=== PATIENT | male | born 1960 | race Caucasian/White ===

== ENCOUNTER 2017-10-14 03:23 | Emergency (ER) | payer OTHER, SELFPAY ==
[2017-10-14] MEDS ORDERED: NA CHLORIDE 0.9% 3,000 ML ONE (03:59)
[2017-10-14] MEDS ORDERED: VANCOMYCIN 1 GM/250 ML BAG ONE (04:00)
[2017-10-14] MEDS ORDERED: ACETAMINOPHEN 500 MG TAB ONE (04:00)
[2017-10-14] MEDS ORDERED: PIPER/TAZO/NS 3.375gm 3.375 GM/100 ML BAG ONE (04:00)
[2017-10-14 04:23] LABS: Protime INR 1.42
[2017-10-14 04:25] LABS: Absolute Monocytes 1.7 K/uL (0.1-1.3); Basophils % 1.1 % (0-1.3); Eosinophils % 5.7 % (0-4.4); Hematocrit 35.5 % (39.6-49.0); Lymphocytes % 19.2 % (15.3-44.8); MCH 31.4 pg (27.0-35.0); MCV 90.3 fL (80-100); MPV 7.7 fL (7.6-11.3); Monocytes % 10.9 % (3.3-12.3); RBC Red Blood Cell Count 3.93 M/uL (4.33-5.43)
[2017-10-14 04:50] LABS: Albumin 2.8 g/dL (3.4-5.0); Bilirubin Direct 0.2 mg/dL (0-0.2); Bilirubin Total 0.6 mg/dL (0.2-1.0); Protein, Total 7.5 g/dL (6.4-8.2)
--- NOTE | 2017-10-14 09:20 | ER ---
Nurse's Notes [facility] Name: Henry Elliott Age: 56 yrs Sex: Male : 1960 Arrival Date: 10/14/2017 Time: 03:25 Bed 6 Private MD: Diagnosis: Incisional hernia without obstruction or gangrene;Complications due to implanted mesh and other prosthetic materials-infected hematoma;Fever, unspecified;Elevated white blood cell count Presentation: 10/14 03:30 Presenting complaint: EMS states: HE'S HAD A FEVER FOR TWO DAYS AND HE HAD HERNIA bp SURGERY TWO WEEKS AGO. Transition of care: patient was not received from another setting of care. Onset of symptoms is unknown. Risk Assessment: Do you want to hurt yourself or someone else? Patient reports no desire to harm self or others. Initial Sepsis Screen: Does the patient meet any 2 criteria? Temp <36.0*C (96.8*F)) or > 38.3*C (100.4*F). No. Patient's initial sepsis screen is negative. Does the patient have a suspected source of infection? No. Patient's initial sepsis screen is negative. Care prior to arrival: None. 03:30 Method Of Arrival: EMS: [facility] bp 03:30 Acuity: TOMMY 3 bp Triage Assessment: 03:35 General: Appears in no apparent distress. comfortable, obese, Behavior is calm, bp cooperative, appropriate for age. Pain: Complains of pain in pelvis. EENT: No deficits noted. Neuro: Level of Consciousness is awake, alert, obeys commands, Oriented to person, place, time, situation. Respiratory: Airway is patent Respiratory effort is even, unlabored, Respiratory pattern is regular, symmetrical. GI: No signs and/or symptoms were reported involving the gastrointestinal system. : No signs and/or symptoms were reported regarding the genitourinary system. Derm: Wound noted pelvis. Historical: - Allergies: 03:35 No Known Allergies; bp - Home Meds: 03:35 None [Active]; bp - PMHx: 03:35 None; bp - PSHx: 03:35 Hernia repair; bp - Immunization history:: Adult Immunizations up to date. - Social history:: Smoking status: Patient uses tobacco products, denies chronic smoking, but will smoke occasionally. - Ebola Screening: : Patient negative for fever greater than or equal to 101.5 degrees Fahrenheit, and additional compatible Ebola Virus Disease symptoms Patient denies exposure to infectious person Patient denies travel to an Ebola-affected area in the 21 days before illness onset. - Family history:: not pertinent. - Hospitalizations: : No recent hospitalization is reported. Screenin:43 Abuse screen: Denies threats or abuse. Denies injuries from another. Nutritional bp screening: No deficits noted. Tuberculosis screening: No symptoms or risk factors identified. Fall Risk None identified. Assessment: 03:45 General: Appears in no apparent distress. comfortable, obese, Behavior is calm, bp cooperative, appropriate for age. Pain: Complains of pain in pelvis. Neuro: Level of Consciousness is awake, alert, obeys commands, Oriented to person, place, time, situation, Appropriate for age. Cardiovascular: Rhythm is sinus rhythm. Respiratory: Airway is patent Respiratory effort is even, unlabored, Respiratory pattern is regular, symmetrical. GI: No signs and/or symptoms were reported involving the gastrointestinal system. : No signs and/or symptoms were reported regarding the genitourinary system. EENT: No deficits noted. Derm: Skin is intact, Wound noted pelvis. Musculoskeletal: Circulation, motion, and sensation intact. Range of motion: intact in all extremities. 05:19 Reassessment: PT TO CT WITH BANK EXAMINER. bp 07:14 General: Appears in no apparent distress. comfortable, Behavior is calm, cooperative, jl7 appropriate for age. Pain: Denies pain. Neuro: Level of Consciousness is awake, alert, obeys commands, Oriented to person, place, time, situation. Cardiovascular: Patient's skin is warm and dry. Respiratory: Airway is patent Respiratory effort is even, unlabored, Respiratory pattern is regular, symmetrical. Derm: Skin is pink, warm \T\ dry. 08:15 Reassessment: No changes from previously documented assessment. Patient and/or family jl7 updated on plan of care and expected duration. Pain level reassessed. Patient is alert, oriented x 3, equal unlabored respirations, skin warm/dry/pink. 09:15 Reassessment: Patient and/or family updated on plan of care and expected duration. Pain jl7 level reassessed. Patient is alert, oriented x 3, equal unlabored respirations, skin warm/dry/pink. Vital Signs: 03:35 BP 121 / 81; Pulse 100; Resp 14; Temp 100.7; Pulse Ox 97% ; Weight 83.91 kg; Height 5 bp ft. 5 in. (165.10 cm); 04:34 BP 133 / 83; Pulse 84; Resp 14; Pulse Ox 98% ; bp 05:15 BP 126 / 74; Pulse 84; Resp 16; Pulse Ox 99% ; bp 07:10 BP 134 / 64; Pulse 80; Resp 18 S; Temp 98.8(O); Pulse Ox 100% on R/A; Pain 0/10; jl7 09:30 BP 131 / 68; Pulse 80; Resp 16; Pulse Ox 100% on R/A; jl7 03:35 Body Mass Index 30.79 (83.91 kg, 165.10 cm) bp ED Course: 03:25 Patient arrived in ED. ds1 03:30 Stewart Mustafa, RN is Primary Nurse. bp 03:33 Triage completed. bp 03:37 Joaquin Johnson MD is Attending Physician. wa 03:43 Arm band placed on. bp 03:43 Patient has correct armband on for positive identification. Bed in low position. Call bp light in reach. Side rails up X2. 04:19 Missed attempt(s): 20 gauge Bleeding controlled, band aid applied, catheter tip intact. oe 04:20 Inserted saline lock: 20 gauge in right forearm, using aseptic technique. ea 04:29 Radiology exam delayed due to IV insertion attempt and/or patient not having mh1 appropriate IV at this time. 04:32 Radiology exam delayed due to lab results not completed at this time. (BUN/Creatinine). kw1 05:[address] via wheelchair. kw1 05:14 X-ray completed. Portable x-ray completed in exam room. Patient tolerated procedure mh1 well. 05:31 CT completed. Patient tolerated procedure well. Patient moved back from CT. kw1 07:10 Primary Nurse role handed off by Stewart Mustafa RN jl7 07:10 Doe Bradford RN is Primary Nurse. jl7 07:10 called and left message the [facility] in [place] to get a hold of a Dr. christiane Rivero at [phone] for the ED doctor. 07:28 Attending Physician role handed off by Joaquin Johnson MD marcy 07:28 Donta Crespo MD is Attending Physician. marcy 07:42 Wound care: to surgical incision located on left inguinal area was cleaned with with jl7 NS, dressed with non-stick gauze, Patient tolerated well. 08:07 Patient taken to ultrasound. neto 09:03 Ultrasound completed. Patient tolerated well. Patient moved back from ultrasound. neto 09:25 US Scrotum Testicles In Process Unspecified. EDMS 09:27 Chest Single View XRAY In Process Unspecified. EDMS 09:34 CT Abd/Pelvis - W/Contrast In Process Unspecified. EDMS 09:51 No provider procedures requiring assistance completed. Patient transferred, IV remains jl7 in place. intact, No redness/swelling at site. Administered Medications: 04:20 Drug: Tylenol 1000 mg Route: PO; ea 04:43 Follow up: Response: No adverse reaction bp 04:20 Drug: Zosyn 3.375 grams Route: IVPB; Infused Over: 60 mins; Site: right forearm; ea 05:20 Follow up: Response: No adverse reaction; IV Status: Completed infusion jl7 04:28 Drug: NS 0.9% (30 ml/kg) 30 ml/kg Route: IV; Rate: bolus; Site: right forearm; ea 07:00 Follow up: IV Status: Completed infusion jl7 05:58 Drug: vancoMYCIN 1 grams Route: IVPB; Infused Over: 2 hrs; Site: right antecubital; bp 07:58 Follow up: Response: No adverse reaction; IV Status: Completed infusion jl7 Point of Care Testing: Blood Glucose: 04:20 Blood Glucose: 118 mg/dL; bp Ranges: Outcome: 07:49 ER care complete, transfer ordered by . marcy 09:51 Transferred by ground EMS to [facility], Transfer form jl7 completed. X-rays sent w/ patient. 09:51 Condition: stable 09:51 Discharge instructions given to patient, Instructed on the need for transfer, Demonstrated understanding of instructions. 09:52 Patient left the ED. jl7 Signatures: Dispatcher [employer] Donta Goodman MD MD cha Harvey, Martha 1 Mary Goel ds1 Blayne Benson jd, Orlando oe Leal, Jahala, RN RN jl7 Sara Ramos RN RN Joaquin Johnson MD MD wa Peltier, Brian RN RN Orly Zamora1 Mendy Cody Corrections: (The following items were deleted from the chart) 08:08 07:10 Adult Protective Services called and left message the [facility] in [facility] to get a hold of a Dr. Andreas Rivero at [phone] for the ED doctor.
--- NOTE | 2017-10-14 09:20 | EDPHYS ---
Physician Documentation [facility] Name: Henry Elliott Age: 56 yrs Sex: Male : 1960 Arrival Date: 10/14/2017 Time: 03:25 Bed 6 Private MD: ED Physician Donta Crespo HPI: 10/14 03:52 This 56 yrs old Male presents to ER via EMS with complaints of Fever. wa 03:52 The patient reports fever, that was measured at 103 degrees Fahrenheit. Onset: The wa symptoms/episode began/occurred 2 day(s) ago. Modifying factors: Recent medications: acetaminophen, Denies contact with similarly ill indivduals. Denies recent travel. Interventions used to treat fever include tylenol. Associated signs and symptoms: Pertinent positives: L side groin mass with pain. s/p L inguinal hernia repair 3 weeks ago. Severity of symptoms: At their worst the symptoms were moderate in the emergency department the symptoms have improved. The patient has not experienced similar symptoms in the past. The patient has been recently seen by a physician: on abx prescribed by Dr. Rivero, his general surgeon. pt denies cough, chest pain, dizziness, URENA, SOB, or abd pain. also denies dysuria. s/p L inguinal hernia repair 3 weeks ago. area still with significant swelling. painful and draining. Historical: - Allergies: 03:35 No Known Allergies; bp - Home Meds: 03:35 None [Active]; bp - PMHx: 03:35 None; bp - PSHx: 03:35 Hernia repair; bp - Immunization history:: Adult Immunizations up to date. - Social history:: Smoking status: Patient uses tobacco products, denies chronic smoking, but will smoke occasionally. - Ebola Screening: : Patient negative for fever greater than or equal to 101.5 degrees Fahrenheit, and additional compatible Ebola Virus Disease symptoms Patient denies exposure to infectious person Patient denies travel to an Ebola-affected area in the 21 days before illness onset. - Family history:: not pertinent. - Hospitalizations: : No recent hospitalization is reported. ROS: 03:59 Eyes: Negative for injury, pain, redness, and discharge, ENT: Negative for injury, wa pain, and discharge, Neck: Negative for injury, pain, and swelling, Cardiovascular: Negative for chest pain, palpitations, and edema, Respiratory: Negative for shortness of breath, cough, wheezing, and pleuritic chest pain, Abdomen/GI: Negative for abdominal pain, nausea, vomiting, diarrhea, and constipation, Back: Negative for injury and pain, MS/Extremity: Negative for injury and deformity, Skin: Negative for injury, rash, and discoloration, Neuro: Negative for headache, weakness, numbness, tingling, and seizure. 03:59 Constitutional: Positive for chills, fever, Negative for body aches, poor PO intake, weight loss. 03:59 : Positive for large L side inguinal hernia noted. open surgical wound noted at the top. serosanguinous drainage noted. hard, tender to palpation. warm to touch. 03:59 All other systems are negative. Exam: 04:01 Head/Face: Normocephalic, atraumatic. Eyes: Pupils equal round and reactive to light, wa extra-ocular motions intact. Lids and lashes normal. Conjunctiva and sclera are non-icteric and not injected. Cornea within normal limits. Periorbital areas with no swelling, redness, or edema. ENT: Nares patent. No nasal discharge, no septal abnormalities noted. Tympanic membranes are normal and external auditory canals are clear. Oropharynx with no redness, swelling, or masses, exudates, or evidence of obstruction, uvula midline. Mucous membranes moist. Neck: Trachea midline, no thyromegaly or masses palpated, and no cervical lymphadenopathy. Supple, full range of motion without nuchal rigidity, or vertebral point tenderness. No Meningismus. Chest/axilla: Normal chest wall appearance and motion. Nontender with no deformity. No lesions are appreciated. Cardiovascular: Regular rate and rhythm with a normal S1 and S2. No gallops, murmurs, or rubs. Normal PMI, no JVD. No pulse deficits. Respiratory: Lungs have equal breath sounds bilaterally, clear to auscultation and percussion. No rales, rhonchi or wheezes noted. No increased work of breathing, no retractions or nasal flaring. Abdomen/GI: Soft, non-tender, with normal bowel sounds. No distension or tympany. No guarding or rebound. No evidence of tenderness throughout. Back: No spinal tenderness. No costovertebral tenderness. Full range of motion. Skin: Warm, dry with normal turgor. Normal color with no rashes, no lesions, and no evidence of cellulitis. MS/ Extremity: Pulses equal, no cyanosis. Neurovascular intact. Full, normal range of motion. Neuro: Awake and alert, GCS 15, oriented to person, place, time, and situation. Cranial nerves II-XII grossly intact. Motor strength 5/5 in all extremities. Sensory grossly intact. Cerebellar exam normal. Normal gait. Psych: Awake, alert, with orientation to person, place and time. Behavior, mood, and affect are within normal limits. 04:01 Constitutional: The patient appears in no acute distress, alert, febrile. 04:01 : CVA tenderness, is absent, Male external genitalia: swelling, tenderness, is palpated in the left inguinal area, large L groin mass, tender to palpation. draining wound noted. Vital Signs: 03:35 BP 121 / 81; Pulse 100; Resp 14; Temp 100.7; Pulse Ox 97% ; Weight 83.91 kg; Height 5 bp ft. 5 in. (165.10 cm); 04:34 BP 133 / 83; Pulse 84; Resp 14; Pulse Ox 98% ; bp 05:15 BP 126 / 74; Pulse 84; Resp 16; Pulse Ox 99% ; bp 07:10 BP 134 / 64; Pulse 80; Resp 18 S; Temp 98.8(O); Pulse Ox 100% on R/A; Pain 0/10; jl7 09:30 BP 131 / 68; Pulse 80; Resp 16; Pulse Ox 100% on R/A; jl7 03:35 Body Mass Index 30.79 (83.91 kg, 165.10 cm) bp MDM: 03:37 Patient medically screened. md 04:03 Differential diagnosis: r/o sepsis. suspect post surgical complication with possibly md acute L inguinal abscess formation. will follow sepsis protocol resuscitative measures. will consult pt's surgeon. 06:28 Data reviewed: vital signs, nurses notes, lab test result(s). Test interpretation: by md ED physician or midlevel provider: wbc 15.9. elevated CRP at 150. elevated SED rate at 43. 10/14 03:48 Order name: Urine Microscopic Only 10/14 03:48 Order name: Basic Metabolic Panel 10/14 03:48 Order name: Blood Culture Adult (2) 10/14 03:48 Order name: C-Reactive Protein; Complete Time: :15 md 10/14 03:48 Order name: CBC with Diff; Complete Time: 06:15 md 10/14 03:48 Order name: Lactate; Complete Time: 06:16 md 10/14 03:48 Order name: LFT's; Complete Time: 06:15 md 10/14 03:48 Order name: Lipase; Complete Time: 06:16 md 10/14 03:48 Order name: Procalcitonin md 10/14 03:48 Order name: Protime (+inr); Complete Time: 06:15 md 10/14 03:48 Order name: Sed Rate; Complete Time: 06:15 md 10/14 03:48 Order name: Urine Microscopic Only [facility] 10/14 03:48 Order name: Basic Metabolic Panel; Complete Time: 06:15 [facility] 10/14 06:32 Order name: Urine Dipstick--Ancillary (enter results) 10/14 03:48 Order name: Chest Single View XRAY md 10/14 03:48 Order name: Accucheck; Complete Time: 04:20 md 10/14 03:48 Order name: Cardiac monitoring; Complete Time: 04:20 md 10/14 03:48 Order name: EKG - Nurse/Tech; Complete Time: 04:20 md 10/14 03:48 Order name: IV Saline Lock - Large Bore; Complete Time: 04:20 md 10/14 03:48 Order name: Labs collected and sent; Complete Time: 04:21 md 10/14 03:48 Order name: O2 Per Protocol; Complete Time: 04:21 md 10/14 04:21 Order name: CT Abd/Pelvis - W/Contrast md 10/14 07:07 Order name: US Scrotum Testicles md 10/14 09:40 Order name: EKG Electrocardiogram [facility] 10/14 03:48 Order name: O2 Sat Monitoring; Complete Time: 04:20 md 10/14 03:48 Order name: Urine Dipstick-Ancillary (obtain specimen); Complete Time: 07:57 md 10/14 07:53 Order name: NPO; Complete Time: 07:57 marcy Administered Medications: 04:20 Drug: Tylenol 1000 mg Route: PO; ea 04:43 Follow up: Response: No adverse reaction bp 04:20 Drug: Zosyn 3.375 grams Route: IVPB; Infused Over: 60 mins; Site: right forearm; ea 05:20 Follow up: Response: No adverse reaction; IV Status: Completed infusion jl7 04:28 Drug: NS 0.9% (30 ml/kg) 30 ml/kg Route: IV; Rate: bolus; Site: right forearm; ea 07:00 Follow up: IV Status: Completed infusion jl7 05:58 Drug: vancoMYCIN 1 grams Route: IVPB; Infused Over: 2 hrs; Site: right antecubital; bp 07:58 Follow up: Response: No adverse reaction; IV Status: Completed infusion jl7 Point of Care Testing: Blood Glucose: 04:20 Blood Glucose: 118 mg/dL; bp Ranges: Critical Glucose Levels:Adult <50 mg/dl or >400 mg/dl <40 mg/dl or >180 mg/dl Disposition: 10/14/17 07:49 Transfer ordered to [facility]. Diagnosis are Incisional hernia without obstruction or gangrene, Complications due to implanted mesh and other prosthetic materials - infected hematoma, Fever, unspecified, Elevated white blood cell count. - Reason for transfer: Higher level of care. - Accepting physician is to [facility]. - Condition is Stable. - Problem is new. - Symptoms have improved. Signatures: Dispatcher [employer] EDRI Donta Crespo MD MD cha Leal, Jahala, RN RN jl7 Sara Ramos, Joaquin Chase RN, ea, MD MD wa Peltier, Brian, RN RN Mendy Farooq Corrections: (The following items were deleted from the chart) 04:27 03:51 Pelvis W/Cont+CT.RAD.BRZ ordered. [facility] EDMS 07:57 07:49 10/14/2017 07:49 Transfer ordered to [facility]. Diagnosis is Incisional eb hernia without obstruction or gangrene; Complications due to implanted mesh and other prosthetic materials; Fever, unspecified; Elevated white blood cell count. Reason for transfer: Higher level of care. Accepting physician is to [facility]. Condition is Stable. Problem is new. Symptoms have improved. marcy 09:22 07:07 Pelvis Complete+US.RAD.BRZ ordered. [facility] EDRI 09:46 07:57 10/14/2017 07:49 Transfer ordered to [facility]. Diagnosis is Incisional marcy hernia without obstruction or gangrene; Complications due to implanted mesh and other prosthetic materials; Fever, unspecified; Elevated white blood cell count. Reason for transfer: Higher level of care. Accepting physician is to [facility]. Condition is Stable. Problem is new. Symptoms have improved. eb 09:52 09:46 10/14/2017 07:49 Transfer ordered to [facility]. Diagnosis is Incisional jl7 hernia without obstruction or gangrene; Complications due to implanted mesh and other prosthetic materials - infected hematoma; Fever, unspecified; Elevated white blood cell count. Reason for transfer: Higher level of care. Accepting physician is to [facility]. Condition is Stable. Problem is new. Symptoms have improved. marcy
--- NOTE | 2017-10-14 09:47 | RAD REPORT ---
EXAM DESCRIPTION: RAD - Chest Single View - 10/14/2017 9:26 am CLINICAL HISTORY: Fever, recent hernia surgery COMPARISON: None. TECHNIQUE: AP portable chest image was obtained 0511 hours . FINDINGS: Lungs are clear. Heart and vasculature are normal. No measurable pleural effusion and no p neumothorax. No gross bony abnormality seen. No acute aortic findings suspected. IMPRESSION: No acute cardiopulmonary process.
--- NOTE | 2017-10-14 09:58 | RAD REPORT ---
EXAM DESCRIPTION: CT - Abdomen Pelvis W Contrast - 10/14/2017 9:34 am CLINICAL HISTORY: Groin pain, scrotal pain, history of hernia surgery with reported postoperative he matoma, pain and fever Reporting was delayed due to technical issues with the PACs and [employer] systems. COMPARISON: CT study March 2015 TECHNIQUE: Biphasic, helical CT imaging of the abdomen and pelvis was performed following 100 ml non -ionic IV contrast. Delayed images were obtained to fully image the groin and scrotum. No oral contra st administered. All CT scans are performed using dose optimization technique as appropriate and may include automated exposure control or mA/KV adjustment according to patient size. FINDINGS: No suspicious findings in the lung bases. No pericardial thickening or effusion. Liver is prominent in size. No capsular nodularity. Left lobe is prominent but caudate is normal or s mall in size. No focal liver lesion identifiable. Spleen and pancreas are unremarkable. Gallbladder i s contracted. Gallstones can be occult. No biliary tree dilatation. Symmetric renal function is seen with no hydronephrosis or suspicious renal mass. No pyelonephritis o r acute renal parenchymal process. No urinary bladder abnormality. No dilated bowel loops or bowel wall thickening. No acute GI process. No intraperitoneal free air, pn eumatosis or free fluid. No bulky lymphadenopathy. No adrenal abnormality. No suspicious bony findings. In the left inguinal canal and extending into the scrotum there is a large heterogeneous mass complex measuring 10 x 6 x 8 cm. This has numerous areas of central decreased echogenicity with thickened in termediate density rind. There is congestion and stranding in the the soft tissues. The left testicle is poorly defined in this setting. Left testicle was evaluated on a separate ultrasound study with n o suspicious finding. Right testicle unremarkable at CT imaging. No intraperitoneal extension. Most l ikely etiology is a large hematoma that has been secondarily infected. Abscess material and liquefied hematoma have a similar attenuation. IMPRESSION: Large 10 x 8 x 6 cm heterogeneous mass filling the left scrotum and left inguinal canal. No intraperitoneal extension. Secondarily infected hematoma is the most likely etiology. Abscess without hematoma is possible. The remainder of the CT abdomen and pelvis examination, detailed above, is without significant or ayush picious finding.
--- NOTE | 2017-10-14 10:03 | RAD REPORT ---
EXAM DESCRIPTION: US - Scrotum Testicles - 10/14/2017 9:34 am CLINICAL HISTORY: Left-side groin and scrotal mass, recent hernia surgery COMPARISON: CT imaging same date FINDINGS: Normal right testicle with normal blood flow on Doppler evaluation. Minimal amount of free fluid not regarded as significant. Left testicle shows a normal Doppler blood flow pattern. No intra testicular mass. There is a small left hydrocele as well. Overall scrotal wall thickening and edema noted. Superior to the testicle there is prominent vasculat ure as well as a large heterogeneous mass 6-8 cm in size. When viewed in correlation with the CT stud y, large hematoma with secondary infection is suspected. IMPRESSION: Large groin and superior scrotal mass on the left believed to be a large hematoma with s econdary infection. Normal blood flow within the left testicle. Right testicle unremarkable as well. Small bilateral hydroceles.
[2017-10-14 12:07] LABS: Urine Blood TRACE (NEG); Urine Glucose NEGATIVE (NEG); Urine Protein 1+ (NEG)
--- NOTE | 2017-10-14 12:52 | EKG ---
Test Date: 2017-10-14 Test Time: 04:23:17 [employer]ux Plant Operator: BP MEASUREMENT RESULTS: Intervals: Rate: 91 MT: 150 QRSD: 102 QT: 356 QTc: 437 Ephraim: P: 54 MT: 150 QRS: 51 T: 63 INTERPRETIVE STATEMENTS: Sinus rhythm with premature atrial complexes Incomplete right bundle branch block Borderline ECG Compared to ECG 05/22/2012 20:01:22 Atrial premature complex(es) now present Incomplete right bundle-branch block now present Electronically Signed On 10-14-17 12:51:09 CDT by Murray Dawn
[2017-10-14 13:35] LABS: Urine Bacteria <20 /HPF (NONE SEEN); Urine RBC NONE SEEN /HPF (NONE SEEN)
[2017-10-14 13:36] LABS: Urine Culture Reflex Order REFLEXED
== END 2017-10-14 09:52 | disposition short-term general hospital (02) ==
LOC: ER 03:23
DX: T85.79XA Infection and inflammatory reaction due to other internal prosthetic devices, implants and grafts, initial encounter (principal); Y73.3 Surgical instruments, materials and gastroenterology and urology devices (including sutures) associated with adverse incidents; Y92.019 Unspecified place in single-family (private) house as the place of occurrence of the external cause; K43.2 Incisional hernia without obstruction or gangrene; Z72.0 Tobacco use; R50.9 Fever, unspecified
CPT/HCPCS: 36415; 71045; 74177; 76870; 80048; 80076; 81003; 81015; 82962; 83605; 83690; 84145; 85025; 85610; 85652; 86140; 87040; 87086; 87088; 93005; 99285; J2543; J3370; J7030; Q9967

== ENCOUNTER 2020-01-21 09:45 | Observation (INO) | payer OTHER ==
--- OUTSIDE RECORDS SUMMARY | 2020-01-21 09:56 | XMS REPORT | Continuity of Care Document ---
:1960 Author Organization [facility] t Address [address] [place] [place] [address] Care Team Providers Name Role Phone Beryl RYAN Attending Clinician Doctor Unassigned, Name Attending Clinician Unavailable Problems This patient has no known problems. Allergies, Adverse Reactions, Alerts This patient has no known allergies or adverse reactions. Medications This patient has no known medications. Procedures This patient has no known procedures. Encounters Start End Encounter Admission Attending Care Care Encounter Source Date/Time Date/Time Type Type Clinicians Facility Department ID 2019-12-21 2019-12-21 Office SULTANA [place] [id number] 10:01:25 11:40:21 Visit Dez Man [id number] [place] [id number] [place] [id number] [address] 2019-12-13 2019-12-13 Orders Doctor BAIN [id number] 00:00:00 00:00:00 Only Unassigned, KEY [id number] [place] [facility] [id number] Results This patient has no known results.
--- OUTSIDE RECORDS SUMMARY | 2020-01-21 09:56 | XMS REPORT | Summary of Care ---
:1960 Author Organization [facility] Address [address] [place] [id number] Care Team Providers Name Role Phone Cookie James Primary Care Provider Reason for Referral (Routine) Status Reason Specialty Diagnoses / Referred By Referred To Procedures Contact Contact Pending Location Neurology Diagnoses Chronic nonintractable headache, unspecified headache type Martine, Review Preference Procedures CONSULT/REFERRAL NEUROLOGY MEIR Espinal [address] [place] [id number] Reason for Visit Reason Comments Headache x 2 years Encounter Details Date Type Department Care Team Description 11/09/2019 Urgent Care [facility] Skyler Lindsey FNP [address] [place] [phone] Chronic nonintractable headache, unspeci fied headache type (Primary Dx); Medicine - [place] Provider, [facility] Essential hypertension; [address] [place] [address] [place] [phone] Allergies No Known Allergiesdocumented as of this encounter (statuses as of 11/09/2019) Medications Medication Sig Dispensed Refills Start Date End Date Status HYDROcodone-acetaminop Take 1 tablet by 30 tablet 0 10/15/2017 Active hen 5-325 mg tablet mouth every 4 (four) hours as needed for Pain (scale 4-6) or Pain (scale 7-10). Additional Information Patient not taking. Reported on 11/24/2018 12:10 AM hydrOXYzine 25 mg Take 1 tablet by 10 tablet 0 12/14/2017 Active tabletIndications: Allergic mouth every 6 (six) contact dermatitis due to hours as needed for plants, except food Itching. triamcinolone acetonide 0.1 % Apply to area(s) 2 15 g 0 12/29/2017 Active ointmentIndications: Heat rash (two) times daily. Additional Information Patient not taking. Reported on 11/24/2018 12:10 AM fluticasone 50 mcg/actuation nasal Use 2 Sprays in each 16 g 0 04/03/2018 Active sprayIndications: Nasopharyngitis nostril daily. Additional Information Patient not taking. Reported on 11/24/2018 12:10 AM varenicline 0.5 mg (11)- 1 mg Take one 0.5mg tab 1 Package 0 0 08/22/2018 Active (42) tabletIndications: Encounter by mouth once daily for smoking cessation counseling for 3 days, then one 0.5mg tab twice daily for 4 days, then one 1mg tab twice daily. Additional Information Patient not taking. Reported on 11/24/2018 12:10 AM divalproex ER 250 mg 24 hr Take 1 tablet by 60 tablet 2 2018 Active tabletIndications: Episodic mouth 2 (two) times cluster headache, not intractable daily. Additional Information Patient not taking. Reported on 11/24/2018 12:10 AM aspirin 81 mg chewable tablet Take 162 mg by mouth 0 Active daily. hydroCHLOROthiazide 25 mg Take 1 tablet by 90 tablet 3 019 Active tabletIndications: Essential mouth daily. hypertension amoxicillin-clavulanate Take 1 tablet by 10 tablet 0 9 Active (AUGMENTIN) 875-125 mg per mouth 2 (two) times tabletIndications: Acute daily. appendicitis with localized peritonitis and gangrene, unspecified whether abscess present, unspecified whether perforation present traMADol 50 mg Take 1 tablet by 20 tablet 0 11/27/2018 Active tabletIndications: Acute mouth every 6 (six) appendicitis with localized hours as needed for peritonitis and gangrene, Pain (scale 1-3). unspecified whether abscess present, unspecified whether perforation present INDOMETHACIN 50 mg TAKE 1 CAPSULE BY 60 capsule 1 01/17/2019 Active capsuleIndications: Episodic MOUTH 3 (THREE) cluster headache, not TIMES DAILY WITH intractable MEALS. venlafaxine 75 mg Take 1 tablet by 30 tablet 4 01/25/2019 Active tabletIndications: Episodic mouth daily. cluster headache, not intractable documented as of this encounter (statuses as of 11/09/2019) Active Problems Problem Noted Date Infection 11/25/2018 JOSHUA (acute kidney injury) 11/23/2018 Acute appendicitis 11/23/2018 Groin hematoma 10/14/2017 Obesity (BMI 30-39.9) 10/14/2017 Ventral hernia without obstruction or gangrene 018 Inguinal hernia with incarceration 09/12/2017 Overview: Added automatically from request for deena torre [id number] documented as of this encounter (statuses as of 11/09/2019) Immunizations Name Administration Dates Next Due TDAP 10/04/2017 documented as of this encounter Social History Tobacco Use Types Packs/Day Years Used Date Former Smoker Cigarettes 20 Smokeless Tobacco: Never Used Comments: 2014 Alcohol Use Drinks/Week oz/Week Comments No Financial Resource Strain Answer Date Recorded How hard is it for you to pay for the very basics like Not h merlin at all 11/24/2018 food, housing, medical care, and heating? Food Insecurity Answer Date Recorded Within the past 12 months, you worried that your food would Never true 11/24/2018 run out before you got money to buy more. Within the past 12 months, the food you bought just didn't N ever true 11/24/2018 last and you didn't have money to get more. Transportation Needs Answer Date Recorded In the past 12 months, has lack of transportation kept you f rom No 11/24/2018 medical appointments or from getting medications? In the past 12 months, has lack of transportation kept you f rom No 11/24/2018 meetings, work, or getting things needed for daily living? Sex Assigned at Date Recorded Not on file COVID-19 Exposure Response Date Recorded In the last month, have you been in contact with No / Unsure 11/09/2019 1:38 PM CDT someone who was confirmed or suspected to have Coronavirus / COVID-19? documented as of this encounter Last Filed Vital Signs Vital Sign Reading Time Taken Comments Blood Pressure 149/92 11/09/2019 1:45 PM CDT Pulse 79 11/09/2019 1:41 PM CDT Temperature 35.8 C (96.5 F) 11/09/2019 1:41 PM CDT Respiratory Rate 18 11/09/2019 1:41 PM CDT Oxygen Saturation 99% 11/09/2019 1:41 PM CDT Inhaled Oxygen Concentration - - Weight 83.9 kg (185 lb) 11/09/2019 1:41 PM CDT Height 165.1 cm (5' 5") 11/09/2019 1:41 PM CDT Body Mass Index 30.79 11/09/2019 1:41 PM CDT documented in this encounter Progress Notes Shira Farley PA - 11/09/2019 1:40 PM CDT Cc: Chief Complaint Patient presents with Headache x 2 years Henry Elliott is a 58 year old male. Patient presents with chronic headache. He has been under the care of [facility] neuro, Dr. Christensen for his headaches. MICHAEL 01/09/19, dx: episdoic cluster headache. Started on venlafaxine. Advised to follow-up after 2 months. He has had negative MRI brain and MR venogram. Has tried depakote and indomethacin w ithout significant improvement in headaches. Headaches are not every day. Last about an 1 hour. Denies snoring, witnessed apnea, excessive fatigue. Lifestyle habits: Water: 1 gallon Exercise: none Sleep: 6-8 hours. Diet: meat, potatoes, crackers, ice cream. HTN: On hctz per PCP. Just stopped taking it. Has not recently been monitoring BP at home. Was 120/80s. Caffeine: none Exercise: none Associated s/s: No cp, palpitations, le edema No dizziness, syncope, weakness No abdominal pain, n/v No hematuria, seizures Headache Pain location: L temporal and R temporal Quality: sometimes dull and sometimes feels like a screw in his head. Severity currently: 5/10 Severity at highest: 10/10 (last occurence 1 week ago) Duration: 2 years. Timing: Intermittent Progression: Unchanged Chronicity: Chronic Similar to prior headaches: yes Context: not activity, not exposure to bright light, not caffeine, not coughing, not defecating, noteating, not stress, not exposure to cold air, not intercourse, not loud noise and not straining Relieved by: Tylenol 3; marijuana. Worsened by: Nothing Associated symptoms: no abdominal pain, no back pain, no blurred vision, no congestion, no cough, nodiarrhea, no dizziness, no drainage, no ear pain, no eye pain, no facial pain, no fatigue, no fever,no focal weakness, no hearing loss, no loss of balance, no myalgias, no nausea, no near-syncope, no neck pain, no neck stiffness, no numbness, no paresthesias, no photophobia, no seizures, no sinus pressure, no sore throat, no swollen glands, no syncope, no tingling, no URI, no visual change, no vomiting and no weakness Allergies Henry has No Known Allergies. Medications Outpatient Medications Prior to Visit Medication Sig Dispense Refill venlafaxine 75 mg tablet Take 1 tablet by mouth daily. 30 tablet 4 INDOMETHACIN 50 mg capsule TAKE 1 CAPSULE BY MOUTH 3 (THREE) TIMES DAILY WITH MEALS. 60 capsule 1 hydroCHLOROthiazide 25 mg tablet Take 1 tablet by mouth daily. 90 tablet 3 amoxicillin-clavulanate (AUGMENTIN) 875-125 mg per tablet Take 1 tablet by mouth 2 (two) times daily. 10 tablet 0 traMADol 50 mg tablet Take 1 tablet by mouth every 6 (six) hours as needed for Pain (scale 1-3).20 tablet 0 aspirin 81 mg chewable tablet Take 162 mg by mouth daily. divalproex ER 250 mg 24 hr tablet Take 1 tablet by mouth 2 (two) times daily. (Patient not taking: Reported on 11/24/2018) 60 tablet 2 varenicline 0.5 mg (11)- 1 mg (42) tablet Take one 0.5mg tab by mouth once daily for 3 days, then one 0.5mg tab twice daily for 4 days, then one 1mg tab twice daily. (Patient not taking: Reported on 11/24/2018) 1 Package 0 fluticasone 50 mcg/actuation nasal spray Use 2 Sprays in each nostril daily. (Patient not taking: Reported on 11/24/2018) 16 g 0 triamcinolone acetonide 0.1 % ointment Apply to area(s) 2 (two) times daily. (Patient not taking: Reported on 11/24/2018) 15 g 0 hydrOXYzine 25 mg tablet Take 1 tablet by mouth every 6 (six) hours as needed for Itching. 10 tablet 0 HYDROcodone-acetaminophen 5-325 mg tablet Take 1 tablet by mouth every 4 (four) hours as needed for Pain (scale 4-6) or Pain (scale 7-10). (Patient not taking: Reported on 11/24/2018) 30 tablet 0 No facility-administered medications prior to visit. Histories Past Medical History: Diagnosis Date Depression Hernia of testicle Hypertension Past Surgical History: Procedure Laterality Date ELBOW ARTHROPLASTY INGUINAL HERNIORRHAPHY Left 09/15/2017 Surgeon: Andreas Rivero MD; Location: [facility] OR [facility] LAPAROSCOPIC APPENDECTOMY N/A 11/24/2018 Surgeon: Zora Rodríguez MD; Location: [facility] WOUND DEBRIDEMENT Left 10/15/2017 Surgeon: Andreas Rivero MD; Location: [facility] Social History Socioeconomic History Marital status: Single Spouse name: Not on file Number of children: Not on file Years of education: Not on file Highest education level: Not on file Occupational History Not on file Social Needs Financial resource strain: Not hard at all Food insecurity Worry: Never true Inability: Never true Transportation needs Medical: No Non-medical: No Tobacco Use Smoking status: Former Smoker Years: 20.00 Types: Cigarettes Smokeless tobacco: Never Used Tobacco comment: 2014 Substance and Sexual Activity Alcohol use: No Drug use: Yes Types: Marijuana Sexual activity: Yes Lifestyle Physical activity Days per week: Not on file Minutes per session: Not on file Stress: Not on file Relationships Social connections Talks on phone: Not on file Gets together: Not on file Attends synagogue service: Not on file Active member of club or organization: Not on file Attends meetings of clubs or organizations: Not on file Relationship status: Not on file Intimate partner violence Fear of current or ex partner: Not on file Emotionally abused: Not on file Physically abused: Not on file Forced sexual activity: Not on file Other Topics Concern Not on file Social History Narrative Not on file Family History Problem Relation Age of Onset Dementia Mother Diabetes Father Cancer Father Diabetes Brother Cancer Brother Review of Systems Constitutional: Negative for activity change, appetite change, chills, diaphoresis, fatigue, fever and unexpected weight change. HENT: Negative for congestion, ear pain, facial swelling, hearing loss, postnasal drip, rhinorrhea, sinus pressure, sneezing, sore throat and tinnitus. Eyes: Negative for blurred vision, photophobia, pain, discharge, redness, itching and visual disturbance. Respiratory: Negative for cough, chest tightness and shortness of breath. Cardiovascular: Negative for chest pain, palpitations, leg swelling, syncope and near-syncope. Gastrointestinal: Negative for abdominal pain, constipation, diarrhea, nausea and vomiting. Genitourinary: Negative for bladder incontinence, urgency, polyuria, frequency and hematuria. Musculoskeletal: Negative for arthralgias, back pain, myalgias, neck pain and neck stiffness. Skin: Negative for color change and rash. Neurological: Positive for headaches. Negative for dizziness, tremors, focal weakness, seizures, syncope, facial asymmetry, speech difficulty, weakness, light-headedness, numbness, paresthesias and loss of balance. Psychiatric/Behavioral: Negative for agitation, behavioral problems and confusion. Hematological: Negative for cold intolerance and heat intolerance. Endocrine: Negative for cold intolerance, heat intolerance, polydipsia, polyphagia and polyuria. Vital Signs BP (!) 149/92 | Pulse 79 | Temp 35.8 C (96.5 F) (Oral) | Resp 18 | Ht 5' 5" (1.651 m) | Wt 185 lb (83.9 kg) | SpO2 99% | BMI 30.79 kg/m Vitals: 11/09/19 1341 11/09/19 1345 BP: (!) 141/88 (!) 149/92 Pulse: 79 Resp: 18 Temp: 35.8 C (96.5 F) TempSrc: Oral SpO2: 99% Weight: 185 lb (83.9 kg) Height: 5' 5" (1.651 m) Physical Exam Vitals signs and nursing note reviewed. Constitutional: General: He is not in acute distress. Appearance: He is well-developed. He is not diaphoretic. HENT: Head: Normocephalic and atraumatic. Right Ear: External ear normal. Left Ear: External ear normal. Nose: Nose normal. Mouth/Throat: Pharynx: Oropharynx is clear. Eyes: Extraocular Movements: Extraocular movements intact. Conjunctiva/sclera: Conjunctivae normal. Pupils: Pupils are equal, round, and reactive to light. Neck: Musculoskeletal: Full passive range of motion without pain, normal range of motion and neck supple. No neck rigidity. Thyroid: No thyromegaly. Vascular: No carotid bruit. Cardiovascular: Rate and Rhythm: Normal rate and regular rhythm. Heart sounds: Normal heart sounds. Pulmonary: Effort: Pulmonary effort is normal. Breath sounds: Normal breath sounds. Abdominal: General: Bowel sounds are normal. There is no distension. Palpations: Abdomen is soft. Tenderness: There is no abdominal tenderness. There is no guarding or rebound. Musculoskeletal: Normal range of motion. Lymphadenopathy: Cervical: No cervical adenopathy. Skin: General: Skin is warm and dry. Neurological: General: No focal deficit present. Mental Status: He is alert and oriented to person, place, and time. Cranial Nerves: No cranial nerve deficit. Sensory: No sensory deficit. Motor: No abnormal muscle tone. Coordination: Coordination normal. Comments: Able to raise eyebrows, frown, smile, poof out cheeks, bite down and clench jaw, stick out tongue and say AH, move tongue side to side, sensory of face to palpation intact when eyes closed, hearing to rubbing of fingers with eyes closed intact, interpretation of number of fingers being held intact SANA fingers and hands intact, finger to nose intact, heel to berger intact Strength 5/5 b/l UE and LE Sensory intact and equal b/l UE and LE Negative rhomberg and pronator drift test Gait- intact Psychiatric: Mood and Affect: Mood normal. Behavior: Behavior normal. Assessment/Plan Chronic nonintractable headache, unspecified headache type (primary encounter diagnosis) Plan: CONSULT/REFERRAL NEUROLOGY Chronic, intermittent URENA x 2 years. Unchanged. Has been under the care of [facility] neuro and had negative MRI. Also tried multiple therapies without significant improvement. URENA today feels the same as previous headaches, unchanged. Headache is not sudden onset, Not maximum at intensity, Not worst URENA of life, normal neuro exam, do not suspect SAH. Well appearing. No meningeal findings on exam, afebrile, do not suspect meningitis. Normal Neuro exam. No focal neuro findings suggestive of CVA/TIA. No head trauma. No AMS or neuro findings suggestive of intracranial mass. Patient would like to establish withnew neurologist for a second opinion. Encouraged to take otc Tylenol as needed for URENA. ED precautions given. Educated on the following at home care: Headache triggers to avoid: Alcohol Aged and processed cheese Aged, cured or processed meats Hot dogs and many lunch meats Food additives, such as meat tenderizers, monosodium glutamate, soy sauce, and yeast extracts Chocolate Caffeinated beverages- tea, cola, coffee Missing/skipping meals Tired or fatigued Stress Lack of exercise Lifestyle changes to incorporate: Needs to increase water intake- at least 64 ounces daily. Sleep: 6-8 hours each night. Relaxation techniques- such as prayer and meditation Exercise: 30 minutes cardio x 5 days weekly or total 150 minutes per week. Healthy diet: lean meat- chicken, turkey, fish; vegetables, fruits; avoid fat/sugar/carbs. ER--> worsening condition; worst UERNA of life, AMS, dizziness, syncope, vision changes, seizures, facial droop, speech slurring, cp, sob, weakness. Essential hypertension Plan: BP a little elevated today. Admits to noncompliance with HTN regimen. Encouraged to take as directedwith PCP. Encouraged to follow-up with PCP within 1 week with BP log. Watch blood pressure: check 2-3 times daily and log. Look for high numbers >= 130/80. Log readings Low salt Low caffeine diet Low alcohol Avoid tobacco products. Avoid decongestants Heart Healthy Exercise: total of 150 minutes of cardio: walking,swimming, hiking, biking every week. Heart healthy diet: low fat/carb/sugar diet; increase lean meat-chicken, turkey, fish; increase vegetables/fruits ( still be careful because elevated sugar level) Er--> chest pain, dizziness, passing out, fluttering of heart, shortness of breath. Marijuana use Plan: Educated on marijuana use cessation. Pt ed/precautions given in detail regarding conditions/medicaitons. Er precautions given. Pt reportsunderstanding and agrees. rtc if s/s worsen or do not improve ; Plan of care, desired health behaviors, goals, Ddx, & any prescribed or OTC medications discussed with patient. Education resources & self management tools provided and reviewed with AVS. Patient/guardian/family verbalized understanding & agrees to plan of care. Barriers to care: NONE Ability to manage care: Good This visit did not involve counseling and coordination that comprised more than 50% of the visit time. Areli Marroquin RN - 11/09/2019 1:40 PM CDT Henry Elliott is a 58 year old male Chief Complaint Patient presents with Headache x 2 years Vitals: 11/09/19 1341 BP: (!) 141/88 Pulse: 79 Resp: 18 Temp: 35.8 C (96.5 F) TempSrc: Oral SpO2: 99% Weight: 185 lb (83.9 kg) Height: 5' 5" (1.651 m) [facility]/pharmacy #[id number] - [address] [facility] Patient AAOx4 and in no acute distress. All Vitals taken, allergies and all medications reviewed, fall risk assessed. documented in this encounter Plan of Treatment Health Maintenance Due Date Last Done Comments HEPATITIS C (HCV) SCREEN 1960 PNEUMOCOCCAL 0-64 YEARS COMBINED SERIES (1 of 3 - 1964 PCV13) COLON CANCER SCREENING ANNUAL FIT/FOBT 2008 COLON CANCER SCREENING FIT DNA EVERY 3 YEARS 2008 COLON CANCER SCREENING SIGMOIDOSCOPY EVERY 5 YEARS 2008 COLONOSCOPY 2008 Colorectal Cancer Screening 2008 Zoster Recombinant Vaccine (SHINGRIX) (1 of 2) 2008 LUNG CANCER SCREEN: Recommended for age 55-80 with 30 2013 + pack year history INFLUENZA VACCINE (#1) 2019 Depression Screening 01/10/2020 01/09/2019 DTaP,Tdap,and Td Vaccines (2 - Td) 10/05/2027 10/04/2017 documented as of this encounter Implants Implanted Type Area [employer] Technician Device Shelf Model / Identifier Expiration Serial / Date Lot Prolene 2.4"X5.4" MESH Left: Ethicon 12/18/2020 P MLK / Implanted: Qty: 1 on 09/15/2017 by Andreas Rivero MD at [facility] [employer] [id number] / [id number] documented as of this encounter Results Not on filedocumented in this encounter Visit Diagnoses Diagnosis Chronic nonintractable headache, unspeci fied headache type - Primary Essential hypertension Unspecified essential hypertension Marijuana use Cannabis abuse, unspecified documented in this encounter Insurance Payer Benefit Plan / Subscriber ID Effective Dates Phone Addre ss Type Group [facility] [id number] 2017-Present Medicaid COMM PLAN - PLUS MANAGED MEDICAID documented as of this encounter
--- OUTSIDE RECORDS SUMMARY | 2020-01-21 09:57 | XMS REPORT | Summary of Care ---
:1960 Author Organization [facility] - Health Address [address] [place] [address] Care Team Providers Name Role Phone Cookie James KARY Primary Care Provider Encounter Details Date Type Department Care Team Description 12/13/2019 Orders Only [facility] Doctor Unassigned, No [address] [facility] [place] [address] [address] [place] [address] Allergies Not on Filedocumented as of this encounter (statuses as of 01/17/2020) Medications Medication Sig Dispensed Refills Start Date [...] mouth 2 (two) times cluster headache, not daily. intractable aspirin 81 mg chewable tablet Take 162 mg by mouth 0 Active daily. traMADol 50 mg Take 1 tablet by [...] as of this encounter (statuses as of 01/17/2020) Active Problems Problem Noted Date Essential hypertension 12/21/2019 Chronic cluster headache, not intractable 12/21/2019 Arthritis 12/21/2019 Actinic keratosis due to exposure to sunlight 12/21/19 20 Ex-smoker 12/21/2019 Need for influenza vaccination 12/21/2019 Need for hepatitis C screening test 12/21/2019 Screening for malignant neoplasm of colon 12/21/2019 Infection 11/25/2018 JOSHUA (acute kidney injury) 11/23/2018 Acute appendicitis 11/23/2018 Groin hematoma 10/14/2017 Obesity (BMI 30-39.9) 10/14/2017 Ventral hernia without obstruction or gangrene 018 Inguinal hernia with incarceration 09/12/2017 Overview: Added automatically from request for deena torre [id number] documented as of this encounter (statuses as of 01/17/2020) Immunizations Name Administration Dates Next Due TDAP [...] been in contact with No / Unsure 12/20/2019 9:41 AM CDT someone who was confirmed or suspected to have Coronavirus / COVID-19? documented as of this encounter Last Filed Vital Signs Not on filedocumented in this encounter Plan of Treatment Date Type Specialty Care Team Description 03/26/2020 Office Visit Family Medicine Dez Cordoba MD [address] [place] [address] Dr Portillo [address] [place] [address] 15 [phone] Health Maintenance Due Date Last Done Comments HEPATITIS C (HCV) SCREEN 1960 Depression Screening 1970 COLON CANCER SCREENING ANNUAL 2008 FIT/FOBT COLON CANCER SCREENING FIT DNA 2008 EVERY 3 YEARS COLON CANCER SCREENING 2008 SIGMOIDOSCOPY EVERY 5 YEARS COLONOSCOPY 2008 Colorectal Cancer Screening 2008 LUNG CANCER SCREEN: Recommended 2013 for age 55-80 with 30 + pack year history INFLUENZA VACCINE (#1) 2019 Zoster Recombinant Vaccine 12/20/2020 Postp oned from 2008 (SHINGRIX) (1 of 2) (Vaccine not available) DTaP,Tdap,and Td Vaccines (2 - Td) 10/05/2027 10/04/2017 PNEUMOCOCCAL 0-64 YEARS COMBINED Aged Out No longer eligible based on SERIES patient's age to complete this topic documented as of this encounter Implants Implanted Type Area Back Tender Device Shelf Model / Identifier Expiration Serial / Date Lot Prolene 2.4"X5.4" MESH Left: Ethicon 12/18/2020 P MLK / Implanted: Qty: 1 on 09/15/2017 by Andreas Rivero MD at [facility] [employer] [id number] / [id number] documented as of this encounter Procedures Procedure Name Priority Date/Time Associated Diagnosis Comme nts VACCINATIONS - CONSENTS, Routine 12/13/2019 12:01 AM ELIGIBILITY, HISTORY CDT documented in this encounter Results Not on filedocumented in this encounter Insurance Payer Benefit Plan / Subscriber ID Effective Dates Phone Addre ss Type Group [facility] [id number] 2017-Present Medicaid COMM PLAN - PLUS MANAGED MEDICAID documented as of this encounter
--- OUTSIDE RECORDS SUMMARY | 2020-01-21 09:57 | XMS REPORT | Summary of Care ---
:1960 Author Organization [facility] Address [address] [place] [address] Care Team Providers Name Role Phone Cookie James Primary Care Provider Reason for Referral (Routine) Status Reason Specialty Diagnoses / Procedures Referred By C ontact Referred To Contact Closed Endoscopy Diagnoses Screening for malignant neoplasm of colon Dez Cordoba MD Procedures COLONOSCOPY,SCREENING Preferred Location: [address] Portillo [address] [place] [address] [phone] Phone: (Routine) Status Reason Specialty Diagnoses / Referred By Referred To Procedures Contact Contact New Request Surgery Diagnoses Screening for malignant neoplasm of colon Dez Cordoba, Procedures CONSULT/REFERRAL GENERAL SURGERY [address] [place] [address] Dr Portillo [address] [place] [address] [phone] (Routine) Status Reason Specialty Diagnoses / Referred By Referred To Procedures Contact Contact New Request Dermatology Diagnoses Actinic keratosis due to exposure to sunlight Dez Cordoba, Procedures CONSULT/REFERRAL DERMATOLOGY [address] [place] [address] Dr Portillo [address] [place] [phone] MRI/CAT Scan (Routine) Status Reason Specialty Diagnoses / Referred By Referred To Procedures Contact Contact New Request Diagnostic Diagnoses Ex-smoker Beryl, Radiology Procedures CT LUNG CANCER SCREENING MD Dez [address] [place] [address] Dr Portillo [address] [place] [phone] Reason for Visit Reason Comments New Patient Establish Care Headache Hypertension Arthritis VACCINATIONS Encounter Details Date Type Department Care Team Description 12/21/2019 Office Visit [facility] Pediatric Dez Cordoba E ssential hypertension (Primary Dx); and Adult Primary MD Chronic cluster headache, not intractabl e; [facility]- [address] Actinic keratosis due to exposure to sun light; [address] [place] [address] [address] [place] [address] Ex-smoker; [place], [place] [phone] Need for influenza vaccination; [id number] Need for hepatitis C screeni ng test; [phone] Screening for m alignant neoplasm of colon Allergies Not on Filedocumented as of this encounter (statuses as of 01/02/2020) Medications Medication Sig Dispensed Refills Start Date [...] 12:10 AM divalproex ER 250 mg 24 Take 1 tablet 60 tablet 2 09/22/2018 Active hr tabletIndications: by mouth 2 Episodic cluster (two) times headache, not intractable daily. aspirin 81 mg chewable Take 162 mg 0 Active tablet by mouth daily. traMADol 50 mg Take 1 tablet 20 tablet 0 11/27/2018 Active tabletIndications: Acute by mouth appendicitis with every 6 (six) localized peritonitis and hours as gangrene, unspecified needed for whether abscess present, Pain (scale unspecified whether 1-3). perforation present INDOMETHACIN 50 mg TAKE 1 60 capsule 1 01/17/2019 Active capsuleIndications: CAPSULE BY Episodic cluster MOUTH 3 headache, not intractable (THREE) TIMES DAILY WITH MEALS. venlafaxine 75 mg Take 1 tablet 30 tablet 4 01/25/2019 Active tabletIndications: by mouth Episodic cluster daily. headache, not intractable lisinopriL-hydrochlorothi Take 1 tablet 90 tablet 1 12/21/2019 Active azide 10-12.5 mg per by mouth tabletIndications: daily. Essential hypertension varenicline 0.5 mg (11)- Take one 1 Package 0 08/22/2018 2/ Discontinued 1 mg (42) 0.5mg tab by 2019 (Therap y tabletIndications: mouth once completed) Encounter for smoking daily for 3 cessation counseling days, then one 0.5mg tab twice daily for 4 days, then one 1mg tab twice daily. hydroCHLOROthiazide 25 mg Take 1 tablet 90 tablet 3 11/28/201812/20/ Discontinued tabletIndications: by mouth 2019 ( Alternate Essential hypertension daily. therapy) amoxicillin-clavulanate Take 1 tablet 10 tablet 0 11/27/2018 1 / Discontinued (AUGMENTIN) 875-125 mg by mouth 2019 (Therapy per tabletIndications: (two) times completed) Acute appendicitis with daily. localized peritonitis and gangrene, unspecified whether abscess present, unspecified whether perforation present documented as of this encounter (statuses as of 01/02/2020) Active Problems Problem Noted Date Essential hypertension [...] Overview: Added automatically from request for deena nicho [id number] documented as of this encounter (statuses as of 01/02/2020) Immunizations Name Administration Dates Next Due TDAP [...] Sign Reading Time Taken Comments Blood Pressure 139/90 12/21/2019 10:15 AM CDT Pulse 84 12/21/2019 10:14 AM CDT Temperature 36.9 C (98.5 F) 12/21/2019 10:14 AM CDT Respiratory Rate 20 12/21/2019 10:14 AM CDT Oxygen Saturation 98% 12/21/2019 10:14 AM CDT Inhaled Oxygen Concentration - - Weight 86.3 kg (190 lb 3.2 oz) 12/21/2019 10:14 AM CDT Height 167.6 cm (5' 6") 12/21/2019 10:14 AM CDT Body Mass Index 30.7 12/21/2019 10:14 AM CDT documented in this encounter Patient Instructions Patient InstructionsDez Cordoba MD - 12/21/2019 10:00 AM CDT Patient Education Eating Heart-Healthy Food: Using the DASH Plan Eating for your heart doesnt have to be hard or boring. You just need to know how to make healthier choices. The DASH eating plan has been developed to help you do just that. DASH stands for DietaryApproaches to Stop Hypertension. It is a plan that has been proven to be healthier for your heart and to lower your risk for high blood pressure. It can also help lower your risk for cancer, heart disease, osteoporosis, and diabetes. Choosing from each food group Choose foods from each of the food groups below each day. Try to get the recommended number of servings for each food group. The serving numbers are based on a diet of 2,000 calories a day.Talk with your healthcare provider if youre not sure about your calorie needs. Along with getting the correct servings, the DASH plan also advises less than 2,300 mg of salt (sodium) per day. Lowering sodium intake to 1,500 mg per day lowers blood pressure even more. (There's about 2,300 mg of sodium in 1 teaspoon of salt.) Grains Servings: 6 to 8 a day A serving is: 1 slice bread 1 ounce dry cereal Half a cup cooked rice, pasta or cereal Best choices: Whole grains and any grains high in fiber. Vegetables Servings: 4 to 5 a day A serving is: 1 cup raw leafy vegetable Half a cup cut-up raw or cooked vegetable Half a cup vegetable juice Best choices: Fresh or frozen vegetables prepared without added salt or fat. Fruits Servings: 4 to 5 a day A serving is: 1 medium fruit One-quarter cup dried fruit Half a cup fresh, frozen, or canned fruit Half a cup of 100% fruit juices Best choices: A variety of fresh fruits of different colors. Whole fruits are abetter choice than fruit juices. Low-fat or fat-free dairy Servings: 2 to 3 a day A serving is: 1 cup milk 1 cup yogurt One and a half ounces cheese Best choices: Skim or 1% milk, low-fat or fat-free yogurt or buttermilk, and low-fat cheeses. Lean meats, poultry, fish Servings:6 or fewer a day A serving is: 1ounce cooked meats, poultry, or fish 1 egg Best choices: Leanpoultry and fish. Trim away visible fat. Broil, grill, roast, or boil instead offrying. Remove skin from poultry before eating. Limit how much red meat you eat. Nuts, seeds, beans Servings: 4 to 5 a week A serving is: One-third cup nuts (one and a half ounces) 2 tablespoons nut butter or seeds Half a cup cooked dry beans or legumes Best choices: Dry roasted nuts with no salt added, lentils, kidney beans, garbanzo beans, and whole shukla beans. Fats and oils Servings: 2 to 3 a day A serving is: 1 teaspoon vegetable oil 1 teaspoon soft margarine 1 tablespoonmayonnaise 2 tablespoons salad dressing Best choices: Nut and vegetable oils(nontropical vegetable oils), such as olive and canola oil. Sweets Servings: 5 a week or fewer A serving is: 1 tablespoon sugar, maple syrup, or honey 1 tablespoon jam or jelly 1 half-ounce jelly beans (about 15) 1 cup lemonade Best choices: Dried fruit can be a satisfying sweet. Choose low-fat sweets. And watch your serving sizes! For more on the DASH eating plan, visit: www.nhlbi.nih.gov/health/health-topics/topics/dash Opal last reviewed this educational content on 09/18/201819996089-9259 [employer]. [address] [place] [address], [place] [address]. All rights reserved. This information is not intended as a substitute for professional medical care. Always follow your healthcare professional's instructions. documented in this encounter Progress Notes Dez Cordoba MD - 12/21/2019 10:00 AM CDT Cc: Chief Complaint Patient presents with New Patient Establish Care Headache Hypertension Arthritis VACCINATIONS Henry Elliott is a 59 year old male who has a past medical history of Depression, Hernia of testicle,and Hypertension. Patient noted feeling heat from the top of his head after working in his yard for about 4 hours in October. Patient went in doors where his took his temp of 102F, patient put ice bags beneath armpits to cool down and hydrated, his temp remained elvated for the next 4-5 hours. Patient reports having headaches everyday for several years since 2014. Some headaches are worse than others, patient reports the headaches are centered in the middle of his head between his ears. Patient describes his headache as pounding as if "someone is turning a screw in his head." Patient reports using marijuana for pain management of his headaches, does not improve duration or timing. Headaches are constant and can last days. 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 Patient does not currently smoke, quit 10 years ago, patient started smoking when he was 20yrsold. Patient is established with Neurology, last appointment was 01/09/2019. Patient reports his hearing has been declining for several years due to mechanical sounds at plant and rifles. Patient does not want ENT consult at this time. Patient has numerous skin changes on arms, chest and head, patient has erythematous pearly lesion onright shoulder, with a scabby surface, patient has had this lesion for several years. Additionally, patient has red patches on his cheeks and nose patient unsure oh how long he's had them. Patient has never seen a computer analyst supervisor. Patient notes having joint pains in his knees and lower back, patient describes the pain as tight and stiff. Improves with movement. Back pain does not radiate down legs. Patient reports having carpal tunnel bilaterally, sometimes unable to close hands. BP on arrival 160/99, on recheck 139/90, currently not taking any medications to control his BP, hasactive prescription for HCTZ 25mg qDay. Allergies Henry has No Known Allergies. Medications Outpatient Medications Prior to Visit Medication Sig Dispense Refill venlafaxine 75 mg tablet Take 1 tablet by mouth daily. 30 tablet 4 INDOMETHACIN 50 mg capsule TAKE 1 CAPSULE BY MOUTH 3 (THREE) TIMES DAILY WITH MEALS. 60 capsule 1 hydroCHLOROthiazide 25 mg tablet Take 1 tablet by mouth daily. 90 tablet 3 traMADol 50 mg tablet Take 1 tablet by mouth every 6 (six) hours as needed for Pain (scale 1-3).20 tablet 0 amoxicillin-clavulanate (AUGMENTIN) 875-125 mg per tablet Take 1 tablet by mouth 2 (two) times daily. 10 tablet 0 aspirin 81 mg chewable tablet Take 162 mg by mouth daily. divalproex ER 250 mg 24 hr tablet Take 1 tablet by mouth 2 (two) times daily. 60 tablet 2 varenicline 0.5 mg (11)- [...] Left 09/15/2017 Surgeon: Andreas Rivero MD; Location: [facility] LAPAROSCOPIC APPENDECTOMY N/A 11/24/2018 Surgeon: Zora Rodríguez MD; Location: [facility] WOUND DEBRIDEMENT Left 10/15/2017 Surgeon: Andreas Rivero MD; Location: [facility] Social History Socioeconomic History Marital status: Single [...] file Gets together: Not on file Attends sabianist service: Not on file Active member of [...] Brother Review of Systems Constitutional: Negative for appetite change, chills, fatigue, fever, unexpected weight change, weight gain and weight loss. HENT: Positive for hearing loss. Negative for postnasal drip, rhinorrhea and sinus pressure. Patient has seasonal allergies that cause rhinorrhea, post nasal drip (1 or 2 a month) Hearing has been declining for several years due to mechanical sounds at plant and rifles Eyes: Positive for visual disturbance. Has trouble seeing far recently Respiratory: Negative for cough, chest tightness and shortness of breath. Cardiovascular: Negative for chest pain and palpitations. Gastrointestinal: Positive for abdominal distention. Negative for abdominal pain, constipation, diarrhea, nausea and vomiting. Abdominal distension on right side Genitourinary: Negative for difficulty urinating and nocturia. Musculoskeletal: Positive for arthralgias, back pain and myalgias. Bilateral Knees and lower back pain Bilateral carpal tunnel Skin: Positive for rash. Patient has numerous AKs on arms, and head Patient has erythematous pearly lesion on right shoulder, with a scabby surface Neurological: Positive for weakness, numbness and headaches. Negative for dizziness and tremors. Daily headaches Numbness in fingers, sometimes drops things Psychiatric/Behavioral: Positive for dysphoric mood. Negative for hallucinations, self-injury and suicidal ideas. The patient is not nervous/anxious. Endocrine: Negative for weight gain and weight loss. Vital Signs BP 139/90 (BP Location: Left arm, Patient Position: Sitting, BP CUFF SIZE: Adult Medium) | Pulse 84 | Temp 36.9 C (98.5 F) (Oral) | Resp 20 | Ht 5' 6" (1.676 m) | Wt 190 lb 3.2 oz (86.3 kg) |SpO2 98% | BMI 30.70 kg/m Physical Exam Vitals signs and nursing note reviewed. Constitutional: Appearance: Normal appearance. HENT: Head: Normocephalic and atraumatic. Eyes: Pupils: Pupils are equal, round, and reactive to light. Cardiovascular: Rate and Rhythm: Normal rate and regular rhythm. Pulses: Normal pulses. Heart sounds: Normal heart sounds. Pulmonary: Effort: Pulmonary effort is normal. Breath sounds: Normal breath sounds. Skin: General: Skin is warm and dry. Capillary Refill: Capillary refill takes less than 2 seconds. Findings: Lesion present. Comments: Lesions suspicious of AK Lesion on right shoulder Neurological: General: No focal deficit present. Mental Status: He is alert and oriented to person, place, and time. Psychiatric: Mood and Affect: Mood normal. Behavior: Behavior normal. Assessment/Plan Essential hypertension - Patient reports he is currently out of prescription, has not taken medication for a while. - Goal BP 110/60 and < 140/90, advised to adopt DASH diet plan - Medication reconciliation completed and discussed, D/C HCTZ, start on Lisinopril - HCTZ, compliance encouraged. Advised to keep Home BP log - Labs as ordered - lisinopriL-hydrochlorothiazide 10-12.5 mg per tablet; Take 1 tablet by mouth daily. Dispense: 90 tablet; Refill: 1 Chronic cluster headache, not intractable - Anticipatory guidance discussed, advised to avoid excessive exposure to sun, maintain goof hydration, medication compliance discussed. Patient is established with Neurology, last appointment 01/09/2019. Actinic keratosis due to exposure to sunlight - Patient has chronic exposure to sun, possible psoriatic lesions, need to r/o basal cell CA - CONSULT/REFERRAL DERMATOLOGY Arthritis - Involving multiple joints. Conservative management, on tramadol and Naproxen (not actively taking medications at this time). Ex-smoker - CT LUNG CANCER SCREENING; Future Need for influenza vaccination - FLU VACC([id number]), 6+ MONTHS, IM, QUAD (FLUZONE/FLULAVAL/FLUARIX); Future Need for hepatitis C screening test - HCV ANTIBODY Screening for malignant neoplasm of colon - CONSULT/REFERRAL GENERAL SURGERY - COLONOSCOPY,SCREENING Preferred Location: [place] Return in about 3 months (around 03/22/2020), or if symptoms worsen or fail to improve. Preventive Care: Medication reconciliation, patient education and anticipatory guidance completed. All questions and concerns addressed. AVS given, handout provided. Ashish Navarro, MS3 12/21/2019 11:12 AM I personally examined the patient on 12/21/2019 and agree with MS 3 (Ashish Navarro) note as written,including any changes or additions to the medical student's note. I actively participated in the decision making process. Please see note for additional details. Dez Cordoba MD, MPH, AAHIVS Clinical Implement Mechanic, Department of Family Medicine [facility] Primary & Specialty Care - [facility] 12/21/2019 11:24 AM documented in this encounter Plan of Treatment Date Type Specialty Care Team Description 03/26/2020 Office Visit Family Medicine Dez Cordoba MD [address] [place] [address] Dr Spears [place], [place] [address] [phone] Name Type Priority Associated Diagnoses Order S chedule CBC WITH DIFF LAB Routine Essential hypertension Orde red: 12/21/2019 COMP. METABOLIC PANEL LAB Routine Essential hypertens ion Expected: ([id number]) 12/21/2019, Expires: 2020 FREE T3 LAB Routine Essential hypertension Expec margy: 12/21/2019, Expires: 2020 FREE T4 LAB Routine Essential hypertension Expec margy: 12/21/2019, Expires: 2020 GLYCOSYLATED HEMOGLOBIN LAB Routine Essential hyperte nsion Expected: (A1C) 12/21/2019, Expires: 2020 LIPID PANEL LAB Routine Essential hypertension Expec margy: ([id number])(TOTAL 12/21/2019, CHOLESTEROL, Expires: 2020 TRIGLYCERIDES, HDL) THYROID STIMULATING LAB Routine Essential hypertensio n Expected: HORMONE 12/21/2019, Expires: 2020 CT LUNG CANCER IMAGING Routine Ex-smoker Expected: SCREENING 12/21/2019, Expires: 2020 HCV ANTIBODY LAB Routine Need for hepatitis C Ordered : 12/21/2019 screening test COLONOSCOPY,SCREENING PROCEDURES Routine Screening for malig nant Ordered: 12/21/2019 Preferred Location: neoplasm of colon [facility] Maintenance Due Date Last Done Comments HEPATITIS C (HCV) SCREEN 1960 COLON CANCER SCREENING ANNUAL 2008 FIT/FOBT COLON CANCER SCREENING FIT DNA 2008 EVERY 3 YEARS COLON CANCER SCREENING 2008 SIGMOIDOSCOPY EVERY 5 YEARS COLONOSCOPY 2008 Colorectal Cancer Screening 2008 LUNG CANCER SCREEN: Recommended 2013 for age 55-80 with 30 + pack year history INFLUENZA VACCINE (#1) 2019 Depression Screening 01/10/2020 01/09/2019 Zoster Recombinant Vaccine 12/20/2020 Postp oned from 2008 (SHINGRIX) (1 of 2) (Vaccine not available) DTaP,Tdap,and Td Vaccines (2 - Td) 10/05/2027 10/04/2017 PNEUMOCOCCAL 0-64 YEARS COMBINED Aged Out No longer eligible based on SERIES patient's age to complete this topic documented as of this encounter Implants Implanted Type Area Terminal Gauger Device Shelf Model / Identifier Expiration Serial / Date Lot Prolene 2.4"X5.4" MESH Left: Ethicon 12/18/2020 P MLK / Implanted: Qty: 1 on 09/15/2017 by Andreas Rivero MD at [facility] [employer] [id number] / [id number] documented as of this encounter Results Not on filedocumented in this encounter Visit Diagnoses Diagnosis Essential hypertension - Primary Unspecified essential hypertension Chronic cluster headache, not intractabl e Chronic cluster headache Actinic keratosis due to exposure to sun light Arthritis Arthropathy, unspecified, site unspecifi ed Ex-smoker Personal history of tobacco use, present ing hazards to health Need for influenza vaccination Need for prophylactic vaccination and in oculation against influenza Need for hepatitis C screening test Special screening examination for other specified viral diseases Screening for malignant neoplasm of colo n documented in this encounter Insurance Payer Benefit Plan / Subscriber ID Effective Dates Phone Addre ss Type Group [facility] [id number] 2017-Present Medicaid COMM PLAN - PLUS MANAGED MEDICAID documented as of this encounter
--- OUTSIDE RECORDS SUMMARY | 2020-01-21 09:57 | XMS REPORT | Summary of Care ---
:1960 Author Organization [facility] Address [address] [place] [id number] Care Team Providers Name Role Phone Cookie James Primary Care Provider Reason for Referral (Routine) Status Reason Specialty Diagnoses / Procedures Referred By C ontact Referred To Contact Closed Endoscopy Diagnoses Screening for malignant neoplasm of colon Dez Cordoba MD Procedures COLONOSCOPY,SCREENING Preferred Location: [address] Portillo [address] [place] [address] [phone] Phone: (Routine) Status Reason Specialty Diagnoses / Referred By Referred To Procedures Contact Contact New Request Surgery Diagnoses Screening for malignant neoplasm of colon Dez Cordoba, Procedures CONSULT/REFERRAL GENERAL SURGERY [address] [place] [address] Dr Portillo [address] [place] [address] [phone] (Routine) Status Reason Specialty Diagnoses / Referred By Referred To Procedures Contact Contact New Request Dermatology Diagnoses Actinic keratosis due to exposure to sunlight Dez Cordoba, Procedures CONSULT/REFERRAL DERMATOLOGY [address] [place] [address] Dr Portillo [address] [place] [phone] MRI/CAT Scan (Routine) Status Reason Specialty Diagnoses / Referred By Referred To Procedures Contact Contact New Request Diagnostic Diagnoses Ex-smoker Beryl, Radiology Procedures CT LUNG CANCER SCREENING MD Dez [address] [place] [address] Dr Portillo [address] [place] [phone] Reason for Visit Reason Comments New Patient Establish Care Headache Hypertension Arthritis VACCINATIONS Encounter Details Date Type Department Care Team Description 12/21/2019 Office Visit [facility] Pediatric Dez Cordoba E ssential hypertension (Primary Dx); and Adult Primary MD Chronic cluster headache, not intractabl e; [facility]- [address] Actinic keratosis due to exposure to sun light; [address] [place] [address] [address], [address] [place] [address] Ex-smoker; [place], [place] [phone] Need for influenza vaccination; [id number] Need for hepatitis C screeni ng test; [phone] Screening for m alignant neoplasm of colon [...] Added automatically from request for deena nicho [id number] documented as of this encounter (statuses as [...] Opal last reviewed this educational content on 09/18/201819991817-1017 [employer]. [address] [place] [address], [place] [address]. All rights reserved. This information is not [...] had them. Patient has never seen a auto bumper straightener. Patient notes having joint pains in his [...] Left 09/15/2017 Surgeon: Andreas Rivero MD; Location: [facility] OR [facility] LAPAROSCOPIC APPENDECTOMY N/A 11/24/2018 Surgeon: Zora Rodríguez MD; Location: [facility] OR [facility] WOUND DEBRIDEMENT Left 10/15/2017 Surgeon: Andreas Rivero MD; Location: [facility] Social History Socioeconomic History Marital [...] file Gets together: Not on file Attends confucianism service: Not on file Active member of [...] Future Need for influenza vaccination - FLU VACC([id number]), 6+ MONTHS, IM, QUAD (FLUZONE/FLULAVAL/FLUARIX); Future Need for hepatitis C screening test - HCV ANTIBODY Screening for malignant neoplasm of colon - CONSULT/REFERRAL GENERAL SURGERY - COLONOSCOPY,SCREENING Preferred Location: [facility] Return in about 3 months (around 03/22/2020), [...] details. Dez Cordoba MD, MPH, AAHIVS Clinical Foley Artist, Department of Family Medicine [facility] Primary & Specialty Care - ADC 12/21/2019 11:24 AM documented in this encounter Plan of Treatment Date Type Specialty Care Team Description 03/26/2020 Office Visit Family Medicine Dez Cordoba MD [address] [place] [address] Dr Spears [place], [place] [address] [phone] Name Type Priority Associated Diagnoses Order S chedule CBC WITH DIFF LAB Routine Essential hypertension Orde red: 12/21/2019 COMP. METABOLIC PANEL LAB Routine Essential hypertens ion Expected: ([id number]) 12/21/2019, Expires: 2020 FREE T3 LAB Routine Essential hypertension Expec margy: 12/21/2019, Expires: 2020 FREE T4 LAB Routine Essential hypertension Expec margy: 12/21/2019, Expires: 2020 GLYCOSYLATED HEMOGLOBIN LAB Routine Essential hyperte nsion Expected: (A1C) 12/21/2019, Expires: 2020 LIPID PANEL LAB Routine Essential hypertension Expec margy: ([id number])(TOTAL 12/21/2019, CHOLESTEROL, Expires: 2020 TRIGLYCERIDES, HDL) THYROID STIMULATING LAB Routine Essential hypertensio n Expected: HORMONE 12/21/2019, Expires: 2020 CT LUNG CANCER IMAGING Routine Ex-smoker Expected: SCREENING 12/21/2019, Expires: 2020 HCV ANTIBODY LAB Routine Need for hepatitis C Ordered : 12/21/2019 screening test COLONOSCOPY,SCREENING PROCEDURES Routine Screening for malig nant Ordered: 12/21/2019 Preferred Location: neoplasm of colon [facility] Maintenance Due Date Last Done Comments [...] of this encounter Implants Implanted Type Area Supervisor Polishing Device Shelf Model / Identifier Expiration Serial / Date Lot Prolene 2.4"X5.4" MESH Left: Ethicon 12/18/2020 P MLK / Implanted: Qty: 1 on 09/15/2017 by Andreas Rivero MD at [facility] [employer] [id number] / [id number] documented as of this encounter Results Not [...] Effective Dates Phone Addre ss Type Group [facility] [id number] 2017-Present Medicaid COMM PLAN - PLUS MANAGED MEDICAID documented as of this encounter
[2020-01-21] MEDS ORDERED: LOPERAMIDE HCL 2 MG CAPSULE ONE (10:08)
[2020-01-21] MEDS ORDERED: ONDANSETRON 4 MG/2 ML VIAL ONE (10:08)
[2020-01-21] MEDS ORDERED: NA CHLORIDE 0.9% 1,000 ML ONE (10:08)
[2020-01-21 10:24] LABS: Absolute Lymphocytes (CBC) 0.7 K/uL (0.7-4.9); Basophils % 0.1 % (0-1.3); Lymphocytes % 2.9 % (15.3-44.8); MPV 8.7 fL (7.6-11.3); RBC Red Blood Cell Count 5.22 M/uL (4.33-5.43)
[2020-01-21 10:27] LABS: Protime INR 1.02
[2020-01-21 10:28] LABS: Albumin 3.9 g/dL (3.4-5.0); Bilirubin Direct 0.3 mg/dL (0-0.2); Bilirubin Total 1.2 mg/dL (0.2-1.0); C-Reactive Protein 3.81 mg/L (<3.00); Potassium 3.9 mmol/L (3.5-5.1); Protein, Total 8.4 g/dL (6.4-8.2)
[2020-01-21 10:55] LABS: Blood Morphology Comment NOT SEEN (NOT SEEN); Dohle Bodies PRESENT; Platelet Estimate ADEQ
--- NOTE | 2020-01-21 11:13 | RAD REPORT ---
EXAM DESCRIPTION: CTAbdomen Pelvis W Contrast - 01/21/2020 10:57 am CLINICAL HISTORY: Abdominal pain. ABD PAIN COMPARISON: Abdomen Pelvis W Contrast dated 10/14/2017; CT ABD PELVIS W CONTRAST dated 03/27/2015; CT ABD PELVIS W CONTRAST dated 10/10/2012 TECHNIQUE: Biphasic CT imaging of the abdomen and pelvis was performed with 100 ml non-ionic IV cont rast. All CT scans are performed using dose optimization technique as appropriate and may include automated exposure control or mA/KV adjustment according to patient size. FINDINGS: Small calcified granuloma is present in the right lung base. Mild diffuse fatty liver is present. No focal mass or biliary dilatation. The spleen, pancreas, adren al glands and kidneys are within normal limits. No bowel obstruction, free air, free fluid or abscess. Appendectomy. No evidence of significant lym phadenopathy. Mild thickening of posterior urinary bladder wall is seen. The prostate gland is slight ly prominent. Moderate lumbar degenerative changes. IMPRESSION: No acute intra-abdominal or pelvic finding. Diffuse fatty liver is present. Mild prominence of the prostate gland which abuts the posterior urinary bladder wall, which is mildly thickened. Correlation with PSA levels is suggested.
--- NOTE | 2020-01-21 11:25 | RAD REPORT ---
EXAM DESCRIPTION: RAD - Chest Single View - 01/21/2020 10:15 am CLINICAL HISTORY: DYSPNEA Chest pain. COMPARISON: Chest Single View dated 10/14/2017; Abdomen Pelvis W Contrast dated 01/21/2020 FINDINGS: Portable technique limits examination quality. Mild vague opacities are present in the lung bases, which could represent infiltrate or pneumonia in the correct clinical setting. The heart is normal in size. No displaced fractures.
--- NOTE | 2020-01-21 12:51 | ER ---
Nurse's Notes [facility] Name: Henry Elliott Age: 59 yrs Sex: Male : 1960 Arrival Date: 01/21/2020 Time: 09:46 Bed 6 Private MD: Diagnosis: Elevated white blood cell count;Pneumonia due to other specified bacteria;Dehydration Presentation: 01/20 09:48 Chief complaint: EMS states: N/V/D, loss of smell and taste since this morning; denies jl7 fever, cough, congestion. Coronavirus screen: Client denies travel out of the [place] in the last 14 days. diarrhea, nausea, loss of taste or smell, vomiting. Client presents with at least one sign or symptom that may indicate coronavirus-19. Standard/surgical mask placed on the client. Provider contacted for isolation considerations. Ebola Screen: No symptoms or risks identified at this time. Initial Sepsis Screen: Does the patient meet any 2 criteria? No. Patient's initial sepsis screen is negative. Does the patient have a suspected source of infection? No. Patient's initial sepsis screen is negative. Risk Assessment: Do you want to hurt yourself or someone else? Patient reports no desire to harm self or others. Onset of symptoms was January 21, 2020. Care prior to arrival: None. 09:48 Method Of Arrival: EMS: [facility] 7 09:48 Acuity: TOMMY 3 jl7 Triage Assessment: 09:51 General: Appears in no apparent distress. uncomfortable, ill, Behavior is cooperative. jl7 Pain: Complains of pain in all over Pain currently is 8 out of 10 on a pain scale. Quality of pain is described as aching. Neuro: Level of Consciousness is awake, alert, obeys commands, Oriented to person, place, time, situation. Cardiovascular: Denies chest pain. Respiratory: Airway is patent Respiratory effort is even, unlabored, Respiratory pattern is regular, symmetrical, Denies shortness of breath. GI: Reports diarrhea, nausea, vomiting. Derm: Skin is pink, warm \\T\\ dry. Historical: - Allergies: 09:51 No Known Allergies; jl7 - Home Meds: 09:51 None [Active]; jl7 - PMHx: 09:51 None; jl7 - PSHx: 09:51 None; jl7 - Immunization history:: Adult Immunizations unknown. - Social history:: Smoking status: Patient denies any tobacco usage or history of. Screenin:49 Abuse screen: Denies threats or abuse. Nutritional screening: No deficits noted. em Tuberculosis screening: No symptoms or risk factors identified. Fall Risk None identified. Assessment: 09:51 General: Appears in no apparent distress. uncomfortable, Behavior is calm, cooperative, em appropriate for age, Denies fever. Pain: Complains of pain in "all over" Pain currently is 8 out of 10 on a pain scale. Neuro: Level of Consciousness is awake, alert, obeys commands, Oriented to person, place, time, situation, Appropriate for age. Cardiovascular: Capillary refill < 3 seconds Patient's skin is warm and dry. Respiratory: Airway is patent Respiratory effort is even, unlabored, Respiratory pattern is regular, symmetrical. GI: Abdomen is round non-distended, Pt is actively vomiting undigested food, Reports diarrhea, nausea, vomiting, Patient currently denies abdominal pain. EENT: Reports loss of smell/taste . Derm: Skin is intact, Skin is pink, warm \\T\\ dry. Musculoskeletal: Capillary refill < 3 seconds, Range of motion: intact in all extremities. 10:15 Reassessment: Patient appears in no apparent distress at this time. Patient and/or em family updated on plan of care and expected duration. Pain level reassessed. Patient is alert, oriented x 3, equal unlabored respirations, skin warm/dry/pink. nausea has improved Patient states feeling better. 10:53 Reassessment: Patient appears in no apparent distress at this time. wheeled to CT via em stretcher. 11:22 Reassessment: lab at bedside to draw blood cultures. em 12:30 Reassessment: Patient appears in no apparent distress at this time. Patient and/or em family updated on plan of care and expected duration. Pain level reassessed. Patient is alert, oriented x 3, equal unlabored respirations, skin warm/dry/pink. 13:15 Reassessment: Dr. Smith at bedside, pt will be admitted to the hospital, removed off of em DP. 13:55 Reassessment: sent off stool specimens. em 14:30 Reassessment: Patient appears in no apparent distress at this time. Patient and/or em family updated on plan of care and expected duration. Pain level reassessed. Patient is alert, oriented x 3, equal unlabored respirations, skin warm/dry/pink. Vital Signs: 09:48 BP 141 / 92; Pulse 78; Resp 19; Temp 96.5; Pulse Ox 97% ; Weight 81.65 kg; Height 5 ft. jl7 5 in. (165.10 cm); Pain 8/10; 11:30 BP 144 / 92; Pulse 89; Resp 18; Pulse Ox 99% on R/A; em 12:25 BP 149 / 95; Pulse 85; Resp 18; Pulse Ox 97% on R/A; em 13:30 BP 136 / 96; Pulse 86; Resp 18; Pulse Ox 98% on R/A; em 14:30 BP 144 / 89; Pulse 88; Resp 18; Pulse Ox 99% on R/A; em 09:48 Body Mass Index 29.95 (81.65 kg, 165.10 cm) jl7 ED Course: 09:46 Patient arrived in ED. ds1 09:48 Doe Bradford RN is Primary Nurse. jl7 09:48 Angel Lobo PA is PHCP. jr8 09:48 Donta Crespo MD is Attending Physician. jr8 09:49 Patient has correct armband on for positive identification. Placed in gown. Bed in low em position. Call light in reach. Pulse ox on. NIBP on. 09:51 Triage completed. jl7 09:51 Arm band placed on right wrist. jl7 10:00 Missed attempt(s): 20 gauge in right antecubital area. Bleeding controlled, band aid em applied, catheter tip intact. 10:10 Inserted saline lock: 20 gauge in right wrist, using aseptic technique. Blood em collected. inserted by SUJEY Azar. 10:15 CXR XRAY In Process Unspecified. EDMS 10:56 CT Abd/Pelvis - IV Contrast Only In Process Unspecified. EDMS 12:50 Trenton Smith MD is Hospitalizing Provider. jr8 14:56 No provider procedures requiring assistance completed. Patient admitted, IV remains in em place. Administered Medications: 10:07 Drug: NS 0.9% 1000 ml Route: IV; Rate: 1000 ml; Site: right wrist; jl7 11:30 Follow up: IV Status: Completed infusion; IV Intake: 1000ml em 10:07 Drug: Zofran (Ondansetron) 4 mg Route: IVP; Site: right wrist; jl7 10:15 Follow up: Response: No adverse reaction; Marked relief of symptoms; Nausea is decreasedem 10:16 Drug: Imodium A-D 4 mg Route: PO; em 13:37 Follow up: Response: No adverse reaction em 13:54 Drug: Flagyl 500 mg Volume: 100 ml; Route: IVPB; Rate: 200 ml/hr; Infused Over: 30 em mins; Site: right wrist; 14:29 Follow up: Response: No adverse reaction; IV Status: Completed infusion; IV Intake: em 100ml 14:29 Drug: LevaQUIN 500 mg Volume: 100 ml; Route: IVPB; Infused Over: 60 mins; Site: right em wrist; 15:09 Follow up: IV Status: Infusion continued upon admission em Intake: 11:30 IV: 1000ml; Total: 1000ml. em 14:29 IV: 100ml; Total: 1100ml. em Outcome: 12:50 Decision to Hospitalize by Provider. eliseo 15:05 Admitted to Med/surg accompanied by tech, via wheelchair, room 217, with chart, Report em called to SUJEY Cantrell 15:05 Condition: good 15:05 Instructed on the need for admit, Demonstrated understanding of instructions. 15:09 Patient left the ED. em Signatures: Dispatcher [employer] Kwasi Muse, RN Mary Coulter ds1 Angel Lobo PA PA jr8 Doe Bradford RN RN jl7
--- NOTE | 2020-01-21 12:51 | EDPHYS ---
Physician Documentation [facility] Name: Henry Elliott Age: 59 yrs Sex: Male : 1960 Arrival Date: 01/21/2020 Time: 09:46 Bed 6 Private MD: ED Physician Donta Crepso HPI: 01/20 11:14 This 59 yrs old Male presents to ER via EMS with complaints of jr8 Nausea/Vomiting/Diarrhea. 11:14 The patient presents to the emergency department with nausea, vomiting, diarrhea. jr8 Onset: The symptoms/episode began/occurred acutely, this morning. Possible causes: unknown. The symptoms are aggravated by nothing. The symptoms are alleviated by nothing. Associated signs and symptoms: Pertinent positives: body aches, loss of taste. Severity of symptoms: At their worst the symptoms were moderate in the emergency department the symptoms are unchanged. The patient has not experienced similar symptoms in the past. The patient has not recently seen a physician. Stated that a friend of his had similar symptoms and was admitted to hospital recently. Had been around him . Historical: - Allergies: 09:51 No Known Allergies; jl7 - Home Meds: 09:51 None [Active]; jl7 - PMHx: 09:51 None; jl7 - PSHx: 09:51 None; jl7 - Immunization history:: Adult Immunizations unknown. - Social history:: Smoking status: Patient denies any tobacco usage or history of. ROS: 11:14 Eyes: Negative for injury, pain, redness, and discharge, ENT: Negative for injury, jr8 pain, and discharge, Neck: Negative for injury, pain, and swelling, Cardiovascular: Negative for chest pain, palpitations, and edema, Respiratory: Negative for shortness of breath, cough, wheezing, and pleuritic chest pain, Back: Negative for injury and pain, MS/Extremity: Negative for injury and deformity, Skin: Negative for injury, rash, and discoloration. 11:14 Constitutional: Positive for body aches, chills. 11:14 Abdomen/GI: Positive for nausea, vomiting, and diarrhea, Negative for abdominal pain. 11:14 Neuro: Positive for headache. Exam: 11:14 Eyes: Pupils equal round and reactive to light, extra-ocular motions intact. Lids and jr8 lashes normal. Conjunctiva and sclera are non-icteric and not injected. Cornea within normal limits. Periorbital areas with no swelling, redness, or edema. ENT: Nares patent. No nasal discharge, no septal abnormalities noted. Tympanic membranes are normal and external auditory canals are clear. Oropharynx with no redness, swelling, or masses, exudates, or evidence of obstruction, uvula midline. Mucous membranes moist. Neck: Trachea midline, no thyromegaly or masses palpated, and no cervical lymphadenopathy. Supple, full range of motion without nuchal rigidity, or vertebral point tenderness. No Meningismus. Cardiovascular: Regular rate and rhythm with a normal S1 and S2. No gallops, murmurs, or rubs. Normal PMI, no JVD. No pulse deficits. Respiratory: Lungs have equal breath sounds bilaterally, clear to auscultation and percussion. No rales, rhonchi or wheezes noted. No increased work of breathing, no retractions or nasal flaring. Back: No spinal tenderness. No costovertebral tenderness. Full range of motion. Skin: Warm, dry with normal turgor. Normal color with no rashes, no lesions, and no evidence of cellulitis. MS/ Extremity: Pulses equal, no cyanosis. Neurovascular intact. Full, normal range of motion. Neuro: Awake and alert, GCS 15, oriented to person, place, time, and situation. Cranial nerves II-XII grossly intact. Motor strength 5/5 in all extremities. Sensory grossly intact. Cerebellar exam normal. Normal gait. 11:14 Abdomen/GI: Inspection: obese Bowel sounds: active, all quadrants, Palpation: soft, in all quadrants, mild abdominal tenderness, in the abdomen diffusely, mass, is not appreciated, rebound tenderness, is not appreciated, voluntary guarding, is not appreciated, involuntary guarding, is not appreciated, no appreciated organomegaly, Indicators: McBurney's point is not tender, Mosley's sign is negative, Rovsing's sign is negative, Liver: tenderness, is not appreciated. 14:17 ECG was reviewed by the Attending Physician. jr8 Vital Signs: 09:48 BP 141 / 92; Pulse 78; Resp 19; Temp 96.5; Pulse Ox 97% ; Weight 81.65 kg; Height 5 ft. jl7 5 in. (165.10 cm); Pain 8/10; 11:30 BP 144 / 92; Pulse 89; Resp 18; Pulse Ox 99% on R/A; em 12:25 BP 149 / 95; Pulse 85; Resp 18; Pulse Ox 97% on R/A; em 13:30 BP 136 / 96; Pulse 86; Resp 18; Pulse Ox 98% on R/A; em 14:30 BP 144 / 89; Pulse 88; Resp 18; Pulse Ox 99% on R/A; em 09:48 Body Mass Index 29.95 (81.65 kg, 165.10 cm) jl7 MDM: 09:48 Patient medically screened. jr8 12:49 Data reviewed: vital signs, nurses notes, lab test result(s), EKG, radiologic studies, jr8 CT scan, plain films. Data interpreted: Pulse oximetry: on room air is 97 %. Interpretation: normal. Counseling: I had a detailed discussion with the patient and/or guardian regarding: the historical points, exam findings, and any diagnostic results supporting the discharge/admit diagnosis, lab results, radiology results, the need for further work-up and treatment in the hospital. ED course: Spoke with Dr. Smith who will admit the patient . 01/20 09:50 Order name: BMP; Complete Time: 10:40 01/20 09:50 Order name: C-Reactive Protein; Complete Time: 10:40 01/20 09:50 Order name: CBC with Diff; Complete Time: 11:16 01/20 09:50 Order name: Flu; Complete Time: 12:09 01/20 09:50 Order name: LFT's; Complete Time: 10:40 01/20 09:50 Order name: Lipase; Complete Time: 10:40 01/20 09:50 Order name: PT-INR; Complete Time: 10:40 8 01/20 09:50 Order name: Ptt, Activated; Complete Time: 10:40 [facility] 01/20 09:50 Order name: Urine Microscopic Only 01/20 10:28 Order name: Manual Differential; Complete Time: 11:16 EDAK 01/20 10:41 Order name: Blood Culture Adult (2) [facility] 01/20 12:45 Order name: SARS-COV-2 RT PCR; Complete Time: 12:46 EDAK 01/20 13:01 Order name: Stool Culture 01/20 09:50 Order name: CXR XRAY; Complete Time: 11:38 01/20 09:50 Order name: EKG; Complete Time: 09:51 01/20 09:50 Order name: Cardiac monitoring; Complete Time: 10:09 01/20 09:50 Order name: Document PUI#; Complete Time: 10:09 01/20 09:50 Order name: Droplet/Contact Precautions; Complete Time: 10:09 01/20 09:50 Order name: EKG - Nurse/Tech; Complete Time: 10:01/20 10:41 Order name: CT Abd/Pelvis - IV Contrast Only; Complete Time: 11:16 01/20 13:01 Order name: Ova And Parasites 01/20 13:01 Order name: Occult Blood 01/20 13:01 Order name: Fecal Leukocyte Stain 01/20 13:01 Order name: CDIFF 01/20 09:50 Order name: IV Start; Complete Time: 10:01/20 09:50 Order name: Labs collected and sent; Complete Time: 10:01/20 09:50 Order name: Notify [facility] [phone]/ ; Complete Time: 10:01/20 09:50 Order name: O2 Per Protocol; Complete Time: 10:01/20 09:50 Order name: O2 Sat Monitoring; Complete Time: 10: EC:17 Rate is 81 beats/min. Rhythm is regular, Normal Sinus Rhythm. QRS [place] is Normal. IA jr8 interval is normal at 174 msec. QRS interval is normal at 108 msec. QT interval is normal at 368 msec. No Q waves. T waves are Normal. No ST changes noted. Clinical impression: No evidence of ischemia and Normal Sinus Rhythm . Interpreted by me. Reviewed by me. Administered Medications: 10:07 Drug: NS 0.9% 1000 ml Route: IV; Rate: 1000 ml; Site: right wrist; jl7 11:30 Follow up: IV Status: Completed infusion; IV Intake: 1000ml em 10:07 Drug: Zofran (Ondansetron) 4 mg Route: IVP; Site: right wrist; jl7 10:15 Follow up: Response: No adverse reaction; Marked relief of symptoms; Nausea is decreasedem 10:16 Drug: Imodium A-D 4 mg Route: PO; em 13:37 Follow up: Response: No adverse reaction em 13:54 Drug: Flagyl 500 mg Volume: 100 ml; Route: IVPB; Rate: 200 ml/hr; Infused Over: 30 em mins; Site: right wrist; 14:29 Follow up: Response: No adverse reaction; IV Status: Completed infusion; IV Intake: em 100ml 14:29 Drug: LevaQUIN 500 mg Volume: 100 ml; Route: IVPB; Infused Over: 60 mins; Site: right em wrist; 15:09 Follow up: IV Status: Infusion continued upon admission em Disposition: 01/21 06:15 Co-signature as Attending Physician, Donta Crespo MD I agree with the assessment and marcy plan of care. Disposition: 01/21/20 12:50 Hospitalization ordered by Trenton Smith for Inpatient Admission. Preliminary diagnosis are Elevated white blood cell count, Pneumonia due to other specified bacteria, Dehydration. - Bed requested for Telemetry/MedSurg (Inpatient). - Status is Inpatient Admission. em - Condition is Fair. - Problem is new. - Symptoms have improved. Signatures: Dispatcher [employer] EDAK Mirian Ford Corey, MD MD cha Munoz, Edgar, RN RN Angel Lobo PA PA jr8 Doe Bradford RN RN jl7 Corrections: (The following items were deleted from the chart) 01/20 10:09 09:50 Moss ordered. jr8 em 11:47 09:51 CORONAVIRUS+MR.LAB.BRZ ordered. EDAK EDAK 14:31 12:50 Hospitalization Ordered by Trenton Smith MD for Inpatient Admission. Preliminary bd diagnosis is Elevated white blood cell count; Pneumonia due to other specified bacteria; Dehydration. Bed requested for Telemetry/MedSurg (Inpatient). Status is Inpatient Admission. Condition is Fair. Problem is new. Symptoms have improved. jr8 15:09 14:31 01/21/2020 12:50 Hospitalization Ordered by Trenton Smith MD for Inpatient em Admission. Preliminary diagnosis is Elevated white blood cell count; Pneumonia due to other specified bacteria; Dehydration. Bed requested for Telemetry/MedSurg (Inpatient). Status is Inpatient Admission. Condition is Fair. Problem is new. Symptoms have improved. bd
[2020-01-21] MEDS ORDERED: Levofloxacin500mg IV 500 MG/100 ML BAG IV ONE (13:42)
[2020-01-21] MEDS ORDERED: METRONIDAZOLE 500mg IVPB 500 MG/100 ML BAG IV ONE (13:42)
--- NOTE | 2020-01-21 13:55 | P.HP ---
Certification for Inpatient Patient admitted to: Inpatient With expected LOS: >2 Midnights Practitioner: I am a practitioner with admitting privileges, knowledge of patient current condition, hospital course, and medical plan of care. Services: Services provided to patient in accordance with Admission requirements found in Title 42 Section 412.3 of the Code of Federal Regulations Patient History Date of Service: 01/21/20 Reason for admission: Pneumonia, Diarrhea History of Present Illness: 59-year-old male with PMH: HTN, cluster headaches who presents to ED due to progressively worsening shortness of breath, nausea, vomiting and diarrhea since this morning. He states he was in his usual state of health up until yesterday when he began to feel tired. He denies any fevers/chills, no abdominal pain. He reports recent contact with somebody who had similar symptoms and was recently admitted to the hospital for enteritis 2 days ago. He reports his diarrhea has been very liquidy and has had more than 10 bowel movements since this morning. He denies any blood in his emesis or stool. In the ED, he was found to have a leukocytosis of 25.3 with bandemia, elevated CRP of 3.1. CXR was concerning for mild vague opacities in the lung bases which could represent pneumonia. He was COVID negative. CT abdomen/pelvis without acute intra-abdominal or pelvic finding. Diffuse fatty liver is present. Mild prominent prostate gland which about posterior urinary bladder wall, which is mildly thickened. Allergies No Known Allergies Allergy (Unverified 01/21/20 15:48) Home medications list reviewed: Yes Home Medications: Lisinopril/Hydrochlorothiazide [Lisinopril-Hctz 10-12.5 mg Tab] 1 tab PO DAILY 01/21/20 - Past Medical/Surgical History -: HTN -: Cluster headache -: Left inguinal hernia repair -: appendectomy - Family History Brother -: Cancer (Of the bone) - Social History Smoking Status: Never smoker Alcohol use: No Review of Systems 10-point ROS is otherwise unremarkable Physical Examination - Physical Exam General: Alert, Oriented x3, Other (Appears slightly uncomfortable) HEENT: Sclerae nonicteric Neck: Supple Respiratory: Diminished (At bases bilaterally) Cardiovascular: No edema, Regular rate/rhythm Gastrointestinal: Soft and benign, Non-distended, No tenderness Musculoskeletal: No tenderness Integumentary: No rashes Neurological: Normal speech, Normal affect - Studies Laboratory Data (last 24 hrs) 01/21/20 10:00: PT 12.0, INR 1.02, APTT 22.6 L 01/21/20 10:00: WBC 25.3 H*, Hgb 16.2, Hct 48.0, Plt Count 357 01/21/20 10:00: Sodium 140, Potassium 3.9, BUN 18, Creatinine 1.13, Glucose 150 H, Total Bilirubin 1.2 H, AST 42 H, ALT 64, Alkaline Phosphatase 99, Lipase 74 Microbiology Data (last 24 hrs): 01/21/20 13:01 Stool Stool Occult Blood (CHANDU) - Final MASTIC FLOOR LAYER 01/21/20 10:00 Nasopharnyx Influenza Type A Antigen Screen - Final 01/21/20 10:00 Nasopharnyx Influenza Type B Antigen Screen - Final Assessment and Plan - Advance Directives Does patient have a Living Will: No Does patient have a Durable POA for Healthcare: No Physician Review Additional Text: Nausea/vomiting/diarrhea Community-acquired pneumonia HTN Cluster headache -with significant leukocytosis and elevated CRP on admission, with multiple BMs, concerning for C. diff -CXR with very mild possible pneumonia , and patient reported shortness of breath -will treat with Levaquin and Flagyl to cover the above, would cover Legionella pneumonia as well -clear liquid diet, IV fluids -stool study's sent -follow up blood cultures -will monitor closely -obtain home medication and restart as appropriate VTE: lovenox Code: full Dispo: anticipate dc home in ~48hrs, pending further workup Time Spent Managing Pts Care (In Minutes): 55
[2020-01-21] MEDS ORDERED: ONDANSETRON 4 MG/2 ML VIAL IV PRN (14:59)
[2020-01-21] MEDS ORDERED: ACETAMINOPHEN 500 MG TAB PO PRN (14:59)
[2020-01-21] MEDS: NA CHLORIDE 0.9% 1,000 ML IV SCH (15:30)
[2020-01-21 15:59] VITALS: BMI 29.9
[2020-01-21] MEDS: METRONIDAZOLE 500mg IVPB 500 MG/100 ML BAG IV SCH (18:51)
[2020-01-21] MEDS ORDERED: HYDROCODONE/APAP 5/325 MG TAB PO PRN (21:14)
[2020-01-22] MEDS: METRONIDAZOLE 500mg IVPB 500 MG/100 ML BAG IV SCH ×2 (01:22→09:27)
[2020-01-22] MEDS: NA CHLORIDE 0.9% 1,000 ML IV SCH ×2 (01:29→10:59)
[2020-01-22 05:35] LABS: Albumin 2.9 g/dL (3.4-5.0); Bilirubin Total 0.7 mg/dL (0.2-1.0); C-Reactive Protein 40.6 mg/L (<3.00); Magnesium 1.9 mg/dL (1.8-2.4); Potassium 3.8 mmol/L (3.5-5.1); Protein, Total 6.3 g/dL (6.4-8.2)
[2020-01-22 06:01] LABS: Absolute Lymphocytes (CBC) 1.3 K/uL (0.7-4.9); Basophils % 0.4 % (0-1.3); Lymphocytes % 14.2 % (15.3-44.8); MPV 8.4 fL (7.6-11.3); RBC Red Blood Cell Count 4.27 M/uL (4.33-5.43)
[2020-01-22 06:08] LABS: Hematocrit 39.6 % (39.6-49.0)
[2020-01-22] MEDS ORDERED: POTASSIUM CL SA 10 MEQ TAB PO ONE (09:00)
[2020-01-22] MEDS ORDERED: ENOXAPARIN 40 MG/0.4 ML SQ SCH (09:00)
[2020-01-22] MEDS ORDERED: lisinopriL 10 MG TAB PO SCH (09:00)
[2020-01-22] MEDS ORDERED: Levofloxacin 750mg IV 750 MG/150 ML BAG IV SCH (09:00)
[2020-01-22] MEDS ORDERED: HOME MED 1 EA UNK (Lisinopril/Hydrochlorothiazide [Lisinopril-Hctz 10-12.5 Mg Tab] 1 TAB) PO SCH (09:00)
[2020-01-22] MEDS ORDERED: hydroCHLOROthiazide 12.5 MG CAP PO SCH (09:00)
[2020-01-22] MEDS ORDERED: CODEINE 30MG/APAP 300MG TAB PO PRN (09:41)
[2020-01-22 09:59] VITALS: O2SAT 98
--- NOTE | 2020-01-22 11:44 | P.DS ---
Admission Date: 01/21/20 Discharge Date: 01/22/20 Disposition: ROUTINE DISCHARGE Discharge Condition: FAIR Reason for Admission: Pneumonia, Diarrhea Procedures: None. Brief History of Present Illness: 59-year-old gentleman with a history of cluster headaches and hypertension presented to the emergency department with a complaint of nausea and vomiting and diarrhea as well as shortness of breath. Workup in the emergency department reveals severe leukocytosis with white cell count up to 25,000. Chest x-ray reported possible infiltrate in the bilateral lung bases. There was a concern for infectious enterocolitis and pneumonia. Patient reports recent contact with the patient was hospitalized for diarrhea. Patient was hospitalized for further management. Hospital Course: Patient was treated with IV Levaquin to cover pneumonia and possible Legionella disease. He was also treated with Flagyl for enterocolitis. Stool for C. diff was obtained and the result is pending. Patient's symptoms resolved within 24 hours. Leukocytosis resolved and likely secondary to hemoconcentration. Positive Hemoccult blood likely secondary to enterocolitis. No active GI bleeding. Recommending outpatient colonoscopy screen for cancer. He was complaining of a flare of his cluster headache which was treated with Tylenol 3. The patient's symptoms have improved. No diarrhea today. He stated he is only passing gas. He will be discharged with antibiotics-Levaquin and Flagyl to continue treatment for infectious enterocolitis and pneumonia. Vital Signs/Physical Exam: Temp Pulse Resp BP Pulse Ox 97.0 F 58 18 129/71 96 01/22/20 08:00 01/22/20 09:26 01/22/20 08:00 01/22/20 09:26 01/22/20 08:00 General: Alert, In no apparent distress HEENT: Mucous membr. moist/pink Neck: JVD not distended Respiratory: Clear to auscultation bilaterally, Normal air movement Cardiovascular: No edema, Regular rate/rhythm, Normal S1 S2 Gastrointestinal: Normal bowel sounds, Soft and benign, Non-distended, No tenderness Integumentary: No rashes Laboratory Data at Discharge: WBC 8.9 K/uL (4.3-10.9) D 01/22/20 05:43 Hgb 13.5 g/dL (13.6-17.9) L D 01/22/20 05:43 Hct 39.6 % (39.6-49.0) D 01/22/20 05:43 Plt Count 256 K/uL (152-406) D 01/22/20 05:43 PT 12.0 SECONDS (9.5-12.5) 01/21/20 10:00 INR 1.02 01/21/20 10:00 APTT 22.6 SECONDS (24.3-36.9) L 01/21/20 10:00 Sodium 140 mmol/L (136-145) 01/22/20 03:33 Potassium 3.8 mmol/L (3.5-5.1) 01/22/20 03:33 BUN 19 mg/dL (7-18) H 01/22/20 03:33 Creatinine 0.88 mg/dL (0.55-1.3) 01/22/20 03:33 Glucose 105 mg/dL (74-106) 01/22/20 03:33 Magnesium 1.9 mg/dL (1.8-2.4) 01/22/20 03:33 Total Bilirubin 0.7 mg/dL (0.2-1.0) 01/22/20 03:33 AST 23 U/L (15-37) 01/22/20 03:33 ALT 41 U/L (12-78) 01/22/20 03:33 Alkaline Phosphatase 68 U/L (45-117) 01/22/20 03:33 Lipase 74 U/L (73-393) 01/21/20 10:00 Home Medications: Lisinopril/Hydrochlorothiazide [Lisinopril-Hctz 10-12.5 mg Tab] 1 tab PO DAILY 01/21/20 Codeine/APAP [Tylenol #3*] 1 tab PO Q4H PRN #20 tab 01/22/20 levoFLOXacin [Levaquin] 750 mg PO DAILY #7 tab 01/22/20 metroNIDAZOLE [Flagyl] 500 mg PO Q8H #21 tablet 01/22/20 New Medications: metroNIDAZOLE [Flagyl] 500 mg PO Q8H #21 tablet levoFLOXacin [Levaquin] 750 mg PO DAILY #7 tab Codeine/APAP [Tylenol #3*] 1 tab PO Q4H PRN #20 tab PRN Reason: Pain Scale 5-7 (Moderate) Diet: AHA Activity: Ad lorene Followup: OOT,OOT [Primary Care Provider] -
[2020-01-22 12:58] VITALS: BP 126/64; TEMP 97.1
[2020-01-22 14:08] LABS: Urine Appearance CLOUDY; Urine Bilirubin NEGATIVE (NEG); Urine Blood TRACE (NEG); Urine Color DK YELLOW; Urine Glucose NEGATIVE (NEG); Urine Protein NEGATIVE (NEG); Urine Specific Gravity 1.025 (1.005-1.030); Urine Urobilinogen 0.2 mg/dL (0.2-1.0); Urine pH 5.5 (5.0-7.0)
[2020-01-22 14:21] LABS: Urine Bacteria >50 /HPF (NONE SEEN); Urine Culture Reflex Order REFLEXED; Urine RBC <5 /HPF (NONE SEEN)
--- NOTE | 2020-01-23 07:19 | EKG ---
Test Date: 2020-01-21 Test Time: 09:58:04 Section Beamer: LINDA MEASUREMENT RESULTS: Intervals: Rate: 81 ND: 174 QRSD: 108 QT: 386 QTc: 448 [place]: P: 56 ND: 174 QRS: 50 T: 51 INTERPRETIVE STATEMENTS: Normal sinus rhythm Incomplete right bundle branch block Borderline ECG Compared to ECG 10/14/2017 04:23:17 Atrial premature complex(es) no longer present Electronically Signed On 01-23-20 07:16:31 INTELLIGENCE MANAGER by Jak Mack
[2020-01-27 09:28] LABS: C.diff Antigen/Toxin Ag neg : Tox neg (NEG : NEG)
== END 2020-01-22 13:30 | disposition home or self-care (01) ==
LOC: ER 09:45 → ERHOLD 13:49 → INTOOBSV 13:49 → 2ND 14:56
PROVIDERS: ADMIT Hospitalist; ATTEND Internal Medicine
DX: J18.9 Pneumonia, unspecified organism (principal); A09 Infectious gastroenteritis and colitis, unspecified; G44.009 Cluster headache syndrome, unspecified, not intractable; I10 Essential (primary) hypertension; Z20.828 Contact with and (suspected) exposure to other viral communicable diseases; I45.10 Unspecified right bundle-branch block
CPT/HCPCS: 96365; 96367; 96361; 93005; 87040 ×2; 87088; 87045; 85025 ×2; 81001; 87086; 80048; 36415; 83735; 89055; 87177; 82274; 85610; 80076; 87046; 85730; 87209; 87324; 83036; 83690; 80053; 87449; 86140 ×2; 87804 ×2; 74177; 71045; 94760 ×3; 96375; 99285; U0003; Q9967; J1650; J7030 ×3; J2405 ×2; G0378 ×3

== ENCOUNTER 2020-09-29 00:18 | Emergency (ER) | payer OTHER ==
--- OUTSIDE RECORDS SUMMARY | 2020-09-29 00:22 | XMS REPORT | Continuity of Care Document ---
:1960 Author Organization [facility] t Address [facility] Jimi Thomas [address] [place] [address] Care Team Providers Name Role Phone Jacob PRESTON Primary Care Physician Doctor Unassigned, Name Attending Clinician Unavailable Jacob INDUSTRI[employer]OLS TECHNICIAN Attending Clinician Payers Payer Name Policy Type Policy Effective Date Expiration Date Sour ce Number [facility] [id number] 2017 Univers ity of COMM PLAN - 00:00:00 [place] [facility] MANAGED Branch [place] STAR CIPEguhrx20104/1/ 2018-PresentMedic aid Problems Condition Condition Condition Status Onset Resolution Last Treating Co mments Source Name Details Category Date Date Treatment Clinician Date Essential Essential Disease Active 2019-03 Uni vers hypertensi hypertensi 0-02 it y of on on 00:00: [place] 00 [facility] Branch Chronic Chronic Disease Active 2020 Univers cluster cluster 0-02 [place] of headache, headache, [place] intractabl intractabl Br anch e e Arthritis Arthritis Disease Active 2019-03 Uni vers 0-02 ity of 00:00: [place] 00 [facility] 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 0-02 ity of due to due to 00:00: [place] exposure exposure 00 Medica l to to Branch sunlight sunlight Ex-smoker Ex-smoker Disease Active 2019-03 Uni vers 0-02 ity of 00:00: [place] 00 [facility] Need for Need for Disease Active 2019-03 Unive rs influenza influenza 0-02 [place] of vaccinatio vaccin[place] Need for Need for Disease Active 2019-03 Unive rs hepatitis hepatitis 0-02 ity of C C 00:00: [place] screening screening [address] [place] [address] test test Branch Screening Screening Disease Active 2019-03 Uni vers for for 0-02 [place] of malignant malignant [place] ne[place]oplasm 00 Med[place] l of colon of colon Branch Infection Infection Disease Active Uni vers 9-07 ity of 00:00: [place] [address] Medical Branch JOSHUA (acute JOSHUA (acute Disease Active U nivers kidney kidney 905 ity of injury) injury) 00:00: [place] [address] Medical Branch Acute Acute Disease Active Univers appendicit appendicit 9-05 it y of is is 00:00: [address] Branch Groin Groin Disease Active Univers hematoma hematoma 7-27 ity of 00:00: [address] Branch Obesity Obesity Disease Active Univers (BMI (BMI 7-27 ity of 30-39.9) 30-39.9) 00:00: [address] Branch Ventral Ventral Disease Active Univers hernia hernia 6-26 ity of without without 00:00: [place] obstructio obstructio 00 Me dical n or n or Branch gangrene gangrene Inguinal Inguinal Disease Active Overview: Un angel hernia hernia 6-25 Added ity of with with 00:00: automatic [place] incarcerat incarcerat 00 ally from Medical ion ion request Branch for surgery [id number] Allergies, Adverse Reactions, Alerts This patient has no known allergies or adverse reactions. Social History Social Habit Start Date Stop Date Quantity Comments Source History of Cigarette Smoker Universi ty of tobacco use [facility] Tobacco use and 2020-06-09 2020-06-09 Never used Universit y of exposure 00:00:00 00:00:00 [facility] Alcohol intake 2020-06-09 2020-06-09 Current University of 00:00:00 00:00:00 non-drinker of [facility] alcohol (finding) Branch History [facility] 2018-11-24 2018-11-24 2 University o f Transport Med 00:00:00 00:00:00 [place] Medic al Branch History [facility] 2018-11-24 2018-11-24 2 University o f Transport Non-Med 00:00:00 00:00:00 [facility] edical Branch History SDOH 2018-11-24 2018-11-24 5 University o f Financial 00:00:00 00:00:00 [place] [facility] History SDOH Food 2018-11-24 2018-11-24 1 Univers ity of Worry 00:00:00 00:00:00 [place] [facility] [place] History SDIL Food 2018-11-24 2018-11-24 1 Univers ity of Scarcity 00:00:00 00:00:00 [facility] Tobacco Comment 2017-08-30 2017-08-30 2015 Universit y of 00:00:00 00:00:00 [facility] Sex [birth year] At [birth year] Universit y of 00:00:00 00:00:00 [facility] Smoking Status Start Date Stop Date Source Former smoker 2020-06-09 00:00:00 2020-06-09 00:00:00 Universi ty [facility] Medications Ordered Filled Start Stop Current Ordering Indication Dosage Frequency Signature Comments Components Source Medication Medication Date Date Medication? Clinician (SIG) Name Name lisinopriL- Yes Essential 1{tbl} Take 1 Univers hydrochloro 3-17 hypertensio tablet by ity of thiazide 00:00: n mouth [place] 10-12.5 mg 00 daily. Medical per tablet Branch lisinopriL- Yes Essential 1{tbl} Take 1 Univers hydrochloro 3-17 hypertensio tablet by ity of thiazide 00:00: n mouth [place] 10-12.5 mg 00 daily. Medical per tablet Branch aspirin 81 Yes 162mg Take 162 Un angel mg chewable 8-21 mg by ity of tablet 18:42: mouth [place] 33 daily. Medical Branch aspirin 81 Yes 162mg Take 162 Un angel mg chewable 8-21 mg by ity of tablet 18:42: mouth [place] 33 daily. Medical Branch traMADol 50 Yes Acute 50mg Take 1 Uni vers mg tablet 11-27 appendiciti tablet by ity of 00:00: s with mouth [place] 00 localized every 6 Medical peritonitis (six) Branch and hours as gangrene, needed for unspecified Pain whether (scale abscess 1-3). present, unspecified whether perforation present traMADol 50 Yes Acute 50mg Take 1 Uni vers mg tablet 11-27 appendiciti tablet by ity of 00:00: s with mouth [place] 00 localized every 6 Medical peritonitis (six) Branch and hours as gangrene, needed for unspecified Pain whether (scale abscess 1-3). present, unspecified whether perforation present fluticasone Yes Nasopharyng 2{spray Use 2 Univers 50 1-14 itis } Sprays in ity of mcg/actuati 00:00: each [place] on nasal 00 nostril Medical spray daily. Branch fluticasone Yes Nasopharyng 2{spray Use 2 Univers 50 1-14 itis } Sprays in ity of mcg/actuati 00:00: each [place] on nasal 00 nostril Medical spray daily. Branch triamcinolo 2017-03 Yes Heat rash Apply to Univers ne 0-11 area(s) 2 ity of acetonide 00:00: (two) [place] 0.1 % 00 times Medical ointment daily. Branch triamcinolo 2017-03 Yes Heat rash Apply to Univers ne 0-11 area(s) 2 ity of acetonide 00:00: (two) [place] 0.1 % 00 times Medical ointment daily. Branch hydrOXYzine Yes Allergic 25mg Take 1 Univers 25 mg 9-26 contact tablet by ity of tablet 00:00: [place]itis [place] 00 due to every 6 Medical plants, (six) Branch except food hours as needed for Itching. hydrOXYzine Yes Allergic 25mg Take 1 Univers 25 mg 9-26 contact tablet by ity of tablet 00:00: dermatitis [place] 00 due to every 6 Medical plants, (six) Branch except food hours as needed for Itching. Immunizations Ordered Filled Immunization Date Status Comments Jeremiah e Immunization Name Name TDAP 2017-10-04 Completed [facility] 00:00:00 [facility] TDAP 2017-10-04 Completed [facility] 00:00:00 [facility] Procedures Procedure Date / Time Performed Performing Clinician Jeremiah e CONSENT/REFUSAL FOR 2020-07-25 17:12:41 [facility]igned, [facility] Branch TREATMENT Plan of Care Planned Activity Planned Date Details Comments Source Future Scheduled 2027-10-05 DTaP,Tdap,and Td Univers ity of Test 00:00:00 Vaccines (2 - Td) [facility] [code = Branch DTaP,Tdap,and Td Vaccines (2 - Td)] Future Scheduled 2027-10-05 DTaP,Tdap,and Td Univers ity of Test 00:00:00 Vaccines (2 - Td) [facility] [code = Branch DTaP,Tdap,and Td Vaccines (2 - Td)] Future Scheduled 2021-06-04 Depression screening Uni versity of Test 00:00:00 (procedure) [code = [facility] dical [id number]] Branch Future Scheduled 2021-06-04 Depression screening Uni versity of Test 00:00:00 (procedure) [code = [facility] dical [id number]] Branch Future Scheduled 2020-12-20 Zoster Recombinant Postponed from Uni versity of Test 00:00:00 Vaccine (SHINGRIX) 2008 [facility] ical (1 of 2) [code = (Vaccine not Branch Zoster Recombinant available) Vaccine (SHINGRIX) (1 of 2)] Future Scheduled 2020-12-20 Zoster Recombinant Postponed from Uni versity of Test 00:00:00 Vaccine (SHINGRIX) 2008 [facility] ical (1 of 2) [code = (Vaccine not Branch Zoster Recombinant available) Vaccine (SHINGRIX) (1 of 2)] Future Scheduled 2020-11-19 INFLUENZA VACCINE Univer sity of Test 00:00:00 (Season Ended) [code [facility] edical = INFLUENZA VACCINE Branch (Season Ended)] Future Scheduled 2020-11-19 INFLUENZA VACCINE Univer sity of Test 00:00:00 (Season Ended) [code [facility] edical = INFLUENZA VACCINE Branch (Season Ended)] Future Scheduled 2013 Screening for University of Test 00:00:00 malignant neoplasm [place] ical of lung (procedure) Branch [code = [id number]] Future Scheduled 2013 Screening for University of Test 00:00:00 malignant neoplasm [facility] ical of lung (procedure) Branch [code = [id number]] Future Scheduled 2008 Screening for occult Uni versity of Test 00:00:00 blood in feces [facility] (procedure) [code = Branch [id number]] Future Scheduled 2008 Stool DNA-based Universi ty of Test 00:00:00 colorectal cancer [facility] screening Branch (procedure) [code = [id number]] Future Scheduled 2008 Flexible fiberoptic Univ ersity of Test 00:00:00 sigmoidoscopy [place] [facility] (procedure) [code = Branch [id number]] Future Scheduled 2008 Screening for University of Test 00:00:00 malignant neoplasm [place] [facility] ical of colon (procedure) Branch [code = [id number]] Future Scheduled 2008 Screening for University of Test 00:00:00 malignant neoplasm [place] [facility] ical of colon (procedure) Branch [code = [id number]] Future Scheduled 2008 Screening for occult Uni versity of Test 00:00:00 blood in feces [facility] (procedure) [code = Branch [id number]] Future Scheduled 2008 Stool DNA-based Universi ty of Test 00:00:00 colorectal cancer [facility] screening Branch (procedure) [code = [id number]] Future Scheduled 2008 Flexible fiberoptic Univ ersity of Test 00:00:00 sigmoidoscopy [place] [facility] (procedure) [code = Branch [id number]] Future Scheduled 2008 Screening for University of Test 00:00:00 malignant neoplasm [place] [facility] ical of colon (procedure) Branch [code = [id number]] Future Scheduled 2008 Screening for University of Test 00:00:00 malignant neoplasm [place] [facility] ical of colon (procedure) Branch [code = [id number]] Future Scheduled 1976 Hepatitis C University of Test 00:00:00 screening [place] [facility] (procedure) [code = Branch [id number]] Future Scheduled 1976 Hepatitis C University of Test 00:00:00 screening [place] [facility] (procedure) [code = Branch [id number]] Future Scheduled 1974 SARS-CoV-2 University of Test 00:00:00 (COVID-19) Vaccine [place] [facility] ical (1) [code = Branch SARS-CoV-2 (COVID-19) Vaccine (1)] Future Scheduled 1974 SARS-CoV-2 University of Test 00:00:00 (COVID-19) Vaccine [place] [facility] ical (1) [code = Branch SARS-CoV-2 (COVID-19) Vaccine (1)] Encounters Start End Encounter Admission Attending Care Care Encounter Source Date/Time Date/Time Type Type Clinicians Facility Department ID 2020-09-10 2020-09-10 Orders Doctor TAYA [id number] 00:00:00 00:00:00 Only UnassignedKEY [id number] Marcus Hook [facility] [id number] 2020-09-08 2020-09-08 Telephone SULTANA James [id number] 00:00:00 00:00:00 Cookie Man [id number] [place] [id number] [facility] [id number] [place] [address] Building Results This patient has no known results.
[2020-09-29 02:15] LABS: Absolute Lymphocytes (CBC) 3.3 K/uL (0.7-4.9); Basophils % 1.4 % (0-1.3); Hematocrit 40.5 % (39.6-49.0); RBC Red Blood Cell Count 4.44 M/uL (4.33-5.43)
[2020-09-29 02:16] LABS: Protime INR 1.15
[2020-09-29 02:42] LABS: ALT/SGPT 40 U/L (12-78); AST/SGOT 25 U/L (15-37); Albumin 3.4 g/dL (3.4-5.0); Alkaline Phosphatase 73 U/L (45-117); BUN Blood Urea Nitrogen 12 mg/dL (7-18); Bicarbonate 29 mmol/L (21-32); Bilirubin Direct 0.2 mg/dL (0-0.2); Bilirubin Total 0.9 mg/dL (0.2-1.0); Glucose Level 97 mg/dL (74-106); Magnesium 2.4 mg/dL (1.8-2.4); NT PRO-BNP 134 pg/mL (<125); Potassium 3.3 mmol/L (3.5-5.1); Protein, Total 7.1 g/dL (6.4-8.2); Sodium Level 139 mmol/L (136-145); Troponin (Emerg Dept Use Only) < 0.02 ng/mL (0.0-0.045)
[2020-09-29 03:23] LABS: Urine Blood Negative (Negative); Urine Glucose Negative (Negative); Urine Protein Trace (Negative); Urine Specific Gravity >=1.030 (1.005-1.030)
--- NOTE | 2020-09-29 07:10 | ER ---
Nurse's Notes [facility] Name: Henry Elliott Age: 59 yrs Sex: Male : 1960 Arrival Date: 09/29/2020 Time: 00:19 Bed 18 Private MD: Diagnosis: Headache-Chronic;Back Pain;UTI/ Urinary tract infection, site not specified Presentation: 09/29 00:40 Chief complaint: Patient states: pain between shoulder blades that started 1 hour ago, em radiates into left arm, denies chest pain or shortness of breath, also reports URENA that have been there for 4 years but it got worse today. Coronavirus screen: Client denies travel out of the [place] in the last 14 days. Ebola Screen: Patient negative for fever greater than or equal to 101.5 degrees Fahrenheit, and additional compatible Ebola Virus Disease symptoms Patient denies exposure to infectious person. Patient denies travel to an Ebola-affected area in the 21 days before illness onset. No symptoms or risks identified at this time. Initial Sepsis Screen: Does the patient meet any 2 criteria? No. Patient's initial sepsis screen is negative. Does the patient have a suspected source of infection? No. Patient's initial sepsis screen is negative. Risk Assessment: Do you want to hurt yourself or someone else? Patient reports no desire to harm self or others. Onset of symptoms was September 29, 2020. 00:40 Method Of Arrival: Wheelchair em 00:40 Acuity: TOMMY 2 em Triage Assessment: 01:08 Headache History: The patient has had previous headaches and this one is similar to ak2 previous episodes. General: Appears in no apparent distress. Behavior is calm, cooperative. Pain: Complains of pain in back Pain currently is 5 out of 10 on a pain scale. Pain began gradually, Also complains of no other associated symptoms. Neuro: No deficits noted. Historical: - Allergies: 00:42 No Known Allergies; em - PMHx: 00:42 Headache; Hypertensive disorder; cluster headaches; em - PSHx: 00:42 Appendectomy; hernia repair; em - Immunization history:: Adult Immunizations up to date. - Social history:: Smoking status: Patient denies any tobacco usage or history of. Screenin:22 Abuse screen: Denies threats or abuse. Denies injuries from another. Nutritional ea screening: No deficits noted. Tuberculosis screening: No symptoms or risk factors identified. Fall Risk None identified. Assessment: 01:08 Pain: Complains of pain in back. ak2 02:53 General: Appears. Neuro: No deficits noted. Cardiovascular: No deficits noted. ak2 Respiratory: No deficits noted. 04:21 Reassessment: Patient and/or family updated on plan of care and expected duration. Pain ea level reassessed. 05:24 Reassessment: Patient and/or family updated on plan of care and expected duration. Pain ak2 level reassessed. 06:09 Reassessment: Patient and/or family updated on plan of care and expected duration. Pain ak2 level reassessed. 07:00 Reassessment: RECD REPORT FROM VICTOR MANUEL RM. 59YO WM P/W CP AND GENERAL MALAISE. ALL CURRENT bp ORDERS COMPLETED. MD AT B/S FOR RE-EVAL. 07:36 Reassessment: PT D/C HOME AMBULATORY, DX WITH CHRONIC BACK PAIN AND UTI. PT REFUSED D/C bp PAPERS BUT DID TAKE RX AT STAFF URGING. Vital Signs: 00:40 BP 146 / 96 RA; Pulse 79; Resp 18; Temp 98.6; Pulse Ox 99% on R/A; Weight 86.18 kg; em Height 5 ft. 5 in. (165.10 cm); Pain 6/10; 00:43 BP 152 / 88 LA; em 02:54 BP 134 / 75; Pulse 72; Resp 18; Pulse Ox 98% on R/A; ak2 04:22 BP 140 / 80; Pulse 74; Resp 16; Pulse Ox 98% on R/A; ea 06:09 BP 141 / 74; Pulse 68; Resp 16; Pulse Ox 98% on R/A; ak2 07:36 BP 138 / 78; Pulse 72; Resp 16; Temp 98.5; Pulse Ox 98% ; bp 00:40 Body Mass Index 31.62 (86.18 kg, 165.10 cm) em ED Course: 00:19 Patient arrived in ED. am4 00:42 Triage completed. em 00:42 Arm band placed on. em 00:47 Ramiro Coronado MD is Attending Physician. 7 01:08 Dimas Huitron is Primary Nurse. ak2 02:18 XRAY Chest (1 view) In Process Unspecified. EDMS 04:20 CT Head Brain wo Cont In Process Unspecified. EDMS 04:20 CT Chest For PE Angio In Process Unspecified. EDMS 04:22 Patient has correct armband on for positive identification. ea 04:22 No provider procedures requiring assistance completed. Inserted saline lock: 20 gauge ea in right antecubital area, using aseptic technique. 07:05 Stewart Mustafa, RN is Primary Nurse. bp 07:08 Roel Tanner MD is Referral Physician. [facility] 07:36 IV discontinued, intact, bleeding controlled, No redness/swelling at site. Pressure bp dressing applied. Administered Medications: 03:37 Drug: NS 0.9% 1000 ml Route: IV; Rate: 1000 ml; Site: left antecubital; ak2 07:38 Follow up: IV Status: Completed infusion; IV Intake: 1000ml bp Intake: 07:38 IV: 1000ml; Total: 1000ml. bp Outcome: 07:10 Discharge ordered by . 7 07:36 Discharged to home ambulatory, with family. bp 07:36 Condition: stable 07:36 Discharge instructions given to patient, Instructed on discharge instructions, follow up and referral plans. medication usage, Demonstrated understanding of instructions, follow-up care, medications, Prescriptions given X 2. 07:39 Patient left the ED. bp Signatures: Dispatcher [employer] Kwasi Muse, RN Sara Danielson, RN RN Stewart Mathias, RN Ramiro Branch MD MD Rema Madsen [facility]
--- NOTE | 2020-09-29 07:11 | EDPHYS ---
Physician Documentation [facility] Name: Henry Elliott Age: 59 yrs Sex: Male : 1960 Arrival Date: 09/29/2020 Time: 00:19 Bed 18 Private MD: ED Physician Ramiro Coronado HPI: 09/29 01:20 This 59 yrs old Male presents to ER via Wheelchair with complaints of LEFT mh7 ARM PAIN, Doesn't Feel Right, General Weakness, Headache. 01:20 The patient presents with pain that is acute, with no known mechanism of injury. The mh7 symptoms are located in the thoracic area. Onset: The symptoms/episode began/occurred last night. 01:20 The pain does not radiate. Associated signs and symptoms: Pertinent positives: mh7 headache, weakness, generalized, Pertinent negatives: abdominal pain, chest pain, constipation, dysuria, fever, hematuria, incontinence, nausea, numbness, tingling, urinary retention, vomiting. The problem was sustained when bending over. Modifying factors: The patient symptoms are alleviated by nothing, the patient symptoms are aggravated by movement. Severity of symptoms: At their worst the symptoms were moderate, last night, in the emergency department the symptoms have improved, moderately. Patient was working outside yesterday. Later started having upper back pain, arm pain. He has had headaches for 4 years. Denies fever, chest pain, vomiting, abdominal pain, focal weakness, or dizziness.. Historical: - Allergies: 00:42 No Known Allergies; em - PMHx: 00:42 Headache; Hypertensive disorder; cluster headaches; em - PSHx: 00:42 Appendectomy; hernia repair; em - Immunization history:: Adult Immunizations up to date. - Social history:: Smoking status: Patient denies any tobacco usage or history of. ROS: 01:20 Constitutional: Negative for fever, chills, and weight loss, Eyes: Negative for injury, mh7 pain, redness, and discharge, ENT: Negative for injury, pain, and discharge, Neck: Negative for injury, pain, and swelling, Cardiovascular: Negative for chest pain, palpitations, and edema, Respiratory: Negative for shortness of breath, cough, wheezing, and pleuritic chest pain, Abdomen/GI: Negative for abdominal pain, nausea, vomiting, diarrhea, and constipation, : Negative for injury, bleeding, discharge, and swelling, MS/Extremity: Negative for injury and deformity, Skin: Negative for injury, rash, and discoloration, Psych: Negative for depression, anxiety, suicide ideation, homicidal ideation, and hallucinations, Allergy/Immunology: Negative for hives, rash, and allergies, Endocrine: Negative for neck swelling, polydipsia, polyuria, polyphagia, and marked weight changes, Hematologic/Lymphatic: Negative for swollen nodes, abnormal bleeding, and unusual bruising. Exam: 01:20 Constitutional: This is a well developed, well nourished patient who is awake, alert, mh7 and in no acute distress. Head/Face: Normocephalic, atraumatic. Eyes: Pupils equal round and reactive to light, extra-ocular motions intact. Lids and lashes normal. Conjunctiva and sclera are non-icteric and not injected. Cornea within normal limits. Periorbital areas with no swelling, redness, or edema. Neck: Trachea midline, no thyromegaly or masses palpated, and no cervical lymphadenopathy. Supple, full range of motion without nuchal rigidity, or vertebral point tenderness. No Meningismus. Chest/axilla: Normal chest wall appearance and motion. Nontender with no deformity. No lesions are appreciated. Cardiovascular: Regular rate and rhythm with a normal S1 and S2. No gallops, murmurs, or rubs. Normal PMI, no JVD. No pulse deficits. Respiratory: Lungs have equal breath sounds bilaterally, clear to auscultation and percussion. No rales, rhonchi or wheezes noted. No increased work of breathing, no retractions or nasal flaring. Abdomen/GI: Soft, non-tender, with normal bowel sounds. No distension or tympany. No guarding or rebound. No evidence of tenderness throughout. 01:20 Skin: Warm, dry with normal turgor. Normal color with no rashes, no lesions, and no evidence of cellulitis. MS/ Extremity: Pulses equal, no cyanosis. Neurovascular intact. Full, normal range of motion. 01:20 Psych: Awake, alert, with orientation to person, place and time. Behavior, mood, and affect are within normal limits. 01:20 Back: pain, that is mild, ROM is painful, with all movement, normal spinal alignment noted, CVA tenderness, is absent, vertebral tenderness, is appreciated at thoracic area, muscle spasm, is not present. 01:20 Neuro: Orientation: is normal, Mentation: is normal, Memory: is normal, Cranial nerves: grossly normal, Cerebellar function: is grossly normal, Motor: is normal, Sensation: is normal, Gait: not tested. seizure activity, is not displayed by the patient, Abnormal movements: there are no abnormal movements. Vital Signs: 00:40 BP 146 / 96 RA; Pulse 79; Resp 18; Temp 98.6; Pulse Ox 99% on R/A; Weight 86.18 kg; em Height 5 ft. 5 in. (165.10 cm); Pain 08/28; 00:43 BP 152 / 88 LA; em 02:54 BP 134 / 75; Pulse 72; Resp 18; Pulse Ox 98% on R/A; ak2 04:22 BP 140 / 80; Pulse 74; Resp 16; Pulse Ox 98% on R/A; ea 06:09 BP 141 / 74; Pulse 68; Resp 16; Pulse Ox 98% on R/A; ak2 07:36 BP 138 / 78; Pulse 72; Resp 16; Temp 98.5; Pulse Ox 98% ; bp 00:40 Body Mass Index 31.62 (86.18 kg, 165.10 cm) em MDM: 07:07 Differential diagnosis: chronic back pain, Fatigue Fracture Osteoarthritis 7 Pyelonephritis Headache. Data reviewed: vital signs, nurses notes, lab test result(s), cardiac enzymes, CBC, electrolytes, urinalysis, EKG, radiologic studies, CT scan, plain films. Data interpreted: Pulse oximetry: on room air is 98 %. Interpretation: normal. Counseling: I had a detailed discussion with the patient and/or guardian regarding: the historical points, exam findings, and any diagnostic results supporting the discharge/admit diagnosis, the presence of at least one elevated blood pressure reading (>120/80) during this emergency department visit, lab results, radiology results, the need for outpatient follow up, an digital developer, a neurologist, to return to the emergency department if symptoms worsen or persist or if there are any questions or concerns that arise at home. Response to treatment: the patient's symptoms have markedly improved after treatment. 07:10 [facility] medically screened. [facility] 09/29 01:24 Order name: Basic Metabolic Panel; Complete Time: 03:34 [facility] 09/29 01:24 Order name: CBC with Diff; Complete Time: 02:35 [facility] 09/29 01:24 Order name: LFT's; Complete Time: 03:34 [facility] 09/29 01:24 Order name: Magnesium; Complete Time: 03:34 [facility] 09/29 01:24 Order name: NT PRO-BNP; Complete Time: 03:34 [facility] 09/29 01:24 Order name: PT-INR; Complete Time: 02:35 [facility] 09/29 01:24 Order name: Troponin (emerg Dept Use Only); Complete Time: 03:34 [facility] 09/29 01:24 Order name: XRAY Chest (1 view) [facility] 09/29 02:45 Order name: CPK; Complete Time: 03:34 [facility] 09/29 03:22 Order name: Urine Dipstick-Ancillary; Complete Time: 03:34 [facility] 09/29 03:35 Order name: CT Head Brain wo Cont [facility] 09/29 03:35 Order name: CT Chest For PE Angio [facility] 09/29 01:24 Order name: Cardiac monitoring; Complete Time: 07:09 [facility] 09/29 01:24 Order name: EKG - Nurse/Tech; Complete Time: 07:09 [facility] 09/29 01:24 Order name: IV Saline Lock; Complete Time: 07: [facility] 09/29 01:24 Order name: Labs collected and sent; Complete Time: 07:09 [facility] 09/29 01:24 Order name: O2 Per Protocol; Complete Time: 07:09 [facility] 09/29 01:24 Order name: O2 Sat Monitoring; Complete Time: 07: [facility] 09/29 02:46 Order name: Urine Dipstick-Ancillary (obtain specimen); Complete Time: 07:09 [facility] Administered Medications: 03:37 Drug: NS 0.9% 1000 ml Route: IV; Rate: 1000 ml; Site: left antecubital; ak2 07:38 Follow up: IV Status: Completed infusion; IV Intake: 1000ml bp Disposition Summary: 09/29/20 07:10 Discharge Ordered Location: Home [facility] Problem: chronic [facility] Symptoms: have improved [facility] Condition: Stable [facility] Diagnosis - Headache - Chronic [facility] - Back Pain [facility] - UTI/ Urinary tract infection, site not specified [facility] Followup: mh7 - With: Private Physician - When: 1 - 2 days - Reason: Worsening of condition, Recheck today's complaints, Continuance of care, Re-evaluation by your physician Followup: [facility] - With: Roel Tanner MD - When: 1 - 2 days - Reason: Worsening of condition, Recheck today's complaints Discharge Instructions: - Discharge Summary Sheet [facility] - Acute Back Pain, Adult [facility] - General Headache Without Cause [facility] - Urinary Tract Infection, Adult, [id number] Forms: - Medication Reconciliation Form [facility] - Thank You Letter [facility] - Antibiotic Education [facility] - Prescription Opioid Use [facility] Prescriptions: - ketorolac 10 mg Oral tablet - take 1 tablet by ORAL route every 8 hours As needed not to exceed 40 mg in [facility] 24hrs; 12 tablet; Refills: 0, Product Selection Permitted - Cipro 500 mg Oral Tablet - take 1 tablet by ORAL route every 12 hours for 7 days; 14 tablet; Refills: 0, [facility] Product Selection Permitted Signatures: Dispatcher [employer] Kwasi Muse, RN RN Ramiro Walls MD MD [facility] Dimas Huitron [facility] Stewart Mustafa RN bp
[2020-09-29 07:58] VITALS: O2SAT 98
[2020-09-29 08:04] VITALS: BP 138/78; TEMP 98.5
--- NOTE | 2020-09-29 08:52 | RAD REPORT ---
EXAM DESCRIPTION: RAD - Chest Single View - 09/29/2020 2:18 am CLINICAL HISTORY: hypertensive Chest pain. COMPARISON: Chest Single View dated 01/21/2020; Chest Single View dated 10/14/2017 FINDINGS: Portable technique limits examination quality. Mild interstitial pulmonary edema suspected. The heart is mildly enlarged in size. No displaced fract ures. IMPRESSION: Mild CHF versus volume overload pattern.
--- NOTE | 2020-09-29 13:29 | RAD REPORT ---
EXAM DESCRIPTION: CT Head Without Intravenous Contrast CLINICAL HISTORY: The patient is 59 years old and is Male; HEADACHE TECHNIQUE: Axial computed tomography images of the head/brain without intravenous contrast. Sagitt al and coronal reformatted images were created and reviewed. This CT exam was performed using one o r more of the following dose reduction techniques: automated exposure control, adjustment of the mA and/or kV according to patient size, and/or use of iterative reconstruction technique. COMPARISON: No relevant prior studies available. FINDINGS: Brain: Unremarkable. No hemorrhage. No significant white matter disease. No edema. Ventricles: Unremarkable. No ventriculomegaly. Bones/joints: Unremarkable. No acute fracture. Soft tissues: Unremarkable. Sinuses: Unremarkable as visualized. Mastoid air cells: Unremarkable as visualized. No mastoid effusion. IMPRESSION: No acute intracranial abnormality. Electronically signed by: Dinh Decker MD 09/29/2020 4:54 AM CDT Due to temporary technical issues with the PACS/Fluency reporting system, reports are being signed by the in house radiologist without review as a courtesy to ensure prompt reporting. The interpreting r adiologist is fully responsible for the content of the report.
--- NOTE | 2020-09-29 13:36 | RAD REPORT ---
EXAM DESCRIPTION: Chest For Pe Angio CLINICAL HISTORY: PAIN COMPARISON: None Available. TECHNIQUE: CTA of the chest obtained following the uncomplicated intravenous administration of iodin ated contrast.. 3-D/MIP reformatted images of the chest available for evaluation. This exam was perfo rmed according to our departmental dose-optimization program, which includes automated exposure contr ol, adjustment of the mA and/or kV according to patient size and/or use of iterative reconstruction t echnique. FINDINGS: Chest: Pulmonary arteries: Contrast bolus is adequate.No filling defects identified in the pulmonary arterie s to suggest pulmonary embolus. Thyroid: No abnormalities of the visualized thyroid. Great Vessels: Great vessels have normal anatomic configuration. Thoracic Aorta: Atherosclerotic calcification of the thoracic aorta. Heart: Coronary artery atherosclerosis. Heart is not enlarged. No significant pericardial effusion. Lymph Nodes: No enlarged mediastinal lymph nodes identified. Esophagus: No abnormalities of the esophagus identified. Other: No additional findings. Lungs: Respiratory motion artifact. Mild bibasilar dependent atelectasis. No confluent airspace conso lidation. Pleura: No pleural effusion or pneumothorax. Trachea/Airways: No abnormalities of the visualized trachea or airways. Bones: Degenerative change of the spine. Upper Abdomen: Limited images of the upper abdomen demonstrate no definite abnormalities of visualize d portions of the liver, gallbladder, pancreas, spleen, adrenal glands, or kidneys. IMPRESSION: 1. No pulmonary embolus. 2. Coronary artery atherosclerosis. Electronically signed by: Shahab Hines 09/29/2020 6:01 AM CDT Due to temporary technical issues with the PACS/Fluency reporting system, reports are being signed by the in house radiologist without review as a courtesy to ensure prompt reporting. The interpreting r adiologist is fully responsible for the content of the report.
== END 2020-09-29 07:39 | disposition home or self-care (01) ==
LOC: ER 00:18
DX: N39.0 Urinary tract infection, site not specified (principal); R51.9 Headache, unspecified; I10 Essential (primary) hypertension
CPT/HCPCS: 96361; 85025; 80048; 36415; 83735; 82550; 85610; 80076; 81003; 84484; 83880; 70450; 71275; 71045; 96360; 99284; Q9967

== ENCOUNTER 2020-12-21 21:12 | Emergency (ER) | payer OTHER ==
[2020-12-21 21:51] LABS: Protime INR 1.21
[2020-12-21 21:54] LABS: Absolute Lymphocytes (CBC) 2.4 K/uL (0.7-4.9); Basophils % 1.4 % (0-1.3); Hematocrit 42.3 % (39.6-49.0); Lymphocytes % 26.9 % (15.3-44.8); MPV 8.2 fL (7.6-11.3); RBC Red Blood Cell Count 4.65 M/uL (4.33-5.43)
[2020-12-21 22:04] LABS: ALT/SGPT 59 U/L (12-78); AST/SGOT 43 U/L (15-37); Albumin 3.8 g/dL (3.4-5.0); Alkaline Phosphatase 66 U/L (45-117); BUN Blood Urea Nitrogen 15 mg/dL (7-18); Bicarbonate 28 mmol/L (21-32); Bilirubin Direct 0.3 mg/dL (0-0.2); Bilirubin Total 1.1 mg/dL (0.2-1.0); Glucose Level 90 mg/dL (74-106); Magnesium 2.3 mg/dL (1.8-2.4); NT PRO-BNP 50 pg/mL (<125); Potassium 3.7 mmol/L (3.5-5.1); Protein, Total 7.4 g/dL (6.4-8.2); Sodium Level 133 mmol/L (136-145); Troponin (Emerg Dept Use Only) < 0.02 ng/mL (0.0-0.045)
--- NOTE | 2020-12-21 22:08 | RAD REPORT ---
EXAM DESCRIPTION: RAD - Chest Single View - 12/21/2020 9:58 pm CLINICAL HISTORY: SOB COMPARISON: Chest Single View dated 09/29/2020; Chest Single View dated 01/21/2020; Chest Single View dated 10/14/2017 FINDINGS: Lines: None. Lungs: No evidence of edema or pneumonia. Pleural: No significant pleural effusions or pneumothorax. Cardiac: The heart size is within normal limits. Bones: No acute fractures. Other: IMPRESSION: No acute cardiopulmonary disease.
[2020-12-21 22:21] LABS: Urine Blood Negative (Negative); Urine Glucose Negative (Negative); Urine Protein Negative (Negative)
[2020-12-22] MEDS ORDERED: ACETAMINOPHEN 500 MG TAB ONE (00:27)
[2020-12-22 00:50] LABS: Barbiturates NEGATIVE (NEGATIVE); Benzodiazepines NEGATIVE (NEGATIVE); Cocaine NEGATIVE (NEGATIVE); METHAMPHETAM POSITIVE (NEGATIVE); Methadone NEGATIVE (NEGATIVE); Opiates NEGATIVE (NEGATIVE); Phencyclidine NEGATIVE (NEGATIVE); THC Cannibis POSITIVE (NEGATIVE)
--- NOTE | 2020-12-22 01:22 | EDPHYS ---
Physician Documentation [facility] Name: Henry Elliott Age: 60 yrs Sex: Male : 1960 Arrival Date: 12/21/2020 Time: 21:17 Bed 5 Private MD: ED Physician Ramiro Coronado HPI: 12/21 21:26 This 60 yrs old Male presents to ER via EMS with complaints of Shortness Of mh7 Breath. 21:26 The patient has shortness of breath with light activity. Onset: The symptoms/episode mh7 began/occurred 2 week(s) ago. Duration: The symptoms are intermittent, with no pattern. The patient's shortness of breath is aggravated by coughing, exertion, light activity, is alleviated by rest. Associated signs and symptoms: Pertinent positives: non-productive cough, Pertinent negatives: chest pain, productive cough, diaphoresis, dizziness, fever, hemoptysis, loss of consciousness, nausea, numbness in extremities, visual changes, vomiting. Severity of symptoms: At their worst the symptoms were moderate yesterday, in the emergency department the symptoms are unchanged. Historical: - Allergies: 21:19 No Known Allergies; lp1 - Home Meds: 21:19 None [Active]; lp1 - PMHx: 21:19 cluster headaches; headache; Hypertensive disorder; lp1 - PSHx: 21:19 Appendectomy; hernia repair; lp1 - Immunization history:: Adult Immunizations unknown. - Social history:: Smoking status: Patient denies any tobacco usage or history of. Patient uses street drugs, marijuana. ROS: 21:26 Constitutional: Negative for fever, chills, and weight loss, Eyes: Negative for injury, mh7 pain, redness, and discharge, ENT: Negative for injury, pain, and discharge, Neck: Negative for injury, pain, and swelling, Cardiovascular: Negative for chest pain, palpitations, and edema, Abdomen/GI: Negative for abdominal pain, nausea, vomiting, diarrhea, and constipation, Back: Negative for injury and pain, : Negative for injury, bleeding, discharge, and swelling, MS/Extremity: Negative for injury and deformity, Skin: Negative for injury, rash, and discoloration, Neuro: Negative for headache, weakness, numbness, tingling, and seizure, Psych: Negative for depression, anxiety, suicide ideation, homicidal ideation, and hallucinations, Allergy/Immunology: Negative for hives, rash, and allergies, Endocrine: Negative for neck swelling, polydipsia, polyuria, polyphagia, and marked weight changes, Hematologic/Lymphatic: Negative for swollen nodes, abnormal bleeding, and unusual bruising. Exam: 21:26 Constitutional: This is a well developed, well nourished patient who is awake, alert, mh7 and in no acute distress. Head/Face: Normocephalic, atraumatic. Eyes: Pupils equal round and reactive to light, extra-ocular motions intact. Lids and lashes normal. Conjunctiva and sclera are non-icteric and not injected. Cornea within normal limits. Periorbital areas with no swelling, redness, or edema. Neck: Trachea midline, no thyromegaly or masses palpated, and no cervical lymphadenopathy. Supple, full range of motion without nuchal rigidity, or vertebral point tenderness. No Meningismus. Chest/axilla: Normal chest wall appearance and motion. Nontender with no deformity. No lesions are appreciated. Cardiovascular: Regular rate and rhythm with a normal S1 and S2. No gallops, murmurs, or rubs. Normal PMI, no JVD. No pulse deficits. Respiratory: Lungs have equal breath sounds bilaterally, clear to auscultation and percussion. No rales, rhonchi or wheezes noted. No increased work of breathing, no retractions or nasal flaring. Abdomen/GI: Soft, non-tender, with normal bowel sounds. No distension or tympany. No guarding or rebound. No evidence of tenderness throughout. Back: No spinal tenderness. No costovertebral tenderness. Full range of motion. Skin: Warm, dry with normal turgor. Normal color with no rashes, no lesions, and no evidence of cellulitis. MS/ Extremity: Pulses equal, no cyanosis. Neurovascular intact. Full, normal range of motion. Neuro: Awake and alert, GCS 15, oriented to person, place, time, and situation. Cranial nerves II-XII grossly intact. Motor strength 5/5 in all extremities. Sensory grossly intact. Cerebellar exam normal. Normal gait. Psych: Awake, alert, with orientation to person, place and time. Behavior, mood, and affect are within normal limits. Vital Signs: 21:17 BP 126 / 86; Pulse 89; Resp 18; Temp 98.9(O); Pulse Ox 99% on R/A; Weight 90.72 kg (R); lp1 Height 5 ft. 5 in. (165.10 cm); Pain 5/10; 22:26 BP 114 / 76; Pulse 67; Resp 18; Pulse Ox 100% on R/A; dc2 12/22 00:00 BP 109 / 80; Pulse 75; Resp 18; Pulse Ox 99% on R/A; Pain 0/10; dc2 01:30 BP 118 / ???; Pulse 72; Resp 18; Pulse Ox 99% on R/A; Pain 0/10; wg 03:09 BP 112 / 76; Pulse 72; Resp 18; Pulse Ox 100% on R/A; Pain 0/10; wg 12/21 21:17 Body Mass Index 33.28 (90.72 kg, 165.10 cm) lp1 MDM: 01:17 Differential diagnosis: Anemia Anxiety Reaction asthma, Bronchitis CHF exacerbation, mh7 Chronic Obstructive Pulmonary Disease Myocardial Infarction pneumonia, Pneumothorax Psychogenic pulmonary edema, Pulmonary Embolism reactive airway disease, Unstable Angina Substance abuse, dyspnea. Data reviewed: vital signs, nurses notes, old medical records, lab test result(s), cardiac enzymes, CBC, electrolytes, urinalysis, urine drug screen, EKG, radiologic studies, CT scan, plain films. Data interpreted: Pulse oximetry: on room air is 99 %. Interpretation:. Counseling: I had a detailed discussion with the patient and/or guardian regarding: the historical points, exam findings, and any diagnostic results supporting the discharge/admit diagnosis, lab results, radiology results, the need for outpatient follow up, to return to the emergency department if symptoms worsen or persist or if there are any questions or concerns that arise at home. Response to treatment: the patient's symptoms have resolved after treatment, the patient's blood pressure is in an acceptable range, mental status has returned to baseline, the patient no longer shows bradycardia, the patient is not short of breath, the patient is not tachycardic, the patient's pain is gone, the patient's temperature has normalized, Ambulating around the ED without any shortness of breath, chest pain, or other complaints.. ED course: Well-appearing, no acute distress, vital signs stable, no focal neurological deficits. No chest pain, shortness of breath with sitting or ambulation. Discussed test results with the patient he requested be discharged in ED at this time.. 01:21 Patient medically screened. [facility] 12/21 21:25 Order name: Basic Metabolic Panel [facility] 12/21 21:25 Order name: CBC with Diff [facility] 12/21 21:25 Order name: LFT's; Complete Time: 22:14 [facility] 12/21 21:25 Order name: Magnesium; Complete Time: 22:14 [facility] 12/21 21:25 Order name: NT PRO-BNP; Complete Time: 22:14 [facility] 12/21 21:25 Order name: PT-INR; Complete Time: 22:14 [facility] 12/21 21:25 Order name: Troponin (emerg Dept Use Only); Complete Time: 22:14 [facility] 12/21 21:25 Order name: Basic Metabolic Panel; Complete Time: 22:14 [facility] 12/21 21:25 Order name: CBC with Automated Diff; Complete Time: 22:14 [facility] 12/21 22:19 Order name: Urine Dipstick-Ancillary; Complete Time: 22:51 [facility] 12/21 22:36 Order name: SARS-COV-2 RT PCR; Complete Time: 22:51 [facility] 12/21 23:43 Order name: UDS; Complete Time: 00:58 [facility] 12/22 00:30 Order name: Troponin (emerg Dept Use Only); Complete Time: 01:13 [facility] 12/21 21:25 Order name: XRAY Chest (1 view); Complete Time: 22:14 [facility] 12/21 21:25 Order name: EKG; Complete Time: 21:26 [facility] 12/21 21:25 Order name: Cardiac monitoring; Complete Time: 21:38 [facility] 12/21 21:25 Order name: EKG - Nurse/Tech; Complete Time: 21:38 [facility] 12/21 21:25 Order name: IV Saline Lock; Complete Time: 21:38 [facility] 12/21 21:25 Order name: Labs collected and sent; Complete Time: 21:38 [facility] 12/21 21:25 Order name: O2 Per Protocol; Complete Time: 21:38 [facility] 12/21 21:25 Order name: O2 Sat Monitoring; Complete Time: 21:39 [facility] 12/21 22:16 Order name: CT Chest For PE Angio [facility] Administered Medications: 00:05 Drug: Tylenol 1000 mg Route: PO; 00:42 Follow up: Response: Pain is decreased dc2 03:12 Follow up: Response: No adverse reaction Disposition Summary: 12/22/20 01:21 Discharge Ordered Location: Home [facility] Problem: an ongoing problem [facility] Symptoms: have improved [facility] Condition: Stable [facility] Diagnosis - Dyspnea, unspecified 7 - Methamphetamine Abuse mh7 - Cannabis abuse [facility] Followup: [facility] - With: Private Physician - When: 1 - 2 days - Reason: Worsening of condition, Recheck today's complaints, Continuance of care, Re-evaluation by your physician Discharge Instructions: - Discharge Summary Sheet [facility] - Cannabis Use Disorder [facility] - Shortness of Breath, Adult, [id number] [facility] - Methamphetamines Use Disorder [facility] Forms: - Medication Reconciliation Form [facility] - Thank You Letter [facility] - Antibiotic Education [facility] - Prescription Opioid Use [facility] Signatures: Dispatcher [employer] Maria London RN RN 1 Ramiro Coronado MD MD 7 Raj Benítez RN BryantSabrina RN dc2 Corrections: (The following items were deleted from the chart) 12/21 21:38 21:26 CORONAVIRUS+MR.LAB.BRZ ordered. EDMS EDMS
--- NOTE | 2020-12-22 01:22 | ER ---
Nurse's Notes [facility] Name: Henry Elliott Age: 60 yrs Sex: Male : 1960 Arrival Date: 12/21/2020 Time: 21:17 Bed 5 Private MD: Diagnosis: Dyspnea, unspecified;Methamphetamine Abuse;Cannabis abuse Presentation: 12/21 21:17 Chief complaint: EMS states: Called for ongoing shortness of breath with exertion x 2 lp1 weeks; Reports stepson diagnosed with COVID about 2 weeks ago; States intermittent headaches. Coronavirus screen: shortness of breath. Ebola Screen: No symptoms or risks identified at this time. Initial Sepsis Screen: Does the patient meet any 2 criteria? No. Patient's initial sepsis screen is negative. Does the patient have a suspected source of infection? No. Patient's initial sepsis screen is negative. Risk Assessment: Do you want to hurt yourself or someone else? Patient reports no desire to harm self or others. Onset of symptoms was December 21, 2020. 21:17 Method Of Arrival: EMS: [facility] lp1 21:17 Acuity: TOMMY 3 lp1 Triage Assessment: 21:32 General: Appears uncomfortable, obese, well developed, Behavior is calm, cooperative, wg appropriate for age. Pain: Complains of pain in Headache Pain currently is 5 out of 10 on a pain scale. Quality of pain is described as aching. Respiratory: Reports shortness of breath on exertion Airway is patent Respiratory effort is even, unlabored, Respiratory pattern is regular, Breath sounds are clear bilaterally. Breath sounds are diminished bilaterally. Onset: The symptoms/episode began/occurred gradually, the patient has mild shortness of breath. Historical: - Allergies: 21:19 No Known Allergies; lp1 - Home Meds: 21:19 None [Active]; lp1 - PMHx: 21:19 cluster headaches; headache; Hypertensive disorder; lp1 - PSHx: 21:19 Appendectomy; hernia repair; lp1 - Immunization history:: Adult Immunizations unknown. - Social history:: Smoking status: Patient denies any tobacco usage or history of. Patient uses street drugs, marijuana. Screenin:20 Abuse screen: Denies threats or abuse. Denies injuries from another. Nutritional lp1 screening: No deficits noted. Tuberculosis screening: No symptoms or risk factors identified. 21:39 Fall Risk No fall in past 12 months (0 pts). IV access (20 points). wg Assessment: 21:39 Cardiovascular: Denies chest pain, diaphoresis, lightheadedness, nausea, vomiting, wg Rhythm is regular. 22:00 Pain: Denies pain. Neuro: No deficits noted. Cardiovascular: Rhythm is sinus rhythm. dc2 Respiratory: Breath sounds are clear bilaterally. GI: No deficits noted. 22:00 Musculoskeletal: No deficits noted. dc2 22:25 Reassessment: Pt asking for sandwich or something to eat. Instructed on test to be done dc2 and for now would be NPO. Pt voices understanding. 12/22 00:20 Reassessment: Patient appears in no apparent distress at this time. No changes from wg previously documented assessment. Patient and/or family updated on plan of care and expected duration. Pain level reassessed. Pt given a turkey sandwich and diet soda and lorne well. Patient states feeling better. 00:51 Reassessment: Pt walked around the ED for approx 5 mins and maintained an O2 Sat of 98% wg and no dyspnea. 02:30 Reassessment: Patient appears in no apparent distress at this time. No changes from wg previously documented assessment. Patient and/or family updated on plan of care and expected duration. Pain level reassessed. Patient states feeling better. Patient states symptoms have improved. Vital Signs: 12/21 21:17 BP 126 / 86; Pulse 89; Resp 18; Temp 98.9(O); Pulse Ox 99% on R/A; Weight 90.72 kg (R); lp1 Height 5 ft. 5 in. (165.10 cm); Pain 5/10; 22:26 BP 114 / 76; Pulse 67; Resp 18; Pulse Ox 100% on R/A; dc2 12/22 00:00 BP 109 / 80; Pulse 75; Resp 18; Pulse Ox 99% on R/A; Pain 0/10; dc2 01:30 BP 118 / ???; Pulse 72; Resp 18; Pulse Ox 99% on R/A; Pain 0/10; wg 03:09 BP 112 / 76; Pulse 72; Resp 18; Pulse Ox 100% on R/A; Pain 0/10; wg 12/21 21:17 Body Mass Index 33.28 (90.72 kg, 165.10 cm) lp1 Vitals: 10/03 21:39 Cardiac Rhythm Assessment Regular Sinus rhythm. wg ED Course: 10:50 Patient moved back from CT. dc2 21:17 Patient arrived in ED. lp1 21:17 Ramiro Coronado MD is Attending Physician. 7 21:19 Triage completed. lp1 21:20 Arm band placed on. lp1 21:32 Raj Benítez, RN is Primary Nurse. wg 21:32 EKG completed in triage. Results shown to MD. wg 21:33 Patient has correct armband on for positive identification. Placed in gown. Bed in low wg position. Call light in reach. Side rails up X2. phototypesetting equipment monitor on. Pulse ox on. NIBP on. 21:33 Inserted saline lock: 20 gauge in left forearm, using aseptic technique. Blood wg collected. Patient maintains SpO2 saturation greater than 95% on room air. 21:38 CBC with Automated Diff Sent. wg 21:38 Basic Metabolic Panel Sent. wg 21:38 Basic Metabolic Panel Sent. wg 21:38 CBC with Diff Sent. wg 21:39 LFT's Sent. wg 21:39 Magnesium Sent. wg 21:39 NT PRO-BNP Sent. wg 21:39 PT-INR Sent. wg 21:39 Troponin (emerg Dept Use Only) Sent. wg 21:58 XRAY Chest (1 view) In Process Unspecified. EDMS 22:[address] via stretcher. dc2 23:01 CT Chest For PE Angio In Process Unspecified. EDMS 04 00:01 UDS Sent. wg 00:09 Diet: sandwich given to patient.. dc2 00:40 Troponin (emerg Dept Use Only) Sent. dc2 03:11 IV discontinued, intact, bleeding controlled, No redness/swelling at site. Pressure wg dressing applied. Administered Medications: 00:05 Drug: Tylenol 1000 mg Route: PO; wg 00:42 Follow up: Response: Pain is decreased dc2 03:12 Follow up: Response: No adverse reaction wg Outcome: 01:21 Discharge ordered by . 7 03:11 Discharged to home ambulatory. wg 03:11 Condition: stable 03:11 Discharge instructions given to patient, Instructed on discharge instructions, follow up and referral plans. medication usage, benefits of quitting smoking, Demonstrated understanding of instructions, follow-up care. 03:12 Patient left the ED. wg Signatures: Dispatcher [employer] Maria London RN RN lp1 Ramiro Coronado MD MD mh7 Raj Benítez RN wg Sabrina Hurtado RN RN dc2
[2020-12-22 03:19] VITALS: TEMP 98.9
[2020-12-22 03:24] VITALS: BP 112/76; O2SAT 100
--- NOTE | 2020-12-22 10:29 | RAD REPORT ---
EXAM DESCRIPTION: CT - Chest For Pe Angio - 12/22/2020 12:37 am CLINICAL HISTORY: 60 years, Male, SOB COMPARISON: 09/29/2020. TECHNIQUE: Multiple transaxial tomograms of the chest were obtained from the lung apices through the lung bases utilizing 2 mm slice thickness at 2 mm interval reconstruction after the administration o f large bolus of IV contrast for complete opacification of the pulmonary arteries. Subsequent maximum intensity projection images were generated in the coronal and sagittal plane for r eview. This exam was performed according to our departmental dose-optimization protocol, which includes auto mated exposure control, adjustment of the mA and/or kV according to patient size and/or use of iterat callie reconstruction technique. FINDINGS: The lungs parenchyma demonstrate minimal dependent atelectatic changes lung bases. There i s a calcified granuloma subpleural aspect right upper lobe on image 29, posterior segment right lower lobe on image 71 and superior segment left lower lobe on image 50. Mild elevation of the bilateral d iaphragms. No significant masses, nodules and/or consolidations are identified. The trachea mainstem bronchus demonstrate to be normal. There is no significant pericardial or pleura l effusions. The thoracic aorta demonstrate to be unremarkable. The heart is normal in size. No evidence for right ventricular strain. Again there is coronary artery calcification. There is no significant mediastinal and/or hilar lymphadenopathy. The axillary regions demonstrate to be clear. Pulmonary arteries demonstrate to be normal, no intraluminal defect are seen that would suggest pulmo nary embolus. The bone windows demonstrate no significant skeletal lesions. The visualized portions of the upper abdomen demonstrate to be unremarkable. IMPRESSION: No evidence for pulmonary embolus and/or thoracic aortic dissection. Mild elevation of the bilateral diaphragms with minimal dependent atelectatic changes. Old granulomatous disease. Coronary artery calcification. No significant interval change in comparison with prior study. Due to temporary technical issues with the PACS/Fluency reporting system, reports are being signed by the in house radiologist without review as a courtesy to ensure prompt reporting. The interpreting r adiologist is fully responsible for the content of the report.
== END 2020-12-22 03:12 | disposition home or self-care (01) ==
LOC: ER 21:12
DX: F15.10 Other stimulant abuse, uncomplicated (principal); F12.10 Cannabis abuse, uncomplicated; I10 Essential (primary) hypertension; Z20.822 Contact with and (suspected) exposure to COVID-19
CPT/HCPCS: 85025; 80048; 36415; 83735; 85610; 80076; 81003; 84484 ×2; 83880; 71275; 71045; 99285; U0003; Q9967

== ENCOUNTER 2022-03-21 12:47 | Emergency (ER) | payer OTHER ==
--- OUTSIDE RECORDS SUMMARY | 2022-03-21 12:56 | XMS REPORT | Continuity of Care Document ---
:1960 Author Organization [facility] t Address [address] [place] [address] Care Team Providers Name Role Phone Scarlett Jimenez Primary Care Physician DEANGELO MEDEROS Attending Clinician Unavailable DEANGELO MEDEROS Attending Clinician Unavailable RACHAEL DICKEY Attending Clinician Unavailable Deangelo Mederos MD Attending Clinician HÉCTOR ROPER Attending Clinician Unavailable HÉCTOR ROPER Attending Clinician Unavailable Héctor Roper MD Attending Clinician Doctor Unassigned, [place] Attending Clinician Unavailable JUAN DIEGO CORDOBA Attending Clinician Unavailable Scarlett Jimenez Attending Clinician SCARLETT WHITNEY Attending Clinician Unavailable 1, [facility] Attending Clinician Unavailable Only, [facility] Test Attending Clinician Unavailable CONY ARRINGTON Attending Clinician Unavailable 2, [facility] Lab Attending Clinician Unavailable Juan Diego Cordoba MD Attending Clinician Provider, [facility] Attending Clinician Unavailable Siena Phoenix Attending Clinician Max RM, [place] Attending Clinician Unavailable Zora Rodríguez MD Attending Clinician Renae Sunshine F Attending Clinician Joey RYAN, Jose Attending Clinician Woody Sampson MD Attending Clinician Joey RYAN, Jose Admitting Clinician Payers Payer Name Policy Type Policy Number Effective Date Expiration Date Netta petersen [facility] [id number] 2017 00:00:00 PLUS Problems Condition Condition Condition Status Onset Resolution Last Treating Co mments Source Name Details Category Date Date Treatment Clinician Date Essential Essential Disease Active 2019-03 Uni vers hypertensi hypertensi 0-02 it y of on on 00:00: [place] 00 Medical Branch Chronic Chronic Disease Active 2019-03 Univers cluster cluster 0-02 it[place] of headache, [place], [place] Medical intractabl intractabl Br anch e e Arthritis Arthritis Disease Active 2019-03 Uni vers 0-02 ity of 00:00: [place] 00 Medical Branch 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 0-02 ity of due to due to 00:00: [place] exposure exposure 00 Medica l to to Branch sunlight sunlight Ex-smoker Ex-smoker Disease Active 2019-03 Uni vers 0-02 ity of 00:00: [place] 00 Medical Branch Need for Need for Disease Active 2019-03 Unive rs influenza influenza 0-02 ity of vaccin[place] Need for Need for Disease Active 2019-03 Unive rs hepatitis hepatitis 0-02 ity of C C 00:00: [place] screening screening 00 Medi maribel test test Branch Screening Screening Disease Active 2019-03 Uni vers for for 0-02 it[place] of malignant malignant [place] ne[place] Medica [place] of colon of colon Branch Infection Infection Disease Active 2019 Uni vers 9-07 ity of 00:00: [place] 00 Medical Branch JOSHUA (acute JOSHUA (acute Disease Active 2019 U nivers kidney kidney 9 ity of injury) injury) 00:00: [place] 00 Medical Branch Acute Acute Disease Active 2019 Univers appendicit appendicit 9- it y of is is 00:00: [place] 00 Medical Branch Groin Groin Disease Active 2018 Univers hematoma hematoma 7- ity of 00:00: [place] 00 Medical Branch Obesity Obesity Disease Active Univers (BMI (BMI 7-27 ity of 30-39.9) 30-39.9) 00:00: [place] 00 Medical Branch Ventral Ventral Disease Active Univers hernia hernia 6-26 ity of without without 00:00: [place] obstructio obstructio 00 Me dical n or n or Branch gangrene gangrene Ventral Ventral Disease Active Univers hernia hernia 6-26 ity of without without 00:00: [place] obstructio obstructio 00 Me dical n or n or Branch gangrene gangrene Inguinal Inguinal Disease Active Overview: Un angel hernia hernia 6-25 Added ity of with with 00:00: automatic [place] incarcerat incarcerat 00 ally from Medical ion ion request Branch for surgery [id number] Inguinal Inguinal Disease Active Overview: Un angel hernia hernia 6-25 Formattin ity of with with 00:00: g of this [place] incarcerat incarcerat 00 note Me dical ion ion might be Branch different from the original. Added automatic ally from request for surgery [id number] Inguinal Inguinal Disease Active Overview: Un angel hernia hernia 6-25 Formattin ity of with with 00:00: g of this [place] incarcerat incarcerat 00 note Me dical ion ion might be Branch different from the original. Added automatic ally from request for surgery [id number] Allergies, Adverse Reactions, Alerts Allergy Allergy Status Severity Reaction(s) Onset Inactive Treating Comm ents Source Name Type Date Date Clinician NO KNOWN Drug Active Univers ALLERGIE Class ity of S [facility] Social History Social Habit Start Date Stop Date Quantity Comments Source History of Cigarette Smoker Universi ty of tobacco use [facility] Exposure to 2022-03-07 2022-03-17 Not sure [facility] SARS-CoV-2 00:00:00 10:45:00 [facility] (event) Branch Alcohol intake 2022-01-29 2022-01-29 Current University of 00:00:00 00:00:00 non-drinker of [facility] alcohol (finding) Branch History [facility] 2018-11-24 2018-11-24 5 University o f Financial 00:00:00 00:00:00 [facility] History [facility] Food 2018-11-24 2018-11-24 1 Univers ity of Worry 00:00:00 00:00:00 [place] [facility] History [facility] Food 2018-11-24 2018-11-24 1 Univers ity of Scarcity 00:00:00 00:00:00 [place] [facility] History [facility] 2018-11-24 2018-11-24 2 University o f Transport Med 00:00:00 00:00:00 [place] Medic al Branch History [facility] 2018-11-24 2018-11-24 2 University o f Transport Non-Med 00:00:00 00:00:00 [facility] edical Branch Tobacco use and 2017-08-30 2017-08-30 Smokeless tobacco Un iversity of exposure 00:00:00 00:00:00 non-user [facility] Tobacco Comment 2017-08-30 2017-08-30 2015 Universit y of 00:00:00 00:00:00 [facility] Sex [birth year] At [birth year] Universit y of 00:00:00 00:00:00 [facility] Smoking Status Start Date Stop Date Source Ex-smoker 2017-08-30 00:00:00 2017-08-30 00:00:00 Universi ty of [facility] Medications Ordered Filled Start Stop Current Ordering Indication Dosage Frequency Signature Comments Components Source Medication Medication Date Date Medication? Clinician (SIG) Name Name madison 2021-03 Yes [id number] Take one Univers ne 50 mg 0-11 tablet ity of capsule 00:00: (25mg) by [place] 00 mouth for Medical 10 days, Branch then taken 2 tablets (50mg) by mouth for now on out. shrutiiptyli 2021-03 Yes [id number] Take one Univers ne 50 mg 0-11 tablet ity of capsule 00:00: (25mg) by [place] 00 mouth for Medical 10 days, Branch then taken 2 tablets (50mg) by mouth for now on out. arielatriptyli 2021-03 Yes [id number] Take one Univers ne 50 mg 0-11 tablet ity of capsule 00:00: (25mg) by [place] 00 mouth for Medical 10 days, Branch then taken 2 tablets (50mg) by mouth for now on out. arielatriptyli 2021-03 Yes [id number] Take one Univers ne 50 mg 0-11 tablet ity of capsule 00:00: (25mg) by [place] 00 mouth for Medical 10 days, Branch then taken 2 tablets (50mg) by mouth for now on out. nortriptyli 2021-03 Yes [id number] Take one Univers ne 50 mg 0-11 tablet ity of capsule 00:00: (25mg) by [place] 00 mouth for Medical 10 days, Branch then taken 2 tablets (50mg) by mouth for now on out. nortriptyli 2021-03 Yes [id number] Take one Univers ne 50 mg 0-11 tablet ity of capsule 00:00: (25mg) by [place] 00 mouth for Medical 10 days, Branch then taken 2 tablets (50mg) by mouth for now on out. nortriptyli Yes Take one Un angel ne 25 mg 9-27 tablet ity of capsule 00:00: (25mg) by [place] 00 mouth for Medical 10 days, Branch then taken 2 tablets (50mg) by mouth for now on out. nortriptyli Yes Take one Un angel ne 25 mg 9-27 tablet ity of capsule 00:00: (25mg) by [place] 00 mouth for Medical 10 days, Branch then taken 2 tablets (50mg) by mouth for now on out. nortriptyli 2021- No Take one U nivers ne 25 mg 9-27 10-11 tablet ity of capsule 00:00: [place] ([place] mouth for Medical 10 days, Branch then taken 2 tablets (50mg) by mouth for now on out. nortriptyli 2021- No Take one U nivers ne 25 mg 9-27 10-11 tablet ity of capsule 00:00: 00:[place] (25mg[place] :[place] mouth for Medical 10 days, Branch then taken 2 tablets (50mg) by mouth for now on out. nortriptyli Yes Take one Un angel ne 25 mg 8-13 tablet ity of capsule 00:00: (25mg) by [place] 00 mouth for Medical 10 days, Branch then taken 2 tablets (50mg) by mouth for now on out. nortriptyli Yes Take one Un angel ne 25 mg 8-13 tablet ity of capsule 00:00: (25mg) by [place] 00 mouth for Medical 10 days, Branch then taken 2 tablets (50mg) by mouth for now on out. nortriptyli 2020-0 Yes Take one Un angel ne 25 mg 8-13 tablet ity of capsule 00:00: (25mg) by [place] 00 mouth for Medical 10 days, Branch then taken 2 tablets (50mg) by mouth for now on out. nortriptyli 2020-0 2- No Take one U nivers ne 25 mg 8-13 09-27 tablet ity of capsule 00:00: 00:00 (25[place] mouth for Medical 10 days, Branch then taken 2 tablets (50mg) by mouth for now on out. ketorolac 2020-0 Yes [id number] 10mg Take 1 Un angel 10 mg 5-07 tablet by ity of tablet 00:00: mouth [place] 00 every 8 Medical (eight) Branch hours. metoclopram 2020-0 Yes [id number] 10mg Take 1 Univers eunice HCl 10 5-07 tablet by ity of mg tablet 00:00: mouth [place] 00 every 6 Medical (six) Branch hours. metoclopram 2021-0 Yes [id number] 10mg Take 1 Univers eunice HCl 10 5-07 tablet by ity of mg tablet 00:00: mouth [place] 00 every 6 Medical (six) Branch hours. ketorolac 2021-0 Yes [id number] 10mg Take 1 Un angel 10 mg 5-07 tablet by ity of tablet 00:00: mouth [place] 00 every 8 Medical (eight) Branch hours. metoclopram 1-0 Yes [id number] 10mg Take 1 Univers eunice HCl 10 5-07 tablet by ity of mg tablet 00:00: mouth [place] 00 every 6 Medical (six) Branch hours. metoclopram 2021-0 Yes [id number] 10mg Take 1 Univers eunice HCl 10 5-07 tablet by ity of mg tablet 00:00: mouth [place] 00 every 6 Medical (six) Branch hours. ketorolac 2021-0 Yes [id number] 10mg Take 1 Un angel 10 mg 5-07 tablet by ity of tablet 00:00: mouth [place] 00 every 8 Medical (eight) Branch hours. metoclopram 2021-0 Yes [id number] 10mg Take 1 Univers eunice HCl 10 5-07 tablet by ity of mg tablet 00:00: mouth [place] 00 every 6 Medical (six) Branch hours. metoclopram 2021-0 Yes [id number] 10mg Take 1 Univers eunice HCl 10 5-07 tablet by ity of mg tablet 00:00: mouth [place] 00 every 6 Medical (six) Branch hours. ketorolac 2021-0 Yes [id number] 10mg Take 1 Un angel 10 mg 5-07 tablet by ity of tablet 00:00: mouth [place] 00 every 8 Medical (eight) Branch hours. metoclopram 1-0 Yes [id number] 10mg Take 1 Univers eunice HCl 10 5-07 tablet by ity of mg tablet 00:00: mouth [place] 00 every 6 Medical (six) Branch hours. metoclopram 1-0 Yes [id number] 10mg Take 1 Univers eunice HCl 10 5-07 tablet by ity of mg tablet 00:00: mouth [place] 00 every 6 Medical (six) Branch hours. ketorolac 1-0 Yes [id number] 10mg Take 1 Un angel 10 mg 5-07 tablet by ity of tablet 00:00: mouth [place] 00 every 8 Medical (eight) Branch hours. metoclopram 1-0 Yes [id number] 10mg Take 1 Univers eunice HCl 10 5-07 tablet by ity of mg tablet 00:00: mouth [place] 00 every 6 Medical (six) Branch hours. metoclopram 1-0 Yes [id number] 10mg Take 1 Univers eunice HCl 10 5-07 tablet by ity of mg tablet 00:00: mouth [place] 00 every 6 Medical (six) Branch hours. ketorolac 1-0 Yes [id number] 10mg Take 1 Un angel 10 mg 5-07 tablet by ity of tablet 00:00: mouth [place] 00 every 8 Medical (eight) Branch hours. metoclopram 1-0 Yes [id number] 10mg Take 1 Univers eunice HCl 10 5-07 tablet by ity of mg tablet 00:00: mouth [place] 00 every 6 Medical (six) Branch hours. metoclopram 2021-0 Yes [id number] 10mg Take 1 Univers eunice HCl 10 5-07 tablet by ity of mg tablet 00:00: mouth [place] 00 every 6 Medical (six) Branch hours. ketorolac 2021-0 2021- No [id number] 10mg Take 1 U nivers 10 mg 5-07 06-17 tablet by ity of tablet 00:00: 00:00 mouth [place] 00 :00 every 8 Medical (eight) Branch hours. metoclopram 2020-2020- No [id number] 10mg Take 1 Univers eunice HCl 10 5-07 06-17 tablet by ity of mg tablet 00:00: 00:00 mouth [place] 00 :00 every 6 Medical (six) Branch hours. metoclopram 2020-2020- No [id number] 10mg Take 1 Univers eunice HCl 10 5-07 06-17 tablet by ity of mg tablet 00:00: 00:00 mouth [place] 00 :00 every 6 Medical (six) Branch hours. ketorolac 2020-2020- No [id number] 10mg Take 1 U nivers 10 mg 5-07 06-17 tablet by ity of tablet 00:00: 00:00 mouth [place] 00 :00 every 8 Medical (eight) Branch hours. metoclopram 2020-2020- No [id number] 10mg Take 1 Univers eunice HCl 10 5-07 06-17 tablet by ity of mg tablet 00:00: 00:00 mouth [place] 00 :00 every 6 Medical (six) Branch hours. metoclopram 2020- No [id number] 10mg Take 1 Univers eunice HCl 10 5-07 06-17 tablet by ity of mg tablet 00:00: 00:00 mouth [place] 00 :00 every 6 Medical (six) Branch hours. lisinopriL- Yes Essential 1{tbl} Take 1 Univers hydrochloro 3-17 hypertensio tablet by ity of thiazide 00:00: n mouth [place] 10-12.5 mg 00 daily. Medical per tablet Branch lisinopriL- Yes Essential 1{tbl} Take 1 Univers hydrochloro 3-17 hypertensio tablet by ity of thiazide 00:00: n mouth [place] 10-12.5 mg 00 daily. Medical per tablet Branch lisinopriL- Yes [id number] 1{tbl} Take 1 Univers hydrochloro 3-17 tablet by ity of thiazide 00:00: mouth [place] 10-12.5 mg 00 daily. Medical per tablet Branch lisinopriL- Yes [id number] 1{tbl} Take 1 Univers hydrochloro 3-17 tablet by ity of thiazide 00:00: mouth [place] 10-12.5 mg 00 daily. Medical per tablet Branch lisinopriL- Yes [id number] 1{tbl} Take 1 Univers hydrochloro 3-17 tablet by ity of thiazide 00:00: mouth [place] 10-12.5 mg 00 daily. Medical per tablet Branch lisinopriL- Yes [id number] 1{tbl} Take 1 Univers hydrochloro 3-17 tablet by ity of thiazide 00:00: mouth [place] 10-12.5 mg 00 daily. Medical per tablet Branch lisinopriL- Yes [id number] 1{tbl} Take 1 Univers hydrochloro 3-17 tablet by ity of thiazide 00:00: mouth [place] 10-12.5 mg 00 daily. Medical per tablet Branch lisinopriL- Yes [id number] 1{tbl} Take 1 Univers hydrochloro 3-17 tablet by ity of thiazide 00:00: mouth [place] 10-12.5 mg 00 daily. Medical per tablet Branch lisinopriL- Yes [id number] 1{tbl} Take 1 Univers hydrochloro 3-17 tablet by ity of thiazide 00:00: mouth [place] 10-12.5 mg 00 daily. Medical per tablet Branch lisinopriL- Yes [id number] 1{tbl} Take 1 Univers hydrochloro 3-17 tablet by ity of thiazide 00:00: mouth [place] 10-12.5 mg 00 daily. Medical per tablet Branch lisinopriL- Yes [id number] 1{tbl} Take 1 Univers hydrochloro 3-17 tablet by ity of thiazide 00:00: mouth [place] 10-12.5 mg 00 daily. Medical per tablet Branch lisinopriL- Yes [id number] 1{tbl} Take 1 Univers hydrochloro 3-17 tablet by ity of thiazide 00:00: mouth [place] 10-12.5 mg 00 daily. Medical per tablet Branch lisinopriL- Yes [id number] 1{tbl} Take 1 Univers hydrochloro 3-17 tablet by ity of thiazide 00:00: mouth [place] 10-12.5 mg 00 daily. Medical per tablet Branch lisinopriL- Yes [id number] 1{tbl} Take 1 Univers hydrochloro 3-17 tablet by ity of thiazide 00:00: mouth [place] 10-12.5 mg 00 daily. Medical per tablet Branch lisinopriL- Yes [id number] 1{tbl} Take 1 Univers hydrochloro 3-17 tablet by ity of thiazide 00:00: mouth [place] 10-12.5 mg 00 daily. Medical per tablet Branch lisinopriL- Yes [id number] 1{tbl} Take 1 Univers hydrochloro 3-17 tablet by ity of thiazide 00:00: mouth [place] 10-12.5 mg 00 daily. Medical per tablet Branch lisinopriL- Yes [id number] 1{tbl} Take 1 Univers hydrochloro 3-17 tablet by ity of thiazide 00:00: mouth [place] 10-12.5 mg 00 daily. Medical per tablet Branch lisinopriL- Yes [id number] 1{tbl} Take 1 Univers hydrochloro 3-17 tablet by ity of thiazide 00:00: mouth [place] 10-12.5 mg 00 daily. Medical per tablet Branch lisinopriL- Yes [id number] 1{tbl} Take 1 Univers hydrochloro 3-17 tablet by ity of thiazide 00:00: mouth [place] 10-12.5 mg 00 daily. Medical per tablet Branch lisinopriL- Yes [id number] 1{tbl} Take 1 Univers hydrochloro 3-17 tablet by ity of thiazide 00:00: mouth [place] 10-12.5 mg 00 daily. Medical per tablet Branch lisinopriL- Yes [id number] 1{tbl} Take 1 Univers hydrochloro 3-17 tablet by ity of thiazide 00:00: mouth [place] 10-12.5 mg 00 daily. Medical per tablet Branch lisinopriL- Yes [id number] 1{tbl} Take 1 Univers hydrochloro 3-17 tablet by ity of thiazide 00:00: mouth [place] 10-12.5 mg 00 daily. Medical per tablet Branch lisinopriL- Yes [id number] 1{tbl} Take 1 Univers hydrochloro 3-17 tablet by ity of thiazide 00:00: mouth [place] 10-12.5 mg 00 daily. Medical per tablet Branch lisinopriL- Yes [id number] 1{tbl} Take 1 Univers hydrochloro 3-17 tablet by ity of thiazide 00:00: mouth [place] 10-12.5 mg 00 daily. Medical per tablet Branch lisinopriL- Yes [id number] 1{tbl} Take 1 Univers hydrochloro 3-17 tablet by ity of thiazide 00:00: mouth [place] 10-12.5 mg 00 daily. Medical per tablet Branch lisinopriL- Yes [id number] 1{tbl} Take 1 Univers hydrochloro 3-17 tablet by ity of thiazide 00:00: mouth [place] 10-12.5 mg 00 daily. Medical per tablet Branch lisinopriL- Yes [id number] 1{tbl} Take 1 Univers hydrochloro 3-17 tablet by ity of thiazide 00:00: mouth [place] 10-12.5 mg 00 daily. Medical per tablet Branch lisinopriL- Yes [id number] 1{tbl} Take 1 Univers hydrochloro 3-17 tablet by ity of thiazide 00:00: mouth [place] 10-12.5 mg 00 daily. Medical per tablet Branch lisinopriL- Yes [id number] 1{tbl} Take 1 Univers hydrochloro 3-17 tablet by ity of thiazide 00:00: mouth [place] 10-12.5 mg 00 daily. Medical per tablet Branch lisinopriL- Yes [id number] 1{tbl} Take 1 Univers hydrochloro 3-17 tablet by ity of thiazide 00:00: mouth [place] 10-12.5 mg 00 daily. Medical per tablet Branch lisinopriL- 2021- No [id number] 1{tbl} Take 1 Univers hydrochloro 3-17 10-11 tablet by it y of thiazide 00:00: 00:00 mouth [place] 10-12.5 mg 00 :00 daily. Medical per tablet Branch lisinopriL- 2021- No [id number] 1{tbl} Take 1 Univers hydrochloro 3-17 10-11 tablet by it y of thiazide 00:00: 00:00 mouth [place] 10-12.5 mg 00 :00 daily. Medical per tablet Branch lisinopriL- 2019-03 Yes [id number] 1{tbl} Take 1 Univers hydrochloro 0-02 tablet by ity of thiazide 00:00: mouth [place] 10-12.5 mg 00 daily. Medical per tablet Branch lisinopriL- 2019-03 Yes [id number] 1{tbl} Take 1 Univers hydrochloro 0-02 tablet by ity of thiazide 00:00: mouth [place] 10-12.5 mg 00 daily. Medical per tablet Branch lisinopriL- 2019-03- No [id number] 1{tbl} Take 1 Univers hydrochloro 0-02 03-17 tablet by it y of thiazide 00:00: 00:00 mouth [place] 10-12.5 mg 00 :00 daily. Medical per tablet Branch lisinopriL- 2019-03- No [id number] 1{tbl} Take 1 Univers hydrochloro 0-02 03-17 tablet by it y of thiazide 00:00: 00:00 mouth [place] 10-12.5 mg 00 :00 daily. Medical per tablet Branch aspirin 81 2020-0 Yes 162mg Take 162 Un angel mg chewable 8-21 mg by ity of tablet 18:42: mouth [place] 33 daily. Medical Branch aspirin 81 2020-0 Yes 162mg Take 162 Un angel mg chewable 8-21 mg by ity of tablet 18:42: mouth [place] 33 daily. Medical Branch aspirin 81 2020-0 Yes 162mg Take 162 Un angel mg chewable 8-21 mg by ity of tablet 18:42: mouth [place] 33 daily. Medical Branch aspirin 81 2020-0 Yes 162mg Take 162 Un angel mg chewable 8-21 mg by ity of tablet 18:42: mouth [place] 33 daily. Medical Branch aspirin 81 2020-0 Yes 162mg Take 162 Un angel mg chewable 8-21 mg by ity of tablet 18:42: mouth [place] 33 daily. Medical Branch aspirin 81 2020-0 Yes 162mg Take 162 Un angel mg chewable 8-21 mg by ity of tablet 18:42: mouth [place] 33 daily. Medical Branch aspirin 81 2020-0 Yes 162mg Take 162 Un angel mg chewable 8-21 mg by ity of tablet 18:42: mouth [place] 33 daily. Medical Branch aspirin 81 2020-0 Yes 162mg Take 162 Un angel mg chewable 8-21 mg by ity of tablet 18:42: mouth [place] 33 daily. Medical Branch aspirin 81 2020-0 Yes 162mg Take 162 Un angel mg chewable 8-21 mg by ity of tablet 18:42: mouth [place] 33 daily. Medical Branch aspirin 81 2020-0 Yes 162mg Take 162 Un angel mg chewable 8-21 mg by ity of tablet 18:42: mouth [place] 33 daily. Medical Branch aspirin 81 2020-0 Yes 162mg Take 162 Un angel mg chewable 8-21 mg by ity of tablet 18:42: mouth [place] 33 daily. Medical Branch aspirin 81 2020-0 Yes 162mg Take 162 Un angel mg chewable 8-21 mg by ity of tablet 18:42: mouth [place] 33 daily. Medical Branch aspirin 81 2020-0 Yes 162mg Take 162 Un angel mg chewable 8-21 mg by ity of tablet 18:42: mouth [place] 33 daily. Medical Branch aspirin 81 2020-0 Yes 162mg Take 162 Un angel mg chewable 8-21 mg by ity of tablet 18:42: mouth [place] 33 daily. Medical Branch aspirin 81 2020-0 Yes 162mg Take 162 Un angel mg chewable 8-21 mg by ity of tablet 18:42: mouth [place] 33 daily. Medical Branch aspirin 81 2020-0 Yes 162mg Take 162 Un angel mg chewable 8-21 mg by ity of tablet 18:42: mouth [place] 33 daily. Medical Branch aspirin 81 2020-0 Yes 162mg Take 162 Un angel mg chewable 8-21 mg by ity of tablet 18:42: mouth [place] 33 daily. Medical Branch aspirin 81 2020-0 Yes 162mg Take 162 Un angel mg chewable 8-21 mg by ity of tablet 18:42: mouth [place] 33 daily. Medical Branch aspirin 81 2020-0 Yes 162mg Take 162 Un angel mg chewable 8-21 mg by ity of tablet 18:42: mouth [place] 33 daily. Medical Branch aspirin 81 2020-0 Yes 162mg Take 162 Un angel mg chewable 8-21 mg by ity of tablet 18:42: mouth [place] 33 daily. Medical Branch aspirin 81 2020-0 Yes 162mg Take 162 Un angel mg chewable 8-21 mg by ity of tablet 18:42: mouth [place] 33 daily. Medical Branch aspirin 81 2020-0 Yes 162mg Take 162 Un angel mg chewable 8-21 mg by ity of tablet 18:42: mouth [place] 33 daily. Medical Branch aspirin 81 2020-0 Yes 162mg Take 162 Un angel mg chewable 8-21 mg by ity of tablet 18:42: mouth [place] 33 daily. Medical Branch aspirin 81 2020-0 Yes 162mg Take 162 Un angel mg chewable 8-21 mg by ity of tablet 18:42: mouth [place] 33 daily. Medical Branch aspirin 81 2020-0 Yes 162mg Take 162 Un angel mg chewable 8-21 mg by ity of tablet 18:42: mouth [place] 33 daily. Medical Branch aspirin 81 2020-0 Yes 162mg Take 162 Un angel mg chewable 8-21 mg by ity of tablet 18:42: mouth [place] 33 daily. Medical Branch aspirin 81 2020-0 Yes 162mg Take 162 Un angel mg chewable 8-21 mg by ity of tablet 18:42: mouth [place] 33 daily. Medical Branch aspirin 81 2020-0 Yes 162mg Take 162 Un angel mg chewable 8-21 mg by ity of tablet 18:42: mouth [place] 33 daily. Medical Branch aspirin 81 2020-0 Yes 162mg Take 162 Un angel mg chewable 8-21 mg by ity of tablet 18:42: mouth [place] 33 daily. Medical Branch aspirin 81 2020-0 Yes 162mg Take 162 Un angel mg chewable 8-21 mg by ity of tablet 18:42: mouth [place] 33 daily. Medical Branch aspirin 81 2020-0 Yes 162mg Take 162 Un angel mg chewable 8-21 mg by ity of tablet 18:42: mouth [place] 33 daily. Medical Branch aspirin 81 2020-0 Yes 162mg Take 162 Un angel mg chewable 8-21 mg by ity of tablet 13:42: mouth [place] 33 daily. Medical Branch aspirin 81 2020-0 Yes 162mg Take 162 Un angel mg chewable 8-21 mg by ity of tablet 13:42: mouth [place] 33 daily. Medical Branch aspirin 81 2020-0 Yes 162mg Take 162 Un angel mg chewable 8-21 mg by ity of tablet 13:42: mouth [place] 33 daily. Medical Branch aspirin 81 2020-0 Yes 162mg Take 162 Un angel mg chewable 8-21 mg by ity of tablet 13:42: mouth [place] 33 daily. Medical Branch aspirin 81 2020-0 Yes 162mg Take 162 Un angel mg chewable 8-21 mg by ity of tablet 13:42: mouth [place] 33 daily. Medical Branch aspirin 81 2020-0 Yes 162mg Take 162 Un angel mg chewable 8-21 mg by ity of tablet 13:42: mouth [place] 33 daily. Medical Branch aspirin 81 2020-0 Yes 162mg Take 162 Un angel mg chewable 8-21 mg by ity of tablet 13:42: mouth [place] 33 daily. Medical Branch aspirin 81 2020-0 Yes 162mg Take 162 Un angel mg chewable 8-21 mg by ity of tablet 13:42: mouth [place] 33 daily. Medical Branch aspirin 81 2020-0 Yes 162mg Take 162 Un angel mg chewable 8-21 mg by ity of tablet 13:42: mouth [place] 33 daily. [facility] Branch venlafaxine 2018-03 Yes [id number] 75mg Take 1 Univers 75 mg 1-07 tablet by ity of tablet 00:00: mouth [place] 00 daily. [facility] Branch venlafaxine 2018-03 Yes [id number] 75mg Take 1 [facility] 75 mg 1-07 tablet by ity of tablet 00:00: mouth [place] 00 daily. [facility] venlafaxine 2018-03 Yes [id number] 75mg Take 1 [facility] 75 mg 1-07 tablet by ity of tablet 00:00: mouth [place] 00 daily. [facility] venlafaxine 2018-03 Yes [id number] 75mg Take 1 [facility] 75 mg 1-07 tablet by ity of tablet 00:00: mouth [place] 00 daily. [facility] venlafaxine 2018-03 Yes [id number] 75mg Take 1 [facility] 75 mg 1-07 tablet by ity of tablet 00:00: mouth [place] 00 daily. [facility] venlafaxine 2018-03 Yes [id number] 75mg Take 1 [facility] 75 mg 1-07 tablet by ity of tablet 00:00: mouth [place] 00 daily. [facility] venlafaxine 2018-03 Yes [id number] 75mg Take 1 [facility] 75 mg 1-07 tablet by ity of tablet 00:00: mouth [place] 00 daily. [facility] venlafaxine 2018-2020- No [id number] 75mg Take 1 [facility] 75 mg 1-07 03-22 tablet by ity of tablet 00:00: 00:00 mouth [place] 00 :00 daily. [facility] Branch venlafaxine 2018-03- No [id number] 75mg Take 1 [facility] 75 mg 1-07 -22 tablet by ity of tablet 00:00: 00:00 mouth [place] 00 :00 daily. Medical Branch INDOMETHACI 2018-03 Yes [id number] 50mg TAKE 1 [facility] N 50 mg 0-30 CAPSULE BY ity of capsule 00:00: MOUTH 3 00 (THREE) Medical TIMES Branch DAILY WITH MEALS. INDOMETHACI 2018-03 Yes [id number] 50mg TAKE 1 [facility] N 50 mg 0-30 CAPSULE BY ity of capsule 00:00: MOUTH 3 [place] 00 (THREE) Medical TIMES Branch DAILY WITH MEALS. INDOMETHACI 2018-03 Yes [id number] 50mg TAKE 1 [facility] N 50 mg 0-30 CAPSULE BY ity of capsule 00:00: MOUTH 3 00 (THREE) Medical TIMES Branch DAILY WITH MEALS. INDOMETHACI 2018-03 Yes [id number] 50mg TAKE 1 [facility] N 50 mg 0-30 CAPSULE BY ity of capsule 00:00: MOUTH 3 [place] 00 (THREE) Medical TIMES Branch DAILY WITH MEALS. INDOMETHACI 2018-03 Yes [id number] 50mg TAKE 1 [facility] N 50 mg 0-30 CAPSULE BY ity of capsule 00:00: MOUTH 3 [place] 00 (THREE) Medical TIMES Branch DAILY WITH MEALS. INDOMETHACI 2018-03 Yes [id number] 50mg TAKE 1 [facility] N 50 mg 0-30 CAPSULE BY ity of capsule 00:00: MOUTH 3 [place] 00 (THREE) Medical TIMES Branch DAILY WITH MEALS. INDOMETHACI 2018-03 Yes [id number] 50mg TAKE 1 [facility] N 50 mg 0-30 CAPSULE BY ity of capsule 00:00: MOUTH 3 [place] 00 (THREE) Medical TIMES Branch DAILY WITH MEALS. INDOMETHACI 2018-03- No [id number] 50mg TAKE 1 [facility] N 50 mg 0-30 03-22 CAPSULE BY ity o f capsule 00:00: 00:00 MOUTH 3 [place] 00 :00 (THREE) Medical TIMES Branch DAILY WITH MEALS. INDOMETHACI 2018-03- No [id number] 50mg TAKE 1 [facility] N 50 mg 0-30 03-22 CAPSULE BY ity o f capsule 00:00: 00:00 MOUTH 3 [place] 00 :00 (THREE) Medical TIMES Branch DAILY WITH MEALS. hydroCHLORO Yes [id number] 25mg Take 1 [facility] thiazide 25 9-10 tablet by ity of mg tablet 00:00: mouth [place] 00 daily. Medical Branch hydroCHLORO Yes [id number] 25mg Take 1 [facility] thiazide 25 9-10 tablet by ity of mg tablet 00:00: mouth [place] 00 daily. Medical Branch hydroCHLORO Yes [id number] 25mg Take 1 [facility] thiazide 25 9-10 tablet by ity of mg tablet 00:00: mouth [place] 00 daily. Medical Branch hydroCHLORO Yes [id number] 25mg Take 1 [facility] thiazide 25 9-10 tablet by ity of mg tablet 00:00: mouth [place] 00 daily. Medical Branch hydroCHLORO Yes [id number] 25mg Take 1 [facility] thiazide 25 9-10 tablet by ity of mg tablet 00:00: mouth [place] 00 daily. Medical Branch hydroCHLORO 2020- No [id number] 25mg Take 1 [facility] thiazide 25 9-10 10-02 tablet by it y of mg tablet 00:00: 00:00 mouth [place] 00 :00 daily. Medical Branch hydroCHLORO 2020- No [id number] 25mg Take 1 [facility] thiazide 25 9-10 10-02 tablet by it y of mg tablet 00:00: 00:00 mouth [place] 00 :00 daily. Medical Branch traMADol 50 Yes Acute 50mg Take 1 Uni vers mg tablet 9-09 appendiciti tablet by ity of 00:00: s with mouth [place] 00 localized every 6 Medical peritonitis (six) Branch and hours as gangrene, needed for unspecified Pain whether (scale abscess 1-3). present, unspecified whether perforation present traMADol 50 Yes Acute 50mg Take 1 Uni vers mg tablet 9-09 appendiciti tablet by ity of 00:00: s with mouth [place] 00 localized every 6 Medical peritonitis (six) Branch and hours as gangrene, needed for unspecified Pain whether (scale abscess 1-3). present, unspecified whether perforation present indomethaci Yes [id number] 50mg Take 1 [facility] n 50 mg 9-09 capsule by ity of capsule 00:00: mouth 3 [place] 00 (three) Medical times Branch daily with meals. indomethaci Yes [id number] 50mg Take 1 [facility] n 50 mg 9-09 capsule by ity of capsule 00:00: mouth 3 [place] 00 (three) Medical times Branch daily with meals. amoxicillin 2018-0 Yes [id number] 1{tbl} Take 1 Univers -clavulanat 9-09 tablet by ity of e 00:00: mouth 2 [place] (AUGMENTIN) 00 (two) Medical 875-125 mg times Branch per tablet daily. traMADol 50 2019-0 Yes [id number] 50mg Take 1 [facility] mg tablet 9-09 tablet by ity o f 00:00: mouth [place] 00 every 6 Medical (six) Branch hours as needed for Pain (scale 1-3). indomethaci 2019-0 Yes [id number] 50mg Take 1 [facility] n 50 mg 9-09 capsule by ity of capsule 00:00: mouth 3 00 (three) Medical times Branch daily with meals. amoxicillin 2019-0 Yes [id number] 1{tbl} Take 1 Univers -clavulanat 9-09 tablet by ity of e 00:00: mouth 2 [place] (AUGMENTIN) 00 (two) Medical 875-125 mg times Branch per tablet daily. traMADol 50 2019-0 Yes [id number] 50mg Take 1 [facility] mg tablet 9-09 tablet by ity o f 00:00: mouth [place] 00 every 6 Medical (six) Branch hours as needed for Pain (scale 1-3). indomethaci 2019-0 Yes [id number] 50mg Take 1 [facility] n 50 mg 9-09 capsule by ity of capsule 00:00: mouth 3 00 (three) Medical times Branch daily with meals. amoxicillin 2019-0 Yes [id number] 1{tbl} Take 1 [facility] -clavulanat 9-09 tablet by ity of e 00:00: mouth 2 [place] (AUGMENTIN) 00 (two) Medical 875-125 mg times Branch per tablet daily. traMADol 50 2019-0 Yes [id number] 50mg Take 1 [facility] mg tablet 9-09 tablet by ity o f 00:00: mouth [place] 00 every 6 Medical (six) Branch hours as needed for Pain (scale 1-3). indomethaci 2019-0 Yes [id number] 50mg Take 1 [facility] n 50 mg 9-09 capsule by ity of capsule 00:00: mouth 3 00 (three) Medical times Branch daily with meals. amoxicillin 2019-0 Yes [id number] 1{tbl} Take 1 [facility] -clavulanat 9-09 tablet by ity of e 00:00: mouth 2 [place] (AUGMENTIN) 00 (two) Medical 875-125 mg times Branch per tablet daily. traMADol 50 2019-0 Yes [id number] 50mg Take 1 [facility] mg tablet 9-09 tablet by ity o f 00:00: mouth [place] 00 every 6 Medical (six) Branch hours as needed for Pain (scale 1-3). amoxicillin 2019-0 Yes [id number] 1{tbl} Take 1 [facility] -clavulanat 9-09 tablet by ity of e 00:00: mouth 2 [place] (AUGMENTIN) 00 (two) Medical 875-125 mg times Branch per tablet daily. traMADol 50 2019-0 Yes [id number] 50mg Take 1 [facility] mg tablet 9-09 tablet by ity o f 00:00: mouth [place] 00 every 6 Medical (six) Branch hours as needed for Pain (scale 1-3). traMADol 50 2019-0 Yes [id number] 50mg Take 1 [facility] mg tablet 9-09 tablet by ity o f 00:00: mouth [place] 00 every 6 Medical (six) Branch hours as needed for Pain (scale 1-3). traMADol 50 2019-0 Yes [id number] 50mg Take 1 [facility] mg tablet 9-09 tablet by ity o f 00:00: mouth [place] 00 every 6 Medical (six) Branch hours as needed for Pain (scale 1-3). traMADol 50 2019-0 Yes [id number] 50mg Take 1 [facility] mg tablet 9-09 tablet by ity o f 00:00: mouth [place] 00 every 6 Medical (six) Branch hours as needed for Pain (scale 1-3). traMADol 50 2019-0 Yes [id number] 50mg Take 1 [facility] mg tablet 9-09 tablet by ity o f 00:00: mouth [place] 00 every 6 Medical (six) Branch hours as needed for Pain (scale 1-3). traMADol 50 2019-0 Yes [id number] 50mg Take 1 [facility] mg tablet 9-09 tablet by ity o f 00:00: mouth [place] 00 every 6 Medical (six) Branch hours as needed for Pain (scale 1-3). traMADol 50 2019-0 Yes [id number] 50mg Take 1 [facility] mg tablet 9-09 tablet by ity o f 00:00: mouth [place] 00 every 6 Medical (six) Branch hours as needed for Pain (scale 1-3). traMADol 50 2019-0 Yes [id number] 50mg Take 1 [facility] mg tablet 9-09 tablet by ity o f 00:00: mouth [place] 00 every 6 Medical (six) Branch hours as needed for Pain (scale 1-3). traMADol 50 2019-0 Yes [id number] 50mg Take 1 [facility] mg tablet 9-09 tablet by ity o f 00:00: mouth [place] 00 every 6 Medical (six) Branch hours as needed for Pain (scale 1-3). traMADol 50 2019-0 Yes [id number] 50mg Take 1 [facility] mg tablet 9-09 tablet by ity o f 00:00: mouth [place] 00 every 6 Medical (six) Branch hours as needed for Pain (scale 1-3). traMADol 50 2019-0 Yes [id number] 50mg Take 1 [facility] mg tablet 9-09 tablet by ity o f 00:00: mouth [place] 00 every 6 Medical (six) Branch hours as needed for Pain (scale 1-3). traMADol 50 2019-0 Yes [id number] 50mg Take 1 [facility] mg tablet 9-09 tablet by ity o f 00:00: mouth [place] 00 every 6 Medical (six) Branch hours as needed for Pain (scale 1-3). traMADol 50 2019-0 Yes [id number] 50mg Take 1 [facility] mg tablet 9-09 tablet by ity o f 00:00: mouth [place] 00 every 6 Medical (six) Branch hours as needed for Pain (scale 1-3). traMADol 50 2019-0 Yes [id number] 50mg Take 1 [facility] mg tablet 9-09 tablet by ity o f 00:00: mouth [place] 00 every 6 Medical (six) Branch hours as needed for Pain (scale 1-3). traMADol 50 2019-0 Yes [id number] 50mg Take 1 [facility] mg tablet 9-09 tablet by ity o f 00:00: mouth [place] 00 every 6 Medical (six) Branch hours as needed for Pain (scale 1-3). traMADol 50 2019-0 Yes [id number] 50mg Take 1 [facility] mg tablet 9-09 tablet by ity o f 00:00: mouth [place] 00 every 6 Medical (six) Branch hours as needed for Pain (scale 1-3). traMADol 50 2019-0 Yes [id number] 50mg Take 1 [facility] mg tablet 9-09 tablet by ity o f 00:00: mouth [place] 00 every 6 Medical (six) Branch hours as needed for Pain (scale 1-3). traMADol 50 2019- Yes [id number] 50mg Take 1 [facility] mg tablet - tablet by ity o f 00:00: mouth [place] 00 every 6 Medical (six) Branch hours as needed for Pain (scale 1-3). traMADol 50 2018-2020- No [id number] 50mg Take 1 [facility] mg tablet 11-27 tablet by ity of 00:00: 00:00 mouth [place] 00 :00 every 6 Medical (six) Branch hours as needed for Pain (scale 1-3). traMADol 50 2018-2020- No [id number] 50mg Take 1 [facility] mg tablet 11-27 tablet by ity of 00:00: 00:00 mouth [place] 00 :00 every 6 Medical (six) Branch hours as needed for Pain (scale 1-3). amoxicillin 2018- 2020- No [id number] 1{tbl} Take 1 Univers -clavulanat 11-27 tablet by it y of e 00:00: 00:00 mouth 2 [place] (AUGMENTIN) 00 :00 (two) Medical 875-125 mg times Branch per tablet daily. amoxicillin 2018- 2020- No [id number] 1{tbl} Take 1 Univers -clavulanat 11-27 tablet by it y of e 00:00: 00:00 mouth 2 [place] (AUGMENTIN) 00 :00 (two) Medical 875-125 mg times Branch per tablet daily. aspirin 81 2019-0 Yes 162mg Take 162 Un angel mg chewable 9-08 mg by ity of tablet 16:28: mouth [place] 08 daily. Medical Branch aspirin 81 2019-0 Yes 162mg Take 162 Un angel mg chewable 9-08 mg by ity of tablet 16:28: mouth [place] 08 daily. Medical Branch aspirin 81 2019-0 Yes 162mg Take 162 Un angel mg chewable 9-08 mg by ity of tablet 16:28: mouth [place] 08 daily. Medical Branch aspirin 81 2019-0 Yes 162mg Take 162 Un angel mg chewable 9-08 mg by ity of tablet 16:28: mouth [place] 08 daily. Medical Branch aspirin 81 2019-0 Yes 162mg Take 162 Un angel mg chewable 9-08 mg by ity of tablet 16:28: mouth [place] 08 daily. Medical Branch aspirin 81 2019-0 Yes 162mg Take 162 Un angel mg chewable 9-08 mg by ity of tablet 16:28: mouth [place] 08 daily. Medical Branch aspirin 81 2019-0 Yes 162mg Take 162 Un angel mg chewable 9-08 mg by ity of tablet 16:28: mouth [place] 08 daily. Medical Branch traMADol 50 2018-0 Yes [id number] 50mg Take 1 [facility] mg tablet 9-08 tablet by ity o f 00:00: mouth [place] 00 every 6 Medical (six) Branch hours as needed for Pain (scale 1-3). traMADol 50 2018- Yes [id number] 50mg Take 1 [facility] mg tablet 9-08 tablet by ity o f 00:00: mouth [place] 00 every 6 Medical (six) Branch hours as needed for Pain (scale 1-3). amoxicillin 2019- No [id number] 1{tbl} Take 1 Univers -clavulanat 11-26- tablet by it y of e 00:00: 04:59 mouth 2 [place] (AUGMENTIN) 00 :00 (two) Medical 875-125 mg times Branch per tablet daily for 5 days. amoxicillin 2018- 2019- No [id number] 1{tbl} Take 1 Univers -clavulanat 11-26- tablet by it y of e 00:00: 04:59 mouth 2 [place] (AUGMENTIN) 00 :00 (two) Medical 875-125 mg times Branch per tablet daily for 5 days. amoxicillin 2019- No [id number] 1{tbl} Take 1 Univers -clavulanat 11-26- tablet by it y of e 00:00: 00:00 mouth 2 [place] (AUGMENTIN) 00 :00 (two) Medical 875-125 mg times Branch per tablet daily for 5 days. traMADol 50 2019- No [id number] 50mg Take 1 [facility] mg tablet 11-26 tablet by ity of 00:00: 00:00 mouth [place] 00 :00 every 6 Medical (six) Branch hours as needed for Pain (scale 1-3). enoxaparin 2018- Yes 40mg 40 mg, Unive rs (LOVENOX) 11-25 Subcutaneo ity of injection 21:00: us, Q24H, [place] 40 mg 00 First dose Medical on Sat Branch 11/25/18 at 1600, Until Discontinu ed, Routine D5W 0.45% 2018-0 Yes IV Univers NaCl 11-25 Infusion, ity of (1/2NS) 1 L 16:30: at 75 [place] + KCL 20 00 mL/hr, Medical mEq CONTINUOUS Branch , Starting 11/25/18 at 1130, Until Discontinu ed, Routine pantoprazol 2018-0 Yes 40mg 40 mg, Univ ers e 11-25 Oral, ity of (PROTONIX) 14:00: DAILY, [place] EC tablet 00 First dose Medi maribel 40 mg on Sat Branch 11/25/18 at 0900, Until Discontinu ed, Routine acetaminoph 2018-0 Yes 650mg 650 mg, Un angel en 11-25 Oral, Q6H, ity of (TYLENOL) 05:00: First dose [place] tablet 650 00 on [facility] Medical mg 11/25/18 at Branch 0000, Until Discontinu ed, Routine ibuprofen 2019-0 Yes 600mg 600 mg, Univ ers (IBU) 11-25 Oral, Q6H, ity of tablet 600 05:00: First dose [place] mg 00 on [facility] Medical 11/25/18 at Branch 0000, Until Discontinu ed, Routine D5W 0.45% 2019- No IV Univers NaCl 11-25 09-07 Infusion, ity of (1/2NS) 1 L 00:30: 15:02 at 75 [place] + KCL 20 00 :29 mL/hr, Medical mEq CONTINUOUS Branch , Starting Tue11/24/18 at 1930, Until 11/25/18 at 1002, Routine morpHINE 2019-0 Yes 2mg 2 mg, Slow Uni vers injection 2 11-24 IV Push, ity of mg 23:15: Q6HPRN, [place] 00 Starting Medical Tue11/24/18 Branch at 1815, Until Discontinu ed, Routine, Pain (scale 7-10), Breakthrou gh Pain (scale 4-10) traMADol 2019-0 Yes 100mg 100 mg, Unive rs (ULTRAM) 9-06 Oral, ity of tablet 100 23:10: Q6HPRN, [place] mg 41 Starting Medical Tue11/24/18 Branch at 1810, Until Discontinu ed, Routine, Pain (scale 4-6) traMADol 2018- Yes 50mg 50 mg, Univers (ULTRAM) 11-24 Oral, ity of tablet 50 23:10: Q6HPRN, [place] mg 28 Starting Medical 11/24/18 Branch at 1810, Until Discontinu ed, Routine, Pain (scale 1-3) indomethaci 2018- Yes 50mg 50 mg, Univ ers n (INDOCIN) 11-24 Oral, BID ity of capsule 50 13:00: MEALS, [place] mg 00 First dose Medical on Tue Branch 11/24/18 at 0800, Until Discontinu ed, Routine aspirin Yes 81mg 81 mg, Univers chewable 11-24 Oral, QAM ity of tablet 81 13:00: WITH [place] mg 00 BREAKFAST, Medical First dose Branch on Tue11/24/18 at 0800, Until Discontinu ed, Routine docusate Yes 100mg 100 mg, Unive rs (COLACE) 11-24 Oral, BID, ity o f capsule 100 13:00: First dose [place] mg 00 on Fri Medical 11/24/18 at Branch 0800, Until Discontinu ed, Routine acetaminoph 2019- No 650mg 650 mg, U nivers en 11-24 Oral, ity of (TYLENOL) 09:48: 23:11 Q8HPRN, [place] tablet 650 56 :49 Starting Medic al mg Tue11/24/18 Branch at 0448, Until Tue11/24/18 at 1811, Routine, Pain (scale 1-3), Temp > 38.5 C piperacilli Yes 3.375g 3.375 g, Univers n-tazobacta 11-24 IV ity of m (ZOSYN) 09:00: Piggyback, [place] 3.375 00 Q6H ABX, Medical gram/50 mL First dose Bra nch Piggyback on Tue 3.375 g 11/24/18 at 0400, Until Discontinu ed, 50 mL
Reas on for Anti-Infec tive: Documented Infection< br>Documen margy Infection Site: Abdominal< br>Dura tion of Therapy: 7 days lactated 2019- No 1000mL at 125 [facility] ers ringers IV 11-24 mL/hr, ity of infusion 09:00: 23:25 1,000 mL, [place] 1,000 mL 00 :15 IV Medical Infusion, Branch CONTINUOUS , Starting Tue11/24/18 at 0400, Until Tue11/24/18 at 1825, Routine lactobacill Yes 1{tbl} 1 tablet, Univers us 11-24 Oral, QID, ity of acidophilus 08:00: First dose [place] (ACIDOPHILL 00 on Tue Medica l US) 11/24/18 at Branch million 0300, cell -100 Until mg captab 1 Discontinu tablet ed, Routine ondansetron Yes 4mg 4 mg, Slow Univers (ZOFRAN 11-24 IV Push, ity of (PF)) 07:56: Q6HPRN, [place] injection 4 14 Starting Medi maribel mg Tue11/24/18 Branch at 0256, Until Discontinu ed, Routine, Nausea and Vomiting (N/V) morpHINE 2019- No 2mg 2 mg, Slow Un angel injection 2 11-24 IV Push, ity of mg 07:55: 23:11 Q2HPRN, [place] 18 :49 Starting Medical 11/24/18 Branch at 0255, Until Tue11/24/18 at 1811, Routine, Pain (scale 7-10), Breakthrou gh Pain (scale 4-10) morpHINE 2019- No 4mg 4 mg, Slow Un angel injection 4 11-24 IV Push, ity of mg 04:30: 03:20 ONCE, 1 [place] 00 :00 dose, [facility] Medical 11/23/18 at Branch 2330, STAT vancomycin 2019- No 1g 1 g, IV Uni vers 1 g in NS 11-24 Piggyback, ity of 200 mL RTU 04:00: 04:51 ONCE, 1 [place] IV 00 :00 dose, [facility] Medical Piggyback 1 11/23/18 at [facility] g 2300
Re ason for Anti-Infec tive: Documented Infection< br>Documen margy Infection Site: Abdominal< br>Duratio n of Therapy: 7 days iohexol 2019- No 120mL 120 mL, Unive rs (OMNIPAQUE 11-24 Intravenou it y of 350 03:15: 03:15 s, ONCE, 1 [place] BULK-150 00 :00 dose, [facility] Medica l mL) 11/23/18 at [place] injection 2215, 120 mL Routine piperacilli 2019- No 4.5g 4.5 g, IV Univers n-tazobacta 11-24 Piggyback, i ty of m (ZOSYN) 02:00: 03:04 ONCE, 1 [place] 4.5 00 :00 dose, [facility] Medical gram/100 mL 11/23/18 at [facility] RTU 2100, 100 Piggyback mL
Reas 4.5 g on for Anti-Infec tive: Documented Infection< br>Documen margy Infection Site: Abdominal< br>Duratio n of Therapy: 7 days ondansetron 2019- No 4mg 4 mg, Slow Univers (ZOFRAN 11-24 IV Push, ity of (PF)) 01:30: 01:05 ONCE, 1 [place] injection 4 00 :00 dose, [facility] Med ical mg 11/23/18 at [place] 2029, MILAN morpHINE 2019- No 4mg 4 mg, Slow Un angel injection 4 11-24 IV Push, ity of mg 01:30: 01:06 ONCE, 1 [place] 00 :00 dose, [facility] Medical 11/23/18 at [place] 2029, STAT NaCl 0.9% 2019- No 1000mL at 999 Uni vers (NS) bolus 11-24 mL/hr, ity of infusion 01:00: 02:34 1,000 mL, [place] as 1,000 mL 00 :00 IV Medical Infusion, [place] ONCE, 1 dose, [facility] 11/23/18 at 2000, MILAN NaCl 0.9% 2019- No 1000mL at 999 Uni vers (NS) bolus 11-24 09-06 mL/hr, ity of infusion 00:00: 04:45 1,000 mL, [place] 1,000 mL 00 :00 IV Medical Infusion, [place] ONCE, 1 dose, [facility]ne 11/23/18 at 1900, MILAN indomethaci 2018- Yes [id number] 50mg Take 1 Univers n 50 mg 8-13 capsule by ity of capsule 00:00: mouth 3 00 (three) Medical times Branch daily with meals. indomethaci 2019-0 Yes [id number] 50mg Take 1 [facility] n 50 mg 8-13 capsule by ity of capsule 00:00: mouth 3 00 (three) Medical times Branch daily with meals. indomethaci 2019-0 Yes [id number] 50mg Take 1 [facility] n 50 mg 8-13 capsule by ity of capsule 00:00: mouth 3 00 (three) Medical times Branch daily with meals. indomethaci 2019-0 Yes [id number] 50mg Take 1 [facility] n 50 mg 8-13 capsule by ity of capsule 00:00: mouth 3 00 (three) Medical times Branch daily with meals. indomethaci 2019-0 Yes [id number] 50mg Take 1 [facility] n 50 mg 8-13 capsule by ity of capsule 00:00: mouth 3 00 (three) Medical times Branch daily with meals. indomethaci 2019-0 2019- No [id number] 50mg Take 1 Univers n 50 mg 8-13 09-09 capsule by ity o f capsule 00:00: 00:00 mouth 3 [place] 00 :00 (three) Medical times Branch daily with meals. divalproex 2019-0 Yes [id number] 250mg Take 1 Univers ER 250 mg 7-05 tablet by ity o f 24 hr 00:00: mouth 2 [place] tablet 00 (two) Medical times Branch daily. divalproex 2019-0 Yes [id number] 250mg Take 1 Univers ER 250 mg 7-05 tablet by ity o f 24 hr 00:00: mouth 2 [place] tablet 00 (two) Medical times Branch daily. divalproex 2019-0 Yes [id number] 250mg Take 1 Univers ER 250 mg 7-05 tablet by ity o f 24 hr 00:00: mouth 2 [place] tablet 00 (two) Medical times Branch daily. divalproex 2019-0 Yes [id number] 250mg Take 1 Univers ER 250 mg 7-05 tablet by ity o f 24 hr 00:00: mouth 2 [place] tablet 00 (two) Medical times Branch daily. divalproex 2019-0 Yes [id number] 250mg Take 1 Univers ER 250 mg 7-05 tablet by ity o f 24 hr 00:00: mouth 2 [place] tablet 00 (two) Medical times Branch daily. divalproex 2019-0 Yes [id number] 250mg Take 1 Univers ER 250 mg 7-05 tablet by ity o f 24 hr 00:00: mouth 2 [place] tablet 00 (two) Medical times Branch daily. divalproex 2018- Yes [id number] 250mg Take 1 Univers ER 250 mg 7-05 tablet by ity o f 24 hr 00:00: mouth 2 [place] tablet 00 (two) Medical times Branch daily. divalproex 2018- Yes [id number] 250mg Take 1 Univers ER 250 mg 7-05 tablet by ity o f 24 hr 00:00: mouth 2 [place] tablet 00 (two) Medical times Branch daily. divalproex Yes [id number] 250mg Take 1 Univers ER 250 mg 7-05 tablet by ity o f 24 hr 00:00: mouth 2 [place] tablet 00 (two) Medical times Branch daily. divalproex Yes [id number] 250mg Take 1 Univers ER 250 mg 7-05 tablet by ity o f 24 hr 00:00: mouth 2 [place] tablet 00 (two) Medical times Branch daily. divalproex Yes [id number] 250mg Take 1 Univers ER 250 mg 7-05 tablet by ity o f 24 hr 00:00: mouth 2 [place] tablet 00 (two) Medical times Branch daily. divalproex Yes [id number] 250mg Take 1 Univers ER 250 mg 7-05 tablet by ity o f 24 hr 00:00: mouth 2 [place] tablet 00 (two) Medical times Branch daily. divalproex Yes [id number] 250mg Take 1 Univers ER 250 mg 7-05 tablet by ity o f 24 hr 00:00: mouth 2 [place] tablet 00 (two) Medical times Branch daily. divalproex Yes [id number] 250mg Take 1 Univers ER 250 mg 7-05 tablet by ity o f 24 hr 00:00: mouth 2 [place] tablet 00 (two) Medical times Branch daily. divalproex 2018- Yes [id number] 250mg Take 1 Univers ER 250 mg 7-05 tablet by ity o f 24 hr 00:00: mouth 2 [place] tablet 00 (two) Medical times Branch daily. divalproex 2018- Yes [id number] 250mg Take 1 Univers ER 250 mg 7-05 tablet by ity o f 24 hr 00:00: mouth 2 [place] tablet 00 (two) Medical times Branch daily. divalproex Yes [id number] 250mg Take 1 Univers ER 250 mg 7-05 tablet by ity o f 24 hr 00:00: mouth 2 [place] tablet 00 (two) Medical times Branch daily. divalproex Yes [id number] 250mg Take 1 Univers ER 250 mg 7-05 tablet by ity o f 24 hr 00:00: mouth 2 [place] tablet 00 (two) Medical times Branch daily. divalproex Yes [id number] 250mg Take 1 Univers ER 250 mg 7-05 tablet by ity o f 24 hr 00:00: mouth 2 [place] tablet 00 (two) Medical times Branch daily. divalproex 2020- No [id number] 250mg Take 1 Univers ER 250 mg 7-05 03-22 tablet by ity of 24 hr 00:00: 00:00 mouth 2 [place] tablet 00 :00 (two) Medical times Branch daily. divalproex 2020- No [id number] 250mg Take 1 Univers ER 250 mg 7-05 03-22 tablet by ity of 24 hr 00:00: 00:00 mouth 2 [place] tablet 00 :00 (two) Medical times Branch daily. varenicline Yes [id number] Take one Univers 0.5 mg 6-04 0.5mg tab ity of (11)- 1 mg 00:00: by mouth [place] (42) tablet 00 once daily Me dical for 3 Branch days, then one 0.5mg tab twice daily for 4 days, then one 1mg tab twice daily. varenicline Yes [id number] Take one Univers 0.5 mg 6-04 0.5mg tab ity of (11)- 1 mg 00:00: by mouth [place] (42) tablet 00 once daily Me dical for 3 Branch days, then one 0.5mg tab twice daily for 4 days, then one 1mg tab twice daily. varenicline Yes [id number] Take one Univers 0.5 mg 6-04 0.5mg tab ity of (11)- 1 mg 00:00: by mouth [place] (42) tablet 00 once daily Me dical for 3 Branch days, then one 0.5mg tab twice daily for 4 days, then one 1mg tab twice daily. varenicline Yes [id number] Take one Univers 0.5 mg 6-04 0.5mg tab ity of (11)- 1 mg 00:00: by mouth [place] (42) tablet 00 once daily Me dical for 3 Branch days, then one 0.5mg tab twice daily for 4 days, then one 1mg tab twice daily. varenicline Yes [id number] Take one Univers 0.5 mg 6-04 0.5mg tab ity of (11)- 1 mg 00:00: by mouth [place] (42) tablet 00 once daily Me dical for 3 Branch days, then one 0.5mg tab twice daily for 4 days, then one 1mg tab twice daily. varenicline Yes [id number] Take one [facility] 0.5 mg 6-04 0.5mg tab ity of (11)- 1 mg 00:00: by mouth [place] (42) tablet 00 once daily Me dical for 3 Branch days, then one 0.5mg tab twice daily for 4 days, then one 1mg tab twice daily. varenicline Yes [id number] Take one [facility] 0.5 mg 6-04 0.5mg tab ity of (11)- 1 mg 00:00: by mouth [place] (42) tablet 00 once daily Me dical for 3 Branch days, then one 0.5mg tab twice daily for 4 days, then one 1mg tab twice daily. varenicline Yes [id number] Take one [facility] 0.5 mg 6-04 0.5mg tab ity of (11)- 1 mg 00:00: by mouth [place] (42) tablet 00 once daily Me dical for 3 Branch days, then one 0.5mg tab twice daily for 4 days, then one 1mg tab twice daily. varenicline Yes [id number] Take one [facility] 0.5 mg 6-04 0.5mg tab ity of (11)- 1 mg 00:00: by mouth [place] (42) tablet 00 once daily Me dical for 3 Branch days, then one 0.5mg tab twice daily for 4 days, then one 1mg tab twice daily. varenicline Yes [id number] Take one [facility] 0.5 mg 6-04 0.5mg tab ity of (11)- 1 mg 00:00: by mouth [place] (42) tablet 00 once daily Me dical for 3 Branch days, then one 0.5mg tab twice daily for 4 days, then one 1mg tab twice daily. varenicline Yes [id number] Take one [facility] 0.5 mg 6-04 0.5mg tab ity of (11)- 1 mg 00:00: by mouth [place] (42) tablet 00 once daily Me dical for 3 Branch days, then one 0.5mg tab twice daily for 4 days, then one 1mg tab twice daily. varenicline Yes [id number] Take one [facility] 0.5 mg 6-04 0.5mg tab ity of (11)- 1 mg 00:00: by mouth [place] (42) tablet 00 once daily Me dical for 3 Branch days, then one 0.5mg tab twice daily for 4 days, then one 1mg tab twice daily. varenicline Yes [id number] Take one [facility] 0.5 mg 6-04 0.5mg tab ity of (11)- 1 mg 00:00: by mouth [place] (42) tablet 00 once daily Me dical for 3 Branch days, then one 0.5mg tab twice daily for 4 days, then one 1mg tab twice daily. varenicline 2019- No [id number] Take one [facility] 0.5 mg 6-04 10-02 0.5mg tab ity of (11)- 1 mg 00:00: 00:00 by mouth [place] (42) tablet 00 :00 once daily Me dical for 3 Branch days, then one 0.5mg tab twice daily for 4 days, then one 1mg tab twice daily. varenicline 2019- No [id number] Take one [facility] 0.5 mg 6-04 10-02 0.5mg tab ity of (11)- 1 mg 00:00: 00:00 by mouth [place] (42) tablet 00 :00 once daily Me dical for 3 Branch days, then one 0.5mg tab twice daily for 4 days, then one 1mg tab twice daily. fluticasone Yes Nasopharyng 2{spray Use 2 [facility] 50 1-14 itis } Sprays in ity of mcg/actuati 00:00: each [place] on nasal 00 nostril Medical spray daily. Branch fluticasone Yes Nasopharyng 2{spray Use 2 [facility] 50 1-14 itis } Sprays in ity of mcg/actuati 00:00: each [place] on nasal 00 nostril Medical spray daily. Branch fluticasone Yes [id number] 2{spray Use 2 [facility] 50 1-14 } Sprays in ity of mcg/actuati 00:00: each [place] on nasal 00 nostril Medical spray daily. Branch fluticasone Yes [id number] 2{spray Use 2 [facility] 50 1-14 } Sprays in ity of mcg/actuati 00:00: each [place] on nasal 00 nostril Medical spray daily. Branch fluticasone Yes [id number] 2{spray Use 2 [facility] 50 1-14 } Sprays in ity of mcg/actuati 00:00: each [place] on nasal 00 nostril Medical spray daily. Branch fluticasone Yes [id number] 2{spray Use 2 [facility] 50 1-14 } Sprays in ity of mcg/actuati 00:00: each [place] on nasal 00 nostril Medical spray daily. Branch fluticasone Yes [id number] 2{spray Use 2 [facility] 50 1-14 } Sprays in ity of mcg/actuati 00:00: each [place] on nasal 00 nostril Medical spray daily. Branch fluticasone Yes [id number] 2{spray Use 2 [facility] 50 1-14 } Sprays in ity of mcg/actuati 00:00: each [place] on nasal 00 nostril Medical spray daily. Branch fluticasone Yes [id number] 2{spray Use 2 [facility] 50 1-14 } Sprays in ity of mcg/actuati 00:00: each [place] on nasal 00 nostril Medical spray daily. Branch fluticasone Yes [id number] 2{spray Use 2 [facility] 50 1-14 } Sprays in ity of mcg/actuati 00:00: each [place] on nasal 00 nostril Medical spray daily. Branch fluticasone Yes [id number] 2{spray Use 2 [facility] 50 1-14 } Sprays in ity of mcg/actuati 00:00: each [place] on nasal 00 nostril Medical spray daily. Branch fluticasone Yes [id number] 2{spray Use 2 [facility] 50 1-14 } Sprays in ity of mcg/actuati 00:00: each [place] on nasal 00 nostril Medical spray daily. Branch fluticasone Yes [id number] 2{spray Use 2 [facility] 50 1-14 } Sprays in ity of mcg/actuati 00:00: each [place] on nasal 00 nostril Medical spray daily. Branch fluticasone Yes [id number] 2{spray Use 2 [facility] 50 1-14 } Sprays in ity of mcg/actuati 00:00: each [place] on nasal 00 nostril Medical spray daily. Branch fluticasone Yes [id number] 2{spray Use 2 [facility] 50 1-14 } Sprays in ity of mcg/actuati 00:00: each [place] on nasal 00 nostril Medical spray daily. Branch fluticasone Yes [id number] 2{spray Use 2 [facility] 50 1-14 } Sprays in ity of mcg/actuati 00:00: each [place] on nasal 00 nostril Medical spray daily. Branch fluticasone Yes [id number] 2{spray Use 2 [facility] 50 1-14 } Sprays in ity of mcg/actuati 00:00: each [place] on nasal 00 nostril Medical spray daily. Branch fluticasone Yes [id number] 2{spray Use 2 [facility] 50 1-14 } Sprays in ity of mcg/actuati 00:00: each [place] on nasal 00 nostril Medical spray daily. Branch fluticasone Yes [id number] 2{spray Use 2 [facility] 50 1-14 } Sprays in ity of mcg/actuati 00:00: each [place] on nasal 00 nostril Medical spray daily. Branch fluticasone Yes [id number] 2{spray Use 2 [facility] 50 1-14 } Sprays in ity of mcg/actuati 00:00: each [place] on nasal 00 nostril Medical spray daily. Branch fluticasone Yes [id number] 2{spray Use 2 [facility] 50 1-14 } Sprays in ity of mcg/actuati 00:00: each [place] on nasal 00 nostril Medical spray daily. Branch fluticasone Yes [id number] 2{spray Use 2 [facility] 50 1-14 } Sprays in ity of mcg/actuati 00:00: each [place] on nasal 00 nostril Medical spray daily. Branch fluticasone Yes [id number] 2{spray Use 2 [facility] 50 1-14 } Sprays in ity of mcg/actuati 00:00: each [place] on nasal 00 nostril Medical spray daily. Branch fluticasone Yes [id number] 2{spray Use 2 [facility] 50 1-14 } Sprays in ity of mcg/actuati 00:00: each [place] on nasal 00 nostril Medical spray daily. Branch fluticasone Yes [id number] 2{spray Use 2 [facility] 50 1-14 } Sprays in ity of mcg/actuati 00:00: each [place] on nasal 00 nostril Medical spray daily. Branch fluticasone Yes [id number] 2{spray Use 2 [facility] 50 1-14 } Sprays in ity of mcg/actuati 00:00: each [place] on nasal 00 nostril Medical spray daily. Branch fluticasone Yes [id number] 2{spray Use 2 [facility] 50 1-14 } Sprays in ity of mcg/actuati 00:00: each [place] on nasal 00 nostril Medical spray daily. Branch fluticasone Yes [id number] 2{spray Use 2 [facility] 50 1-14 } Sprays in ity of mcg/actuati 00:00: each [place] on nasal 00 nostril Medical spray daily. Branch fluticasone Yes [id number] 2{spray Use 2 [facility] 50 1-14 } Sprays in ity of mcg/actuati 00:00: each [place] on nasal 00 nostril Medical spray daily. Branch fluticasone Yes [id number] 2{spray Use 2 [facility] 50 1-14 } Sprays in ity of mcg/actuati 00:00: each [place] on nasal 00 nostril Medical spray daily. Branch fluticasone Yes [id number] 2{spray Use 2 [facility] 50 1-14 } Sprays in ity of mcg/actuati 00:00: each [place] on nasal 00 nostril Medical spray daily. Branch fluticasone Yes [id number] 2{spray Use 2 [facility] 50 1-14 } Sprays in ity of mcg/actuati 00:00: each [place] on nasal 00 nostril Medical spray daily. [place] fluticasone 2020- No [id number] 2{spray Use 2 [facility] 50 1-14 06-17 } Sprays in ity of mcg/actuati 00:00: 00:00 each [place] on nasal 00 :00 nostril Medical spray daily. [place] fluticasone 2020- No [id number] 2{spray Use 2 [facility] 50 1-14 06-17 } Sprays in ity of mcg/actuati 00:00: 00:00 each [place] on nasal 00 :00 nostril Medical spray daily. [place] hydroCHLORO 2017-03 Yes [id number] 25mg Take 1 [facility] thiazide 25 1-13 tablet by ity of mg tablet 00:00: mouth [place] 00 daily. [facility] hydroCHLORO 2017-03 Yes [id number] 25mg Take 1 [facility] thiazide 25 1-13 tablet by ity of mg tablet 00:00: mouth [place] 00 daily. [facility] hydroCHLORO 2017-03 Yes [id number] 25mg Take 1 [facility] thiazide 25 1-13 tablet by ity of mg tablet 00:00: mouth [place] 00 daily. [facility] hydroCHLORO 2017-03 Yes [id number] 25mg Take 1 [facility] thiazide 25 1-13 tablet by ity of mg tablet 00:00: mouth [place] 00 daily. [facility] hydroCHLORO 2017-03 Yes [id number] 25mg Take 1 [facility] thiazide 25 1-13 tablet by ity of mg tablet 00:00: mouth [place] 00 daily. [facility] Branch hydroCHLORO 2017-03 Yes [id number] 25mg Take 1 [facility] thiazide 25 1-13 tablet by ity of mg tablet 00:00: mouth [place] 00 daily. [facility] Branch hydroCHLORO 2017-03 Yes [id number] 25mg Take 1 [facility] thiazide 25 1-13 tablet by ity of mg tablet 00:00: mouth [place] 00 daily. [facility] hydroCHLORO 2017-03 Yes [id number] 25mg Take 1 [facility] thiazide 25 1-13 tablet by ity of mg tablet 00:00: mouth [place] 00 daily. [facility] hydroCHLORO 2017-03 2019- No [id number] 25mg Take 1 [facility] thiazide 25 1-13 09-10 tablet by it y of mg tablet 00:00: 00:00 mouth [place] 00 :[address] [facility] 2017- Yes Heat rash Apply to Univers ne 0-11 area(s) 2 ity of acetonide 00:00: (two) [place] 0.1 % 00 times Medical ointment daily. [facility] 2017- Yes Heat rash Apply to Univers ne 0-11 area(s) 2 ity of acetonide 00:00: (two) [place] 0.1 % 00 times Medical ointment daily. [facility] 2017- Yes [id number] Apply to Univers ne 0-11 area(s) 2 ity of acetonide 00:00: (two) [place] 0.1 % 00 times Medical ointment daily. [facility] 2017- Yes [id number] Apply to Univers ne 0-11 area(s) 2 ity of acetonide 00:00: (two) [place] 0.1 % 00 times Medical ointment daily. [facility] 2017- Yes [id number] Apply to Univers ne 0-11 area(s) 2 ity of acetonide 00:00: (two) [place] 0.1 % 00 times Medical ointment daily. [facility] 2017- Yes [id number] Apply to Univers ne 0-11 area(s) 2 ity of acetonide 00:00: (two) [place] 0.1 % 00 times Medical ointment daily. [facility] 2017- Yes [id number] Apply to Univers ne 0-11 area(s) 2 ity of acetonide 00:00: (two) [place] 0.1 % 00 times Medical ointment daily. [facility] 2017- Yes [id number] Apply to Univers ne 0-11 area(s) 2 ity of acetonide 00:00: (two) [place] 0.1 % 00 times Medical ointment daily. [facility] 2017- Yes [id number] Apply to Univers ne 0-11 area(s) 2 ity of acetonide 00:00: (two) [place] 0.1 % 00 times Medical ointment daily. [facility] 2017- Yes [id number] Apply to Univers ne 0-11 area(s) 2 ity of acetonide 00:00: (two) [place] 0.1 % 00 times Medical ointment daily. [facility] 2017- Yes [id number] Apply to Univers ne 0-11 area(s) 2 ity of acetonide 00:00: (two) [place] 0.1 % 00 times Medical ointment daily. [facility] 2017-03 Yes [id number] Apply to Univers ne 0-11 area(s) 2 ity of acetonide 00:00: (two) [place] 0.1 % 00 times Medical ointment daily. [facility] 2017-03 Yes [id number] Apply to Univers ne 0-11 area(s) 2 ity of acetonide 00:00: (two) [place] 0.1 % 00 times Medical ointment daily. [facility] 2017-03 Yes [id number] Apply to Univers ne 0-11 area(s) 2 ity of acetonide 00:00: (two) [place] 0.1 % 00 times Medical ointment daily. [facility] 2017-03 Yes [id number] Apply to [facility] ne 0-11 area(s) 2 ity of acetonide 00:00: (two) [place] 0.1 % 00 times Medical ointment daily. [facility] 2017-03 Yes [id number] Apply to Univers ne 0-11 area(s) 2 ity of acetonide 00:00: (two) [place] 0.1 % 00 times Medical ointment daily. [facility] 2017-03 Yes [id number] Apply to Univers ne 0-11 area(s) 2 ity of acetonide 00:00: (two) [place] 0.1 % 00 times Medical ointment daily. [facility] 2017-03 Yes [id number] Apply to Univers ne 0-11 area(s) 2 ity of acetonide 00:00: (two) [place] 0.1 % 00 times Medical ointment daily. [facility] 2017-03 Yes [id number] Apply to Univers ne 0-11 area(s) 2 ity of acetonide 00:00: (two) [place] 0.1 % 00 times Medical ointment daily. [facility] solefelicity 2017-03 Yes [id number] Apply to Univers ne 0-11 area(s) 2 ity of acetonide 00:00: (two) [place] 0.1 % 00 times Medical ointment daily. [facility] 2017- Yes [id number] Apply to Univers ne 0-11 area(s) 2 ity of acetonide 00:00: (two) [place] 0.1 % 00 times Medical ointment daily. [facility] 2017-03 Yes [id number] Apply to Univers ne 0-11 area(s) 2 ity of acetonide 00:00: (two) [place] 0.1 % 00 times Medical ointment daily. [facility] 2017-03 Yes [id number] Apply to Univers ne 0-11 area(s) 2 ity of acetonide 00:00: (two) [place] 0.1 % 00 times Medical ointment daily. [facility] 2017-03 Yes [id number] Apply to Univers ne 0-11 area(s) 2 ity of acetonide 00:00: (two) [place] 0.1 % 00 times Medical ointment daily. [facility] 2017-03 Yes [id number] Apply to Univers ne 0-11 area(s) 2 ity of acetonide 00:00: (two) [place] 0.1 % 00 times Medical ointment daily. [facility] 2017-03 Yes [id number] Apply to Univers ne 0-11 area(s) 2 ity of acetonide 00:00: (two) [place] 0.1 % 00 times Medical ointment daily. [facility] 2017-03 Yes [id number] Apply to [facility] ne 0-11 area(s) 2 ity of acetonide 00:00: (two) [place] 0.1 % 00 times Medical ointment daily. [facility] 2017-03 Yes [id number] Apply to Univers ne 0-11 area(s) 2 ity of acetonide 00:00: (two) [place] 0.1 % 00 times Medical ointment daily. [facility] 2017-03 Yes [id number] Apply to Univers ne 0-11 area(s) 2 ity of acetonide 00:00: (two) [place] 0.1 % 00 times Medical ointment daily. [facility] solefelicity 2017-03 Yes [id number] Apply to Univers ne 0-11 area(s) 2 ity of acetonide 00:00: (two) [place] 0.1 % 00 times Medical ointment daily. Branch rogelio 2017-03 Yes [id number] Apply to Univers ne 0-11 area(s) 2 ity of acetonide 00:00: (two) [place] 0.1 % 00 times Medical ointment daily. Branch rogelio 2017-03 Yes [id number] Apply to Univers ne 0-11 area(s) 2 ity of acetonide 00:00: (two) [place] 0.1 % 00 times Medical ointment daily. Branch rogelio 2017-03- No [id number] Apply to Univers ne 0-11 06-17 area(s) 2 ity of acetonide 00:00: 00:00 (two) [place] 0.1 % 00 :00 times Medical ointment daily. Branch rogelio 2017-03- No [id number] Apply to Univers ne 0-11 06-17 area(s) 2 ity of acetonide 00:00: 00:00 (two) [place] 0.1 % 00 :00 times Medical ointment daily. Branch hydrOXYzine Yes [...] food hours as needed for Itching. hydrOXYzine 2017-0 Yes [id number] 25mg Take 1 [facility] 25 mg 9-26 [id number] tablet by ity of tablet 00:00: mouth [place] 00 every 6 Medical (six) Branch hours as needed for Itching. hydrOXYzine 2018-0 Yes [id number] 25mg Take 1 [facility] 25 mg 9-26 [id number] tablet by ity of tablet 00:00: mouth [place] 00 every 6 Medical (six) Branch hours as needed for Itching. hydrOXYzine 2017-0 Yes [id number] 25mg Take 1 [facility] 25 mg 9-26 [id number] tablet by ity of tablet 00:00: mouth [place] 00 every 6 Medical (six) Branch hours as needed for Itching. hydrOXYzine 2018-0 Yes [id number] 25mg Take 1 [facility] 25 mg 9-26 [id number] tablet by ity of tablet 00:00: mouth [place] 00 every 6 Medical (six) Branch hours as needed for Itching. hydrOXYzine 2018-0 Yes [id number] 25mg Take 1 [facility] 25 mg 9-26 [id number] tablet by ity of tablet 00:00: mouth [place] 00 every 6 Medical (six) Branch hours as needed for Itching. hydrOXYzine 2018-0 Yes [id number] 25mg Take 1 [facility] 25 mg 9-26 [id number] tablet by ity of tablet 00:00: mouth [place] 00 every 6 Medical (six) Branch hours as needed for Itching. hydrOXYzine 2018-0 Yes [id number] 25mg Take 1 [facility] 25 mg 9-26 [id number] tablet by ity of tablet 00:00: mouth [place] 00 every 6 Medical (six) Branch hours as needed for Itching. hydrOXYzine 2018-0 Yes [id number] 25mg Take 1 [facility] 25 mg 9-26 [id number] tablet by ity of tablet 00:00: mouth [place] 00 every 6 Medical (six) Branch hours as needed for Itching. hydrOXYzine 2018-0 Yes [id number] 25mg Take 1 [facility] 25 mg 9-26 [id number] tablet by ity of tablet 00:00: mouth [place] 00 every 6 Medical (six) Branch hours as needed for Itching. hydrOXYzine 2018-0 Yes [id number] 25mg Take 1 [facility] 25 mg 9-26 [id number] tablet by ity of tablet 00:00: mouth [place] 00 every 6 Medical (six) Branch hours as needed for Itching. hydrOXYzine 2018-0 Yes [id number] 25mg Take 1 [facility] 25 mg 9-26 [id number] tablet by ity of tablet 00:00: mouth [place] 00 every 6 Medical (six) Branch hours as needed for Itching. hydrOXYzine 2018-0 Yes [id number] 25mg Take 1 [facility] 25 mg 9-26 [id number] tablet by ity of tablet 00:00: mouth [place] 00 every 6 Medical (six) Branch hours as needed for Itching. hydrOXYzine 2018-0 Yes [id number] 25mg Take 1 [facility] 25 mg 9-26 [id number] tablet by ity of tablet 00:00: mouth [place] 00 every 6 Medical (six) Branch hours as needed for Itching. hydrOXYzine 2018-0 Yes [id number] 25mg Take 1 [facility] 25 mg 9-26 [id number] tablet by ity of tablet 00:00: mouth [place] 00 every 6 Medical (six) Branch hours as needed for Itching. hydrOXYzine 2018-0 Yes [id number] 25mg Take 1 [facility] 25 mg 9-26 [id number] tablet by ity of tablet 00:00: mouth [place] 00 every 6 Medical (six) Branch hours as needed for Itching. hydrOXYzine 2018-0 Yes [id number] 25mg Take 1 [facility] 25 mg 9-26 [id number] tablet by ity of tablet 00:00: mouth [place] 00 every 6 Medical (six) Branch hours as needed for Itching. hydrOXYzine 2018-0 Yes [id number] 25mg Take 1 [facility] 25 mg 9-26 [id number] tablet by ity of tablet 00:00: mouth [place] 00 every 6 Medical (six) Branch hours as needed for Itching. hydrOXYzine 2018-0 Yes [id number] 25mg Take 1 [facility] 25 mg 9-26 [id number] tablet by ity of tablet 00:00: mouth [place] 00 every 6 Medical (six) Branch hours as needed for Itching. hydrOXYzine 2018-0 Yes [id number] 25mg Take 1 [facility] 25 mg 9-26 [id number] tablet by ity of tablet 00:00: mouth [place] 00 every 6 Medical (six) Branch hours as needed for Itching. hydrOXYzine 2018-0 Yes [id number] 25mg Take 1 [facility] 25 mg 9-26 [id number] tablet by ity of tablet 00:00: mouth [place] 00 every 6 Medical (six) Branch hours as needed for Itching. hydrOXYzine 2018-0 Yes [id number] 25mg Take 1 [facility] 25 mg 9-26 [id number] tablet by ity of tablet 00:00: mouth [place] 00 every 6 Medical (six) Branch hours as needed for Itching. hydrOXYzine 2018-0 Yes [id number] 25mg Take 1 [facility] 25 mg 9-26 [id number] tablet by ity of tablet 00:00: mouth [place] 00 every 6 Medical (six) Branch hours as needed for Itching. hydrOXYzine 2018-0 Yes [id number] 25mg Take 1 [facility] 25 mg 9-26 [id number] tablet by ity of tablet 00:00: mouth [place] 00 every 6 Medical (six) Branch hours as needed for Itching. hydrOXYzine Yes [id number] 25mg Take 1 [facility] 25 mg 9-26 [id number] tablet by ity of tablet 00:00: mouth [place] 00 every 6 Medical (six) Branch hours as needed for Itching. hydrOXYzine 0 Yes [id number] 25mg Take 1 [facility] 25 mg 9-26 [id number] tablet by ity of tablet 00:00: mouth [place] 00 every 6 Medical (six) Branch hours as needed for Itching. hydrOXYzine Yes [id number] 25mg Take 1 [facility] 25 mg 9-26 [id number] tablet by ity of tablet 00:00: mouth [place] 00 every 6 Medical (six) Branch hours as needed for Itching. hydrOXYzine Yes [id number] 25mg Take 1 [facility] 25 mg 9-26 [id number] tablet by ity of tablet 00:00: mouth [place] 00 every 6 Medical (six) Branch hours as needed for Itching. hydrOXYzine Yes [id number] 25mg Take 1 [facility] 25 mg 9-26 [id number] tablet by ity of tablet 00:00: mouth [place] 00 every 6 Medical (six) Branch hours as needed for Itching. hydrOXYzine Yes [id number] 25mg Take 1 [facility] 25 mg 9-26 [id number] tablet by ity of tablet 00:00: mouth [place] 00 every 6 Medical (six) Branch hours as needed for Itching. hydrOXYzine Yes [id number] 25mg Take 1 [facility] 25 mg 9-26 [id number] tablet by ity of tablet 00:00: mouth [place] 00 every 6 Medical (six) Branch hours as needed for Itching. hydrOXYzine 2020- No [id number] 25mg Take 1 [facility] 25 mg 9-26 06-17 [id number] tablet by ity of tablet 00:00: 00:00 mouth [place] 00 :00 every 6 Medical (six) Branch hours as needed for Itching. hydrOXYzine 2020- No [id number] 25mg Take 1 [facility] 25 mg 9-26 06-17 [id number] tablet by ity of tablet 00:00: 00:00 mouth [place] 00 :00 every 6 Medical (six) Branch hours as needed for Itching. HYDROcodone Yes 1{tbl} Take 1 Un angel -acetaminop 7-28 tablet by ity of hen 5-325 00:00: mouth [place] mg tablet 00 every 4 Medical (four) Branch hours as needed for Pain (scale 4-6) or Pain (scale 7-10). HYDROcodone 2018-0 Yes 1{tbl} Take 1 Un angel -acetaminop 7-28 tablet by ity of hen 5-325 00:00: mouth [place] mg tablet 00 every 4 Medical (four) Branch hours as needed for Pain (scale 4-6) or Pain (scale 7-10). HYDROcodone 2018-0 Yes 1{tbl} Take 1 Un angel -acetaminop 7-28 tablet by ity of hen 5-325 00:00: mouth [place] mg tablet 00 every 4 Medical (four) Branch hours as needed for Pain (scale 4-6) or Pain (scale 7-10). HYDROcodone 2018-0 Yes 1{tbl} Take 1 Un angel -acetaminop 7-28 tablet by ity of hen 5-325 00:00: mouth [place] mg tablet 00 every 4 Medical (four) Branch hours as needed for Pain (scale 4-6) or Pain (scale 7-10). HYDROcodone 2018-0 Yes 1{tbl} Take 1 Un angel -acetaminop 7-28 tablet by ity of hen 5-325 00:00: mouth [place] mg tablet 00 every 4 Medical (four) Branch hours as needed for Pain (scale 4-6) or Pain (scale 7-10). HYDROcodone 2018-0 Yes 1{tbl} Take 1 Un angel -acetaminop 7-28 tablet by ity of hen 5-325 00:00: mouth [place] mg tablet 00 every 4 Medical (four) Branch hours as needed for Pain (scale 4-6) or Pain (scale 7-10). HYDROcodone 2018-0 Yes 1{tbl} Take 1 Un angel -acetaminop 7-28 tablet by ity of hen 5-325 00:00: mouth [place] mg tablet 00 every 4 Medical (four) Branch hours as needed for Pain (scale 4-6) or Pain (scale 7-10). HYDROcodone 2018-0 Yes 1{tbl} Take 1 Un angel -acetaminop 7-28 tablet by ity of hen 5-325 00:00: mouth [place] mg tablet 00 every 4 Medical (four) Branch hours as needed for Pain (scale 4-6) or Pain (scale 7-10). HYDROcodone 2018-0 Yes 1{tbl} Take 1 Un angel -acetaminop 7-28 tablet by ity of hen 5-325 00:00: mouth [place] mg tablet 00 every 4 Medical (four) Branch hours as needed for Pain (scale 4-6) or Pain (scale 7-10). HYDROcodone 2018-0 Yes 1{tbl} Take 1 Un angel -acetaminop 7-28 tablet by ity of hen 5-325 00:00: mouth [place] mg tablet 00 every 4 Medical (four) Branch hours as needed for Pain (scale 4-6) or Pain (scale 7-10). HYDROcodone 2018-0 Yes 1{tbl} Take 1 Un angel -acetaminop 7-28 tablet by ity of hen 5-325 00:00: mouth [place] mg tablet 00 every 4 Medical (four) Branch hours as needed for Pain (scale 4-6) or Pain (scale 7-10). HYDROcodone 2018-0 Yes 1{tbl} Take 1 Un angel -acetaminop 7-28 tablet by ity of hen 5-325 00:00: mouth [place] mg tablet 00 every 4 Medical (four) Branch hours as needed for Pain (scale 4-6) or Pain (scale 7-10). HYDROcodone 2018-0 Yes 1{tbl} Take 1 Un angel -acetaminop 7-28 tablet by ity of hen 5-325 00:00: mouth [place] mg tablet 00 every 4 Medical (four) Branch hours as needed for Pain (scale 4-6) or Pain (scale 7-10). HYDROcodone 2018-0 Yes 1{tbl} Take 1 Un angel -acetaminop 7-28 tablet by ity of hen 5-325 00:00: mouth [place] mg tablet 00 every 4 Medical (four) Branch hours as needed for Pain (scale 4-6) or Pain (scale 7-10). HYDROcodone 2018-0 Yes 1{tbl} Take 1 Un angel -acetaminop 7-28 tablet by ity of hen 5-325 00:00: mouth [place] mg tablet 00 every 4 Medical (four) Branch hours as needed for Pain (scale 4-6) or Pain (scale 7-10). HYDROcodone 2018-0 Yes 1{tbl} Take 1 Un angel -acetaminop 7-28 tablet by ity of hen 5-325 00:00: mouth [place] mg tablet 00 every 4 Medical (four) Branch hours as needed for Pain (scale 4-6) or Pain (scale 7-10). HYDROcodone Yes 1{tbl} Take 1 Un angel -acetaminop 7-28 tablet by ity of hen 5-325 00:00: mouth [place] mg tablet 00 every 4 Medical (four) Branch hours as needed for Pain (scale 4-6) or Pain (scale 7-10). HYDROcodone Yes 1{tbl} Take 1 Un angel -acetaminop 7-28 tablet by ity of hen 5-325 00:00: mouth [place] mg tablet 00 every 4 Medical (four) Branch hours as needed for Pain (scale 4-6) or Pain (scale 7-10). HYDROcodone Yes 1{tbl} Take 1 Un angel -acetaminop 7-28 tablet by ity of hen 5-325 00:00: mouth [place] mg tablet 00 every 4 Medical (four) Branch hours as needed for Pain (scale 4-6) or Pain (scale 7-10). HYDROcodone 2020- No 1{tbl} Take 1 U nivers -acetaminop 7-28 03-22 tablet by it y of hen 5-325 00:00: 00:00 mouth [place] mg tablet 00 :00 every 4 Medical (four) Branch hours as needed for Pain (scale 4-6) or Pain (scale 7-10). HYDROcodone 2020- No 1{tbl} Take 1 U nivers -acetaminop 7-28 03-22 tablet by it y of hen 5-325 00:00: 00:00 mouth [place] mg tablet 00 :00 every 4 Medical (four) Branch hours as needed for Pain (scale 4-6) or Pain (scale 7-10). Immunizations Ordered Filled Immunization Date Status Comments [facility] e Immunization Name Name [facility] 2017-10-04 Completed University of 00:00:00 [place] [facility] 2017-10-04 Completed University of 00:00:00 [place] [facility] 2017-10-04 Completed University of 00:00:00 [facility] 2017-10-04 Completed University of 00:00:00 [facility] Tdap 2017-10-04 Completed University of 00:00:00 [place] [facility] Tdap 2017-10-04 Completed University of 00:00:00 [place] [facility] Tdap 2017-10-04 Completed University of 00:00:00 [facility] Tdap 2017-10-04 Completed University of 00:00:00 [facility] Tdap 2017-10-04 Completed University of 00:00:00 [place] [facility] Tdap 2017-10-04 Completed University of 00:00:00 [place] [facility] Tdap 2017-10-04 Completed University of 00:00:00 [place] [facility] TDAP 2017-10-04 Completed University of 00:00:00 [place] [facility] TDAP 2017-10-04 Completed University of 00:00:00 [place] [facility] TDAP 2017-10-04 Completed University of 00:00:00 [facility] TDAP 2017-10-04 Completed University of 00:00:00 [place] [facility] TDAP 2017-10-04 Completed University of 00:00:00 [place] [facility] TDAP 2017-10-04 Completed University of 00:00:00 [place] [facility] TDAP 2017-10-04 Completed University of 00:00:00 [place] [facility] TDAP 2017-10-04 Completed University of 00:00:00 [place] [facility] TDAP 2017-10-04 Completed University of 00:00:00 [place] [facility] TDAP 2017-10-04 Completed University of 00:00:00 [place] [facility] TDAP 2017-10-04 Completed University of 00:00:00 [place] [facility] TDAP 2017-10-04 Completed University of 00:00:00 [place] [facility] TDAP 2017-10-04 Completed University of 00:00:00 [place] [facility] TDAP 2017-10-04 Completed University of 00:00:00 [place] [facility] TDAP 2017-10-04 Completed University of 00:00:00 [place] [facility] TDAP 2017-10-04 Completed University of 00:00:00 [place] [facility] TDAP 2017-10-04 Completed University of 00:00:00 [place] [facility] TDAP 2017-10-04 Completed University of 00:00:00 [place] [facility] TDAP 2017-10-04 Completed University of 00:00:00 [place] [facility] TDAP 2017-10-04 Completed University of 00:00:00 [place] [facility] TDAP 2017-10-04 Completed University of 00:00:00 [place] [facility] TDAP 2017-10-04 Completed University of 00:00:00 [place] [facility] TDAP 2017-10-04 Completed University of 00:00:00 [place] [facility] TDAP 2017-10-04 Completed University of 00:00:00 [place] [facility] TDAP 2017-10-04 Completed University of 00:00:00 [place] [facility] TDAP 2017-10-04 Completed University of 00:00:00 [place] [facility] TDAP 2017-10-04 Completed University of 00:00:00 [place] [facility] TDAP 2017-10-04 Completed University of 00:00:00 [place] [facility] TDAP 2017-10-04 Completed University of 00:00:00 [place] [facility] TDAP 2017-10-04 Completed University of 00:00:00 [place] [facility] TDAP 2017-10-04 Completed University of 00:00:00 [facility] TDAP 2017-10-04 Completed University of 00:00:00 [place] [facility] TDAP 2017-10-04 Completed University of 00:00:00 [facility] TDAP 2017-10-04 Completed University of 00:00:00 [facility] TDAP 2017-10-04 Completed University of 00:00:00 [facility] TDAP 2017-10-04 Completed University of 00:00:00 [place] [facility] TDAP 2017-10-04 Completed University of 00:00:00 [place] [facility] TDAP 2017-10-04 Completed University of 00:00:00 [place] [facility] Tdap 2017-10-04 Completed University of 00:00:00 [place] [facility] TDAP 2017-10-04 Completed University of 00:00:00 [place] [facility] TDAP 2017-10-04 Completed University of 00:00:00 [facility] Vital Signs Vital Name Observation Time Observation Value Comments Source Systolic blood 2022-03-17 17:02:00 132 mm[Hg] Univer sity of pressure [facility] Branch Diastolic blood 2022-03-17 17:02:00 82 mm[Hg] Unive rsity of pressure [facility] Branch Heart rate 2022-03-17 17:02:00 87 /min Universi [facility] Body temperature 2022-03-17 17:02:00 37.06 Davina Univ ersity of [facility] Branch Respiratory rate 2022-03-17 17:02:00 17 /min Univ ersity of [place] [facility] Body height 2022-03-17 17:02:00 165.1 cm Universi ty of [place] [facility] Body weight 2022-03-17 17:02:00 87.998 kg Universi ty of [place] [facility] BMI 2022-03-17 17:02:00 32.28 kg/m2 Universi ty of [place] [facility] Oxygen saturation in 2022-03-17 17:02:00 95 /min University of Arterial blood by [place] [facility] maribel Pulse oximetry Branch Systolic blood 2022-01-29 17:04:00 176 mm[Hg] Univer sity of pressure [place] [facility] Diastolic blood 2022-01-29 17:04:00 95 mm[Hg] Unive rsity of pressure [place] [facility] Heart rate 2022-01-29 17:04:00 87 /min Universi ty of [place] [facility] Body height 2022-01-29 17:04:00 165.1 cm Universi ty [facility] [place] [facility] Body weight 2022-01-29 17:04:00 84.823 kg Universi ty [facility] [place] [facility] BMI 2022-01-29 17:04:00 31.12 kg/m2 Universi ty of [place] [facility] Oxygen saturation in 2022-01-29 17:04:00 96 /min University of Arterial blood by [place] [facility] maribel Pulse oximetry Branch Systolic blood 2021-12-29 16:00:00 132 mm[Hg] Univer sity of pressure [place] [facility] Diastolic blood 2021-12-29 16:00:00 80 mm[Hg] Unive rsity of pressure [place] [facility] Heart rate 2021-12-29 16:00:00 86 /min Universi ty of [place] [facility] Body height 2021-12-29 16:00:00 165.1 cm [facility]i ty [facility] [place] [facility] Body weight 2021-12-29 16:00:00 84.369 kg Universi ty [facility] [place] [facility] BMI 2021-12-29 16:00:00 30.95 kg/m2 Universi ty [facility] [place] [facility] Oxygen saturation in 2021-12-29 16:00:00 99 /min University of Arterial blood by [place] [facility] maribel Pulse oximetry Branch Systolic blood 2020-10-31 21:59:00 139 mm[Hg] Univer sity of pressure [place] [facility] Diastolic blood 2020-10-31 21:59:00 85 mm[Hg] Unive rsity of pressure [place] [facility] Heart rate 2020-10-31 21:59:00 92 /min Universi ty of [place] [facility] Systolic blood 2020-09-04 20:08:00 141 mm[Hg] Univer sity of pressure [place] [facility] Diastolic blood 2020-09-04 20:08:00 85 mm[Hg] Unive rsity of pressure [place] [facility] Heart rate 2020-09-04 19:40:00 96 /min Universi ty of [place] [facility] Body height 2020-09-04 19:40:00 165.1 cm Universi ty [facility] [place] [facility] Body weight 2020-09-04 19:40:00 87.544 kg Universi ty [facility] [place] [facility] BMI 2020-09-04 19:40:00 32.12 kg/m2 Universi ty [facility] [place] [facility] Oxygen saturation in 2020-09-04 19:40:00 96 /min University of Arterial blood by [facility] maribel Pulse oximetry Branch Systolic blood 2020-08-13 18:21:00 147 mm[Hg] Univer sity of pressure [place] [facility] Diastolic blood 2020-08-13 18:21:00 97 mm[Hg] Unive rsity of pressure [place] [facility] Heart rate 2020-08-13 18:21:00 91 /min Universi ty of [place] [facility] Body weight 2020-08-13 18:21:00 89.359 kg Universi ty [facility] [place] [facility] BMI 2020-08-13 18:21:00 32.78 kg/m2 Universi ty [facility] [place] [facility] Oxygen saturation in 2020-08-13 18:21:00 99 /min University of Arterial blood by [facility] maribel Pulse oximetry Branch Systolic blood 2020-06-09 19:16:00 144 mm[Hg] Univer sity of pressure [place] [facility] Diastolic blood 2020-06-09 19:16:00 85 mm[Hg] Unive rsity of pressure [place] [facility] Heart rate 2020-06-09 19:13:00 89 /min Universi ty of [place] [facility] Body height 2020-06-09 19:13:00 165.1 cm [facility]i ty [facility] [place] [facility] Body weight 2020-06-09 19:13:00 90.266 kg Universi ty [facility] [place] [facility] BMI 2020-06-09 19:13:00 33.12 kg/m2 Universi ty [facility] [place] [facility] Oxygen saturation in 2020-06-09 19:13:00 97 /min University of Arterial blood by [facility] maribel Pulse oximetry Branch Systolic blood 2020-06-04 19:10:00 166 mm[Hg] Univer sity of pressure [place] [facility] Diastolic blood 2020-06-04 19:10:00 98 mm[Hg] Unive rsity of pressure [place] [facility] Heart rate 2020-06-04 19:10:00 89 /min Universi ty [facility] [place] [facility] Body temperature 2020-06-04 19:10:00 36.72 Davina Univ ersity of [place] [facility] Respiratory rate 2020-06-04 19:10:00 18 /min Univ ersity of [place] [facility] Body weight 2020-06-04 19:10:00 89.721 kg [facility]i ty [facility] [place] [facility] BMI 2020-06-04 19:10:00 31.93 kg/m2 [facility] [place] [facility] Oxygen saturation in 2020-06-04 19:10:00 98 /min University of Arterial blood by [facility] Pulse oximetry Branch Systolic blood 2019-12-21 15:15:00 139 mm[Hg] Univer sity of pressure [place] [facility] Diastolic blood 2019-12-21 15:15:00 90 mm[Hg] Unive rsity of pressure [facility] Heart rate 2019-12-21 15:14:00 84 /min Universi ty [facility] [place] [facility] Body temperature 2019-12-21 15:14:00 36.94 Davina Univ ersity of [place] [facility] Respiratory rate 2019-12-21 15:14:00 20 /min Univ ersity of [place] [facility] Body height 2019-12-21 15:14:00 167.6 cm [facility]i [facility] [place] [facility] Body weight 2019-12-21 15:14:00 86.274 kg [facility] [place] [facility] BMI 2019-12-21 15:14:00 30.70 kg/m2 [facility] ty [facility] [place] [facility] Oxygen saturation in 2019-12-21 15:14:00 98 /min University of Arterial blood by [place] [facility] mar[facility] Pulse oximetry Branch Systolic blood 2019-11-09 18:45:00 149 mm[Hg] Univer sity of pressure [place] [facility] Diastolic blood 2019-11-09 18:45:00 92 mm[Hg] Unive rsity of pressure [place] [facility] Heart rate 2019-11-09 18:41:00 79 /min Universi ty [facility] [place] [facility] Body temperature 2019-11-09 18:41:00 35.83 Davina Univ ersity of [place] [facility] Respiratory rate 2019-11-09 18:41:00 18 /min Univ ersity of [place] [facility] Body height 2019-11-09 18:41:00 165.1 cm [facility]i ty [facility] [place] [facility] Body weight 2019-11-09 18:41:00 83.915 kg [facility] ty [facility] [place] [facility] BMI 2019-11-09 18:41:00 30.79 kg/m2 Universi ty [facility] [place] [facility] Oxygen saturation in 2019-11-09 18:41:00 99 /min University of Arterial blood by [facility] Pulse oximetry Branch Systolic blood 2018-11-26 13:00:00 114 mm[Hg] Univer sity of pressure [place] [facility] Diastolic blood 2018-11-26 13:00:00 68 mm[Hg] Unive rsity of pressure [facility] Heart rate 2018-11-26 13:00:00 50 /min Universi ty [facility] [place] [facility] Body temperature 2018-11-26 13:00:00 36.61 Davina Univ ersity of [place] [facility] Respiratory rate 2018-11-26 13:00:00 106 /min Univ ersity of [place] [facility] Oxygen saturation in 2018-11-26 13:00:00 96 /min University of Arterial blood by [facility] Pulse oximetry Branch Body height 2018-11-23 23:00:00 165.1 cm Universi ty [facility] [place] [facility] Body weight 2018-11-23 23:00:00 94.348 kg [facility] ty [facility] [place] [facility] BMI 2018-11-23 23:00:00 34.61 kg/m2 [facility] [place] [facility] Systolic blood 2018-10-31 14:24:00 107 mm[Hg] Univer sity of pressure [facility] Diastolic blood 2018-10-31 14:24:00 78 mm[Hg] Unive rsity of pressure [facility] Heart rate 2018-10-31 14:24:00 106 /min Universi ty [facility] [place] [facility] Body temperature 2018-10-31 14:24:00 36.17 Davina [facility] Respiratory rate 2018-10-31 14:24:00 17 /min [facility] Body height 2018-10-31 14:24:00 165.1 cm [facility] Body weight 2018-10-31 14:24:00 87.544 kg [facility] BMI 2018-10-31 14:24:00 32.12 kg/m2 [facility] Procedures Procedure Date / Time Performing Clinician Source Performed ASSIGNMENT OF BENEFITS 2021-12-29 15:10:21 Doctor Unassigned, [facility] [place] [facility] REFERRAL- 2020-09-10 05:01:00 Doctor Edd, [facility] REQUEST/RESPONSE [place] [facility] COVID-19 (ID NOW RAPID 2020-08-26 20:55:00 Deangelo Mederos [facility] TESTING) Medical Branch ASSIGNMENT OF BENEFITS 2020-08-26 20:40:41 Doctor Unassigned, [facility] [place] [facility] CONSENT/REFUSAL FOR 2020-07-25 17:12:41 Doctor Edd [facility] DIAGNOSIS AND TREATMENT [place] [facility] CONSENT/REFUSAL FOR 2020-07-25 17:12:41 Doctor Edd, [facility] DIAGNOSIS AND TREATMENT [facility] [place] VACCINATIONS - CONSENTS, 2019-12-13 05:01:00 Doctor Edd, [facility] ELIGIBILITY, HISTORY [facility] BASIC METABOLIC PANEL 2018-11-26 09:37:00 Hi Hoffman [facility] (NA, K, CL, CO2, GLUCOSE, Medica l Branch BUN, CREATININE, CA) CBC WITH DIFFERENTIAL 2018-11-26 09:37:00 Hi Hoffman [facility] Medical [place] MAGNESIUM 2018-11-25 10:14:00 Jose Cook [facility] COMP. METABOLIC PANEL 2018-11-25 10:14:00 Joey paul [facility] ([id number]) Medical Branch CBC WITH DIFFERENTIAL 2018-11-25 10:14:[address] [facility] LACTIC ACID WHOLE BLOOD 2018-11-24 04:42:00 Renae Andrade [facility] CT ABDOMEN PELVIS W 2018-11-24 03:05:49 Renae Andrade [facility] CONTRAST [facility] BLOOD CULTURE SCREEN 2018-11-24 02:20:00 [facility] 2018-11-24 02:20:00 Renae Andrade [facility] HEPATIC FUNCTION PANEL 2018-11-24 02:20:00 Renae Andrade [facility] ([id number]) (ALB,T.PRO,BILI [facility] T,BU/BC,ALT,AST,ALK PHOS) BASIC METABOLIC PANEL 2018-11-24 02:20:00 Renae Andrade [facility] (NA, K, CL, CO2, GLUCOSE, Medica l Branch BUN, CREATININE, CA) GRAM POSITIVE BLOOD 2018-11-24 02:20:00 Renae Andrade [facility] PATHOGENS DNA [facility] PROBE-ANAEROBIC US GALL BLADDER 2018-11-24 00:52:08 Renae Andrade [facility] CBC WITH DIFFERENTIAL 2018-11-24 00:17:[address] [facility] LACTIC ACID WHOLE BLOOD 2018-11-24 00:17:00 Renae Andrade [facility] CONSENT/REFUSAL FOR 2018-11-23 22:57:02 Doctor Unahomero, [facility] DIAGNOSIS AND TREATMENT [place] [facility] C-REACTIVE PROTEIN 2018-10-31 15:01:00 Héctor Roper [facility] CBC WITH DIFFERENTIAL 2018-10-31 15:01:00 Héctor Roper [facility] AGREEMENTS AUTHORIZATIONS 2018-10-31 05:01:00 Doctor Edd, [facility] AND IRREVOCABLE [facility] [place] ASSIGNMENTS (FORM 2001) Plan of Care Planned Activity Planned Date Details Comments Source Future Scheduled 2027-10-05 DTaP,Tdap,and Td Univers ity of Test 00:00:00 Vaccines (2 - Td) [facility] [code = Branch DTaP,Tdap,and Td Vaccines (2 - Td)] Future Scheduled 2027-10-05 DTaP,Tdap,and Td Univers ity of Test 00:00:00 Vaccines (2 - Td) [facility] [code = Branch DTaP,Tdap,and Td Vaccines (2 - Td)] Future Scheduled 2021-06-04 Depression screening Uni versity of Test 00:00:00 (procedure) [code = [facility] dical [id number]] Branch Future Scheduled 2021-06-04 Depression screening Uni versity of Test 00:00:00 (procedure) [code = [facility] dical [id number]] Branch Future Scheduled 2020-12-20 Zoster Recombinant Postponed from Uni versity of Test 00:00:00 Vaccine (SHINGRIX) 2008 [place] [facility] (1 of 2) [code = (Vaccine not Branch Zoster Recombinant available) Vaccine (SHINGRIX) (1 of 2)] Future Scheduled 2020-12-20 Zoster Recombinant Postponed from Uni versity of Test 00:00:00 Vaccine (SHINGRIX) 2008 [place] [facility] (1 of 2) [code = (Vaccine not Branch Zoster Recombinant available) Vaccine (SHINGRIX) (1 of 2)] Future Scheduled 2020-11-19 INFLUENZA VACCINE Univer sity of Test 00:00:00 (Season Ended) [code [facility] edical = INFLUENZA VACCINE Branch (Season Ended)] Future Scheduled 2020-11-19 INFLUENZA VACCINE Univer sity of Test 00:00:00 (Season Ended) [code [facility] edical = INFLUENZA VACCINE Branch (Season Ended)] Future Scheduled 2013 Screening for University of Test 00:00:00 malignant neoplasm [facility] ical of lung (procedure) Branch [code = 379101718] Future Scheduled 2013 Screening for University of Test 00:00:00 malignant neoplasm [facility] ical of lung (procedure) Branch [code = 557615921] Future Scheduled 2008 Screening for occult Uni versity of Test 00:00:00 blood in feces [facility] (procedure) [code = Branch 441087466] Future Scheduled 2008 Stool DNA-based Universi ty of Test 00:00:00 colorectal cancer [facility] screening Branch (procedure) [code = 056463345922258] Future Scheduled 2008 Flexible fiberoptic Univ ersity of Test 00:00:00 sigmoidoscopy [place] [facility] (procedure) [code = Branch 57126582] Future Scheduled 2008 Screening for University of Test 00:00:00 malignant neoplasm [place] [facility] ical of colon (procedure) Branch [code = 098073519] Future Scheduled 2008 Screening for University of Test 00:00:00 malignant neoplasm [place] [facility] ical of colon (procedure) Branch [code = 977620289] Future Scheduled 2008 Screening for occult Uni versity of Test 00:00:00 blood in feces [facility] (procedure) [code = Branch 827734224] Future Scheduled 2008 Stool DNA-based Universi ty of Test 00:00:00 colorectal cancer [facility] screening Branch (procedure) [code = 787699005851018] Future Scheduled 2008 Flexible fiberoptic Univ ersity of Test 00:00:00 sigmoidoscopy [facility] (procedure) [code = Branch 86993839] Future Scheduled 2008 Screening for University of Test 00:00:00 malignant neoplasm [place] [facility] ical of colon (procedure) Branch [code = 746254784] Future Scheduled 2008 Screening for University of Test 00:00:00 malignant neoplasm [place] [facility] ical of colon (procedure) Branch [code = 130868367] Future Scheduled 1976 Hepatitis C University of Test 00:00:00 screening [place] [facility] (procedure) [code = Branch 787000322] Future Scheduled 1976 Hepatitis C University of Test 00:00:00 screening [facility] (procedure) [code = Branch 585260656] Future Scheduled 1974 SARS-CoV-2 University of Test 00:00:00 (COVID-19) Vaccine [place] [facility] (1) [code = Branch SARS-CoV-2 (COVID-19) Vaccine (1)] Future Scheduled 1974 SARS-CoV-2 University of Test 00:00:00 (COVID-19) Vaccine [place] [facility] (1) [code = Branch SARS-CoV-2 (COVID-19) Vaccine (1)] Encounters Start End Encounter Admission Attending Care Care Encounter Source Date/Time Date/Time Type Type Clinicians Facility Department ID 2021-01-18 Emergency [facility] [id number] Univers 17:47:41 itfrancesco [facility] 2022-07-21 2022-07-21 Outpatient R DEANGELO MEDEROS [facility] [id number] Univers 13:00:00 13:00:00 DEANGELO MEDEROS francesco [facility] 2022-07-07 2022-07-07 Outpatient R ENRIQUE MEDEROSNDJudie [facility] [id number] Univers 20:00:00 20:00:00 DEANGELO MEDEROS [facility] 2022-05-03 2022-05-03 Outpatient R DICKEY [facility] [id number] Univers 10:30:00 10:30:00 RACHAEL [facility] 2022-03-17 2022-03-17 Office Rosa MRUST [id number] Univers 11:00:00 11:30:00 Visit Deangelo BERGER [id number] ity jeff HERNANDEZ [id number] [id number] Id rodrigue WALLACE [address] [place] [address] 2022-03-17 2022-03-17 Outpatient R DEANGELO MEDEROS [facility] [id number] Univers 11:00:00 11:00:00 DEANGELO MEDEROS francesco [facility] 2022-01-29 2022-01-29 Outpatient Jethro NOBLE [facility] [id number] Univers 11:00:00 11:27:55 RACHAEL [facility] 2022-01-29 2022-01-29 Office NobleRUST [id number] Univers 11:00:00 11:27:55 Visit [facility] [id number] it y of [place] [id number] Josias as DEVONTE?BLEA [id number] Id dicshane ARCHIBALDEY [address] [place] [address] OFFICE [facility] 2022-01-28 2022-01-28 Outpatient CELINA PATRICK [id number] 15:11:53 15:11:53 [id number] Shawn 2021-12-29 2021-12-29 Outpatient HÉCTOR DESAI [facility] [id number] Univers 11:20:00 11:36:31 HÉCTOR ROPER [facility] 2021-12-29 2021-12-29 Office Rachael Dickey [facility] [id number] Univers 11:20:00 11:36:31 Visit Héctor Roper [facility] [id number] 10 ity [facility] [id number] Josias as DEVONTE?BLEA [id number] [address] OFFICE [facility] 2021-12-29 2021-12-29 Orders Doctor TAYA [id number] Univers 00:00:00 00:00:00 Only Unassigned, KEY [id number] ity of [facility] [id number] Josias as [id number] [address] 2021-12-22 2021-12-22 Outpatient HÉCTOR DESAI [facility] [id number] Univers 14:40:00 14:40:00 DEBHÉCTOR Shields [facility] 2021-12-14 2021-12-14 Refill DebRUST [id number] Univers 00:00:00 00:00:00 [facility] [id number] ity [facility] [id number] Josias as DEVONTE?BLEA [id number] [address] 2021-12-11 2021-12-11 Refradha OcampoeRUST [id number] Univers 00:00:00 00:00:00 [facility] [id number] ity [facility] [id number] Josias as DEVONTE?BLEA [id number] [address] 2020-12-29 2020-12-29 Outpatient HÉCTOR DESAI [facility] [id number] Univers 16:20:00 16:20:00 DEB HÉCTOR [facility] 2020-12-10 2020-12-10 Outpatient Jethro CORDOBA [facility] [id number] Univers 14:40:00 14:40:00 JUAN DIEGO julieta [facility] 2020-10-31 2020-10-31 Office Deb [facility] [id number] Univers 15:45:16 16:52:25 Visit Héctor Berger [id number] ity [id number] [id number] [facility] 0[address] [facility] 2020-10-31 2020-10-31 Outpatient HÉCTOR DESAI [facility] [id number] Univers 15:40:00 15:40:00 DEB, HÉCTOR sewellfrancesco [facility] 2020-10-27 2020-10-27 Outpatient HÉCTOR DESAI [facility] [id number] Univers 10:40:00 10:40:00 DEB, HÉCTOR julieta [facility] 2020-10-13 2020-10-13 Telephone DebRUST [id number] Univers 00:00:00 00:00:00 Héctor Berger [id number] ity [facility] [id number] [phone] [facility] 092 [facility] 2020-10-03 2020-10-03 Telephone JacobRUST [id number] Univers 00:00:00 00:00:00 Scarlett Berger [id number] ity [id number] [id number] Id dical nal 044 [facility] 2020-09-16 2020-09-16 Outpatient R HÉCTOR ROPER [facility] [id number] Univers 15:40:00 15:40:00 DEBHÉCTOR [facility] 2020-09-10 2020-09-10 Orders Doctor BAIN 1.2.840.114 [id number] 00:00:00 00:00:00 Only Unassigned, KEY 350.1.13.10 [place] [facility] 4.2.7.2.686 [phone] [id number] 2020-09-10 2020-09-10 Orders Doctor TAYA 1.2.840.114 [id number] Univers 00:00:00 00:00:00 Only Unassigned, KEY 350.1.13.10 ity of [place] [facility] 4.2.7.2.686 Josias as [phone] [address] 2020-09-08 2020-09-08 Telephone [facility] 1.2.840.114 [id number] [facility] 00:00:00 00:00:00 Scarlett Berger 350.1.13.10 it[place] [phone] [address] 2020-09-08 2020-09-08 [facility] 1.2.840.114 [id number] 00:00:00 00:00:00 Scarlett Berger 350.1.13.10 [place] 4.2.7.2.686 Professio [phone] [address] 2020-09-04 2020-09-04 Office [facility] 1.2.840.114 [id number] Univers 14:07:36 15:15:49 Visit Scarlett Berger 350.1.13.10 it[place] [phone] [address] 2020-09-04 2020-09-04 Outpatient R JACOB [facility] [id number] Univers 14:00:00 14:00:00 SCARLETT rendon o f [facility] 2020-08-28 2020-08-28 Outpatient R DEANGELO MEDEROS [facility] [id number] Univers 19:30:00 19:30:00 DEANGELO MEDEROS of [facility] 2020-08-28 2020-08-28 Chief Of Planning 1, [facility] Sleep Lab Bed [facility] 1. 2.840.114 [id number] Univers 15:36:08 18:06:08 Visit Deangelo Mederos 350.1.13. 10 it[place] [phone] [facility] [address] 2020-08-26 2020-08-26 Laboratory Only, Adc Test [facility] 1.2.840. 114 [id number] Univers 15:40:11 15:55:11 Only Deangelo Mederos 350.1.13. 10 ity of [place] [phone] [facility] [address] 2020-08-26 2020-08-26 Outpatient R [facility] [id number] Univers 15:30:00 15:30:00 ity of [facility] 2020-08-26 2020-08-26 Orders Doctor BAIN 1.2.840.114 [id number] Univers 00:00:00 00:00:00 Only Unassigned, KEY 350.1.13.10 it[place] [facility]ITAL 4.2.7.2.686 Josias as [phone] [facility] [address] [place] 2020-08-13 2020-08-13 Office [facility] 1.2.295.342 [id number] Univers 13:09:44 13:39:44 Visit Deangelo Berger 350.1.13.10 ity of [place] 4.2.7.2.686 [facility] [phone] [address] 2020-08-13 2020-08-13 Outpatient R DEANGELO MEDEROS [facility] [id number] Univers 13:00:00 13:00:00 DEANGELO MEDEROS ity of [facility] 2020-07-25 2020-07-25 Orders Doctor BAIN 1.2.840.114 [id number] Univers 00:00:00 00:00:00 Only Unassigned, KEY 350.1.13.10 it[place] HOSPITAL 4.2.7.2.686 Josias as [phone] [facility] [address] [place] 2020-07-22 2020-07-22 Telephone JacobRUST 1.2.840.114 [id number] Univers 00:00:00 00:00:00 Scarlett Berger 350.1.13.10 it[place] [phone] Id dical nal 044 [facility] 2020-07-07 2020-07-07 Outpatient HÉCTOR DESAI [facility] [id number] Univers 14:20:00 14:20:00 HÉCTOR ROPER [facility] 2020-06-24 2020-06-24 Telephone Jacob [facility] 1.2.840.114 [id number] Univers 00:00:00 00:00:00 Scarlett MULTISPEC 350.1.13.10 ity of [facility] 4.2.7.2.[place] [phone] [facility] AND J CARLOS [address] [place] [address] [facility] 2020-06-11 2020-06-11 Outpatient Jethro ARRINGTON [facility] [id number] Univers 14:00:00 14:00:00 CONY rendon [facility] 2020-06-09 2020-06-09 Office Deb [facility] 1.2.840.114 [id number] Univers 14:02:27 15:09:44 Visit Héctor Berger 350.1.13.10 ity [place].2.[place] [phone] Id dical nal 092 [facility] 2020-06-09 2020-06-09 Outpatient HÉCTOR DESAI [facility] [id number] Univers 14:20:00 14:20:00 HÉCTOR ROPER [facility] 2020-06-04 2020-06-04 Chief Of Planning 2, Adc Lab [facility] 1.2.840.114 [id number] Univers 14:35:23 14:50:23 Visit Scarlett Whitney 350.1.13.10 ity of [place]2.[place].2.[place] [phone] Id dical nal 353 [facility] 2020-06-04 2020-06-04 Office Jacob [facility] 1.2.840.114 [id number] Univers 13:57:36 14:28:46 Visit Scarlett Berger 350.1.13.10 ity of [place].2.[place] [phone] [address] 2020-06-04 2020-06-04 Outpatient R JACOB [facility] [id number] Univers 14:00:00 14:00:00 SCARLETT rendon o f [facility] 2020-03-26 2020-03-26 [id number] Univers 15:20:00 15:20:00 JUAN DIEGO julieta [facility] 2019-12-21 2019-12-21 [facility] 1.2.840.114 [id number] Univers 10:01:25 11:40:21 Visit Juan Diego Berger 350.1.13.10 i [place] 4[place]2.[place].2.[place] [phone] [address] 2019-12-21 2019-12-21 [facility] [id number] Univers 10:00:00 10:00:00 JUAN DIEGO julieta [facility] 2019-12-13 2019-12-13 Orders Doctor TAYA 1.2.840.114 [id number] Univers 00:00:00 00:00:00 Only Unassigned, KEY 350.1.13.10 ity of [place] [facility] 4.2.7.2.686 Josias as [phone] [address] 2019-11-09 2019-11-09 Urgent Provider, [facility] 1.2.840.114 [id number] Univers 13:37:59 14:45:13 [facility] 350.1.13.10 ity of [place] 4.2.7.2.686 Josias as Professio [phone] [address] Office Building One 2019-11-09 2019-11-09 Out[facility] [id number] Univers 10:00:00 10:00:00 JUAN DIEGO rendon [facility] 2018-11-28 2018-11-28 Transition Mehul Santana 1.2.840.114 [id number] Univers 00:00:00 00:00:00 of Care Di Edmond 350.1.13.10 i ty of [place] 4.2.7.2.686 [place] [phone] [place] [address] [address] 2018-11-27 2018-11-27 [facility] Deb[facility] 1.2.840.114 [id number] Univers 00:00:00 00:00:00 Héctor Berger 350.1.13.10 ity of [place]2.[place].2.[place] [phone] Id dical nal [address] 2018-11-27 2018-11-27 Telephone RodríguezRUST 1.2.840.114 [id number] Univers 00:00:00 00:00:00 Zora Berger 350.1.13.10 i [place].2.[place] [phone] Id dical nal 377 [facility] 2018-11-27 2018-11-[address] [facility] 1.2.840.114 [id number] Univers 00:00:00 00:00:00 [facility] 350.1.13.10 i ty of [place] 4.2.7.2.686 [place]ias [place] Professio [phone] Id dical nal 044 [place] Office [address] 2018-11-23 2018-11-26 [facility] Renae Andrade [facility] 1.2.8 40.114 [id number] Univers 18:28:11 11:24:00 Encounter Jose Cook 350.1.13.10 ity of Renae Andrade [place] 4.2.7.2.686 [facility] [phone] [facility] [address] 2018-10-31 2018-10-31 Office DebRUST 1.2.840.114 [id number] Univers 09:12:30 13:22:12 Visit Héctor Berger 350.1.13.10 it[place].2.[place] [phone] Me dical nal 092 [facility] 2018-10-31 2018-10-31 Chief Of Planning 2, Adc Lab [facility] 1.2.840.114 [id number] Univers 09:50:36 10:05:36 Visit Héctor Roper 350.1.13 .10 ity of [place].2.[place] [phone] [facility] 353 [facility] 2018-10-31 2018-10-31 Orders Doctor TAYA 1.2.840.114 [id number] Univers 00:00:00 00:00:00 Only Unassigned, KEY 350.1.13.10 ity of [place] [facility] 4.2.7.2.686 Josias as [phone] [address] 2018-10-17 2018-10-17 Telephone Deb AZJORDANA 1.2.840.114 [id number] Univers 00:00:00 00:00:00 Héctor Berger 350.1.13.10 it[place] [phone] [address] Results Test Description Test Time Test Comments Results Result Comments Source COVID-19 (ID NOW RAPID TESTING) 2020-08-26 21:35:50 Test Item Value Reference Range Interpretation Comme nts SARS-CoV-2 Rapid ID NOW (test code Not Detected Not Detected = 47184-9) NINI (test code = NINI) ID NOW COVID-19 Assay is an isothermal nucleic acid amplification test intended for the qualitative detection of nucleic acid from SARS-CoV-2 viral RNA in nasopharyngeal (REVOLVING INVENTORY CLERK) specimens. It is used under Emergency Use Authorization (EUA) by FDA. The limit of detection (LOD) of the assay is 125 Genome Equivalents/mL. A positive result is indicative of the presence of SARS-CoV-2 RNA. ?Clinical correlation with patient history and other diagnostic information is necessary to determine patient infection status. A negative (Not Detected) result does not preclude SARS-CoV-2 infection. In patients with clinical symptoms and other tests that are consistent with SARS-CoV-2 infection, negative results should be treated as presumptive negative and a new specimen should be tested with alternative PCR molecular test. Invalid: Please collect a new specimen for repeat patient testing if clinically indicated. Lab Interpretation (test code = Normal 91360-0) [facility] [id number] 14:49:00 Test Item Value Reference Range Interpretation Comments Blood Culture-Aerobic Culture positive. No growth AA P revious (test code = 44732-0) See Blood Culture p reliminary Workup for verified result additional was Culture In information. Progress on 11/24/2018 at 203 3 CDT Blood Culture positive. No growth AA Previous Culture-Anaerobic See Blood Culture preli minary (test code = 16826-6) Workup for verifi ed result additional was Culture In information. Progress on 11/24/2018 at 010 1 CDT Lab Interpretation Abnormal (test code = 83860-5) [facility] WITH [id number] 11:36:00 Test Item Value Reference Range Interpretation Comments WBC (test code = See_Comment H [Automated 9590-2) message] The sy stem which generated this result transmitted reference range : 4.20 - 10.70 10*3/?L. The reference range was not used to interpret this result as normal/abnormal . RBC (test code = See_Comment L [Automated 789-8) message] The sy stem which generated this result transmitted reference range : 4.26 - 5.52 10*6/?L. The reference range was not used to interpret this result as normal/abnormal . HGB (test code = 12.6 g/dL 12.2-16.4 718-7) HCT (test code = 38.0 % 38.4-49.3 L 4544-3) MCV (test code = 94.3 fL 81.7-95.6 787-2) MCH (test code = 31.3 pg 26.1-32.7 785-6) MCHC (test code = 33.2 g/dL 31.2-35 786-4) RDW-SD (test code = 46.5 fL 38.5-51.6 57026-4) RDW-CV (test code = 13.4 % 12.1-15.4 788-0) PLT (test code = See_Comment [Automated 777-3) message] The sy stem which generated this result transmitted reference range : 150 - 328 10*3/ ?L. The reference r danay was not used to interpret this result as normal/abnormal . MPV (test code = 10.8 fL 9.8-13 63295-6) NRBC/100 WBC (test See_Comment [Automat ed code = 6832245717) message] The system which generated this result transmitted reference range : 0.0 - 10.0 /100 WBCs. The refer ence range was not u sed to interpret th is result as normal/abnormal . NRBC x10^3 (test code <0.01 See_Comment [Auto mated = 0352922130) message] The s ystem which generated this result transmitted reference range : 10*3/?L. The reference range was not used to interpret this result as normal/abnormal . GRAN MAT (NEUT) % 70.7 % (test code = 770-8) IMM GRAN % (test code 0.70 % = 7590061480) LYMPH % (test code = 15.8 % 736-9) MONO % (test code = 8.2 % 5905-5) EOS % (test code = 4.1 % 713-8) BASO % (test code = 0.5 % 706-2) GRAN MAT x10^3(ANC) 8.20 10*3/uL 1.99-6.95 H (test code = 6971864400) IMM GRAN x10^3 (test 0.08 10*3/uL 0-0.06 H code = 0425257640) LYMPH x10^3 (test code 1.83 10*3/uL 1.09-3.23 = 731-0) MONO x10^3 (test code 0.95 10*3/uL 0.36-1.02 = 742-7) EOS x10^3 (test code = 0.48 10*3/uL 0.06-0.53 711-2) BASO x10^3 (test code 0.06 10*3/uL 0.01-0.09 = 704-7) Lab Interpretation Abnormal (test code = 56502-0) [facility] METABOLIC PANEL (NA, K, CL, CO2, GLUCOSE, BUN, CREATININE, CA)2018-11-26 11:11:00 Test Item Value Reference Range Interpretation Comments NA (test code = 142 mmol/L 135-145 4912927261) K (test code = 3.5 mmol/L 3.5-5 3524061152) CL (test code = 109 mmol/L 98-108 H 9881694474) CO2 TOTAL (test code = 26 mmol/L 23-31 6048723030) AGAP (test code = 2-16 1295604020) BUN (test code = 18 mg/dL 7-23 3708634295) GLUCOSE (test code = 142 mg/dL 70-110 H 6158096282) CREATININE (test code = 0.93 mg/dL 0.6-1.25 4428607532) CALCIUM (test code = 8.2 mg/dL 8.6-10.6 L 0090118324) eGFR Calculation mL/min/1.73m2 (Non-) (test code = 8256459171) eGFR Calculation mL/min/1.73m2 () (test code = 2402495078) NINI (test code = NINI) Association of Glomerular Filtration Rate (GFR) and Staging of Kidney Disease*+ + + +| GFR (mL/min/1.73 m2)?| With Kidney Damage?|?Without Kidney Damage+ --------+ --------+ +|?>90?|?S tage one?|? Normal?+ ---------+ ---------+ +|?60-89? |?Stage two?|? Decreased GFR? + --+ --+ ------+|?30-59?|?Stage three?|? Stage three? + --+ --+ ------+|?15-29?|?Stage four? |? Stage four?+ -------+ -------+ +|?<15 (or dialysis)?|?Stage five? |? Stage five?+ -------+ -------+ +*Each stage assumes the associated GFR level has been in effect for at least three months.?Stages 1 to 5, with or without kidney disease, indicate chronic kidney disease.Notes: Determination of stages one and two (with eGFR >59mL/min/1.73 m2) requires estimation of kidney damage for at least three months as defined by structural or functional abnormalities of the kidney, manifested by either:Pathological abnormalities or Markers of kidney damage (including abnormalities in the composition of the blood or urine or abnormalities in imaging tests). Lab Interpretation Abnormal (test code = 30626-9) [facility] METABOLIC PANEL (79733)2018-11-25 12:02:00 Test Item Value Reference Range Interpretation Comments NA (test code = 141 mmol/L 135-145 3035653263) K (test code = 3.7 mmol/L 3.5-5 4073567247) CL (test code = 107 mmol/L 98-108 6446888193) CO2 TOTAL (test code = 26 mmol/L 23-31 0876963437) AGAP (test code = 2-16 0767613792) BUN (test code = 16 mg/dL 7-23 9623542298) GLUCOSE (test code = 172 mg/dL 70-110 H 6589839036) CREATININE (test code = 0.94 mg/dL 0.6-1.25 2120528522) TOTAL BILI (test code = 1.4 mg/dL 0.1-1.1 H 2698055851) CALCIUM (test code = 8.4 mg/dL 8.6-10.6 L 1285914106) T PROTEIN (test code = 6.4 g/dL 6.3-8.2 2879291063) ALBUMIN (test code = 3.3 g/dL 3.5-5 L 9871005075) ALK PHOS (test code = 53 U/L 34-122 3631713478) ALT(SGPT) (test code = 35 U/L 9-51 7743583491) AST(SGOT) (test code = 26 U/L 13-40 1066554423) eGFR Calculation mL/min/1.73m2 (Non-) (test code = 2809652695) eGFR Calculation mL/min/1.73m2 () (test code = 7639904189) INNI (test code = NINI) Association of Glomerular Filtration Rate (GFR) and Staging of Kidney Disease*+ + + +| GFR (mL/min/1.73 m2)?| With Kidney Damage?|?Without Kidney Damage+ --------+ --------+ +|?>90?|?S tage one?|? Normal?+ ---------+ ---------+ +|?60-89? |?Stage two?|? Decreased GFR? + --+ --+ ------+|?30-59?|?Stage three?|? Stage three? + --+ --+ ------+|?15-29?|?Stage four? |? Stage four?+ -------+ -------+ +|?<15 (or dialysis)?|?Stage five? |? Stage five?+ -------+ -------+ +*Each stage assumes the associated GFR level has been in effect for at least three months.?Stages 1 to 5, with or without kidney disease, indicate chronic kidney disease.Notes: Determination of stages one and two (with eGFR >59mL/min/1.73 m2) requires estimation of kidney damage for at least three months as defined by structural or functional abnormalities of the kidney, manifested by either:Pathological abnormalities or Markers of kidney damage (including abnormalities in the composition of the blood or urine or abnormalities in imaging tests). Lab Interpretation Abnormal (test code = 17712-6) [facility] 11:49:00 Test Item Value Reference Range Interpretation Comments MAGNESIUM (test code = 4710242870) 1.8 mg/dL 1.7-2.4 Lab Interpretation (test code = Normal 17477-6) [facility] WITH [id number] 11:32:00 Test Item Value Reference Range Interpretation Comments WBC (test code = See_Comment H [Automated 5529-2) message] The system which generated this result transmit margy reference range : 4.20 - 10.70 10*3/?L. The reference range was not used to interpret this result as normal/abnormal . RBC (test code = See_Comment L [Automated 159-8) message] The system which generated this result transmit margy reference range : 4.26 - 5.52 10*6/?L. The reference range was not used to interpret this result as normal/abnormal . HGB (test code = 13.4 g/dL 12.2-16.4 718-7) HCT (test code = 38.8 % 38.4-49.3 4544-3) MCV (test code = 91.5 fL 81.7-95.6 787-2) MCH (test code = 31.6 pg 26.1-32.7 785-6) MCHC (test code = 34.5 g/dL 31.2-35 786-4) RDW-SD (test code = 45.7 fL 38.5-51.6 14005-4) RDW-CV (test code = 13.5 % 12.1-15.4 788-0) PLT (test code = See_Comment [Automated 777-3) message] The system which generated this result transmit margy reference range : 150 - 328 10*3/ ?L. The reference range was not u sed to interpret th is result as normal/abnormal . MPV (test code = 10.7 fL 9.8-13 14152-7) NRBC/100 WBC (test See_Comment [Automat ed code = 6155210926) message] The system which generated this result transmit margy reference range : 0.0 - 10.0 /100 WBCs. The reference range was not used to interpret this result as normal/abnormal . NRBC x10^3 (test code <0.01 See_Comment [Auto mated = 9491686021) message] The system which generated this result transmit margy reference range : 10*3/?L. The reference range was not used to interpret this result as normal/abnormal . GRAN MAT (NEUT) % 88.2 % (test code = 770-8) IMM GRAN % (test code 0.40 % = 5017666008) LYMPH % (test code = 6.0 % 736-9) MONO % (test code = 5.2 % 5905-5) EOS % (test code = 0.0 % 713-8) BASO % (test code = 0.2 % 706-2) GRAN MAT x10^3(ANC) 14.73 10*3/uL 1.99-6.95 H (test code = 7015524398) IMM GRAN x10^3 (test 0.06 10*3/uL 0-0.06 code = 1312495061) LYMPH x10^3 (test code 1.01 10*3/uL 1.09-3.23 L = 731-0) MONO x10^3 (test code 0.87 10*3/uL 0.36-1.02 = 742-7) EOS x10^3 (test code = <0.03 0.06-0.53 L 711-2) BASO x10^3 (test code 0.03 10*3/uL 0.01-0.09 = 704-7) Lab Interpretation Abnormal (test code = 38914-1) [facility] PATHOGENS DNA [id number] 09:53:00 Test Item Value Reference Range Interpretation Comments Coagulase Negative Positive Negative A Staphylococcus (test code = 72932-9) NINI (test code = NINI) Coagulase negative Staphylococcus (CoNS) detected by DNA probe. CoNS often contaminate blood cultures from skin colonization. Preferred management is to repeat blood cultures, and monitor off antibiotics. Contamination is suggested by culture growth after 48 hours, or growth in single culture (i.e., one of two sets). True bacteremia is suggested by the fever, hypotension, and leukocytosis that are not explained by an alternative infection, or indwelling foreign devices that appear infected (catheters, lines, or prostheses). Consider infectious diseases consultation if differentiation of CoNS bacteremia from contamination is uncertain.If clinical context suggests true bacteremia, preferred therapy is vancomycin. Please contact the Antimicrobial Stewardship Program with questions.ASP Pager:?[phone] Testing included eleven identification and three resistance marker targets. Lab Interpretation Abnormal (test code = 25902-0) [facility] W [id number] 05:29:55 1.?Findings consistent with acute appendicitis.2.?Mild bladder wall thickening could be secondary to prostatomegaly. IDereck?MD Uzair., have reviewed this study and agree with the abovereport.* * * * * * * * ORIGINAL REPORT * * * * * * * * EXAM: CT ABDOMEN PELVIS W CONTRAST HISTORY: 58-year-old male complains of Nausea, vomiting Abd pain,gastroenteritis or colitis suspected Abd pain, acute, generalized COMPARISON: None. TECHNIQUE AND FINDINGS: Contiguous axial imaging from the level of the lungbases through the pubic symphysis was performed after the uncomplicatedadministration of 120 cc of intra venous Omnipaque contrast. Coronal andsagittal reconstructions were obtained.?Auto mA and/or iterativereconstruction were used to reduce radiation dose. FINDINGS: LOWER THORAX: The lungs bases are clear; except for bibasal subsegmentalatelectasis and a subpleural right posterior lower lobe calcified gr anuloma(2:90). Scattered coronary atherosclerotic calcifications are present. Nocardiomegaly. Lipomatous hypertrophy of interatrial septum is noted. LIVER:?Normal in size and contour and parenchymal attenuation. No focalhepatic lesions are identified. GALLBLADDER AND BILIARY TREE: No biliary ductal dil ation.?No gallbladderwall thickening. SPLEEN: No splenomegaly. PANCREAS: Mild fatty infiltration of the head of the pancreas is noted. Noductal dilation or masses. ADRENAL GLANDS: No adrenal nodules. KIDNEYS: No hydronephrosis, stones or masses are identified. PERITONEUM AND RETROPERITONEUM: No free air or fluid. LYMPH NODES: No lymphadenopathy. GI TRACT: The appendix is dilated up to 1.3 cm, fluid-filled with thickened enhancingwall and mild to moderate periappendiceal fat stranding. No bowel dilationor wall thickening. PELVIS/BLADDER: The bladder is distended and demonstrates mild wallthickening.The prostate is slightly enlarged and contains scatteredcentral coarse calcifications. VESSELS: A few scattered calcified atheromatous plaque affect of theaortoiliac arterial trunk. BONES AND SOFT TISSUES: Mild thoracolumbar spondylosis is present. Nosuspicious lytic or sclerotic bony lesions. [facility], Radiant Results Inft User - 11/24/2018 12:29 AM CDT* * * * * * * * ORIGINAL REPORT * * * * * * * *EXAM: CT ABDOMEN PELVIS W CONTRASTHISTORY: 58-year-old male complains of Nausea, vomiting Abd pain,gastroenteritis or colitis suspected Abd pain, acute, generalized COMPARISON: None.TECHNIQUE AND FINDINGS: Contiguous axial imaging from the level of the lungbases through the pubic symphysis was performed after the uncomplicatedadministration of 120 cc of intravenous Omnipaque contrast. Coronal andsagittal reconstructions were obtained. Auto mA and/or iterativereconstruction were used to reduce radiation dose.FINDINGS:LOWER THORAX: The lungs bases are clear; except for bibasal subsegmentalatelectasis and a subpleural right posterior lower lobe calcified granuloma(2:90). Scattered coronary atheroscleroticcalcifications are present. Nocardiomegaly. Lipomatous hypertrophy of interatrial septum is noted.LIVER: Normal in size and contour and parenchymal attenuation. No focalhepatic lesions are identified.GALLBLADDER AND BILIARY TREE: No biliary ductal dilation. No gallbladderwall thickening.SPLEEN: No splenomegaly.PANCREAS: Mild fatty infiltration of the head of the pancreas is noted. Noductal dilation or masses.ADRENAL GLANDS: No adrenal nodules.KIDNEYS: No hydronephrosis, stones or masses are identified.PERITONEUM AND RETROPERITONEUM: No free air or fluid.LYMPH NODES: No lymphadenopathy.GI TRACT: Theappendix is dilated up to 1.3 cm, fluid-filled with thickened enhancingwall and mild to moderate periappendiceal fat stranding. No bowel dilationor wall thickening.PELVIS/BLADDER: The bladder is distended and demonstrates mild wallthickening. The prostate is slightly enlarged and contains scatteredcentral coarse calcifications.VESSELS: A few scattered calcified atheromatous plaque affect of theaortoiliac arterial trunk.BONES AND SOFT TISSUES: Mild thoracolumbar spondylosis is present. Nosuspicious lytic or sclerotic bony lesions.IMPRESSION1. Findings consistent with acute appendicitis.2. Mild bladder wall thickening could be secondary to prostatomegaly. I, Dereck Dunne MD., have reviewed this study and agree with the abovereport.[facility] Center[facility] Whole [id number] 04:53:00 Test Item Value Reference Range Interpretation Comments LACTIC ACID (test code = 1.62 mmol/L 0.5-2.2 1134504996) Lab Interpretation (test code = Normal 45069-9) [facility] (NA, K, CL, CO2, GLUCOSE, BUN, CREATININE, CA)2018-11-24 02:40:00 Test Item Value Reference Range Interpretation Comments NA (test code = 141 mmol/L 135-145 8390312318) K (test code = 4.1 mmol/L 3.5-5 2859658302) CL (test code = 101 mmol/L 98-108 2236843454) CO2 TOTAL (test code = 27 mmol/L 23-31 9284776588) AGAP (test code = 2-16 6941987124) BUN (test code = 19 mg/dL 7-23 6665056559) GLUCOSE (test code = 110 mg/dL 70-110 2747875300) CREATININE (test code 0.77 mg/dL 0.6-1.25 = 5095360845) CALCIUM (test code = 8.9 mg/dL 8.6-10.6 7513208772) eGFR Calculation mL/min/1.73m2 (Non-) (test code = 6995365050) eGFR Calculation mL/min/1.73m2 () (test code = 5539639210) NINI (test code = NINI) Association of Glomerular Filtration Rate (GFR) and Staging of Kidney Disease*+ ---------+ --------+ +| GFR (mL/min/1.73 m2)?| With Kidney Damage?|?Without Kidney Damage+ -------+ ------+ ---------+|?>90?|?Stage one?|? Normal??+ ---------+ --------+ +|?60-89?|?S marye two?|? Decreased GFR? + -+ + ---+|?30-59?|?Stage three?|? Stage three? + -+ + ---+|?15-29?|?Stage four? |? Stage four?+ ------+ -----+ --------+|?<15 (or dialysis)?|?Stage five? |? Stage five?+ ------+ -----+ --------+*Each stage assumes the associated GFR level has been in effect for at least three months.?Stages 1 to 5, with or without kidney disease, indicate chronic kidney disease.Notes: Determination of stages one and two (with eGFR >59mL/min/1.73 m2) requires estimation of kidney damage for at least three months as defined by structural or functional abnormalities of the kidney, manifested by either:Pathological abnormalities or Markers of kidney damage (including abnormalities in the composition of the blood or urine or abnormalities in imaging tests). [facility] (ALB, T.PRO, BILI T, BU/BC, ALT, AST, ALK PHOS)2018-11-24 02:40:00 Test Item Value Reference Range Interpretation Comments TOTAL BILI (test code = 7556503808) 1.5 mg/dL 0.1-1.1 H BILI UNCON (test code = 1259187298) 1.3 mg/dL 0.1-1.1 H BILI CONJ (test code = 7263069793) 0.0 mg/dL 0-0.3 T PROTEIN (test code = 5225387329) 7.9 g/dL 6.3-8.2 ALBUMIN (test code = 4654796907) 4.5 g/dL 3.5-5 ALK PHOS (test code = 8385689895) 54 U/L 34-122 ALT(SGPT) (test code = 3712963037) 43 U/L 9-51 AST(SGOT) (test code = 9971730757) 46 U/L 13-40 H Lab Interpretation (test code = Abnormal 10464-7) [facility] CenterLipase [id number] 02:40:00 Test Item Value Reference Range Interpretation Comments LIPASE (test code = 4885064025) 28 U/L 0-220 Lab Interpretation (test code = Normal 54919-0) [facility] CenterUS GALL [id number] 01:49:05 Unremarkable right upper quadrant ultrasound. IKeri MD., have reviewed this study and agree with the abovereport.HISTORY: right upper quadrant pain . ABDOMINAL ULTRASOUND COMPARISON: CT abdomen and pelvis on 10/15/2014 FINDINGS: LIVER: The liver size is in physiologic upper limits measuring 17 cm withnormal shape and unremarkable echo-texture. No intrahepatic biliarydilation or focal lesion.?Normal hepatopetal?flow within the main portalvein. GALLBLADDER: No cholelithiasis, pericholecysticfluid, or gallbladderdistention. Negative sonographic Mosley's sign. The gallbladder wallmeasures 3 mm in thickness. The common bile duct measures 4 mm. PANCREAS: The visualized portions of the pancreas are normal. No ascites. [facility], Radiant Results Inft User - 11/23/2018 8:49 PM CDTHISTORY: right upper quadrant pain .ABDOMINAL ULTRASOUNDCOMPARISON: CT abdomen and pelvis on 10/15/2014FINDINGS: LIVER: The liver size is in physiologic upper limits measuring 17 cm withnormal shape and unremarkable echo-texture. No intrahepatic biliarydilation or focal lesion. Normal hepatopetal flow within the main portalvein. GALLBLADDER: No cholelithiasis, pericholecystic fluid, or gallbladderdistention. Negative sonographic Mosley's sign. The gallbladder wallmeasures 3 mm in thickness. The common bile duct measures4 mm.PANCREAS: The visualized portions of the pancreas are normal.No ascites.IMPRESSIONUnremarkable right upper quadrant ultrasound.IDereck MD., have reviewed this study and agree with the abovereport.[facility] CenterCBC WITH [id number] 01:25:00 Test Item Value Reference Range Interpretation Comments WBC (test code = See_Comment H [Automated 1156-2) message] The system which generated this result transmit margy reference range : 4.20 - 10.70 10*3/?L. The reference range was not used to interpret this result as normal/abnormal . RBC (test code = See_Comment [Automated 789-8) message] The system which generated this result transmit margy reference range : 4.26 - 5.52 10*6/?L. The reference range was not used to interpret this result as normal/abnormal . HGB (test code = 14.9 g/dL 12.2-16.4 718-7) HCT (test code = 45.1 % 38.4-49.3 4544-3) MCV (test code = 93.4 fL 81.7-95.6 787-2) MCH (test code = 30.8 pg 26.1-32.7 785-6) MCHC (test code = 33.0 g/dL 31.2-35 786-4) RDW-SD (test code = 45.9 fL 38.5-51.6 20236-7) RDW-CV (test code = 13.3 % 12.1-15.4 788-0) PLT (test code = See_Comment [Automated 777-3) message] The system which generated this result transmit margy reference range : 150 - 328 10*3/ ?L. The reference range was not u sed to interpret th is result as normal/abnormal . MPV (test code = 10.4 fL 9.8-13 26290-4) NRBC/100 WBC (test See_Comment [Automat ed code = 1614893441) message] The system which generated this result transmit margy reference range : 0.0 - 10.0 /100 WBCs. The reference range was not used to interpret this result as normal/abnormal . NRBC x10^3 (test code <0.01 See_Comment [Auto mated = 9139459848) message] The system which generated this result transmit margy reference range : 10*3/?L. The reference range was not used to interpret this result as normal/abnormal . GRAN MAT (NEUT) % 79.9 % (test code = 770-8) IMM GRAN % (test code 0.60 % = 0391817409) LYMPH % (test code = 11.5 % 736-9) MONO % (test code = 7.4 % 5905-5) EOS % (test code = 0.3 % 713-8) BASO % (test code = 0.3 % 706-2) GRAN MAT x10^3(ANC) 14.60 10*3/uL 1.99-6.95 H (test code = 2091862544) IMM GRAN x10^3 (test 0.11 10*3/uL 0-0.06 H code = 9639885881) LYMPH x10^3 (test code 2.10 10*3/uL 1.09-3.23 = 731-0) MONO x10^3 (test code 1.35 10*3/uL 0.36-1.02 H = 742-7) EOS x10^3 (test code = 0.05 10*3/uL 0.06-0.53 L 711-2) BASO x10^3 (test code 0.06 10*3/uL 0.01-0.09 = 704-7) Lab Interpretation Abnormal (test code = 74820-5) [facility] CenterLactic Acid Whole [id number] 00:30:00 Test Item Value Reference Range Interpretation Comments LACTIC ACID (test code = 2.38 mmol/L 0.5-2.2 H 3707544225) Lab Interpretation (test code = Abnormal 93865-7) [facility]-REACTIVE [id number] 15:41:00 Test Item Value Reference Range Interpretation Comments CRP (test code = 6116451374) 0.3 mg/dL <0.8 Lab Interpretation (test code = Normal 77141-1) [facility]-REACTIVE [id number] 15:41:00 Test Item Value Reference Range Interpretation Comments CRP (test code = 1316830199) 0.3 mg/dL <0.8 Lab Interpretation (test code = Normal 00953-7) [facility] WITH [id number] 16:58:00 Test Item Value Reference Range Interpretation Comments WBC (test code = See_Comment H [Automated 7090-2) message] The sy stem which generated this result transmitted reference range : 4.20 - 10.70 10*3/?L. The reference range was not used to interpret this result as normal/abnormal . RBC (test code = See_Comment [Automated 459-8) message] The sy stem which generated this result transmitted reference range : 4.26 - 5.52 10*6/?L. The reference range was not used to interpret this result as normal/abnormal . HGB (test code = 16.4 g/dL 12.2-16.4 718-7) HCT (test code = 47.4 % 38.4-49.3 4544-3) MCV (test code = 90.3 fL 81.7-95.6 787-2) MCH (test code = 31.2 pg 26.1-32.7 785-6) MCHC (test code = 34.6 g/dL 31.2-35 786-4) RDW-SD (test code = 41.9 fL 38.5-51.6 90973-3) RDW-CV (test code = 12.7 % 12.1-15.4 788-0) PLT (test code = See_Comment H [Automated 777-3) message] The sy stem which generated this result transmitted reference range : 150 - 328 10*3/ ?L. The reference r danay was not used to interpret this result as normal/abnormal . MPV (test code = 11.1 fL 9.8-13 55201-1) NRBC/100 WBC (test See_Comment [Automat ed code = 6750000380) message] The system which generated this result transmitted reference range : 0.0 - 10.0 /100 WBCs. The refer ence range was not u sed to interpret th is result as normal/abnormal . NRBC x10^3 (test code <0.01 See_Comment [Auto mated = 3766951714) message] The s ystem which generated this result transmitted reference range : 10*3/?L. The reference range was not used to interpret this result as normal/abnormal . GRAN MAT (NEUT) % 59.8 % (test code = 770-8) IMM GRAN % (test code 0.40 % = 4363761300) LYMPH % (test code = 21.0 % 736-9) MONO % (test code = 8.1 % 5905-5) EOS % (test code = 9.4 % 713-8) BASO % (test code = 1.3 % 706-2) GRAN MAT x10^3(ANC) 6.67 10*3/uL 1.99-6.95 (test code = 0354242600) IMM GRAN x10^3 (test 0.04 10*3/uL 0-0.06 code = 0703598545) LYMPH x10^3 (test code 2.34 10*3/uL 1.09-3.23 = 731-0) MONO x10^3 (test code 0.90 10*3/uL 0.36-1.02 = 742-7) EOS x10^3 (test code = 1.05 10*3/uL 0.06-0.53 H 711-2) BASO x10^3 (test code 0.15 10*3/uL 0.01-0.09 H = 704-7) Lab Interpretation Abnormal (test code = 73281-1) [facility] WITH [id number] 16:58:00 Test Item Value Reference Range Interpretation Comments WBC (test code = See_Comment H [Automated 9290-2) message] The sy stem which generated this result transmitted reference range : 4.20 - 10.70 10*3/?L. The reference range was not used to interpret this result as normal/abnormal . RBC (test code = See_Comment [Automated 409-8) message] The sy stem which generated this result transmitted reference range : 4.26 - 5.52 10*6/?L. The reference range was not used to interpret this result as normal/abnormal . HGB (test code = 16.4 g/dL 12.2-16.4 718-7) HCT (test code = 47.4 % 38.4-49.3 4544-3) MCV (test code = 90.3 fL 81.7-95.6 787-2) MCH (test code = 31.2 pg 26.1-32.7 785-6) MCHC (test code = 34.6 g/dL 31.2-35 786-4) RDW-SD (test code = 41.9 fL 38.5-51.6 35075-9) RDW-CV (test code = 12.7 % 12.1-15.4 788-0) PLT (test code = See_Comment H [Automated 777-3) message] The sy stem which generated this result transmitted reference range : 150 - 328 10*3/ ?L. The reference r danay was not used to interpret this result as normal/abnormal . MPV (test code = 11.1 fL 9.8-13 91689-1) NRBC/100 WBC (test See_Comment [Automat ed code = 3018950124) message] The system which generated this result transmitted reference range : 0.0 - 10.0 /100 WBCs. The refer ence range was not u sed to interpret th is result as normal/abnormal . NRBC x10^3 (test code <0.01 See_Comment [Auto mated = 5569391637) message] The s ystem which generated this result transmitted reference range : 10*3/?L. The reference range was not used to interpret this result as normal/abnormal . GRAN MAT (NEUT) % 59.8 % (test code = 770-8) IMM GRAN % (test code 0.40 % = 3519657742) LYMPH % (test code = 21.0 % 736-9) MONO % (test code = 8.1 % 5905-5) EOS % (test code = 9.4 % 713-8) BASO % (test code = 1.3 % 706-2) GRAN MAT x10^3(ANC) 6.67 10*3/uL 1.99-6.95 (test code = 4361796287) IMM GRAN x10^3 (test 0.04 10*3/uL 0-0.06 code = 2995920230) LYMPH x10^3 (test code 2.34 10*3/uL 1.09-3.23 = 731-0) MONO x10^3 (test code 0.90 10*3/uL 0.36-1.02 = 742-7) EOS x10^3 (test code = 1.05 10*3/uL 0.06-0.53 H 711-2) BASO x10^3 (test code 0.15 10*3/uL 0.01-0.09 H = 704-7) Lab Interpretation Abnormal (test code = 46107-9) [facility]"
[2022-03-21] MEDS ORDERED: DIPHENHYDRAMINE 25 MG TAB/CAP ONE (14:11)
[2022-03-21] MEDS ORDERED: dexAMETHasone 10 MG/ML VIAL ONE (14:11)
[2022-03-21] MEDS ORDERED: NA CHLORIDE 0.9% 500 ML ONE (14:11)
[2022-03-21] MEDS ORDERED: KETOROLAC 30 MG/ML INJ ONE (14:11)
[2022-03-21] MEDS ORDERED: ACETAMIN/CAFFEINE/BUTALB TAB PO ONE (14:11)
[2022-03-21] MEDS ORDERED: ONDANSETRON 4 MG/2 ML VIAL ONE (14:23)
--- NOTE | 2022-03-21 14:55 | ER ---
Nurse's Notes [facility] Name: Henry Elliott Age: 61 yrs Sex: Male : 1960 Arrival Date: 03/21/2022 Time: 12:50 Bed 9 Private MD: Diagnosis: Episodic cluster headache Presentation: 03/21 12:51 Chief complaint: EMS states: headache x 4 yrs, pain in center of head that feels like kr3 its going to explode. Onset of symptoms was March 21, 2017. 12:51 Method Of Arrival: EMS: [facility] kr3 13:06 Chief complaint: Patient states: "I have had a headache for a long time, I smoke some kr3 weed and it helps usually but the last 2 days it has continued to get worse". Coronavirus screen: Vaccine status: Patient reports being unvaccinated. Coronavirus screen: Client denies travel out of the [place] in the last 14 days. Ebola Screen: Patient denies travel to an Ebola-affected area in the 21 days before illness onset. Initial Sepsis Screen: Does the patient meet any 2 criteria? No. Patient's initial sepsis screen is negative. Does the patient have a suspected source of infection? No. Patient's initial sepsis screen is negative. Risk Assessment: Do you want to hurt yourself or someone else? Patient reports no desire to harm self or others. 13:06 Acuity: TOMMY 3 kr3 Triage Assessment: 13:10 Headache History: The patient has had previous headaches and this one is similar to kr3 previous episodes. General: Appears in no apparent distress. uncomfortable, Behavior is calm, cooperative. Pain: Complains of pain in head. 13:30 Pain: Also complains of no other associated symptoms. kb3 Historical: - Allergies: 13:09 No Known Allergies; kr3 - PMHx: 13:09 cluster headaches; headache; Hypertensive disorder; kr3 - PSHx: 13:09 Appendectomy; hernia repair; elbow repair; kr3 - Immunization history:: Adult Immunizations not up to date. - Social history:: Smoking status: Patient denies any tobacco usage or history of. Patient uses street drugs, marijuana. Screenin:30 [facility] ED Fall Risk Assessment (Adult) History of falling in the last 3 months, kb3 including since admission No falls in past 3 months (0 pts) Confusion or Disorientation No (0 pts) Intoxicated or Sedated No (0 pts) Impaired Gait No (0 pts) Mobility Assist Device Used No (0 pt) Altered Elimination No (0 pt) Score/Fall Risk Level 0 - 2 = Low Risk Oriented to surroundings, Maintained a safe environment, Educated pt \\T\\ family on fall prevention, incl call for assistance when getting out of bed, Assessed \\T\\ reinforced patient's understanding of fall precautions, Provided non-skid footwear, Hourly rounding (assess needs \\T\\ fall precautionary measures) done, Used ambulatory aids as needed (educated on \\T\\ assisted with), Used gait belt as appropriate. Abuse screen: Denies threats or abuse. Denies injuries from another. Nutritional screening: No deficits noted. Tuberculosis screening: No symptoms or risk factors identified. Assessment: 13:30 General: Appears in no apparent distress. Behavior is calm, cooperative, Pt reports kb3 headache in bilateral temples x2 days, intermittent x4 years. Reports diagnosed with cluster headaches but neurologist "said there is nothing he can do for me." Pt denies N/V/photophobia. 13:30 Pain: Complains of pain in left worship and right worship Pain does not radiate. Pain kb3 currently is 10 out of 10 on a pain scale. Quality of pain is described as throbbing, Exploding Pain began 2-3 days ago. 13:30 Neuro: No deficits noted. Reports headache in right in left temples. kb3 14:53 General: Pt resting comfortably. Reports headache pain has resolved at this time. kb3 Vital Signs: 13:06 BP 130 / 76; Pulse 78; Resp 18; Temp 98.8(TE); Pulse Ox 96% on R/A; Weight 83.91 kg; kr3 Height 5 ft. 5 in. (165.10 cm); Pain 10/10; 15:30 BP 124 / 72; Pulse 73; Resp 16; Pulse Ox 95% ; Pain 3/10; kb3 13:06 Body Mass Index 30.79 (83.91 kg, 165.10 cm) kr3 Spur Coma Score: 13:38 Eye Response: spontaneous(4). Verbal Response: oriented(5). Motor Response: obeys en commands(6). Total: 15. ED Course: 12:50 Patient arrived in ED. rg4 13:01 Mendy Pelayo PA is PHCP. en 13:01 Fab Smith MD is Attending Physician. en 13:09 Triage completed. kr3 13:30 No provider procedures requiring assistance completed. kb3 13:30 Patient has correct armband on for positive identification. Bed in low position. Call kb3 light in reach. Side rails up X2. Warm blanket given. 13:30 Arm band placed on Patient placed in an exam room, on a stretcher. kb3 14:00 Inserted saline lock: 22 gauge in right antecubital area, using aseptic technique. kb3 14:02 Consuelo Chi, RN is Primary Nurse. kb3 15:22 Patient did not have IV access during this emergency room visit. IV discontinued, mm9 Pressure dressing applied. 15:30 IV discontinued, intact, bleeding controlled, No redness/swelling at site. Pressure kb3 dressing applied. Administered Medications: 14:17 Not Given (not availablee): Compazine (prochlorperazine) 10 mg IVP once en 14:17 Drug: Benadryl (diphenhydrAMINE) 25 mg Route: PO; kb3 14:53 Follow up: Response: No adverse reaction kb3 14:17 Drug: Decadron - Dexamethasone 10 mg Route: IVP; Site: right antecubital; kb3 14:53 Follow up: Response: No adverse reaction kb3 14:17 Drug: Sodium Chloride 0.9% 500 ml Route: IVPB; Site: right antecubital; kb3 14:53 Follow up: Response: No adverse reaction; IV Status: Completed infusion; IV Intake: kb3 500ml 14:17 Drug: Fioricet - Esgic 325 mg-40 mg-50 mg 1 tab-caps Route: PO; kb3 14:53 Follow up: Response: No adverse reaction; Pain is decreased kb3 14:18 Drug: Ketorolac 15 mg Route: IVP; Site: right antecubital; kb3 14:53 Follow up: Response: No adverse reaction; Pain is decreased kb3 14:22 Drug: Zofran (Ondansetron) 4 mg Route: IVP; Site: right antecubital; kb3 14:53 Follow up: Response: No adverse reaction kb3 Medication: 13:30 VIS not applicable for this client. kb3 Intake: 14:53 IV: 500ml; Total: 500ml. kb3 Outcome: 14:55 Discharge ordered by . wilmar 15:37 Discharged to home via wheelchair, with friend. kb3 15:37 Condition: stable 15:37 Discharge instructions given to patient, Instructed on discharge instructions, follow up and referral plans. medication usage, Demonstrated understanding of instructions, follow-up care, medications, Prescriptions given X 1. 15:38 Patient left the ED. kb3 Signatures: Teri Cortés rg4 Mendy Pelayo PA PA en Reid, Kelley, RN RN kr3 Consuelo Chi, RN RN kb3 Kathleen Witt mm9 Corrections: (The following items were deleted from the chart) 14:59 13:30 General: Appears in no apparent distress. Behavior is calm, cooperative, Pt kb3 reports generalized headache in center of head that has been ongoing for 4 years. Reports diagnosed with cluster headaches but neurologist "said there is nothing he can do for me." Pt denies N/V/photophobia. kb3
--- NOTE | 2022-03-21 14:55 | EDPHYS ---
Physician Documentation [facility] Name: Henry Elliott Age: 61 yrs Sex: Male : 1960 Arrival Date: 03/21/2022 Time: 12:50 Bed 9 Private MD: ED Physician Fab Smith HPI: 03/21 13:22 This 61 yrs old Male presents to ER via EMS with complaints of Headache. en 13:22 The patient complains of pain to the right orthodox and left orthodox. 61 yo M with h/o en cluster headaches presents to ED with typical bitemporal URENA that started yesterday. . Historical: - Allergies: 13:09 No Known Allergies; kr3 - PMHx: 13:09 cluster headaches; headache; Hypertensive disorder; kr3 - PSHx: 13:09 Appendectomy; hernia repair; elbow repair; kr3 - Immunization history:: Adult Immunizations not up to date. - Social history:: Smoking status: Patient denies any tobacco usage or history of. Patient uses street drugs, marijuana. ROS: 13:38 Constitutional: Negative for fever, chills, and weight loss, Eyes: Negative for injury, en pain, redness, and discharge, Neck: Negative for injury, pain, and swelling, Neuro: + headache, Negative weakness, numbness, tingling, and seizure. Exam: 13:38 Constitutional: This is a well developed, well nourished patient who is awake, alert, en and in no acute distress. Head/Face: Normocephalic, atraumatic. Eyes: Pupils equal round and reactive to light, extra-ocular motions intact. Lids and lashes normal. Conjunctiva and sclera are non-icteric and not injected. Cornea within normal limits. Periorbital areas with no swelling, redness, or edema. ENT: Nares patent. No nasal discharge, no septal abnormalities noted. Tympanic membranes are normal and external auditory canals are clear. Oropharynx with no redness, swelling, or masses, exudates, or evidence of obstruction, uvula midline. Mucous membranes moist. Cardiovascular: Regular rate and rhythm with a normal S1 and S2. No gallops, murmurs, or rubs. Normal PMI, no JVD. No pulse deficits. Respiratory: Lungs have equal breath sounds bilaterally, clear to auscultation and percussion. No rales, rhonchi or wheezes noted. No increased work of breathing, no retractions or nasal flaring. Abdomen/GI: Soft, non-tender, with normal bowel sounds. No distension or tympany. No guarding or rebound. No evidence of tenderness throughout. Neuro: Awake and alert, GCS 15, oriented to person, place, time, and situation. Cranial nerves II-XII grossly intact. Motor strength 5/5 in all extremities. Sensory grossly intact. Cerebellar exam normal. Normal gait. Vital Signs: 13:06 BP 130 / 76; Pulse 78; Resp 18; Temp 98.8(TE); Pulse Ox 96% on R/A; Weight 83.91 kg; kr3 Height 5 ft. 5 in. (165.10 cm); Pain 10/10; 15:30 BP 124 / 72; Pulse 73; Resp 16; Pulse Ox 95% ; Pain 3/10; kb3 13:06 Body Mass Index 30.79 (83.91 kg, 165.10 cm) kr3 [place] Coma Score: 13:38 Eye Response: spontaneous(4). Verbal Response: oriented(5). Motor Response: obeys en commands(6). Total: 15. MDM: 13:01 Patient medically screened. en 13:38 Differential diagnosis: cluster headache, migraine, tension headache. Data reviewed: en vital signs, nurses notes, and as a result, I will Considered CT imaging of head but no change in pattern, normal neuro exam, and is followed by Neurology. Considered labs, but no infectious sxs. Will treat with IV toradol, decadron, compazine, IVF, and po benadryl. 14:54 ED course: Pt feels better and URENA improved after medication. Has Neurologist that he en can f/u with. Will d/c home with fioricet. . Administered Medications: 14:17 Not Given (not availablee): Compazine (prochlorperazine) 10 mg IVP once en 14:17 Drug: Benadryl (diphenhydrAMINE) 25 mg Route: PO; kb3 14:53 Follow up: Response: No adverse reaction kb3 14:17 Drug: Decadron - Dexamethasone 10 mg Route: IVP; Site: right antecubital; kb3 14:53 Follow up: Response: No adverse reaction kb3 14:17 Drug: Sodium Chloride 0.9% 500 ml Route: IVPB; Site: right antecubital; kb3 14:53 Follow up: Response: No adverse reaction; IV Status: Completed infusion; IV Intake: kb3 500ml 14:17 Drug: Fioricet - Esgic 325 mg-40 mg-50 mg 1 tab-caps Route: PO; kb3 14:53 Follow up: Response: No adverse reaction; Pain is decreased kb3 14:18 Drug: Ketorolac 15 mg Route: IVP; Site: right antecubital; kb3 14:53 Follow up: Response: No adverse reaction; Pain is decreased kb3 14:22 Drug: Zofran (Ondansetron) 4 mg Route: IVP; Site: right antecubital; kb3 14:53 Follow up: Response: No adverse reaction kb3 Disposition: 15:51 Co-signature as Attending Physician, Fab Smith MD. rn Disposition Summary: 03/21/22 14:55 Discharge Ordered Location: Home en Problem: an acute exacerbation en Symptoms: have improved en Condition: Stable en Diagnosis - Episodic cluster headache en Followup: en - With: Private Physician - When: As needed - Reason: Re-evaluation by your physician Discharge Instructions: - Discharge Summary Sheet en - Cluster Headache, [id number] en Forms: - Medication Reconciliation Form en - Thank You Letter en - Antibiotic Education en - Prescription Opioid Use en Prescriptions: - Fioricet 50-300-40 mg Oral capsule - take 1 capsule by ORAL route every 4 hours as needed; 12 capsule; Refills: 0, en Product Selection Permitted Signatures: Fab Smith MD MD rn [place]kirk, Elizabeth, PA PA en Joyce Altman RN RN kr3 Consuelo Chi, RN RN kb3
[2022-03-21 15:47] VITALS: TEMP 98.8
[2022-03-21 15:55] VITALS: BP 124/72; O2SAT 95
== END 2022-03-21 15:38 | disposition home or self-care (01) ==
LOC: ER 12:47
DX: G44.019 Episodic cluster headache, not intractable (principal); I10 Essential (primary) hypertension
CPT/HCPCS: 96365; 96375; 99284; J1100; J7040; J2405

== ENCOUNTER 2022-11-04 18:55 | Emergency (ER) | payer OTHER ==
--- OUTSIDE RECORDS SUMMARY | 2022-11-04 19:04 | XMS REPORT | Continuity of Care Document ---
:1960 Author Organization [facility] t Address [address] [place] [address] [address] [place] [address] Care Team Providers Name Role Phone SHIRA YOON Primary Care Physician Unavailable NEREYDA BRASHER Attending Clinician Unavailable GILBERTO DIAZ Attending Clinician Unavailable DEANGELO MEDEROS Attending Clinician Unavailable DEANGELO MEDEROS Attending Clinician Unavailable Shira López Attending Clinician SHIRA YOON Attending Clinician Unavailable Doctor Unassigned, [facility] Attending Clinician Unavailable FINN SALGADO Attending Clinician Unavailable Deangelo Mederos MD Attending Clinician Mirtha Gray Attending Clinician MIRTHA ESTRADA Attending Clinician Unavailable Finn Salgado MD Attending Clinician Maxime, Cardiology - Callie Attending Clinician Unavailable IHSAN ANDRADE Attending Clinician Unavailable Ihsan Sunshine Attending Clinician RACHAEL DICKEY Attending Clinician Unavailable HÉCTOR ROPER Attending Clinician Unavailable HÉCTOR ROPER Attending Clinician Unavailable Héctor Roper MD Attending Clinician JUAN DIEGO MCRAE Attending Clinician Unavailable Scarlett Jimenez Attending Clinician SCARLETT WHITNEY Attending Clinician Unavailable 1, [facility] Sleep Lab Bed Attending Clinician Unavailable Only, [facility] Test Attending Clinician Unavailable CONY ARRINGTON Attending Clinician Unavailable 2, [facility] Lab Attending Clinician Unavailable Clementina RYAN, Juan Diego Attending Clinician Provider, [facility] Attending Clinician Unavailable Ismael HAYP, Siena Attending Clinician Max RM, Di Dimas Attending Clinician Unavailable Marcos RYAN, Zora Attending Clinician Joey RYAN, Jose Attending Clinician Camilla RYAN, Woody Chadwick Attending Clinician MIRTHA ESTRADA Admitting Clinician Unavailable IHSAN ANDRADE Admitting Clinician Unavailable Joey RYAN, Jose Admitting Clinician Payers Payer Name Policy Type Policy Number Effective Date Expiration Date Netta petersen FORMERLY [facility] [id number] 2017 00:00:00 PLUS Problems Condition Condition Condition Status Onset Resolution Last Treating Co mments Source Name Details Category Date Date Treatment Clinician Date Essential Essential Disease Active 2019-03 Uni vers hypertensi hypertensi 0-02 it y of on on 00:00: [place] 00 [facility] Branch Chronic Chronic Disease Active 2020- Univers cluster cluster 0-02 [place] of headache[place], [place] intractabl intractabl Br anch e e Arthritis Arthritis Disease Active 2019-03 Uni vers 0-02 ity of 00:00: [place] 00 Medical Branch 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 0-02 ity of due to due to 00:00: [place] exposure exposure 00 Medica l to to Branch sunlight sunlight Ex-smoker Ex-smoker Disease Active 2020 Uni vers 0-02 ity of 00:00: [place] 00 Medical Branch Need for Need for Disease Active 2020 Unive rs influenza influenza 0-02 ity of vaccinatio vaccinatio [place] Need for Need for Disease Active 2019-03 Unive rs hepatitis hepatitis 0-02 ity of C C 00:00: [place] screening screening 00 Medi maribel test test Branch Screening Screening Disease Active 2019-03 Uni vers for for 0-02 [place] of malignant malignant [place] ne[place] 00 Medica [place] of colon of colon Branch Infection Infection Disease Active Uni vers 9-07 ity of 00:00: [place] [facility] JOSHUA (acute JOSHUA (acute Disease Active U nivers kidney kidney 9 ity of injury) injury) 00:00: [place] [facility] Acute Acute Disease Active Univers appendicit appendicit 9 it y of is is 00:00: [place] [facility] Groin Groin Disease Active Univers hematoma hematoma 7 ity of 00:00: [place] [facility] Obesity Obesity Disease Active Univers (BMI (BMI 7-27 ity of 30-39.9) 30-39.9) 00:00: [place] [facility] Ventral Ventral Disease Active Univers [...] of with with 00:00: g of this [place] incarcerat incarcerat 00 note Me dical ion ion might be Branch different from the original. Added automatic ally from request for surgery [id number] Inguinal Inguinal Disease Active Overview: Un angel hernia hernia 6-25 Formattin ity of with with 00:00: g of this [place] incarcerat incarcerat 00 note Me dical ion ion might be Branch different from the original. Added automatic ally from request for surgery [id number] Inguinal Inguinal Disease Active Overview: Un angel hernia hernia 6-25 Added ity of with with 00:00: automatic [place] incarcerat incarcerat 00 ally from Medical ion ion request Branch for surgery [id number] Allergies, Adverse Reactions, Alerts Allergy Allergy Status Severity Reaction(s) Onset Inactive Treating Comm ents Source Name Type Date Date Clinician NO KNOWN Drug Active Univers ALLERGIE Class ity of [facility] [place] [facility] Social History Social Habit Start Date Stop Date Quantity Comments Source Gender identity Universit y of [facility] Sexual orientation Univer sity of [facility] History of tobacco Cigarette Smoker University of use [facility] Alcohol intake 2022-10-14 2022-10-14 Current University of 00:00:00 00:00:00 non-drinker of [facility] alcohol [place] (finding) Exposure to 2022-08-08 2022-08-18 Not sure University SARS-CoV-2 (event) 00:00:00 09:36:00 [facility] History of Social 2022-07-30 2022-07-30 Univers ity of function 00:00:00 00:00:00 [facility] Tobacco use and 2022-07-30 2022-07-30 Smokeless Universit y of exposure 00:00:00 00:00:00 tobacco non-user [facility] dical [place] Tobacco Comment 2022-07-30 2022-07-30 2015 Universit y of 00:00:00 00:00:00 [place] [facility] History [facility] 2018-11-24 2018-11-24 5 University o f Financial 00:00:00 00:00:00 [place] [facility] History [facility] Food 2018-11-24 2018-11-24 1 Univers ity of Worry 00:00:00 00:00:00 [facility] Branch History [facility] Food 2018-11-24 2018-11-24 1 Univers ity of Scarcity 00:00:00 00:00:00 [place] [facility] History [facility] 2018-11-24 2018-11-24 2 University o f Transport Med 00:00:00 00:00:00 [place] Medic al [facility] History [facility] 2018-11-24 2018-11-24 2 University o f Transport Non-Med 00:00:00 00:00:00 [facility] edical Branch Sex [birth year] At [birth year] Universit y of 00:00:00 00:00:00 [facility] Smoking Status Start Date Stop Date Source Ex-smoker 2022-07-30 00:00:00 2022-07-30 00:00:00 Universi ty of [facility] Medications Ordered Filled Start Stop Current Ordering Indication Dosage Frequency Signature Comments Components Source Medication Medication Date Date Medication? Clinician (SIG) Name Name cyclobenzap Yes [id number] 5mg Take 1 Univers rine 5 mg 7-27 tablet by ity o f tablet 00:00: mouth 2 [place] 00 (two) Medical times Branch daily as needed for Muscle Spasms. cyclobenzap 2022-0 Yes [id number] 5mg Take 1 Univers rine 5 mg 7-27 tablet by ity o f tablet 00:00: mouth 2 [place] 00 (two) Medical times Branch daily as needed for Muscle Spasms. cyclobenzap 2022-0 Yes [id number] 5mg Take 1 Univers rine 5 mg 7-27 tablet by ity o f tablet 00:00: mouth 2 [place] 00 (two) Medical times Branch daily as needed for Muscle Spasms. iopamidol 2022- No [id number] 110mL 110 mL, Univers (ISOVUE 08-25 Intravenou ity o f 370-500 mL) 18:30: 17:45 s, ONCE, 1 [place] injection 00 :00 dose, On Medica l 110 mL 08/25/22 Branch at 1330, Routine cefTRIAXone 2022- No 1000mg 1,000 mg, Univers (ROCEPHIN) 08-0114 IV ity of 1,000 mg in 01:45: 02:05 [facility], [place] NaCl 0.9% 00 :00 ONCE, 1 Medical (NS) 100 mL dose, On Bran ch MINI-BAG 07/31/22 at 2045, Administer over 30 Minutes, 100 mL
Reas on for Anti-Infec tive: Documented Infection< br>Documen margy Infection Site: Urine<br&g t;Duration of Therapy: 7 days NaCl 0.9% 2022- No 1000mL at 999 Uni vers (NS) bolus 07-31-13 mL/hr, ity of infusion 22:15: 23:44 1,000 mL, Josias as 1,000 mL 00 :00 IV Medical Infusion, Branch ONCE, 1 dose, On 07/31/22 at 1715, MILAN cefdinir 2022- No [id number] 300mg Take 1 U nivers 300 mg 07-31 0524 capsule by ity of capsule 00:00: 04:59 mouth [place] 00 :00 every 12 Medical (twelve) Branch hours for 10 days. cefdinir 2022- No [id number] 300mg Take 1 U nivers 300 mg 5-13 05-24 capsule by ity of capsule 00:00: 04:59 mouth [place] 00 :00 every 12 Medical (twelve) Branch hours for 10 days. aspirin 81 2022- No 162mg Take 162 U nivers mg chewable 5-12 05-12 mg by ity of tablet 15:34: 00:00 mouth [place] 01 :00 daily. Medical Branch aspirin 81 2022- No 162mg Take 162 U nivers mg chewable 5-12 05-12 mg by ity of tablet 15:34: 00:00 mouth [place] 01 :00 daily. Medical Branch nortriptyli 2021-03 Yes [id number] Take one Univers ne 50 mg 0-11 tablet ity of capsule 00:00: (25mg) by [place] 00 mouth for Medical 10 days, Branch then taken 2 tablets (50mg) by mouth for now on out. nortriptyli 2021-03 Yes [id number] Take one Univers ne 50 mg 0-11 tablet ity of capsule 00:00: (25mg) by [place] 00 mouth for Medical 10 days, Branch then taken 2 tablets (50mg) by mouth for now on out. nortriptyli 2021-03 Yes [id number] Take one Univers ne 50 mg 0-11 tablet ity of capsule 00:00: (25mg) by [place] 00 mouth for Medical 10 days, Branch then taken 2 tablets (50mg) by mouth for now on out. nortriptyli 2021-03 Yes [id number] Take one Univers ne 50 mg 0-11 tablet ity of capsule 00:00: (25mg) by [place] 00 mouth for Medical 10 days, Branch then taken 2 tablets (50mg) by mouth for now on out. nortriptyli 2021-03 Yes [id number] Take one Univers ne 50 mg 0-11 tablet ity of capsule 00:00: (25mg) by [place] 00 mouth for Medical 10 days, Branch then taken 2 tablets (50mg) by mouth for now on out. nortriptyli 2021-03 Yes [id number] Take one Univers ne 50 mg 0-11 tablet ity of capsule 00:00: (25mg) by [place] 00 mouth for Medical 10 days, Branch then taken 2 tablets (50mg) by mouth for now on out. nortriptyli 2021-03 Yes [id number] Take one Univers ne 50 mg 0-11 tablet ity of capsule 00:00: (25mg) by [place] 00 mouth for Medical 10 days, Branch then taken 2 tablets (50mg) by mouth for now on out. nortriptyli 2021-03 Yes [id number] Take one Univers ne 50 mg 0-11 tablet ity of capsule 00:00: (25mg) by [place] 00 mouth for Medical 10 days, Branch then taken 2 tablets (50mg) by mouth for now on out. nortriptyli 2021-03 Yes [id number] Take one Univers ne 50 mg 0-11 tablet ity of capsule 00:00: (25mg) by [place] 00 mouth for Medical 10 days, Branch then taken 2 tablets (50mg) by mouth for now on out. nortriptyli 2021-03 Yes [id number] Take one Univers ne 50 mg 0-11 tablet ity of capsule 00:00: (25mg) by [place] 00 mouth for Medical 10 days, Branch then taken 2 tablets (50mg) by mouth for now on out. nortriptyli 2021-03 Yes [id number] Take one Univers ne 50 mg 0-11 tablet ity of capsule 00:00: (25mg) by [place] 00 mouth for Medical 10 days, Branch then taken 2 tablets (50mg) by mouth for now on out. nortriptyli 2021-03 Yes [id number] Take one Univers ne 50 mg 0-11 tablet ity of capsule 00:00: (25mg) by [place] 00 mouth for Medical 10 days, Branch then taken 2 tablets (50mg) by mouth for now on out. nortriptyli 2021-03 Yes [id number] Take one Univers ne 50 mg 0-11 tablet ity of capsule 00:00: (25mg) by [place] 00 mouth for Medical 10 days, Branch then taken 2 tablets (50mg) by mouth for now on out. nortriptyli 2021-03 Yes [id number] Take one Univers ne 50 mg 0-11 tablet ity of capsule 00:00: (25mg) by [place] 00 mouth for Medical 10 days, Branch then taken 2 tablets (50mg) by mouth for now on out. nortriptyli 2021-03 Yes [id number] Take one Univers ne 50 mg 0-11 tablet ity of capsule 00:00: (25mg) by [place] 00 mouth for Medical 10 days, Branch then taken 2 tablets (50mg) by mouth for now on out. nortriptyli 2021-03 Yes [id number] Take one Univers ne 50 mg 0-11 tablet ity of capsule 00:00: (25mg) by [place] 00 mouth for Medical 10 days, Branch then taken 2 tablets (50mg) by mouth for now on out. nortriptyli 2021-03 Yes [id number] Take one Univers ne 50 mg 0-11 tablet ity of capsule 00:00: (25mg) by [place] 00 mouth for Medical 10 days, Branch then taken 2 tablets (50mg) by mouth for now on out. nortriptyli 2021-03 Yes [id number] Take one Univers ne 50 mg 0-11 tablet ity of capsule 00:00: (25mg) by [place] 00 mouth for Medical 10 days, Branch then taken 2 tablets (50mg) by mouth for now on out. nortriptyli 2021-03 Yes [id number] Take one Univers ne 50 mg 0-11 tablet ity of capsule 00:00: (25mg) by [place] 00 mouth for Medical 10 days, Branch then taken 2 tablets (50mg) by mouth for now on out. nortriptyli 2021-03 Yes [id number] Take one Univers ne 50 mg 0-11 tablet ity of capsule 00:00: (25mg) by [place] 00 mouth for Medical 10 days, Branch then taken 2 tablets (50mg) by mouth for now on out. nortriptyli 2021-03 Yes [id number] Take one Univers ne 50 mg 0-11 tablet ity of capsule 00:00: (25mg) by [place] 00 mouth for Medical 10 days, Branch then taken 2 tablets (50mg) by mouth for now on out. nortriptyli 2021-03 Yes [id number] Take one Univers ne 50 mg 0-11 tablet ity of capsule 00:00: (25mg) by [place] 00 mouth for Medical 10 days, Branch then taken 2 tablets (50mg) by mouth for now on out. nortriptyli 2021-03 Yes [id number] Take one Univers ne 50 mg 0-11 tablet ity of capsule 00:00: (25mg) by [place] 00 mouth for Medical 10 days, Branch then taken 2 tablets (50mg) by mouth for now on out. nortriptyli 2021-03 Yes [id number] Take one Univers ne 50 mg 0-11 tablet ity of capsule 00:00: (25mg) by [place] 00 mouth for Medical 10 days, Branch then taken 2 tablets (50mg) by mouth for now on out. nortriptyli 2021-03 Yes [id number] Take one Univers ne 50 mg 0-11 tablet ity of capsule 00:00: (25mg) by [place] 00 mouth for Medical 10 days, Branch then taken 2 tablets (50mg) by mouth for now on out. nortriptyli 2021-03 Yes [id number] Take one Univers ne 50 mg 0-11 tablet ity of capsule 00:00: (25mg) by [place] 00 mouth for Medical 10 days, Branch then taken 2 tablets (50mg) by mouth for now on out. nortriptyli 2021-03- No [id number] Take one Univers ne 50 mg 0-11 07-27 tablet ity of capsule 00:00: 00:[place] ([place]mg[place] :[place] mouth for Medical 10 days, Branch then taken 2 tablets (50mg) by mouth for now on out. nortriptyli 2021-03- No [id number] Take one Univers ne 50 mg 0-11 07-27 tablet ity of capsule 00:00: 00:00 (25mg) [...] by mouth for now on out. ketorolac Yes [id number] 10mg Take 1 Un angel 10 mg 5-07 tablet by ity of tablet 00:00: mouth [place] 00 every 8 Medical (eight) Branch hours. metoclopram Yes [id number] 10mg Take 1 Univers eunice HCl 10 5-07 tablet by ity of mg tablet 00:00: mouth [place] 00 every 6 Medical (six) Branch hours. metoclopram Yes [id number] 10mg Take 1 Univers eunice HCl 10 5-07 tablet by ity of mg tablet 00:00: mouth [place] 00 every 6 Medical (six) Branch hours. ketorolac 2021-0 Yes [id number] 10mg Take 1 Un angel 10 mg 5-07 tablet by ity of tablet 00:00: mouth [place] 00 every 8 Medical (eight) Branch hours. metoclopram 2021-0 Yes [id number] 10mg Take 1 Univers eunice HCl 10 5-07 tablet by ity of mg tablet 00:00: mouth [place] 00 every 6 Medical (six) Branch hours. metoclopram 2021-0 Yes [id number] 10mg Take 1 Univers eunice HCl 10 5-07 tablet by ity of mg tablet 00:00: mouth [place] 00 every 6 Medical (six) Branch hours. ketorolac 2021-0 Yes [id number] 10mg Take 1 Un angel 10 mg 5-07 tablet by ity of tablet 00:00: mouth [place] 00 every 8 Medical (eight) Branch hours. metoclopram 2021-0 Yes [id number] 10mg Take 1 Univers uenice HCl 10 5-07 tablet by ity of mg tablet 00:00: mouth [place] 00 every 6 Medical (six) Branch hours. metoclopram 2021-0 Yes [id number] 10mg Take 1 Univers eunice HCl 10 5-07 tablet by ity of mg tablet 00:00: mouth [place] 00 every 6 Medical (six) Branch hours. ketorolac 2021-0 Yes [id number] 10mg Take 1 Un angel 10 mg 5-07 tablet by ity of tablet 00:00: mouth [place] 00 every 8 Medical (eight) Branch hours. metoclopram 2021-0 Yes [id number] 10mg Take 1 Univers eunice HCl 10 5-07 tablet by ity of mg tablet 00:00: mouth [place] 00 every 6 Medical (six) Branch hours. metoclopram 2021-0 Yes [id number] 10mg Take 1 Univers eunice HCl 10 5-07 tablet by ity of mg tablet 00:00: mouth [place] 00 every 6 Medical (six) Branch hours. ketorolac 2021-0 Yes [id number] 10mg Take 1 Un angel 10 mg 5-07 tablet by ity of tablet 00:00: mouth [place] 00 every 8 Medical (eight) Branch hours. metoclopram 2021-0 Yes [id number] 10mg Take 1 Univers eunice HCl 10 5-07 tablet by ity of mg tablet 00:00: mouth [place] 00 every 6 Medical (six) Branch hours. metoclopram 1-0 Yes [id number] 10mg Take 1 Univers eunice HCl 10 5-07 tablet by ity of mg tablet 00:00: mouth [place] 00 every 6 Medical (six) Branch hours. ketorolac 1-0 Yes [id number] 10mg Take 1 Un angel 10 mg 5-07 tablet by ity of tablet 00:00: mouth [place] 00 every 8 Medical (eight) Branch hours. metoclopram 1-0 Yes [id number] 10mg Take 1 Univers eunice HCl 10 5-07 tablet by ity of mg tablet 00:00: mouth [place] 00 every 6 Medical (six) Branch hours. metoclopram 1-0 Yes [id number] 10mg Take 1 Univers eunice HCl 10 5-07 tablet by ity of mg tablet 00:00: mouth [place] 00 every 6 Medical (six) Branch hours. ketorolac 2020-0 1- No [id number] 10mg Take 1 U nivers 10 mg 5-07 06-17 tablet by ity of tablet 00:00: 00:00 mouth [place] 00 :00 every 8 Medical (eight) Branch hours. metoclopram 2020-0 1- No [id number] 10mg Take 1 Univers eunice HCl 10 5-07 06-17 tablet by ity of mg tablet 00:00: 00:00 mouth [place] 00 :00 every 6 Medical (six) Branch hours. metoclopram 1-0 2021- No [id number] 10mg Take 1 Univers eunice HCl 10 5-07 06-17 tablet by ity of mg tablet 00:00: 00:00 mouth [place] 00 :00 every 6 Medical (six) Branch hours. ketorolac 2021-0 1- No [id number] 10mg Take 1 U nivers 10 mg 5-07 06-17 tablet by ity of tablet 00:00: 00:00 mouth [place] 00 :00 every 8 Medical (eight) Branch hours. metoclopram 2021-0 2021- No [id number] 10mg Take 1 Univers eunice HCl 10 5-07 06-17 tablet by ity of mg tablet 00:00: 00:00 mouth [place] 00 :00 every 6 Medical (six) Branch hours. metoclopram 1-0 2021- No [id number] 10mg Take 1 Univers eunice HCl 10 5-07 06-17 tablet by ity of mg tablet 00:00: 00:00 mouth [place] 00 :00 every 6 Medical (six) Branch hours. lisinopriL- Yes [id number] 1{tbl} Take 1 Univers hydrochloro 3-17 tablet by ity of thiazide 00:00: mouth [place] 10-12.5 mg 00 daily. Medical per tablet Branch lisinopriL- Yes [id number] 1{tbl} Take 1 Univers hydrochloro 3-17 tablet by ity of thiazide 00:00: mouth [place] 10-12.5 mg 00 daily. Medical per tablet Branch lisinopriL- Yes [id number] 1{tbl} Take 1 Univers hydrochloro 3-17 tablet by ity of thiazide 00:00: mouth [place] 10-12.5 mg 00 daily. Medical per tablet Branch lisinopriL- Yes [id number] 1{tbl} Take 1 Univers hydrochloro 3-17 tablet by ity of thiazide 00:00: mouth [place] 10-12.5 mg 00 daily. Medical per tablet Branch lisinopriL- Yes [id number] 1{tbl} Take 1 Univers hydrochloro 3-17 tablet by ity of thiazide 00:00: mouth [place] 10-12.5 mg 00 daily. Medical per tablet Branch lisinopriL- Yes [id number] 1{tbl} Take 1 Univers hydrochloro 3-17 tablet by ity of thiazide 00:00: mouth [place] 10-12.5 mg 00 daily. Medical per tablet Branch lisinopriL- Yes [id number] 1{tbl} Take 1 Univers hydrochloro 3-17 tablet by ity of thiazide 00:00: mouth [place] 10-12.5 mg 00 daily. Medical per tablet Branch lisinopriL- Yes [id number] 1{tbl} Take 1 Univers hydrochloro 3-17 tablet by ity of thiazide 00:00: mouth [place] 10-12.5 mg 00 daily. Medical per tablet Branch lisinopriL- Yes [id number] 1{tbl} Take 1 Univers hydrochloro 3-17 tablet by ity of thiazide 00:00: mouth [place] 10-12.5 mg 00 daily. Medical per tablet Branch lisinopriL- Yes [id number] 1{tbl} Take 1 Univers hydrochloro 3-17 tablet by ity of thiazide 00:00: mouth [place] 10-12.5 mg 00 daily. Medical per tablet Branch lisinopriL- Yes [id number] 1{tbl} Take 1 Univers hydrochloro 3-17 tablet by ity of thiazide 00:00: mouth [place] 10-12.5 mg 00 daily. Medical per tablet Branch lisinopriL- Yes [id number] 1{tbl} Take 1 Univers hydrochloro 3-17 tablet by ity of thiazide 00:00: mouth [place] 10-12.5 mg 00 daily. Medical per tablet Branch lisinopriL- Yes [id number] 1{tbl} Take 1 Univers hydrochloro 3-17 tablet by ity of thiazide 00:00: mouth [place] 10-12.5 mg 00 daily. Medical per tablet Branch lisinopriL- Yes [id number] 1{tbl} Take 1 Univers hydrochloro 3-17 tablet by ity of thiazide 00:00: mouth [place] 10-12.5 mg 00 daily. Medical per tablet Branch lisinopriL- Yes [id number] 1{tbl} Take 1 Univers hydrochloro 3-17 tablet by ity of thiazide 00:00: mouth [place] 10-12.5 mg 00 daily. Medical per tablet Branch lisinopriL- Yes [id number] 1{tbl} Take 1 Univers hydrochloro 3-17 tablet by ity of thiazide 00:00: mouth [place] 10-12.5 mg 00 daily. Medical per tablet Branch lisinopriL- Yes [id number] 1{tbl} Take 1 Univers hydrochloro 3-17 tablet by ity of thiazide 00:00: mouth [place] 10-12.5 mg 00 daily. Medical per tablet Branch lisinopriL- Yes [id number] 1{tbl} Take 1 Univers hydrochloro 3-17 tablet by ity of thiazide 00:00: mouth [place] 10-12.5 mg 00 daily. Medical per tablet Branch lisinopriL- Yes [id number] 1{tbl} Take 1 Univers hydrochloro 3-17 tablet by ity of thiazide 00:00: mouth [place] 10-12.5 mg 00 daily. Medical per tablet Branch lisinopriL- Yes [id number] 1{tbl} Take 1 Univers hydrochloro 3-17 tablet by ity of thiazide 00:00: mouth [place] 10-12.5 mg 00 daily. Medical per tablet Branch lisinopriL- Yes [id number] 1{tbl} Take 1 Univers hydrochloro 3-17 tablet by ity of thiazide 00:00: mouth [place] 10-12.5 mg 00 daily. Medical per tablet Branch lisinopriL- Yes [id number] 1{tbl} Take 1 Univers hydrochloro 3-17 tablet by ity of thiazide 00:00: mouth [place] 10-12.5 mg 00 daily. Medical per tablet Branch lisinopriL- Yes [id number] 1{tbl} Take 1 Univers hydrochloro 3-17 tablet by ity of thiazide 00:00: mouth [place] 10-12.5 mg 00 daily. Medical per tablet Branch lisinopriL- Yes [id number] 1{tbl} Take 1 Univers hydrochloro 3-17 tablet by ity of thiazide 00:00: mouth [place] 10-12.5 mg 00 daily. Medical per tablet Branch lisinopriL- Yes [id number] 1{tbl} Take 1 Univers hydrochloro 3-17 tablet by ity of thiazide 00:00: mouth [place] 10-12.5 mg 00 daily. Medical per tablet Branch lisinopriL- Yes [id number] 1{tbl} Take 1 Univers hydrochloro 3-17 tablet by ity of thiazide 00:00: mouth [place] 10-12.5 mg 00 daily. Medical per tablet Branch lisinopriL- Yes [id number] 1{tbl} Take 1 Univers hydrochloro 3-17 tablet by ity of thiazide 00:00: mouth [place] 10-12.5 mg 00 daily. Medical per tablet Branch lisinopriL- Yes [id number] 1{tbl} Take 1 Univers hydrochloro 3-17 tablet by ity of thiazide 00:00: mouth [place] 10-12.5 mg 00 daily. Medical per tablet Branch lisinopriL- 2021- No [id number] 1{tbl} Take 1 Univers hydrochloro 3-17 10-11 tablet by it y of thiazide 00:00: 00:00 mouth [place] 10-12.5 mg 00 :00 daily. Medical per tablet Branch lisinopriL- 2021- No [id number] 1{tbl} Take 1 Univers hydrochloro 3-17 10-11 tablet by it y of thiazide 00:00: 00:00 mouth [place] 10-12.5 mg 00 :00 daily. Medical per tablet Branch lisinopriL- 2019-03 Yes [id number] 1{tbl} Take 1 Univers hydrochloro 0-02 tablet by ity of thiazide 00:00: mouth [place] 10-12.5 mg 00 daily. Medical per tablet Branch lisinopriL- 2019-03 Yes [id number] 1{tbl} Take 1 Univers hydrochloro 0-02 tablet by ity of thiazide 00:00: mouth [place] 10-12.5 mg 00 daily. Medical per tablet Branch lisinopriL- 2019-03- No [id number] 1{tbl} Take 1 Univers hydrochloro 0-02 03-17 tablet by it y of thiazide 00:00: 00:00 mouth [place] 10-12.5 mg 00 :00 daily. Medical per tablet Branch lisinopriL- 2019-03- No [id number] 1{tbl} Take 1 Univers hydrochloro 0-02 03-17 [...] of tablet 13:42: mouth [place] 33 daily. [facility] Branch venlafaxine 2019- Yes [id number] 75mg Take 1 Univers 75 mg 1-07 tablet by ity of tablet 00:00: mouth [place] 00 daily. Medical Branch venlafaxine 2019- Yes [id number] 75mg Take 1 Univers 75 mg 1-07 tablet by ity of tablet 00:00: mouth [place] 00 daily. Medical Branch venlafaxine 2019- Yes [id number] 75mg Take 1 Univers 75 mg 1-07 tablet by ity of tablet 00:00: mouth [place] 00 daily. [facility] Branch venlafaxine 2019- Yes [id number] 75mg Take 1 Univers 75 mg 1-07 tablet by ity of tablet 00:00: mouth [place] 00 daily. Medical Branch venlafaxine 2019- Yes [id number] 75mg Take 1 [facility] 75 mg 1-07 tablet by ity of tablet 00:00: mouth [place] 00 daily. [facility] Branch venlafaxine 2019- Yes [id number] 75mg Take 1 [facility] 75 mg 1-07 tablet by ity of tablet 00:00: mouth [place] 00 daily. [facility] Branch venlafaxine 2018- Yes [id number] 75mg Take 1 [facility] 75 mg 1-07 tablet by ity of tablet 00:00: mouth [place] 00 daily. Medical Branch venlafaxine 2018-03- No [id number] 75mg Take 1 [facility] 75 mg 1-07 -22 tablet by ity of tablet 00:00: 00:00 mouth [place] 00 :00 daily. Medical Branch venlafaxine 2018-03- No [id number] 75mg Take 1 [facility] 75 mg 1-07 -22 tablet by ity of tablet 00:00: 00:00 mouth [place] 00 :00 daily. Medical Branch INDOMETHACI 2018-03 Yes [id number] 50mg TAKE 1 [facility] N 50 mg 0-30 CAPSULE BY ity of capsule 00:00: MOUTH 3 (THREE) Medical TIMES Branch DAILY WITH MEALS. INDOMETHACI 2018-03 Yes [id number] 50mg TAKE 1 [facility] N 50 mg 0-30 CAPSULE BY ity of capsule 00:00: MOUTH [place] (THREE) Medical TIMES Branch DAILY WITH MEALS. INDOMETHACI 2018-03 Yes [id number] 50mg TAKE 1 [facility] N 50 mg 0-30 CAPSULE BY ity of capsule 00:00: MOUTH 3 (THREE) Medical TIMES Branch DAILY WITH MEALS. INDOMETHACI 2018-03 Yes [id number] 50mg TAKE 1 [facility] N 50 mg 0-30 CAPSULE BY ity of capsule 00:00: MOUTH [place] (THREE) Medical TIMES Branch DAILY WITH MEALS. INDOMETHACI 2018-03 Yes [id number] 50mg TAKE 1 [facility] N 50 mg 0-30 CAPSULE BY ity of capsule 00:00: MOUTH [place] (THREE) Medical TIMES Branch DAILY WITH MEALS. INDOMETHACI 2018-03 Yes [id number] 50mg TAKE 1 [facility] N 50 mg 0-30 CAPSULE BY ity of capsule 00:00: MOUTH 3 [place] (THREE) Medical TIMES Branch DAILY WITH MEALS. INDOMETHACI 2018-03 Yes [id number] 50mg TAKE 1 [facility] N 50 mg 0-30 CAPSULE BY ity of capsule 00:00: MOUTH 3 [place] (THREE) Medical TIMES Branch DAILY WITH MEALS. INDOMETHACI 2018-03- No [id number] 50mg TAKE 1 [facility] N 50 mg 0-30 03-22 CAPSULE BY ity o f capsule 00:00: 00:00 MOUTH 3 [place] 00 :00 (THREE) Medical TIMES Branch DAILY WITH MEALS. INDOMETHACI 2018-03- No [id number] 50mg TAKE 1 [facility] N 50 mg 0-30 03-22 CAPSULE BY ity o f capsule 00:00: 00:00 MOUTH 3 [place] 00 :00 (THREE) Medical TIMES Branch DAILY WITH MEALS. hydroCHLORO Yes [id number] 25mg Take 1 [facility] thiazide 25 9-10 tablet by ity of mg tablet 00:00: mouth [place] 00 daily. Medical Branch hydroCHLORO Yes [id number] 25mg Take 1 [facility] thiazide 25 9-10 tablet by ity of mg tablet 00:00: mouth [place] 00 daily. Medical Branch hydroCHLORO Yes [id number] 25mg Take 1 [facility] thiazide 25 9-10 tablet by ity of mg tablet 00:00: mouth [place] 00 daily. Medical Branch hydroCHLORO Yes [id number] 25mg Take 1 [facility] thiazide 25 9-10 tablet by ity of mg tablet 00:00: mouth [place] 00 daily. Medical Branch hydroCHLORO Yes [id number] 25mg Take 1 [facility] thiazide 25 9-10 tablet by ity of mg tablet 00:00: mouth [place] 00 daily. Medical Branch hydroCHLORO 2019- No [id number] 25mg Take 1 [facility] thiazide 25 9-10 10-02 tablet by it y of mg tablet 00:00: 00:00 mouth [place] 00 :00 daily. Medical Branch hydroCHLORO 2019- No [id number] 25mg Take 1 [facility] thiazide 25 9-10 10-02 tablet by it y of mg tablet 00:00: 00:00 mouth [place] 00 :00 daily. Medical Branch indomethaci Yes [id number] 50mg Take 1 [facility] n 50 mg 9-09 capsule by ity of capsule 00:00: mouth 3 [place] 00 (three) Medical times Branch daily with meals. indomethaci Yes [id number] 50mg Take 1 [facility] n 50 mg 9-09 capsule by ity of capsule 00:00: mouth 3 [place] 00 (three) Medical times Branch daily with meals. amoxicillin Yes [id number] 1{tbl} Take 1 Univers -clavulanat 9-09 tablet by ity of e 00:00: mouth 2 [place] (AUGMENTIN) 00 (two) Medical 875-125 mg times Branch per tablet daily. traMADol 50 Yes [id number] 50mg Take 1 [facility] mg tablet 9-09 tablet by ity o f 00:00: mouth [place] 00 every 6 Medical (six) Branch hours as needed for Pain (scale 1-3). indomethaci 2019-0 Yes [id number] 50mg Take 1 [facility] n 50 mg 9-09 capsule by ity of capsule 00:00: mouth 3 [place] 00 (three) Medical times Branch daily with meals. amoxicillin 2019-0 Yes [id number] 1{tbl} Take 1 [facility] -clavulanat 9-09 tablet by ity of e 00:00: mouth 2 [place] (AUGMENTIN) 00 (two) Medical 875-125 mg times Branch per tablet daily. traMADol 50 2019-0 Yes [id number] 50mg Take 1 [facility] mg tablet 9-09 tablet by ity o f 00:00: mouth [place] 00 every 6 Medical (six) Branch hours as needed for Pain (scale 1-3). indomethaci 2019-0 Yes [id number] 50mg Take 1 [facility] n 50 mg 9-09 capsule by ity of capsule 00:00: mouth 3 [place] 00 (three) Medical times Branch daily with meals. amoxicillin 2019-0 Yes [id number] 1{tbl} Take 1 [facility] -clavulanat 9-09 tablet by ity of e 00:00: mouth 2 [place] (AUGMENTIN) 00 (two) Medical 875-125 mg times Branch per tablet daily. traMADol 50 2019-0 Yes [id number] 50mg Take 1 [facility] mg tablet 9-09 tablet by ity o f 00:00: mouth [place] 00 every 6 Medical (six) Branch hours as needed for Pain (scale 1-3). indomethaci 2019-0 Yes [id number] 50mg Take 1 [facility] n 50 mg 9-09 capsule by ity of capsule 00:00: mouth 3 [place] 00 (three) Medical times Branch daily with meals. amoxicillin 2019-0 Yes [id number] 1{tbl} Take 1 [facility] -clavulanat 9-09 tablet by ity of e 00:00: mouth 2 [place] (AUGMENTIN) 00 (two) Medical 875-125 mg times Branch per tablet daily. traMADol 50 2019-0 Yes [id number] 50mg Take 1 [facility] mg tablet 9-09 tablet by ity o f 00:00: mouth [place] 00 every 6 Medical (six) Branch hours as needed for Pain (scale 1-3). amoxicillin 2019-0 Yes [id number] 1{tbl} Take 1 [facility] -clavulanat 9-09 tablet by ity of e 00:00: mouth 2 [place] (AUGMENTIN) 00 (two) Medical 875-125 mg times Branch per tablet daily. traMADol 50 2019-0 Yes [id number] 50mg Take 1 [facility] mg tablet 9-09 tablet by ity o f 00:00: mouth [place] 00 every 6 Medical (six) Branch hours as needed for Pain (scale 1-3). traMADol 50 2019-0 Yes [id number] 50mg Take 1 [facility] mg tablet 9-09 tablet by ity o f 00:00: mouth [place] 00 every 6 Medical (six) Branch hours as needed for Pain (scale 1-3). traMADol 50 2019-0 Yes [id number] 50mg Take 1 [facility] mg tablet 9-09 tablet by ity o f 00:00: mouth [place] 00 every 6 Medical (six) Branch hours as needed for Pain (scale 1-3). traMADol 50 2019-0 Yes [id number] 50mg Take 1 [facility] mg tablet 9-09 tablet by ity o f 00:00: mouth [place] 00 every 6 Medical (six) Branch hours as needed for Pain (scale 1-3). traMADol 50 2019-0 Yes [id number] 50mg Take 1 [facility] mg tablet 9-09 tablet by ity o f 00:00: mouth [place] 00 every 6 Medical (six) Branch hours as needed for Pain (scale 1-3). traMADol 50 2019-0 Yes [id number] 50mg Take 1 [facility] mg tablet 9-09 tablet by ity o f 00:00: mouth [place] 00 every 6 Medical (six) Branch hours as needed for Pain (scale 1-3). traMADol 50 2019-0 Yes [id number] 50mg Take 1 [facility] mg tablet 9-09 tablet by ity o f 00:00: mouth [place] 00 every 6 Medical (six) Branch hours as needed for Pain (scale 1-3). traMADol 50 2019-0 Yes [id number] 50mg Take 1 [facility] mg tablet 9-09 tablet by ity o f 00:00: mouth [place] 00 every 6 Medical (six) Branch hours as needed for Pain (scale 1-3). traMADol 50 2019-0 Yes [id number] 50mg Take 1 [facility] mg tablet 9-09 tablet by ity o f 00:00: mouth [place] 00 every 6 Medical (six) Branch hours as needed for Pain (scale 1-3). traMADol 50 2019-0 Yes [id number] 50mg Take 1 [facility] mg tablet 9-09 tablet by ity o f 00:00: mouth [place] 00 every 6 Medical (six) Branch hours as needed for Pain (scale 1-3). traMADol 50 2019-0 Yes [id number] 50mg Take 1 [facility] mg tablet 9-09 tablet by ity o f 00:00: mouth [place] 00 every 6 Medical (six) Branch hours as needed for Pain (scale 1-3). traMADol 50 2019-0 Yes [id number] 50mg Take 1 [facility] mg tablet 9-09 tablet by ity o f 00:00: mouth [place] 00 every 6 Medical (six) Branch hours as needed for Pain (scale 1-3). traMADol 50 2019-0 Yes [id number] 50mg Take 1 [facility] mg tablet 9-09 tablet by ity o f 00:00: mouth [place] 00 every 6 Medical (six) Branch hours as needed for Pain (scale 1-3). traMADol 50 2019-0 Yes [id number] 50mg Take 1 [facility] mg tablet 9-09 tablet by ity o f 00:00: mouth [place] 00 every 6 Medical (six) Branch hours as needed for Pain (scale 1-3). traMADol 50 2019-0 Yes [id number] 50mg Take 1 [facility] mg tablet 9-09 tablet by ity o f 00:00: mouth [place] 00 every 6 Medical (six) Branch hours as needed for Pain (scale 1-3). traMADol 50 2019-0 Yes [id number] 50mg Take 1 [facility] mg tablet 9-09 tablet by ity o f 00:00: mouth [place] 00 every 6 Medical (six) Branch hours as needed for Pain (scale 1-3). traMADol 50 2019-0 Yes [id number] 50mg Take 1 [facility] mg tablet 9-09 tablet by ity o f 00:00: mouth [place] 00 every 6 Medical (six) Branch hours as needed for Pain (scale 1-3). traMADol 50 2019-0 Yes [id number] 50mg Take 1 [facility] mg tablet 9-09 tablet by ity o f 00:00: mouth [place] 00 every 6 Medical (six) Branch hours as needed for Pain (scale 1-3). traMADol 50 2018-2020- No [id number] 50mg Take 1 [facility] mg tablet 11-27 tablet by ity of 00:00: 00:00 mouth [place] 00 :00 every 6 Medical (six) Branch hours as needed for Pain (scale 1-3). traMADol 50 2018-2020- No [id number] 50mg Take 1 [facility] mg tablet 11-27 tablet by ity of 00:00: 00:00 mouth [place] 00 :00 every 6 Medical (six) Branch hours as needed for Pain (scale 1-3). amoxicillin 2018-2019- No [id number] 1{tbl} Take 1 Univers -clavulanat 11-27 tablet by it y of e 00:00: 00:00 mouth 2 [place] (AUGMENTIN) 00 :00 (two) Medical 875-125 mg times Branch per tablet daily. amoxicillin 2018-2019- No [id number] 1{tbl} Take 1 Univers -clavulanat 11-27 tablet [...] [place] 08 daily. Medical Branch traMADol 50 2018- Yes [id number] 50mg Take 1 [facility] mg tablet 9-08 tablet by ity o f 00:00: mouth [place] 00 every 6 Medical (six) Branch hours as needed for Pain (scale 1-3). traMADol 50 2018- Yes [id number] 50mg Take 1 [facility] mg tablet 9-08 tablet by ity o f 00:00: mouth [place] 00 every 6 Medical (six) Branch hours as needed for Pain (scale 1-3). amoxicillin 2019- No [id number] 1{tbl} Take 1 Univers -clavulanat 11-26- tablet by it y of e 00:00: 04:59 mouth 2 [place] (AUGMENTIN) 00 :00 (two) Medical 875-125 mg times Branch per tablet daily for 5 days. amoxicillin 2019- No [id number] 1{tbl} Take 1 Univers -clavulanat 11-26- tablet by it y of e 00:00: 04:59 mouth 2 [place] (AUGMENTIN) 00 :00 (two) Medical 875-125 mg times Branch per tablet daily for 5 days. amoxicillin 2019- No [id number] 1{tbl} Take 1 Univers -clavulanat 11-26- tablet by it y of e 00:00: 00:00 mouth 2 [place] (AUGMENTIN) 00 :00 (two) Medical 875-125 mg times Branch per tablet daily for 5 days. traMADol 50 2019- No [id number] 50mg Take 1 [facility] mg tablet 11-26- tablet by ity of 00:00: 00:00 mouth [place] 00 :00 every 6 Medical (six) Branch hours as needed for Pain (scale 1-3). enoxaparin 2018- Yes 40mg 40 mg, Unive rs (LOVENOX) 11-25 Subcutaneo ity of injection 21:00: us, Q24H, [place] 40 mg 00 First dose Medical on Sat Branch 11/25/18 at 1600, Until Discontinu ed, Routine D5W 0.45% 2018- Yes IV Univers NaCl 11-25 Infusion, ity of (1/2NS) 1 L 16:30: at 75 [place] + KCL 20 00 mL/hr, Medical mEq CONTINUOUS Branch , Starting 11/25/18 at 1130, Until Discontinu ed, Routine pantoprazol 2019-0 Yes 40mg 40 mg, Univ ers e 11-25 Oral, ity of (PROTONIX) 14:00: DAILY, [place] EC tablet 00 First dose Medi maribel 40 mg on Sat Branch 11/25/18 at 0900, Until Discontinu ed, Routine acetaminoph 2019-0 Yes 650mg 650 mg, Un angel en 11-25 Oral, Q6H, ity of (TYLENOL) 05:00: First dose [place] tablet 650 00 on Sat Medical mg 11/25/18 at Branch 0000, Until Discontinu ed, Routine ibuprofen 2019-0 Yes 600mg 600 mg, Univ ers (IBU) 11-25 Oral, Q6H, ity of tablet 600 05:00: First dose [place] mg 00 on Sat Medical 11/25/18 at Branch 0000, Until Discontinu ed, Routine D5W 0.45% 2019- No IV Univers NaCl 11-25 09-07 Infusion, ity of (1/2NS) 1 L 00:30: 15:02 at 75 [place] + KCL 20 00 :29 mL/hr, Medical mEq CONTINUOUS Branch , Starting 11/24/18 at 1930, Until 11/25/18 at 1002, Routine morpHINE 2019-0 Yes 2mg 2 mg, Slow Uni vers injection 2 11-24 IV Push, ity of mg 23:15: Q6HPRN, [place] 00 Starting Medical 11/24/18 Branch at 1815, Until Discontinu ed, Routine, Pain (scale 7-10), [place] [facility] Pain (scale 4-10) traMADol 2019-0 Yes 100mg 100 mg, Unive rs (ULTRAM) 11-24 Oral, ity of tablet 100 23:10: Q6HPRN, [place] mg 41 Starting Medical 11/24/18 Branch at 1810, Until Discontinu ed, Routine, Pain (scale 4-6) traMADol 2019-0 Yes 50mg 50 mg, Univers (ULTRAM) 11-24 [...] at 0800, Until Discontinu ed, Routine aspirin 2018- Yes 81mg 81 mg, Univers chewable 11-24 Oral, QAM ity of tablet 81 13:00: WITH [place] mg 00 BREAKFAST, Medical First dose Branch on Tue11/24/18 at 0800, Until Discontinu ed, Routine docusate 2018- Yes 100mg 100 mg, Unive rs (COLACE) 11-24 Oral, BID, ity o f capsule 100 13:00: First dose [place] mg 00 on Tue Medical 11/24/18 at Branch 0800, Until Discontinu [...] ABX, Medical gram/50 mL First dose Bra [facility] Piggyback on Tue 3.375 g 11/24/18 at 0400, Until Discontinu ed, 50 mL
Reas on for Anti-Infec tive: Documented Infection< br>Documen margy Infection Site: Abdominal< br>Dura tion of Therapy: 7 days lactated 2019- No 1000mL at 125 [facility] ringers IV 11-24-06 mL/hr, ity of infusion 09:00: 23:25 1,000 mL, [place] as 1,000 mL 00 :15 IV Medical Infusion, Branch CONTINUOUS , Starting Tue11/24/18 at 0400, Until Tue11/24/18 at 1825, Routine lactobacill Yes 1{tbl} 1 tablet, Univers us 11-24 Oral, QID, ity of acidophilus 08:00: First dose [place] (ACIDOPHILL 00 on Tue Medica l US) 25 11/24/18 at Branch million 0300, cell -100 Until mg captab 1 Discontinu tablet ed, Routine ondansetron Yes 4mg 4 mg, Slow Univers (ZOFRAN 11-24 IV Push, ity of (PF)) 07:56: Q6HPRN, [place] injection 4 14 Starting Medi maribel mg Tue11/24/18 Branch at 0256, Until Discontinu ed, Routine, Nausea and Vomiting (N/V) morpHINE 2018- No 2mg 2 mg, Slow Un angel injection 2 11-24 IV Push, ity of mg 07:55: 23:11 Q2HPRN, [place] 18 :49 Starting Medical 11/24/18 Branch at 0255, Until Tue11/24/18 at 1811, Routine, Pain (scale 7-10), [facility] Pain (scale 4-10) morpHINE 2019- No 4mg 4 mg, Slow Un angel injection 4 11-24 IV Push, ity of mg 04:30: 03:20 ONCE, 1 [place] 00 :00 dose, [facility] Medical 11/23/18 at Branch 2330, STAT vancomycin 2018- No 1g 1 g, IV Uni vers 1 g in NS 11-24 Piggyback, ity of 200 mL RTU 04:00: 04:51 ONCE, 1 [place] IV 00 :00 dose, [facility] Medical Piggyback 1 11/23/18 at [facility] g 2300
Re ason for Anti-Infec tive: Documented Infection< br>Documen margy Infection Site: Abdominal< br>Duratio n of Therapy: 7 days iohexol 2019- No 120mL 120 mL, Unive rs (OMNIPAQUE 11-24 Intravenou it y of 350 03:15: 03:15 s, ONCE, 1 [place] BULK-150 00 :00 dose, [place] Medica l mL) 11/23/18 at Branch injection 2215, 120 mL Routine piperacilli 2019- No 4.5g 4.5 g, IV Univers n-tazobacta 11-24 Piggyback, i ty of m (ZOSYN) 02:00: 03:04 ONCE, 1 [place] 4.5 00 :00 dose, [facility] Medical gram/100 mL 11/23/18 at [facility] RTU 2100, 100 Piggyback mL
Reas 4.5 g on for Anti-Infec tive: Documented Infection< br>Documen margy Infection Site: Abdominal< br>Duratio n of Therapy: 7 days ondansetron 2018- No 4mg 4 mg, Slow Univers (ZOFRAN 11-24 IV Push, ity of (PF)) 01:30: 01:05 ONCE, 1 [place] injection 4 00 :00 dose, [facility] Med ical mg 11/23/18 at [place] 2029, MILAN morpHINE 2018- No 4mg 4 mg, Slow Un angel injection 4 11-24 IV Push, ity of mg 01:30: 01:06 ONCE, 1 [place] 00 :00 dose, [facility] Medical 11/23/18 at [place] 2029, STAT NaCl 0.9% 2018- No 1000mL at 999 Uni vers (NS) bolus 11-24 mL/hr, ity of infusion 01:00: 02:34 1,000 mL, [place] 1,000 mL 00 :00 IV Medical Infusion, [place] ONCE, 1 dose, [facility] 11/23/18 at 2000, MILAN NaCl 0.9% 2018- No 1000mL at 999 Uni vers (NS) bolus 11-24- mL/hr, ity of infusion 00:00: 04:45 1,000 mL, [place] 1,000 mL 00 :00 IV Medical Infusion, [place] ONCE, 1 dose, [facility] 11/23/18 at 1900, MILAN indomethaci Yes [id number] 50mg Take 1 [facility] n 50 mg 8-13 capsule by ity of capsule 00:00: mouth 3 (three) Medical times Branch daily with meals. indomethaci Yes [id number] 50mg Take 1 [facility] n 50 mg 8-13 capsule by ity of capsule 00:00: mouth 3 (three) Medical times Branch daily with meals. indomethaci 0 Yes [id number] 50mg Take 1 [facility] n 50 mg 8-13 capsule by ity of capsule 00:00: mouth 3 [place] 00 (three) Medical times Branch daily with meals. indomethaci 2019-0 Yes [id number] 50mg Take 1 [facility] n 50 mg 8-13 capsule by ity of capsule 00:00: mouth 3 [place] 00 (three) Medical times Branch daily with meals. indomethaci 2019-0 Yes [id number] 50mg Take 1 [facility] n 50 mg 8-13 capsule by ity of capsule 00:00: mouth 3 [place] 00 (three) Medical times Branch daily with meals. indomethaci 2018-0 2019- No [id number] 50mg Take 1 [facility] n 50 mg 8-13 09-09 capsule by ity o f capsule 00:00: 00:00 mouth 3 [place] 00 :00 (three) Medical times Branch daily with meals. divalproex 2019-0 Yes [id number] 250mg Take 1 Univers ER 250 mg 7-05 tablet by ity o f 24 hr 00:00: mouth 2 [place] tablet 00 (two) Medical times Branch daily. divalproex 2019-0 Yes [id number] 250mg Take 1 [facility] ER 250 mg 7-05 tablet by ity o f 24 hr 00:00: mouth 2 [place] tablet 00 (two) Medical times Branch daily. divalproex 2019-0 Yes [id number] 250mg Take 1 [facility] ER 250 mg 7-05 tablet by ity o f 24 hr 00:00: mouth 2 [place] tablet 00 (two) Medical times Branch daily. divalproex 2019-0 Yes [id number] 250mg Take 1 [facility] ER 250 mg 7-05 tablet by ity o f 24 hr 00:00: mouth 2 [place] tablet 00 (two) Medical times Branch daily. divalproex 2019-0 Yes [id number] 250mg Take 1 [facility] ER 250 mg 7-05 tablet by ity o f 24 hr 00:00: mouth 2 [place] tablet 00 (two) Medical times Branch daily. divalproex 2019-0 Yes [id number] 250mg Take 1 [facility] ER 250 mg 7-05 tablet by ity o f 24 hr 00:00: mouth 2 [place] tablet 00 (two) Medical times Branch daily. divalproex 2019-0 Yes [id number] 250mg Take 1 [facility] ER 250 mg 7-05 tablet by ity o f 24 hr 00:00: mouth 2 [place] tablet 00 (two) Medical times Branch daily. divalproex 2018- Yes [id number] 250mg Take 1 [facility] ER 250 mg 7-05 tablet by ity o f 24 hr 00:00: mouth 2 [place] tablet 00 (two) Medical times Branch daily. divalproex Yes [id number] 250mg Take 1 [facility] ER 250 mg 7-05 tablet by ity o f 24 hr 00:00: mouth 2 [place] tablet 00 (two) Medical times Branch daily. divalproex Yes [id number] 250mg Take 1 Univers ER 250 mg 7-05 tablet by ity o f 24 hr 00:00: mouth 2 [place] tablet 00 (two) Medical times Branch daily. divalproex Yes [id number] 250mg Take 1 [facility] ER 250 mg 7-05 tablet by ity o f 24 hr 00:00: mouth 2 [place] tablet 00 (two) Medical times Branch daily. divalproex Yes [id number] 250mg Take 1 [facility] ER 250 mg 7-05 tablet by ity o f 24 hr 00:00: mouth 2 [place] tablet 00 (two) Medical times Branch daily. divalproex Yes [id number] 250mg Take 1 [facility] ER 250 mg 7-05 tablet by ity o f 24 hr 00:00: mouth 2 [place] tablet 00 (two) Medical times Branch daily. divalproex Yes [id number] 250mg Take 1 [facility] ER 250 mg 7-05 tablet by ity o f 24 hr 00:00: mouth 2 [place] tablet 00 (two) Medical times Branch daily. divalproex Yes [id number] 250mg Take 1 [facility] ER 250 mg 7-05 tablet by ity o f 24 hr 00:00: mouth 2 [place] tablet 00 (two) Medical times Branch daily. divalproex 2018- Yes [id number] 250mg Take 1 [facility] ER 250 mg 7-05 tablet by ity o f 24 hr 00:00: mouth 2 [place] tablet 00 (two) Medical times Branch daily. divalproex 2018- Yes [id number] 250mg Take 1 [facility] ER 250 mg 7-05 tablet by ity o f 24 hr 00:00: mouth 2 [place] tablet 00 (two) Medical times Branch daily. divalproex Yes [id number] 250mg Take 1 [facility] ER 250 mg 7-05 tablet by ity o f 24 hr 00:00: mouth 2 [place] tablet 00 (two) Medical times Branch daily. divalproex Yes [id number] 250mg Take 1 [facility] ER 250 mg 7-05 tablet by ity o f 24 hr 00:00: mouth 2 [place] tablet 00 (two) Medical times Branch daily. divalproex 2020- No [id number] 250mg Take 1 [facility] ER 250 mg 7-05 03-22 tablet by ity of 24 hr 00:00: 00:00 mouth 2 [place] tablet 00 :00 (two) Medical times Branch daily. divalproex 2020- No [id number] 250mg Take 1 Univers ER 250 mg 7-05 03-22 tablet by ity of 24 hr 00:00: 00:00 mouth 2 [place] tablet 00 :00 (two) Medical times Branch daily. varenicline Yes [id number] Take one Univers 0.5 mg 6-04 0.5mg tab ity of (11)- 1 mg 00:00: by mouth [place] (42) tablet 00 once daily Me dical for 3 Branch days, then one 0.5mg tab twice daily for 4 days, then one 1mg tab twice daily. varenicline Yes [id number] Take one Univers 0.5 mg 6-04 0.5mg tab ity of (11)- 1 mg 00:00: by mouth [place] (42) tablet 00 once daily Me dical for 3 Branch days, then one 0.5mg tab twice daily for 4 days, then one 1mg tab twice daily. varenicline Yes [id number] Take one Univers 0.5 mg 6-04 0.5mg tab ity of (11)- 1 mg 00:00: by mouth [place] (42) tablet 00 once daily Me dical for 3 Branch days, then one 0.5mg tab twice daily for 4 days, then one 1mg tab twice daily. varenicline Yes [id number] Take one Univers 0.5 mg 6-04 0.5mg tab ity of (11)- 1 mg 00:00: by mouth [place] (42) tablet 00 once daily Me dical for 3 Branch days, then one 0.5mg tab twice daily for 4 days, then one 1mg tab twice daily. varenicline Yes [id number] Take one Univers 0.5 mg 6-04 0.5mg tab ity of (11)- 1 mg 00:00: by mouth [place] (42) tablet 00 once daily Me dical for 3 Branch days, then one 0.5mg tab twice daily for 4 days, then one 1mg tab twice daily. varenicline Yes [id number] Take one Univers 0.5 mg 6-04 0.5mg tab ity of (11)- 1 mg 00:00: by mouth [place] (42) tablet 00 once daily Me dical for 3 Branch days, then one 0.5mg tab twice daily for 4 days, then one 1mg tab twice daily. varenicline Yes [id number] Take one Univers 0.5 mg 6-04 0.5mg tab ity of (11)- 1 mg 00:00: by mouth [place] (42) tablet 00 once daily Me dical for 3 Branch days, then one 0.5mg tab twice daily for 4 days, then one 1mg tab twice daily. varenicline Yes [id number] Take one Univers 0.5 mg 6-04 0.5mg tab ity of (11)- 1 mg 00:00: by mouth [place] (42) tablet 00 once daily Me dical for 3 Branch days, then one 0.5mg tab twice daily for 4 days, then one 1mg tab twice daily. varenicline Yes [id number] Take one Univers 0.5 mg 6-04 0.5mg tab ity of (11)- 1 mg 00:00: by mouth [place] (42) tablet 00 once daily Me dical for 3 Branch days, then one 0.5mg tab twice daily for 4 days, then one 1mg tab twice daily. varenicline Yes [id number] Take one Univers 0.5 mg 6-04 0.5mg tab ity of (11)- 1 mg 00:00: by mouth [place] (42) tablet 00 once daily Me dical for 3 Branch days, then one 0.5mg tab twice daily for 4 days, then one 1mg tab twice daily. varenicline Yes [id number] Take one Univers 0.5 mg 6-04 0.5mg tab ity of (11)- 1 mg 00:00: by mouth [place] (42) tablet 00 once daily Me dical for 3 Branch days, then one 0.5mg tab twice daily for 4 days, then one 1mg tab twice daily. varenicline Yes [id number] Take one Univers 0.5 mg 6-04 0.5mg tab ity of (11)- 1 mg 00:00: by mouth [place] (42) tablet 00 once daily Me dical for 3 Branch days, then one 0.5mg tab twice daily for 4 days, then one 1mg tab twice daily. varenicline Yes [id number] Take one Univers 0.5 mg 6-04 0.5mg tab ity of (11)- 1 mg 00:00: by mouth [place] (42) tablet 00 once daily Me dical for 3 Branch days, then one 0.5mg tab twice daily for 4 days, then one 1mg tab twice daily. varenicline 2019- No [id number] Take one [facility] 0.5 mg 6-04 10-02 0.5mg tab ity of (11)- 1 mg 00:00: 00:00 by mouth [place] (42) tablet 00 :00 once daily Me dical for 3 Branch days, then one 0.5mg tab twice daily for 4 days, then one 1mg tab twice daily. varenicline 2019- No [id number] Take one [facility] 0.5 mg 6-04 10-02 0.5mg tab ity of (11)- 1 mg 00:00: 00:00 by mouth [place] (42) tablet 00 :00 once daily Me dical for 3 Branch days, then one 0.5mg tab twice daily for 4 days, then one 1mg tab twice daily. fluticasone Yes [id number] 2{spray Use 2 Univers 50 1-14 } Sprays in ity of mcg/actuati 00:00: each [place] on nasal 00 nostril Medical spray daily. Branch fluticasone Yes [id number] 2{spray Use 2 Univers 50 1-14 } Sprays in ity of mcg/actuati 00:00: each [place] on nasal 00 nostril Medical spray daily. Branch fluticasone Yes [id number] 2{spray Use 2 Univers 50 1-14 } Sprays in ity of mcg/actuati 00:00: each [place] on nasal 00 nostril Medical spray daily. Branch fluticasone Yes [id number] 2{spray Use 2 Univers 50 1-14 } Sprays in ity of mcg/actuati 00:00: each [place] on nasal 00 nostril Medical spray daily. Branch fluticasone Yes [id number] 2{spray Use 2 [facility] 50 1-14 } Sprays in ity of mcg/actuati 00:00: each [place] on nasal 00 nostril Medical spray daily. Branch fluticasone Yes [id number] 2{spray Use 2 [facility] 50 1-14 } Sprays in ity of mcg/actuati 00:00: each [place] on nasal 00 nostril Medical spray daily. Branch fluticasone Yes [id number] 2{spray Use 2 [facility] 50 1-14 } Sprays in ity of mcg/actuati 00:00: each [place] on nasal 00 nostril Medical spray daily. Branch fluticasone Yes [id number] 2{spray Use 2 [facility] 50 1-14 } Sprays in ity of mcg/actuati 00:00: each [place] on nasal 00 nostril Medical spray daily. Branch fluticasone Yes [id number] 2{spray Use 2 [facility] 50 1-14 } Sprays in ity of mcg/actuati 00:00: each [place] on nasal 00 nostril Medical spray daily. Branch fluticasone Yes [id number] 2{spray Use 2 [facility] 50 1-14 } Sprays in ity of mcg/actuati 00:00: each [place] on nasal 00 nostril Medical spray daily. Branch fluticasone Yes [id number] 2{spray Use 2 [facility] 50 1-14 } Sprays in ity of mcg/actuati 00:00: each [place] on nasal 00 nostril Medical spray daily. Branch fluticasone Yes [id number] 2{spray Use 2 [facility] 50 1-14 } Sprays in ity of mcg/actuati 00:00: each [place] on nasal 00 nostril Medical spray daily. Branch fluticasone Yes [id number] 2{spray Use 2 [facility] 50 1-14 } Sprays in ity of mcg/actuati 00:00: each [place] on nasal 00 nostril Medical spray daily. Branch fluticasone Yes [id number] 2{spray Use 2 [facility] 50 1-14 } Sprays in ity of mcg/actuati 00:00: each [place] on nasal 00 nostril Medical spray daily. Branch fluticasone Yes [id number] 2{spray Use 2 [facility] 50 1-14 } Sprays in ity of mcg/actuati 00:00: each [place] on nasal 00 nostril Medical spray daily. Branch fluticasone Yes [id number] 2{spray Use 2 [facility] 50 1-14 } Sprays in ity of mcg/actuati 00:00: each [place] on nasal 00 nostril Medical spray daily. Branch fluticasone Yes [id number] 2{spray Use 2 [facility] 50 1-14 } Sprays in ity of mcg/actuati 00:00: each [place] on nasal 00 nostril Medical spray daily. Branch fluticasone Yes [id number] 2{spray Use 2 [facility] 50 1-14 } Sprays in ity of mcg/actuati 00:00: each [place] on nasal 00 nostril Medical spray daily. Branch fluticasone Yes [id number] 2{spray Use 2 [facility] 50 1-14 } Sprays in ity of mcg/actuati 00:00: each [place] on nasal 00 nostril Medical spray daily. Branch fluticasone Yes [id number] 2{spray Use 2 [facility] 50 1-14 } Sprays in ity of mcg/actuati 00:00: each [place] on nasal 00 nostril Medical spray daily. Branch fluticasone Yes [id number] 2{spray Use 2 [facility] 50 1-14 } Sprays in ity of mcg/actuati 00:00: each [place] on nasal 00 nostril Medical spray daily. Branch fluticasone Yes [id number] 2{spray Use 2 [facility] 50 1-14 } Sprays in ity of mcg/actuati 00:00: each [place] on nasal 00 nostril Medical spray daily. Branch fluticasone Yes [id number] 2{spray Use 2 [facility] 50 1-14 } Sprays in ity of mcg/actuati 00:00: each [place] on nasal 00 nostril Medical spray daily. [place] fluticasone Yes [id number] 2{spray Use 2 [facility] 50 1-14 } Sprays in ity of mcg/actuati 00:00: each [place] on nasal 00 nostril Medical spray daily. [place] fluticasone Yes [id number] 2{spray Use 2 [facility] 50 1-14 } Sprays in ity of mcg/actuati 00:00: each [place] on nasal 00 nostril Medical spray daily. [place] fluticasone Yes [id number] 2{spray Use 2 [facility] 50 1-14 } Sprays in ity of mcg/actuati 00:00: each [place] on nasal 00 nostril Medical spray daily. [place] fluticasone Yes [id number] 2{spray Use 2 [facility] 50 1-14 } Sprays in ity of mcg/actuati 00:00: each [place] on nasal 00 nostril Medical spray daily. [place] fluticasone Yes [id number] 2{spray Use 2 [facility] 50 1-14 } Sprays in ity of mcg/actuati 00:00: each [place] on nasal 00 nostril Medical spray daily. [place] fluticasone Yes [id number] 2{spray Use 2 [facility] 50 1-14 } Sprays in ity of mcg/actuati 00:00: each [place] on nasal 00 nostril Medical spray daily. [place] fluticasone Yes [id number] 2{spray Use 2 [facility] 50 1-14 } Sprays in ity of mcg/actuati 00:00: each [place] on nasal 00 nostril Medical spray daily. [place] fluticasone 2020- No [id number] 2{spray Use 2 [facility] 50 1-14 06-17 } Sprays in ity of mcg/actuati 00:00: 00:00 each [place] on nasal 00 :00 nostril Medical spray daily. [place] fluticasone 2020- No [id number] 2{spray Use 2 [facility] 50 1-14 06-17 } Sprays in ity of mcg/actuati 00:00: 00:00 each [place] on nasal 00 :00 nostril Medical spray daily. [place] hydroCHLORO 2017- Yes [id number] 25mg Take 1 Univers thiazide 25 1-13 tablet by ity of mg tablet 00:00: mouth [place] 00 daily. [facility] hydroCHLORO 2017-03 Yes [id number] 25mg Take 1 Univers thiazide 25 1-13 tablet by ity of mg tablet 00:00: mouth [place] 00 daily. [facility] hydroCHLORO 2017- Yes [id number] 25mg Take 1 Univers thiazide 25 1-13 tablet by ity of mg tablet 00:00: mouth [place] 00 daily. [facility] hydroCHLORO 2017-03 Yes [id number] 25mg Take 1 [facility] thiazide 25 1-13 tablet by ity of mg tablet 00:00: mouth [place] 00 daily. [facility] hydroCHLORO 2017- Yes [id number] 25mg Take 1 Univers thiazide 25 1-13 tablet by ity of mg tablet 00:00: mouth [place] 00 daily. [facility] hydroCHLORO 2017- Yes [id number] 25mg Take 1 [facility] thiazide 25 1-13 tablet by ity of mg tablet 00:00: mouth [place] 00 daily. [facility] hydroCHLORO 2017-03 Yes [id number] 25mg Take 1 [facility] thiazide 25 1-13 tablet by ity of mg tablet 00:00: mouth [place] 00 daily. [facility] hydroCHLORO 2017- Yes [id number] 25mg Take 1 [facility] thiazide 25 1-13 tablet by ity of mg tablet 00:00: mouth [place] 00 daily. [facility] hydroCHLORO 2017-03 2019- No [id number] 25mg Take 1 Univers thiazide 25 1-13 09-10 tablet by it y of mg tablet 00:00: 00:00 mouth [place] 00 :00 daily. [facility] 2017- Yes [id number] Apply to Univers ne 0-11 area(s) 2 ity of acetonide 00:00: (two) [place] 0.1 % 00 times Medical ointment daily. [facility] 2017- Yes [id number] Apply to Univers ne 0-11 area(s) 2 ity of acetonide 00:00: (two) [place] 0.1 % 00 times Medical ointment daily. [facility] 2017- Yes [id number] Apply to Univers ne 0-11 area(s) 2 ity of acetonide 00:00: (two) [place] 0.1 % 00 times Medical ointment daily. [facility] 2017-03 Yes [id number] Apply to Univers ne 0-11 area(s) 2 ity of acetonide 00:00: (two) [place] 0.1 % 00 times Medical ointment daily. [facility]ado 2017-03 Yes [id number] Apply to Univers ne 0-11 area(s) 2 ity of acetonide 00:00: (two) [place] 0.1 % 00 times Medical [facility]int[facility] daily. [facility] [id number] Apply to Univers ne 0-11 area(s) 2 ity of acetonide 00:00: (two) [place] 0.1 % 00 times Medical ointment daily. [facility] mercado 2017-03 Yes [id number] Apply to Univers ne 0-11 area(s) 2 ity of acetonide 00:00: (two) [place] 0.1 % 00 times Medical [facility]int[facility] daily. [facility] Yes [id number] Apply to Univers ne 0-11 area(s) 2 ity of acetonide 00:00: (two) [place] 0.1 % 00 times Medical [facility]int[facility] daily. [facility] Yes [id number] Apply to Univers ne 0-11 area(s) 2 ity of acetonide 00:00: (two) [place] 0.1 % 00 times Medical [facility]int[facility] daily. [facility] Yes [id number] Apply to Univers ne 0-11 area(s) 2 ity of acetonide 00:00: (two) [place] 0.1 % 00 times Medical [facility]int[facility] daily. [facility] Yes [id number] Apply to Univers ne 0-11 area(s) 2 ity of acetonide 00:00: (two) [place] 0.1 % 00 times Medical [facility]intment daily. [facility] Yes [id number] Apply to Univers ne 0-11 area(s) 2 ity of acetonide 00:00: (two) [place] 0.1 % 00 times Medical ointment daily. [facility] Yes [id number] Apply to Univers ne 0-11 area(s) 2 ity of acetonide 00:00: (two) [place] 0.1 % 00 times Medical ointment daily. [facility] 2017-03 Yes [id number] Apply to Univers ne 0-11 area(s) 2 ity of acetonide 00:00: (two) [place] 0.1 % 00 times Medical ointment daily. [facility] 2017-03 Yes [id number] Apply to Univers ne 0-11 area(s) 2 ity of acetonide 00:00: (two) [place] 0.1 % 00 times Medical ointment daily. [facility] Yes [id number] Apply to Univers ne 0-11 area(s) 2 ity of acetonide 00:00: (two) [place] 0.1 % 00 times Medical ointment daily. [facility] mercado 2017-03 Yes [id number] Apply to Univers ne 0-11 area(s) 2 ity of acetonide 00:00: (two) [place] 0.1 % 00 times Medical ointment daily. [facility] Yes [id number] Apply to Univers ne 0-11 area(s) 2 ity of acetonide 00:00: (two) [place] 0.1 % 00 times Medical [facility]intment daily. [facility] Yes [id number] Apply to Univers ne 0-11 area(s) 2 ity of acetonide 00:00: (two) [place] 0.1 % 00 times Medical ointment daily. [facility] Yes [id number] Apply to Univers ne 0-11 area(s) 2 ity of acetonide 00:00: (two) [place] 0.1 % 00 times Medical ointment daily. [facility] Yes [id number] Apply to Univers ne 0-11 area(s) 2 ity of acetonide 00:00: (two) [place] 0.1 % 00 times Medical ointment daily. [facility] Yes [id number] Apply to Univers ne 0-11 area(s) 2 ity of acetonide 00:00: (two) [place] 0.1 % 00 times Medical ointment daily. [facility] Yes [id number] Apply to Univers ne 0-11 area(s) 2 ity of acetonide 00:00: (two) [place] 0.1 % 00 times [facility] daily. [facility] [id number] Apply to Univers ne 0-11 area(s) 2 ity of acetonide 00:00: (two) [place] 0.1 % 00 times Medical ointment daily. [facility] Yes [id number] Apply to Univers ne 0-11 area(s) 2 ity of acetonide 00:00: (two) [place] 0.1 % 00 times Medical ointment daily. [place] [facility] 2017-03 Yes [id number] Apply to Univers ne 0-11 area(s) 2 ity of acetonide 00:00: (two) [place] 0.1 % 00 times Medical ointment daily. [place] [facility] Yes [id number] Apply to Univers ne 0-11 area(s) 2 ity of acetonide 00:00: (two) [place] 0.1 % 00 times Medical ointment daily. [place] [facility]-03 Yes [id number] Apply to Univers ne 0-11 area(s) 2 ity of acetonide 00:00: (two) [place] 0.1 % 00 times Medical ointment daily. [place] [facility] 2017-03 Yes [id number] Apply to Univers ne 0-11 area(s) 2 ity of acetonide 00:00: (two) [place] 0.1 % 00 times Medical ointment daily. [place] [facility] Yes [id number] Apply to Univers ne 0-11 area(s) 2 ity of acetonide 00:00: (two) [place] 0.1 % 00 times Medical ointment daily. [place] [facility] 2017-03- No [id number] Apply to Univers ne 0-11 06-17 area(s) 2 ity of acetonide 00:00: 00:00 (two) [place] 0.1 % 00 :00 times Medical ointment daily. [place] [facility] 2017-03- No [id number] Apply to Univers ne 0-11 06-17 area(s) 2 ity of acetonide 00:00: 00:00 (two) [place] 0.1 % 00 :00 times Medical ointment daily. [place] hydrOXYzine Yes [id number] 25mg Take 1 [facility] 25 mg 9-26 [id number] tablet by ity of tablet 00:00: mouth [place] 00 every 6 Medical (six) Branch hours as needed for Itching. hydrOXYzine 2018-0 Yes [id number] 25mg Take 1 [facility] 25 mg 9-26 [id number] tablet by ity of tablet 00:00: mouth [place] 00 every 6 Medical (six) Branch hours as needed for Itching. hydrOXYzine 2018-0 Yes [id number] 25mg Take 1 [facility] 25 mg 9-26 [id number] tablet by ity of tablet 00:00: mouth [place] 00 every 6 Medical (six) Branch hours as needed for Itching. hydrOXYzine 2018-0 Yes [id number] 25mg Take 1 [facility] 25 mg 9-26 [id number] tablet by ity of tablet 00:00: mouth [place] 00 every 6 Medical (six) Branch hours as needed for Itching. hydrOXYzine 2018-0 Yes [id number] 25mg Take 1 [facility] 25 mg 9-26 [id number] tablet by ity of tablet 00:00: mouth [place] 00 every 6 Medical (six) Branch hours as needed for Itching. hydrOXYzine 2018-0 Yes [id number] 25mg Take 1 [facility] 25 mg 9-26 [id number] tablet by ity of tablet 00:00: mouth [place] 00 every 6 Medical (six) Branch hours as needed for Itching. hydrOXYzine 2018-0 Yes [id number] 25mg Take 1 [facility] 25 mg 9-26 [id number] tablet by ity of tablet 00:00: mouth [place] 00 every 6 Medical (six) Branch hours as needed for Itching. hydrOXYzine 2018-0 Yes [id number] 25mg Take 1 [facility] 25 mg 9-26 [id number] tablet by ity of tablet 00:00: mouth [place] 00 every 6 Medical (six) Branch hours as needed for Itching. hydrOXYzine 2018-0 Yes [id number] 25mg Take 1 [facility] 25 mg 9-26 [id number] tablet by ity of tablet 00:00: mouth [place] 00 every 6 Medical (six) Branch hours as needed for Itching. hydrOXYzine 2018-0 Yes [id number] 25mg Take 1 [facility] 25 mg 9-26 [id number] tablet by ity of tablet 00:00: mouth [place] 00 every 6 Medical (six) Branch hours as needed for Itching. hydrOXYzine 2018-0 Yes [id number] 25mg Take 1 [facility] 25 mg 9-26 [id number] tablet by ity of tablet 00:00: mouth [place] 00 every 6 Medical (six) Branch hours as needed for Itching. hydrOXYzine 2018-0 Yes [id number] 25mg Take 1 [facility] 25 mg 9-26 [id number] tablet by ity of tablet 00:00: mouth [place] 00 every 6 Medical (six) Branch hours as needed for Itching. hydrOXYzine 2018-0 Yes [id number] 25mg Take 1 [facility] 25 mg 9-26 [id number] tablet by ity of tablet 00:00: mouth [place] 00 every 6 Medical (six) Branch hours as needed for Itching. hydrOXYzine 2018-0 Yes [id number] 25mg Take 1 [facility] 25 mg 9-26 [id number] tablet by ity of tablet 00:00: mouth [place] 00 every 6 Medical (six) Branch hours as needed for Itching. hydrOXYzine 2018-0 Yes [id number] 25mg Take 1 [facility] 25 mg 9-26 [id number] tablet by ity of tablet 00:00: mouth [place] 00 every 6 Medical (six) Branch hours as needed for Itching. hydrOXYzine 2018-0 Yes [id number] 25mg Take 1 [facility] 25 mg 9-26 [id number] tablet by ity of tablet 00:00: mouth [place] 00 every 6 Medical (six) Branch hours as needed for Itching. hydrOXYzine 2018-0 Yes [id number] 25mg Take 1 [facility] 25 mg 9-26 [id number] tablet by ity of tablet 00:00: mouth [place] 00 every 6 Medical (six) Branch hours as needed for Itching. hydrOXYzine 2018-0 Yes [id number] 25mg Take 1 [facility] 25 mg 9-26 [id number] tablet by ity of tablet 00:00: mouth [place] 00 every 6 Medical (six) Branch hours as needed for Itching. hydrOXYzine 2018-0 Yes [id number] 25mg Take 1 [facility] 25 mg 9-26 [id number] tablet by ity of tablet 00:00: mouth [place] 00 every 6 Medical (six) Branch hours as needed for Itching. hydrOXYzine 2018-0 Yes [id number] 25mg Take 1 [facility] 25 mg 9-26 [id number] tablet by ity of tablet 00:00: mouth [place] 00 every 6 Medical (six) Branch hours as needed for Itching. hydrOXYzine 2018-0 Yes [id number] 25mg Take 1 [facility] 25 mg 9-26 [id number] tablet by ity of tablet 00:00: mouth [place] 00 every 6 Medical (six) Branch hours as needed for Itching. hydrOXYzine 2018-0 Yes [id number] 25mg Take 1 [facility] 25 mg 9-26 [id number] tablet by ity of tablet 00:00: mouth [place] 00 every 6 Medical (six) Branch hours as needed for Itching. hydrOXYzine 2018-0 Yes [id number] 25mg Take 1 [facility] 25 mg 9-26 [id number] tablet by ity of tablet 00:00: mouth [place] 00 every 6 Medical (six) Branch hours as needed for Itching. hydrOXYzine 2018-0 Yes [id number] 25mg Take 1 [facility] 25 mg 9-26 [id number] tablet by ity of tablet 00:00: mouth [place] 00 every 6 Medical (six) Branch hours as needed for Itching. hydrOXYzine 2018-0 Yes [id number] 25mg Take 1 [facility] 25 mg 9-26 [id number] tablet by ity of tablet 00:00: mouth [place] 00 every 6 Medical (six) Branch hours as needed for Itching. hydrOXYzine 2018-0 Yes [id number] 25mg Take 1 [facility] 25 mg 9-26 [id number] tablet by ity of tablet 00:00: mouth [place] 00 every 6 Medical (six) Branch hours as needed for Itching. hydrOXYzine 2018-0 Yes [id number] 25mg Take 1 [facility] 25 mg 9-26 [id number] tablet by ity of tablet 00:00: mouth [place] 00 every 6 Medical (six) Branch hours as needed for Itching. hydrOXYzine 2018-0 Yes [id number] 25mg Take 1 [facility] 25 mg 9-26 [id number] tablet by ity of tablet 00:00: mouth [place] 00 every 6 Medical (six) Branch hours as needed for Itching. hydrOXYzine 2018-0 Yes [id number] 25mg Take 1 [facility] 25 mg 9-26 [id number] tablet by ity of tablet 00:00: mouth [place] 00 every 6 Medical (six) Branch hours as needed for Itching. hydrOXYzine 2018-0 Yes [id number] 25mg Take 1 [facility] 25 mg 9-26 [id number] tablet by ity of tablet 00:00: mouth [place] 00 every 6 Medical (six) Branch hours as needed for Itching. hydrOXYzine 2018-0 2021- No [id number] 25mg Take 1 [facility] 25 mg 9-26 06-17 [id number] tablet by ity of tablet 00:00: 00:00 mouth [place] 00 :00 every 6 Medical (six) Branch hours as needed for Itching. hydrOXYzine 2020- No [id number] 25mg Take 1 [facility] 25 mg 12-14 [id number] tablet by ity of tablet 00:00: 00:00 [...] (scale 4-6) or Pain (scale 7-10). HYDROcodone 2017- Yes 1{tbl} Take 1 [facility] -acetaminop [...] Immunizations Ordered Filled Immunization Date Status Comments [facility] e Immunization Name Name [facility] 2017-10-04 Completed University of 00:00:00 [facility] 2017-10-04 Completed University of 00:00:00 [facility] 2017-10-04 Completed University of 00:00:00 [facility] 2017-10-04 Completed University of 00:00:00 [facility] 2017-10-04 Completed University of 00:00:00 [facility] 2017-10-04 Completed University of 00:00:00 [facility] 2017-10-04 Completed University of 00:00:00 [facility] 2017-10-04 Completed University of 00:00:00 [facility] 2017-10-04 Completed University of 00:00:00 [facility] 2017-10-04 Completed University of 00:00:00 [facility] 2017-10-04 Completed University of 00:00:00 [facility] 2017-10-04 Completed University of 00:00:00 [facility] 2017-10-04 Completed University of 00:00:00 [facility] 2017-10-04 Completed University of 00:00:00 [facility] 2017-10-04 Completed University of 00:00:00 [facility] 2017-10-04 Completed University of 00:00:00 [facility] TD 2017-10-04 Completed University of 00:00:00 [facility] TD 2017-10-04 Completed University of 00:00:00 [facility] 2017-10-04 Completed University of 00:00:00 [facility] 2017-10-04 Completed University of 00:00:00 [facility] 2017-10-04 Completed University of 00:00:00 [facility] Td 2017-10-04 Completed University of 00:00:00 [facility] 2017-10-04 Completed University of 00:00:00 [facility] 2017-10-04 Completed University of 00:00:00 [facility] 2017-10-04 Completed University of 00:00:00 [place] [facility] Tdap 2017-10-04 Completed University of 00:00:00 [place] [facility] Tdap 2017-10-04 Completed University of 00:00:00 [place] [facility] Tdap 2017-10-04 Completed University of 00:00:00 [place] [facility] Tdap 2017-10-04 Completed University of 00:00:00 [place] [facility] Tdap 2017-10-04 Completed University of 00:00:00 [place] [facility] Tdap 2017-10-04 Completed University of 00:00:00 [place] [facility] TDAP 2017-10-04 Completed University of 00:00:00 [place] [facility] TDAP 2017-10-04 Completed University of 00:00:00 [place] [facility] TDAP 2017-10-04 Completed University of 00:00:00 [place] [facility] TDAP 2017-10-04 Completed University of 00:00:00 [place] [facility] TDAP 2017-10-04 Completed University of 00:00:00 [place] [facility] TDAP 2017-10-04 Completed University of 00:00:00 [place] [facility] TDAP 2017-10-04 Completed University of 00:00:00 [place] [facility] TDAP 2017-10-04 Completed University of 00:00:00 [place] [facility] TDAP 2017-10-04 Completed University of 00:00:00 [place] [facility] TDAP 2017-10-04 Completed University of 00:00:00 [place] [facility] TDAP 2017-10-04 Completed University of 00:00:00 [place] [facility] TDAP 2017-10-04 Completed University of 00:00:00 [place] [facility] TDAP 2017-10-04 Completed University of 00:00:00 [place] [facility] TDAP 2017-10-04 Completed University of 00:00:00 [place] [facility] TDAP 2017-10-04 Completed University of 00:00:00 [place] [facility] TDAP 2017-10-04 Completed University of 00:00:00 [place] [facility] TDAP 2017-10-04 Completed University of 00:00:00 [place] [facility] TDAP 2017-10-04 Completed University of 00:00:00 [place] [facility] TDAP 2017-10-04 Completed University of 00:00:00 [place] [facility] TDAP 2017-10-04 Completed University of 00:00:00 [place] [facility] TDAP 2017-10-04 Completed University of 00:00:00 [place] [facility] TDAP 2017-10-04 Completed University of 00:00:00 [place] [facility] TDAP 2017-10-04 Completed University of 00:00:00 [place] [facility] TDAP 2017-10-04 Completed University of 00:00:00 [place] [facility] TDAP 2017-10-04 Completed University of 00:00:00 [place] [facility] TDAP 2017-10-04 Completed University of 00:00:00 [place] [facility] TDAP 2017-10-04 Completed University of 00:00:00 [place] [facility] TDAP 2017-10-04 Completed University of 00:00:00 [place] [facility] TDAP 2017-10-04 Completed University of 00:00:00 [place] [facility] TDAP 2017-10-04 Completed University of 00:00:00 [place] [facility] TDAP 2017-10-04 Completed University of 00:00:00 [place] [facility] TDAP 2017-10-04 Completed University of 00:00:00 [place] [facility] TDAP 2017-10-04 Completed University of 00:00:00 [place] [facility] TDAP 2017-10-04 Completed University of 00:00:00 [place] [facility] TDAP 2017-10-04 Completed University of 00:00:00 [place] [facility] TDAP 2017-10-04 Completed University of 00:00:00 [place] [facility] TDAP 2017-10-04 Completed University of 00:00:00 [place] [facility] TDAP 2017-10-04 Completed University of 00:00:00 [facility] TDAP 2017-10-04 Completed University of 00:00:00 [facility] TDAP 2017-10-04 Completed University of 00:00:00 [place] [facility] Tdap 2017-10-04 Completed University of 00:00:00 [facility] TDAP 2017-10-04 Completed University of 00:00:00 [facility] Vital Signs Vital Name Observation Time Observation Value Comments Source Systolic blood 2022-10-14 19:20:00 141 mm[Hg] Univer sity of pressure [facility] Diastolic blood 2022-10-14 19:20:00 89 mm[Hg] Unive rsity of pressure [facility] Heart rate 2022-10-14 19:19:00 97 /min Universi ty of [facility] Body temperature 2022-10-14 19:19:00 37.44 [place] Univ ersity of [facility] Respiratory rate 2022-10-14 19:19:00 18 /min Univ ersity of [facility] Body height 2022-10-14 19:19:00 165.1 cm Univers[facility] of [place] [facility] Body weight 2022-10-14 19:19:00 84.823 kg Universi ty of [place] [facility] BMI 2022-10-14 19:19:00 31.12 kg/m2 [facility] [place] [facility] Oxygen saturation in 2022-10-14 19:19:00 97 /min University of Arterial blood by [facility] maribel Pulse oximetry Branch Systolic blood 2022-08-18 14:40:00 139 mm[Hg] Univer sity of pressure [facility] Diastolic blood 2022-08-18 14:40:00 84 mm[Hg] [facility] Heart rate 2022-08-18 14:40:00 94 /min [facility] Body height 2022-08-18 14:40:00 165.1 cm [facility] Body weight 2022-08-18 14:40:00 88.633 kg [facility] BMI 2022-08-18 14:40:00 32.52 kg/m2 [facility] Oxygen saturation in 2022-08-18 14:40:00 95 /min University of Arterial blood by [facility] maribel Pulse oximetry Branch Systolic blood 2022-08-13 16:09:00 131 mm[Hg] Univer [facility] Diastolic blood 2022-08-13 16:09:00 82 mm[Hg] [facility] Heart rate 2022-08-13 16:09:00 90 /min [facility] Respiratory rate 2022-08-13 16:09:00 23 /min [facility] Oxygen saturation in 2022-08-13 16:09:00 96 /min [facility] Ar[facility] blood by [facility] maribel Pulse oximetry Branch Body height 2022-08-13 16:05:00 165.1 cm [facility] Body weight 2022-08-13 16:05:00 88.315 kg [facility] BMI 2022-08-13 16:05:00 32.40 kg/m2 [facility] Systolic blood 2022-08-01 00:00:00 160 mm[Hg] [facility] Diastolic blood 2022-08-01 00:00:00 100 mm[Hg] [facility] Heart rate 2022-08-01 00:00:00 73 /min [facility] Respiratory rate 2022-08-01 00:00:00 21 /min Univ ersity [facility] Branch Oxygen saturation in 2022-08-01 00:00:00 96 /min [facility] of Arterial blood by [facility] maribel Pulse oximetry Branch Body temperature 2022-07-31 20:57:00 36.78 Davina [facility] Body height 2022-07-31 20:57:00 165.1 cm [facility] Body weight 2022-07-31 20:57:00 86.183 kg [facility] BMI 2022-07-31 20:57:00 31.62 kg/m2 [facility] [place] [facility] [place] Heart rate 2022-07-30 20:36:00 97 /min [facility] Oxygen saturation in 2022-07-30 20:36:00 97 /min University of Arterial blood by [facility] Pulse oximetry Branch Systolic blood 2022-07-30 19:59:00 120 mm[Hg] [facility] Diastolic blood 2022-07-30 19:59:00 71 mm[Hg] [facility] Body temperature 2022-07-30 19:59:00 37.06 Davina [facility] Body height 2022-07-30 19:59:00 165.1 cm [facility] Body weight 2022-07-30 19:59:00 87.091 kg [facility] BMI 2022-07-30 19:59:00 31.95 kg/m2 [facility] Systolic blood 2022-03-17 17:02:00 132 mm[Hg] [facility] Diastolic blood 2022-03-17 17:02:00 82 mm[Hg] [facility] Heart rate 2022-03-17 17:02:00 87 /min [facility] Body temperature 2022-03-17 17:02:00 37.06 Davina [facility] Respiratory rate 2022-03-17 17:02:00 17 /min [facility] Body height 2022-03-17 17:02:00 165.1 cm [facility] Body weight 2022-03-17 17:02:00 87.998 kg [facility] BMI 2022-03-17 17:02:00 32.28 kg/m2 [facility] Oxygen saturation in 2022-03-17 17:02:00 95 /min [facility] [place] [facility] Pulse oximetry Branch Systolic blood 2022-01-29 17:04:00 176 mm[Hg] [facility] Diastolic blood 2022-01-29 17:04:00 95 mm[Hg] [facility] Heart rate 2022-01-29 17:04:00 87 /min [facility] Body height 2022-01-29 17:04:00 165.1 cm [facility] Body weight 2022-01-29 17:04:00 84.823 kg [facility] BMI 2022-01-29 17:04:00 31.12 kg/m2 [facility] Oxygen saturation in 2022-01-29 17:04:00 96 /min [facility] of Arterial blood by [facility] Pulse oximetry Branch Systolic blood 2021-12-29 16:00:00 132 mm[Hg] [facility] Diastolic blood 2021-12-29 16:00:00 80 mm[Hg] [facility] Heart rate 2021-12-29 16:00:00 86 /min [facility] Body height 2021-12-29 16:00:00 165.1 cm [facility] Body weight 2021-12-29 16:00:00 84.369 kg [facility] BMI 2021-12-29 16:00:00 30.95 kg/m2 [facility] Oxygen saturation in 2021-12-29 16:00:00 99 /min [facility] Arterial blood by [facility] Pulse oximetry Branch Systolic blood 2020-10-31 21:59:00 139 mm[Hg] [facility] Diastolic blood 2020-10-31 21:59:00 85 mm[Hg] [facility]ive [facility]ity [facility] [place] [facility] Heart rate 2020-10-31 21:59:00 92 /min [facility] Systolic blood 2020-09-04 20:08:00 141 mm[Hg] [facility] Diastolic blood 2020-09-04 20:08:00 85 mm[Hg] [facility] Heart rate 2020-09-04 19:40:00 96 /min [facility] Body height 2020-09-04 19:40:00 165.1 cm [facility] Body weight 2020-09-04 19:40:00 87.544 kg [facility] BMI 2020-09-04 19:40:00 32.12 kg/m2 [facility] Oxygen saturation in 2020-09-04 19:40:00 96 /min [facility] Arterial blood by [facility] Pulse oximetry Branch Systolic blood 2020-08-13 18:21:00 147 mm[Hg] [facility]iver [facility] Diastolic blood 2020-08-13 18:21:00 97 mm[Hg] [facility]ive [facility] Heart rate 2020-08-13 18:21:00 91 /min [facility] Body weight 2020-08-13 18:21:00 89.359 kg [facility] BMI 2020-08-13 18:21:00 32.78 kg/m2 [facility] Oxygen saturation in 2020-08-13 18:21:00 99 /min [facility] Arterial blood by [facility] Pulse oximetry Branch Systolic blood 2020-06-09 19:16:00 144 mm[Hg] [facility] Diastolic blood 2020-06-09 19:16:00 85 mm[Hg] [facility] Heart rate 2020-06-09 19:13:00 89 /min [facility] Body height 2020-06-09 19:13:00 165.1 cm [facility] Body weight 2020-06-09 19:13:00 90.266 kg [facility] BMI 2020-06-09 19:13:00 33.12 kg/m2 [facility] Oxygen saturation in 2020-06-09 19:13:00 97 /min [facility] Arterial blood by [facility] maribel Pulse oximetry Branch Systolic blood 2020-06-04 19:10:00 166 mm[Hg] [facility] Diastolic blood 2020-06-04 19:10:00 98 mm[Hg] [facility] Heart rate 2020-06-04 19:10:00 89 /min [facility] Body temperature 2020-06-04 19:10:00 36.72 Davina [facility] Respiratory rate 2020-06-04 19:10:00 18 /min [facility] Body weight 2020-06-04 19:10:00 89.721 kg [facility] BMI 2020-06-04 19:10:00 31.93 kg/m2 [facility] Oxygen saturation in 2020-06-04 19:10:00 98 /min [facility] Arterial blood by [facility] Pulse oximetry Branch Systolic blood 2019-12-21 15:15:00 139 mm[Hg] [facility]iver [facility] Diastolic blood 2019-12-21 15:15:00 90 mm[Hg] [facility] Heart rate 2019-12-21 15:14:00 84 /min [facility] Body temperature 2019-12-21 15:14:00 36.94 Davina [facility] Respiratory rate 2019-12-21 15:14:00 20 /min [facility] Body height 2019-12-21 15:14:00 167.6 cm [facility] Body weight 2019-12-21 15:14:00 86.274 kg [facility] BMI 2019-12-21 15:14:00 30.70 kg/m2 [facility] Oxygen saturation in 2019-12-21 15:14:00 98 /min [facility] [place] [facility] Pulse oximetry Branch Systolic blood 2019-11-09 18:45:00 149 mm[Hg] [facility]iver [facility] Diastolic blood 2019-11-09 18:45:00 92 mm[Hg] [facility]ive [facility] Heart rate 2019-11-09 18:41:00 79 /min [facility] Body temperature 2019-11-09 18:41:00 35.83 Davina [facility] Respiratory rate 2019-11-09 18:41:00 18 /min [facility] Body height 2019-11-09 18:41:00 165.1 cm [facility] Body weight 2019-11-09 18:41:00 83.915 kg [facility] BMI 2019-11-09 18:41:00 30.79 kg/m2 [facility] Oxygen saturation in 2019-11-09 18:41:00 99 /min [facility] [place] [facility] P[facility] oxim[facility] Branch Systolic blood 2018-11-26 13:00:00 114 mm[Hg] [facility] Diastolic blood 2018-11-26 13:00:00 68 mm[Hg] [facility] Heart rate 2018-11-26 13:00:00 50 /min [facility] Body temperature 2018-11-26 13:00:00 36.61 Davina [facility] Respiratory rate 2018-11-26 13:00:00 106 /min [facility] Oxygen saturation in 2018-11-26 13:00:00 96 /min [facility] [place] [facility] P[facility] oxim[facility] Branch Body height 2018-11-23 23:00:00 165.1 cm [facility] Body weight 2018-11-23 23:00:00 94.348 kg [facility] BMI 2018-11-23 23:00:00 34.61 kg/m2 [facility] Systolic blood 2018-10-31 14:24:00 107 mm[Hg] [facility]iver [facility] Diastolic blood 2018-10-31 14:24:00 78 mm[facility]Hg] [facility] 2018-10-31 14:24:00 106 /min [facility] Body temperature 2018-10-31 14:24:00 36.17 Davina [facility] Respiratory rate 2018-10-31 14:24:00 17 /min [facility] Body height 2018-10-31 14:24:00 165.1 cm [facility] Body weight 2018-10-31 14:24:00 87.544 kg [facility] BMI 2018-10-31 14:24:00 32.12 kg/m2 [facility] Procedures Procedure Date / Time Performing Clinician Source Performed XR CERVICAL SPINE 3 VW 2022-10-14 20:21:01 Shira Yoon [facility] REFERRAL- 2022-10-06 05:01:00 Doctor Unassigned, [facility] REQUEST/RESPONSE [facility] CT ABDOMEN PELVIS W WO 2022-08-25 17:44:44 Mirtha Estrada [facility] URINE CULTURE 2022-08-18 19:09:00 Mirtha Estrada [facility] POCT URINALYSIS AUTO 2022-08-18 15:06:00 Mirtha Estrada [facility] XR CHEST 2 2022-08-13 16:53:09 [facility] URINE DRUG (IMMUNOASSAY) 2022-08-01 00:50:00 Ihsan Andrade [facility] DRUG Medical [facility] SCREEN W/O REFLEX URINALYSIS 2022-08-01 00:49:00 Ihsan Andrade [facility] COMP. METABOLIC PANEL 2022-07-31 22:15:00 Ihsan Andrade [facility] ([id number]) [facility] CT HEAD WO CONTRAST 2022-07-31 21:20:40 Ihsan Andrade [facility] LIPASE 2022-07-31 21:19:00 Ihsan Andrade [facility] TROPONIN I 2022-07-31 21:19:00 Ihsan Andrade [facility] CBC WITH DIFF 2022-07-31 21:19:00 Ihsan Andrade [facility] PROTHROMBIN TIME / INR 2022-07-31 21:19:00 [facility] 2022-07-31 21:19:[address] [facility] THRMPLAS ROLLY [facility] N-TERMINAL PRO-BNP 2022-07-31 21:19:00 Ihsan Andrade [facility] CONSENT/REFUSAL FOR 2022-07-31 20:42:36 Doctor Edd, [facility] DIAGNOSIS AND TREATMENT [facility] FINANCIAL 2022-07-30 19:47:32 Doctor Halisssuzan, [facility] POLICY [facility] ASSIGNMENT OF BENEFITS 2021-12-29 15:10:21 Doctor Unasssuzan, [facility] Name Medical Branch REFERRAL- 2020-09-10 05:01:00 Doctor Edd, [facility] REQUEST/RESPONSE [facility] COVID-19 (ID NOW RAPID 2020-08-26 20:55:00 Deangelo Mederos U [facility] TESTING) Medical Branch ASSIGNMENT OF BENEFITS 2020-08-26 20:40:41 Doctor Unassigned, [facility] CONSENT/REFUSAL FOR 2020-07-25 17:12:41 Doctor Edd, [facility] DIAGNOSIS AND TREATMENT [facility] [place] VACCINATIONS - CONSENTS, 2019-12-13 05:01:00 Doctor Edd, [facility] ELIGIBILITY, HISTORY [facility] BASIC METABOLIC PANEL 2018-11-26 09:37:[address] [facility] (NA, K, CL, CO2, GLUCOSE, Medica l Branch BUN, CREATININE, CA) CBC WITH DIFFERENTIAL 2018-11-26 09:37:[address] [facility] Medical [place] MAGNESIUM 2018-11-25 10:14:00 Jose Cook [facility] COMP. METABOLIC PANEL 2018-11-25 10:14:[address] [facility] ([id number]) Medical [place] CBC WITH DIFFERENTIAL 2018-11-25 10:14:00 Hi Hoffman [facility] LACTIC ACID WHOLE BLOOD 2018-11-24 04:42:00 Ihsan Andrade [facility] CT ABDOMEN PELVIS W 2018-11-24 03:05:49 Ihsan Andrade [facility] CONTRAST [facility] BLOOD CULTURE SCREEN 2018-11-24 02:20:00 [facility] 2018-11-24 02:20:00 Ihsan Andrade [facility] HEPATIC FUNCTION PANEL 2018-11-24 02:20:00 Ihsan Andrade [facility] ([id number]) (ALB,T.PRO,BILI [facility] T,BU/BC,ALT,AST,ALK PHOS) BASIC METABOLIC PANEL 2018-11-24 02:20:00 Ihsan Andrade [facility] (NA, K, CL, CO2, GLUCOSE, Medica l Branch BUN, CREATININE, CA) GRAM POSITIVE BLOOD 2018-11-24 02:20:00 Ihsan Andrade [facility] PATHOGENS DNA [facility] PROBE-ANAEROBIC US GALL BLADDER 2018-11-24 00:52:08 Ihsan Andrade [facility] CBC WITH DIFFERENTIAL 2018-11-24 00:17:00 [facility] L[facility]ID WHOLE BLOOD 2018-11-24 00:17:00 Ihsan Andrade [facility] CONSENT/REFUSAL FOR 2018-11-23 22:57:02 Doctor Edd, [facility] DIAGNOSIS AND TREATMENT [facility] C-REACTIVE PROTEIN 2018-10-31 15:01:00 Héctor Roper [facility] CBC WITH DIFFERENTIAL 2018-10-31 15:01:00 Héctor Roper [facility] AGREEMENTS AUTHORIZATIONS 2018-10-31 05:01:00 Doctor Unassigned, [facility] AND IRREVOCABLE [facility] ASSIGNMENTS (FORM 2001) Encounters Start End Encounter Admission Attending Care Care Encounter Source Date/Time Date/Time Type Type Clinicians Facility Department ID 2021-01-18 Emergency [facility] [id number] Univers 17:47:41 [facility] 2022-12-07 2022-12-07 [facility] [id number] Univers 13:30:00 13:30:00 [facility] 2022-11-09 2022-11-09 Outpatient [facility] [id number] Univers 20:00:00 20:00:00 ROSA M [facility] 2022-11-03 2022-11-03 [facility] [id number] Univers 13:00:00 13:00:00 [facility] 2022-10-25 2022-10-25 Outpatient R [facility] [id number] Univers 11:45:00 11:45:00 [facility]14 2022-10-14 [facility] 1.2.840.114 [id number] Univers 14:44:11 23:59:00 Encounter Shira A HEALTH 350.1.13.10 ity [facility] [id number] Josias as DEVONTE?BLEA [id number] Nj rodrigue NUÑEZ [address] [place] MEDICAL OFFICE BUILDING 2022-10-14 2022-10-14 [facility] [id number] Univers 14:00:00 14:43:25 [facility] 2022-10-14 2022-10-14 Office [facility] 1.2.840.114 [id number] Univers 14:00:00 14:43:25 Visit Shira A HEALTH 350.1.13.10 i ty [facility] [id number] Josias as DEVONTE?BLEA [id number] Me rodrigue NUÑEZ [address] [place] MEDICAL OFFICE BUILDING 2022-10-06 2022-10-06 Orders Doctor BAIN 1.2.840.114 [id number] Univers 00:00:00 00:00:00 Only Unassigned, KEY 350.1.13.10 ity of [facility] [id number] Josias as [id number] [facility] 009 Branch 2022-09-30 2022-09-30 Outpatient [facility] [id number] Univers 10:00:00 10:00:00 FINN hansen [facility] 2022-09-23 2022-09-23 Outpatient [facility] [id number] Univers 13:00:00 13:00:00 FINN hansen [facility] 2022-09-15 2022-09-15 [facility] 1.2.840.114 [id number] [facility] 00:00:00 00:00:00 Strahil Lidia BERGER 350.1.13.10 [place]y [id number] [id number] N[place] dical NAL 085 [facility] 2022-09-02 2022-09-02 Out[facility] [id number] Univers 15:00:00 15:00:00 [facility] 2022-08-26 2022-08-26 Telephone Estrada, [facility] .2.840.114 1 [id number] Univers 00:00:00 00:00:00 Mirtha BERGER 350.1.13.10 ity [id number] [id number] N[place] dical NAL 059 [facility] 2022-08-25 2022-08-25 Out[facility] [id number] Univers 11:46:10 23:59:00 MIRTHA sewellfrancesco o [facility] 2022-08-25 2022-08-25 [facility] 1.2.840.114 [id number] Univers 11:40:00 23:59:00 Encounter Mirtha BERGER 350.1.13.10 [place] [id number] [facility] [address] [place] 2022-08-18 2022-08-18 Outpatient R ESTRADA [facility] [id number] Univers 09:45:00 10:39:01 MIRTHA spivey [facility] 2022-08-18 2022-08-18 [facility] 1.2.840.114 [id number] Univers 09:45:00 10:39:01 Visit Mirtha CELINE 350.1.13.10 ity of [place] [id number] Nj dical NAL 204 [facility] 2022-08-16 2022-08-16 [facility] [id number] Univers 00:00:00 00:00:00 Finn BERGER 350.1.13.10 ity [place] [id number] Nj dic[address] 2022-08-13 2022-08-13 [facility] 1.2.840.114 [id number] Univers 11:34:48 23:59:00 Encounter Finn CELINE 350.1.13.10 ity [place] [id number] [facility] [address] [place] 2022-08-13 2022-08-13 Outpatient R PENDING SALE TO [facility] [id number] Univers 11:20:00 11:31:26 VANDANAJOSSELINEMEÑO julieta hansen allyssa [facility] 2022-08-13 2022-08-13 Office [facility] 1.2.840.114 [id number] Univers 11:20:00 11:31:26 Visit Vandanajosselinemeño CELINE 350.1.13.10 ity of [place] [id number] Nj dical NAL 059 [facility] 2022-08-04 2022-08-04 [facility] 1.2.840.114 [id number] Univers 00:00:00 00:00:00 (Out) Cardiology HEALTH 350.1.13.10 ity of - [place] [id number] [facility] [address] [place] OFFICE BUILDING 2022-07-31 2022-07-31 Emergency X RAYMOND, [facility] [id number] Univers 15:58:00 21:11:00 FOLUSHO ity of [facility] 2022-07-31 2022-07-31 Emergency [facility] 1.2.840.114 [id number] Univers 15:58:00 21:11:00 Ihsan F RATHDRUM 350.1.13.10 ity of [place] [id number] [facility] [address] [place] 2022-07-30 2022-07-30 Outpatient R MARTINE [facility] [id number] Univers 15:00:00 16:15:20 SHIRA [facility] 2022-07-30 2022-07-30 Office [facility] 1.2.840.114 [id number] Univers 15:00:00 16:15:20 Visit [facility] 350.1.13.10 i ty of [place] 4.2.7.2.686 Josias as DEVONTE?BLEA [id number] Nj rodrigue [facility] [address] [place] MEDICAL OFFICE BUILDING 2022-07-30 2022-07-30 Orders Doctor TAYA 1.2.840.114 [id number] Univers 00:00:00 00:00:00 Only Unassigned, KEY 350.1.13.10 ity of [facility] 4.2.7.2.686 Josias as [id number] [facility] 009 Branch 2022-07-21 2022-07-21 Outpatient R DEANGELO MEDEROS [facility] [id number] Univers 13:00:00 13:00:00 DEANGELO MEDEROS [facility] 2022-07-07 2022-07-07 Outpatient R DEANGELO MEDEROS [facility] [id number] Univers 20:00:00 20:00:00 DEANGELO MEDEROS [facility] 2022-06-23 2022-06-23 Outpatient [facility] [place] 10:18:13 10:18:13 [id number] Shawn 2022-05-03 2022-05-03 Outpatient R NOBLE [facility] [id number] Univers 10:30:00 10:30:00 RACHAEL francesco [facility] 2022-04-14 2022-04-14 Outpatient R DEANGELO MEDEROS [facility] [id number] Univers 20:00:00 20:00:00 DEANGELO MEDEROS [facility] 2022-03-17 2022-03-17 Office Rosa [facility] [id number] Univers 11:00:00 11:30:00 Visit Deangelo BERGER 350.1.13.10 ity jeff [place] [id number] Nj rodrigue W[place]ACE 085 [facility] 2022-03-17 2022-03-17 Outpatient R CYRUSSHERINEANGUS DEANGELO [facility] [id number] Univers 11:00:00 11:00:00 AMADO MEDEROSJudie [facility] 2022-01-29 2022-01-29 Outpatient R NOBLE [facility] [id number] Univers 11:00:00 11:27:55 RACHAEL [facility] 2022-01-29 2022-01-29 Office [facility] 1.2.840.114 [id number] Univers 11:00:00 11:27:[address] [facility] 350.1.13.10 it [place] 4.2.7.2.686 Josias as DEVONTE?BLEA [id number] Nj dical KNEY 092 [facility] OFFICE [facility] 2022-01-28 2022-01-28 Outpatient CELINA PATRICK [place] 15:11:53 15:11:53 [id number] Shawn 2021-12-29 2021-12-29 Outpatient R HÉCTOR ROPER [facility] [id number] Univers 11:20:00 11:36:31 HÉCTOR ROPER [facility] 2021-12-29 2021-12-29 Office [facility] 1.2.840.114 [id number] Univers 11:20:00 11:36:31 Visit Deb Héctor [facility] 350.1.13. [address] [facility] 4.2.7.2.686 Josias as DEVONTE?BLEA [id number] [address] OFFICE [facility] 2021-12-29 2021-12-29 Orders Doctor TAYA 1.2.840.114 [id number] Univers 00:00:00 00:00:00 Only Unassigned, KEY 350.1.13.10 [facility] 4.2.7.2.686 Josias as [phone] [address] 2021-12-22 2021-12-22 Outpatient HÉCTOR DESAI [facility] [id number] Univers 14:40:00 14:40:00 HÉCTOR ROPER [facility] 2021-12-14 2021-12-14 Refill Deb [facility] 1.2.840.114 [id number] Univers 00:00:00 00:00:00 [facility] 350.1.13.10 ity of [place] 4.2.7.2.686 Josias as DEVONTE?BLEA [phone] [address] OFFICE [facility] 2021-12-11 2021-12-11 Refradha Roper [facility] 1.2.840.114 [id number] Univers 00:00:00 00:00:00 [facility] 350.1.13.10 ity of [place] 4.2.7.2.686 Josias as DEVONTE?BLEA [phone] [address] OFFICE [facility] 2020-12-29 2020-12-29 Outpatient R HÉCTOR ROPER [facility] [id number] Univers 16:20:00 16:20:00 HÉCTOR ROPER [facility] 2020-12-10 2020-12-10 Outpatient Jethro MCRAE [facility] [id number] Univers 14:40:00 14:40:00 JUAN DIEGO francesco [facility] 2020-10-31 2020-10-31 Office Deb [facility] 1.2.840.114 [id number] Univers 15:45:16 16:52:25 Visit Héctor Berger 350.1.13.10 ity of [place] [phone] [facility] 092 [facility] 2020-10-31 2020-10-31 Outpatient HÉCTOR DESAI [facility] [id number] Univers 15:40:00 15:40:00 DEBHÉCTOR LAMBERT [facility] 2020-10-27 2020-10-27 Outpatient HÉCTOR DESAI [facility] [id number] Univers 10:40:00 10:40:00 HÉCTOR ROPER [facility] 2020-10-13 2020-10-13 [facility] 1.2.840.114 [id number] [facility] 00:00:00 00:00:00 Héctor Berger 350.1.13.10 ity [facility] [place] [phone] [facility] 092 [facility] 2020-10-03 2020-10-03 [facility] 1.2.840.114 [id number] [facility] 00:00:00 00:00:00 Scarlett Berger 350.1.13.10 ity of [place] [phone] [facility] 044 [facility] 2020-09-16 2020-09-16 Outpatient Jethro DEB, HÉCTOR [facility] [id number] Univers 15:40:00 15:40:00 DEBHÉCTOR Shields julieta [facility] 2020-09-10 2020-09-10 Orders Doctor BAIN 1.2.840.114 [id number] Univers 00:00:00 00:00:00 Only UnassignedKEY 350.1.13.10 ity of [facility] 4.2.7.2.686 Josias as [phone] [address] 2020-09-10 2020-09-10 Orders Doctor BAIN 1.2.840.114 [id number] 00:00:00 00:00:00 Only UnassignedPOLIY 350.1.13.10 [facility] 4.2.7.2.686 [phone] 009 2020-09-08 2020-09-08 Telephone [facility] 1.2.840.114 [id number] [facility] 00:00:00 00:00:00 Scarlett Berger 350.1.13.10 ity of [place].2.[place] [phone] Nj dical [address] 2020-09-08 2020-09-08 Telephone [facility] 1.2.840.114 [id number] 00:00:00 00:00:00 Scarlett Berger 350.1.13.10 [place] 4.2.7.2.686 Professio [phone] [address] 2020-09-04 2020-09-04 Office [facility] 1.2.840.114 [id number] [facility] 14:07:36 15:15:49 Visit Scarlett Berger 350.1.13.10 ity of [place]2.[place].2.[place] [phone] Nj dic[address] 2020-09-04 2020-09-04 Outpatient R JACOB [facility] [id number] Univers 14:00:00 14:00:00 SCARLETT rendon o f [facility] 2020-08-28 2020-08-28 Outpatient R DEANGELO MEDEROS [facility] [id number] Univers 19:30:00 19:30:00 DEANGELO MEDEROS of [facility] 2020-08-28 2020-08-28 Mold Maker Helper 1, [facility] Sleep Lab Bed [facility] 1. 2.840.114 [id number] Univers 15:36:08 18:06:08 Visit Deangelo Mederos 350.1.13. 10 ity of [place].2.[place] [phone] [address] 2020-08-26 2020-08-26 Laboratory Only, Adc Test [facility] 1.2.840. 114 [id number] Univers 15:40:11 15:55:11 Only Rosa M Deangelo Berger 350.1.13. 10 ity of [place] [phone] [facility] [address] 2020-08-26 2020-08-26 Outpatient R [facility] [id number] Univers 15:30:00 15:30:00 ity of [facility] 2020-08-26 2020-08-26 Orders Doctor TAYA 1.2.840.114 [id number] Univers 00:00:00 00:00:00 Only Unassigned, KEY 350.1.13.10 ity of [facility] 4.2.7.2.686 Josias as [phone] [address] 2020-08-13 2020-08-13 Office [facility] 1.2.141.111 [id number] Univers 13:09:44 13:39:44 Visit Deangelo Berger 350.1.13.10 ity of [place] 4.2.7.2.[place] [phone] Nj dical nal 085 [facility] 2020-08-13 2020-08-13 Outpatient R DEANGELO MEDEROS [facility] [id number] Univers 13:00:00 13:00:00 AMADO MEDEROSL ity of [facility] 2020-07-25 2020-07-25 Orders Doctor BAIN 1.2.840.114 [id number] Univers 00:00:00 00:00:00 Only Unassigned, KEY 350.1.13.10 ity of [facility] 4.2.7.2.686 Josias as [phone] [facility] [address] 2020-07-22 2020-07-22 Telephone Jacob [facility] 1.2.840.114 [id number] Univers 00:00:00 00:00:00 Scarlett Berger 350.1.13.10 ity of [place] 4.2.7.2.[place] [phone] Nj dical nal 044 [facility] 2020-07-07 2020-07-07 Outpatient R DEB, HÉCTOR [facility] [id number] Univers 14:20:00 14:20:00 HÉCTOR ROPER francesco [facility] 2020-06-24 2020-06-24 Telephone Jacob [facility] 1.2.840.114 [id number] Univers 00:00:00 00:00:00 Scarlett FARIAPEC 350.1.13.10 ity of [place] 4.2.7.2.[place] [phone] [facility] AND J CARLOS [address] [facility] 2020-06-11 2020-06-11 Outpatient Jethro ARRINGTON [facility] [id number] Univers 14:00:00 14:00:00 CONY francesco [facility] 2020-06-09 2020-06-09 [facility] 1.2.840.114 [id number] Univers 14:02:27 15:09:44 Visit Héctor Berger 350.1.13.10 ity of [place] 4.2.[place].2.[place] [phone] Me dical nal 092 [facility] 2020-06-09 2020-06-09 Outpatient Jethro DEB, HÉCTOR [facility] [id number] Univers 14:20:00 14:20:00 HÉCTOR ROPER francesco [facility] 2020-06-04 2020-06-04 Mold Maker Helper 2, Adc Lab [facility] 1.2.840.114 [id number] Univers 14:35:23 14:50:23 Visit Scarlett Whitney 350.1.13.10 ity of [place] 4.2.7.2.[place] [phone] Me dical nal 353 [facility] 2020-06-04 2020-06-04 Office [facility] 1.2.840.114 [id number] Univers 13:57:36 14:28:46 Visit Scarlett Berger 350.1.13.10 ity of [place] 4.2.7.2.[place] [phone] Me dical nal 044 [facility] 2020-06-042020-06-04 Outpatient R JACOB [facility] [id number] Univers 14:00:00 14:00:00 SCARLETT rendon o f [facility] 2020-03-26 2020-03-26 [id number] Univers 15:20:00 15:20:00 JUAN DIEGO rendon [facility] 2019-12-21 2019-12-21 [facility] 1.2.840.114 [id number] Univers 10:01:25 11:40:21 Visit Juan Diego [place] 350.1.13.10 i ty of [place] 4.2.7.2.[place] [phone] [address] 2019-12-21 2019-12-21 [facility] [id number] Univers 10:00:00 10:00:00 JUAN DIEGO [facility] 2019-12-13 2019-12-13 Orders Doctor TAYA 1.2.840.114 [id number] Univers 00:00:00 00:00:00 Only Unassigned, KEY 350.1.13.10 ity of [facility] 4.2.7.2.686 Josias as [phone] [address] 2019-11-09 2019-11-09 Urgent Provider, [facility] 1.2.840.114 [id number] Univers 13:37:59 14:45:13 Care Siena Guevara 350.1.13.10 ity of [place] 4.2.7.2.686 Josias as Professio [phone] [address] Office [address] 2019-11-09 2019-11-09 [facility] [id number] Univers 10:00:00 10:00:00 JUAN DIEGO julieta [facility] 2018-11-28 2018-11-28 Transition Mehul Santana 1.2.840.114 [id number] Univers 00:00:00 00:00:00 of Care Di [place] 350.1.13.10 i ty of [place].2.[place] [phone] [address] 2018-11-27 2018-11-27 Refill Deb, [facility] 1.2.840.114 [id number] Univers 00:00:00 00:00:00 Héctor Berger 350.1.13.10 ity of [place] 4.2.7.2.[place] [phone] Nj dical nal [address] 2018-11-27 2018-11-27 Telephone [facility] 1.2.840.114 [id number] Univers 00:00:00 00:00:00 Zora Celine 350.1.13.10 i ty of [place]2.[place].2.[place] [phone] Nj dical nal 377 [facility] 2018-11-27 2018-11-27 Refradha [facility] 1.2.840.114 [id number] Univers 00:00:00 00:00:00 [facility] 350.1.13.10 i ty of [place] 4.2.7.2.686 Josias as Professio [phone] Nj dical nal [address] 2018-11-23 2018-11-26 Hospital Ihsan Andrade [facility] 1.2.8 40.114 [id number] Univers 18:28:11 11:24:00 Encounter Jose Cook 350.1.13.10 ity of [place] 4.2.7.2.686 [facility] [phone] [place] [address] 2018-10-31 2018-10-31 Office Deb [facility] 1.2.840.114 [id number] Univers 09:12:30 13:22:12 Visit Héctor Berger 350.1.13.10 ity of [place].2.[place] [phone] Nj dical nal 092 [facility] 2018-10-31 2018-10-31 Mold Maker Helper 2, Adc Lab [facility] 1.2.840.114 [id number] Univers 09:50:36 10:05:36 Visit Héctor Roper 350.1.13 .10 ity of [place].2.7.2.[place] [phone] Nj dical nal 353 [facility] 2018-10-31 2018-10-31 Orders Doctor TAYA 1.2.840.114 [id number] Univers 00:00:00 00:00:00 Only Unassigned, KEY 350.1.13.10 ity of [facility] 4.2.7.2.686 Josias as [phone] [facility] [address] 2018-10-17 2018-10-17 Telephone SULTANA Roper 1.2.840.114 [id number] Univers 00:00:00 00:00:00 Héctor Berger 350.1.13.10 ity of [place].2.[place] [phone] Nj dical nal 092 [facility] Results Test Description Test Time Test Comments Results Result Comments Source POCT URINALYSIS, INSTRUMENT 2022-08-18 15:08:00 Test Item Value Reference Range Interpretation Comme nts POCT U SP GRAV (test code = 3255) 1.030 mg/dl 1.005-1.025 A POCT PH U (test code = 3254) 7.0 mg/dl 5-8 POCT U LEUK EST (test code = 3263) TRACE Negative - Negative POCT U NIT (test code = 3262) NEGATIVE Negative - Negative POCT U PROT (test code = 3259) NEGATIVE Negative - Negative POCT U GLU (test code = 3256) NEGATIVE Negative - Negative POCT U KETONE (test code = 3258) NEGATIVE Negative - Negative POCT U UROBILI (test code = 3260) 2.0 mg/dl 0.2-1 A POCT U BILI (test code = 3261) NEGATIVE Negative - Negative POCT U BLD (test code = 3257) NEGATIVE Negative - Negative POCT U COLOR (test code = 3266) YELLOW POCT U APPEAR (test code = 3267) CLEAR Lab Interpretation (test code = 53483-0) Abnormal [facility] URINALYSIS, [id number] 15:08:00 Test Item Value Reference Range Interpretation Comments POCT U SP GRAV (test code = 1.030 mg/dl 1.005-1.025 A 3255) POCT PH U (test code = 3254) 7.0 mg/dl 5-8 POCT U LEUK EST (test code = TRACE Negative - Negative 3263) POCT U NIT (test code = 3262) NEGATIVE Negative - Negative POCT U PROT (test code = NEGATIVE Negative - Negative 3259) POCT U GLU (test code = 3256) NEGATIVE Negative - Negative POCT U KETONE (test code = NEGATIVE Negative - Negative 3258) POCT U UROBILI (test code = 2.0 mg/dl 0.2-1 A 3260) POCT U BILI (test code = NEGATIVE Negative - Negative 3261) POCT U BLD (test code = 3257) NEGATIVE Negative - Negative POCT U COLOR (test code = YELLOW 3266) POCT U APPEAR (test code = CLEAR 3267) Lab Interpretation (test code Abnormal = 67020-5) [facility] URINALYSIS, [id number] 15:08:00 Test Item Value Reference Range Interpretation Comments POCT U SP GRAV (test code = 1.030 mg/dl 1.005-1.025 A 3255) POCT PH U (test code = 3254) 7.0 mg/dl 5-8 POCT U LEUK EST (test code = TRACE Negative - Negative 3263) POCT U NIT (test code = 3262) NEGATIVE Negative - Negative POCT U PROT (test code = NEGATIVE Negative - Negative 3259) POCT U GLU (test code = 3256) NEGATIVE Negative - Negative POCT U KETONE (test code = NEGATIVE Negative - Negative 3258) POCT U UROBILI (test code = 2.0 mg/dl 0.2-1 A 3260) POCT U BILI (test code = NEGATIVE Negative - Negative 3261) POCT U BLD (test code = 3257) NEGATIVE Negative - Negative POCT U COLOR (test code = YELLOW 3266) POCT U APPEAR (test code = CLEAR 3267) Lab Interpretation (test code Abnormal = 55519-1) [facility] URINALYSIS, [id number] 15:08:00 Test Item Value Reference Range Interpretation Comments POCT U SP GRAV (test code = 1.030 mg/dl 1.005-1.025 A 3255) POCT PH U (test code = 3254) 7.0 mg/dl 5-8 POCT U LEUK EST (test code = TRACE Negative - Negative 3263) POCT U NIT (test code = 3262) NEGATIVE Negative - Negative POCT U PROT (test code = NEGATIVE Negative - Negative 3259) POCT U GLU (test code = 3256) NEGATIVE Negative - Negative POCT U KETONE (test code = NEGATIVE Negative - Negative 3258) POCT U UROBILI (test code = 2.0 mg/dl 0.2-1 A 3260) POCT U BILI (test code = NEGATIVE Negative - Negative 3261) POCT U BLD (test code = 3257) NEGATIVE Negative - Negative POCT U COLOR (test code = YELLOW 3266) POCT U APPEAR (test code = CLEAR 3267) Lab Interpretation (test code Abnormal = 53377-2) [facility]. METABOLIC PANEL ([id number])2022-07-31 23:42:04 Test Item Value Reference Range Interpretation Comments NA (test code = 136 mmol/L 135-145 0147112966) K (test code = 3.8 mmol/L 3.5-5.0 8237924910) CL (test code = 103 mmol/L 98-108 2116137447) CO2 TOTAL (test code = 26 mmol/L 23-31 1177396992) AGAP (test code = 7 2-16 7167709716) BUN (test code = 24 mg/dL 7-23 H 7238821982) GLUCOSE (test code = 117 mg/dL 70-110 H 8898158929) CREATININE (test code = 1.06 mg/dL 0.60-1.25 3620000383) TOTAL BILI (test code = 0.8 mg/dL 0.1-1.3 7368555427) CALCIUM (test code = 7.8 mg/dL 8.6-10.6 L 7791353860) T PROTEIN (test code = 5.5 g/dL 6.3-8.2 L 4955968321) ALBUMIN (test code = 3.0 g/dL 3.5-5.0 L 9593888231) ALK PHOS (test code = 75 U/L 34-122 1626602111) ALTv (test code = 44 U/L 5-50 1742-6) AST(SGOT) (test code = 40 U/L 13 1762152285) eGFR (test code = 70.6 mL/min/1.73m2 1469596535) NINI (test code = NINI) Association of Glomerular Filtration Rate (GFR) and Staging of Kidney Disease* + --+ --+ ------+| GFR (mL/min/1.73 m2) ?| With Kidney Damage ?| ?Without Kidney Damage+ --------+ --------+ +| ?>90 ?| ?Stage one ?| ? Normal ?+ ---+ ---+ -------+| ?60-89 ?| ?Stage two ?| ? Decreased GFR ? + --+ --+ ------+| ?30-59 ?| ?Stage three ?| ? Stage three ? + --+ --+ ------+| ?15-29 ?| ?Stage four ? | ? Stage four ?+ ---+ ---+ -------+| ?<15 (or dialysis) ? ?| ?Stage five ? | ? Stage five ?+ ---+ ---+ -------+ *Each stage assumes the associated GFR level has been in effect for at least three months. ?Stages 1 to 5, with or without kidney disease, indicate chronic kidney disease. Notes: Determination of stages one and two (with eGFR >59mL/min/1.73 m2) requires estimation of kidney damage for at least three months as defined by structural or functional abnormalities of the kidney, manifested by either:Pathological abnormalities or Markers of kidney damage (including abnormalities in the composition of the blood or urine or abnormalities in imaging tests). Lab Interpretation Abnormal (test code = 66387-5) [facility]RM[facility] [id number] 22:15:21 Test Item Value Reference Range Interpretation Comments APTT Patient (test 26 See_Comment [Automat ed code = 3173-2) message] The system which generated this result transmitted reference range : 23 - 38 Seconds . The reference range was not used to interpr et this result as normal/abnormal . NINI (test code = NINI) The [facility] patient population mean normal value for aPTT is 30 seconds. Lab Interpretation Normal (test code = 51770-4) [facility]PROT[facility]BIN [facility] / [id number] 22:13:21 Test Item Value Reference Range Interpretation Comments PROTIME PATIENT (test 14.7 See_Comment [Auto mated message] code = 5964-2) The system [employer] generated this result transmitted ref erence range: 12.0 - 1 4.7 Seconds. The re ference range was not u sed to interpret this result as normal/abnor mal. INR (test code = 6301-6) 1.2 Nor mal INR <1.1; Warfarin Therap eutic range 2.0 to 3. 0 or 2.5 to 3.5, dep ending upon the indica tions. Lab Interpretation (test Normal code = 35545-9) [facility]TROP[facility] [id number] 22:13:21 Test Item Value Reference Range Interpretation Comments TROPONIN I (test code = 0.010 ng/mL <=0.034 9196483028) NINI (test code = NINI) Reference (Normal) Range (defined by the 99th percentile reference limit): <= 0.034 ng/mL Note: Cardiac troponin begins to rise 3-4 hours after the onset of ischemia. Repeat in 4-6 hours if the sample was drawn within 3-4 hours of the onset of the symptom and found normal. Diagnosis of myocardial injury is made with acute changes in cTn concentrations with at least one serial sample above the 99th percentile upper reference limit (URL), taken together with the patient's clinical presentation. Biotin has been reported to cause a negative bias, interpret results relative to patient's use of biotin. Lab Interpretation Normal (test code = 33982-7) [facility] HospitalN-TERMINAL [id number] 22:10:01 Test Item Value Reference Range Interpretation Comments NT-proBNP (test code = 296 pg/mL <=125 H 7423403850) NINI (test code = NINI) Biotin has been reported to cause a negative bias, interpret results relative to patient's use of biotin. Lab Interpretation (test Abnormal code = 88743-7) [facility] [id number] 22:01:01 Test Item Value Reference Range Interpretation Comments LIPASE (test code = 4296974855) 51 U/L 0-220 Lab Interpretation (test code = Normal 24229-1) [facility]CBC WITH [id number] 21:52:39 Test Item Value Reference Range Interpretation Comments WBC (test code = 13.91 See_Comment H [Automated 6690-2) message] The system which generated this result transmit margy reference range : 4.20 - 10.70 10*3/?L. The reference range was not used to interpret this result as normal/abnormal . RBC (test code = 4.71 See_Comment [Automated 789-8) message] The system which generated this result transmit margy reference range : 4.26 - 5.52 10*6/?L. The reference range was not used to interpret this result as normal/abnormal . HGB (test code = 14.4 g/dL 12.2-16.4 718-7) HCT (test code = 43.3 % 38.4-49.3 4544-3) MCV (test code = 91.9 fL 81.7-95.6 787-2) MCH (test code = 30.6 pg 26.1-32.7 785-6) MCHC (test code = 33.3 g/dL 31.2-35.0 786-4) RDW-SD (test code = 42.5 fL 38.5-51.6 06928-8) RDW-CV (test code = 12.4 % 12.1-15.4 788-0) PLT (test code = 224 See_Comment [Automated 777-3) message] The system which generated this result transmit margy reference range : 150 - 328 10*3/ ?L. The reference range was not u sed to interpret th is result as normal/abnormal . MPV (test code = 10.9 fL 9.8-13.0 72312-2) NRBC/100 WBC (test 0.0 See_Comment [Automat ed code = 4505963896) message] The system which generated this result transmit margy reference range : 0.0 - 10.0 /100 WBCs. The reference range was not used to interpret this result as normal/abnormal . NRBC x10^3 (test code See_Comment [Auto mated = 6284971249) message] The system which generated this result transmit margy reference range : 10*3/?L. The reference range was not used to interpret this result as normal/abnormal . GRAN MAT (NEUT) % 76.6 % (test code = 770-8) IMM GRAN % (test code 0.40 % = 4658802971) LYMPH % (test code = 10.5 % 736-9) MONO % (test code = 8.3 % 5905-5) EOS % (test code = 3.5 % 713-8) BASO % (test code = 0.7 % 706-2) GRAN MAT x10^3(ANC) 10.66 10*3/uL 1.99-6.95 H (test code = 7652466103) IMM GRAN x10^3 (test 0.05 10*3/uL 0.00-0.06 code = 0324404210) LYMPH x10^3 (test code 1.46 10*3/uL 1.09-3.23 = 731-0) MONO x10^3 (test code 1.15 10*3/uL 0.36-1.02 H = 742-7) EOS x10^3 (test code = 0.49 10*3/uL 0.06-0.53 711-2) BASO x10^3 (test code 0.10 10*3/uL 0.01-0.09 H = 704-7) Lab Interpretation Abnormal (test code = 02864-7) [facility]OVID[facility] (ID NOW RAPID TESTING)2020-08-26 21:35:50 Test Item Value Reference Range Interpretation Comments SARS-CoV-2 Rapid ID NOW Not Detected Not Detected (test code = 39859-4) NINI (test code = NINI) ID NOW COVID-19 Assay is an isothermal nucleic acid amplification test intended for the qualitative detection of nucleic acid from SARS-CoV-2 viral RNA in nasopharyngeal (MACHINE TOOL DESIGNER) specimens. It is used under Emergency Use [...] patient testing if clinically indicated. Lab Interpretation Normal (test code = 75378-7) [facility] Hospital[facility] - Peripheral [id number] 14:49:00 Test Item Value Reference Range Interpretation Comments Blood Culture-Aerobic Culture positive. No growth AA P revious (test code = 01703-6) See Blood Culture p reliminary Workup for verified result additional was Culture In information. Progress on 11/24/2018 at 203 3 CDT Blood Culture positive. No growth AA Previous Culture-Anaerobic See Blood Culture preli minary (test code = 97671-3) Workup for verifi ed result additional was Culture In information. Progress on 11/24/2018 at 010 1 CDT Lab Interpretation Abnormal (test code = 57848-7) [facility] WITH [id number] 11:36:00 Test Item Value Reference Range Interpretation Comments WBC (test code = See_Comment H [Automated 9690-2) message] The sy stem which generated this result transmitted reference range : 4.20 - 10.70 10*3/?L. The reference range was not used to interpret this result as normal/abnormal . RBC (test code = See_Comment L [Automated 689-8) message] The sy stem which generated this [...] RDW-SD (test code = 46.5 fL 38.5-51.6 91861-0) RDW-CV (test code = 13.4 % 12.1-15.4 788-0) PLT (test code = See_Comment [Automated 777-3) message] The sy stem which generated this result transmitted reference range : 150 - 328 10*3/ ?L. The reference r danay was not used to interpret this result as normal/abnormal . MPV (test code = 10.8 fL 9.8-13 92967-3) NRBC/100 WBC (test See_Comment [Automat ed code = 6639756349) message] The system which generated this result transmitted reference range : 0.0 - 10.0 /100 WBCs. The refer ence range was not u sed to interpret th is result as normal/abnormal . NRBC x10^3 (test code <0.01 See_Comment [Auto mated = [id number]) message] The s ystem which generated this result transmitted reference range : 10*3/?L. The reference range was not used to interpret this result as normal/abnormal . GRAN MAT (NEUT) % 70.7 % (test code = 770-8) IMM GRAN % (test code 0.70 % = [id number]) LYMPH % (test code = 15.8 % 736-9) MONO % (test code = 8.2 % 5905-5) EOS % (test code = 4.1 % 713-8) BASO % (test code = 0.5 % 706-2) GRAN MAT x10^3(ANC) 8.20 10*3/uL 1.99-6.95 H (test code = 0591197492) IMM GRAN x10^3 (test 0.08 10*3/uL 0-0.06 H code = 4553499230) LYMPH x10^3 (test code 1.83 10*3/uL 1.09-3.23 = 731-0) MONO x10^3 (test code 0.95 10*3/uL 0.36-1.02 = 742-7) EOS x10^3 (test code = 0.48 10*3/uL 0.06-0.53 711-2) BASO x10^3 (test code 0.06 10*3/uL 0.01-0.09 = 704-7) Lab Interpretation Abnormal (test code = 04300-8) [facility] METABOLIC PANEL (NA, K, CL, CO2, GLUCOSE, BUN, CREATININE, CA)2018-11-26 11:11:00 Test Item Value Reference Range Interpretation Comments NA (test code = 142 mmol/L 135-145 8529786669) K (test code = 3.5 mmol/L 3.5-5 3139260317) CL (test code = 109 mmol/L 98-108 H 4937569351) CO2 TOTAL (test code = 26 mmol/L 23-31 1026562652) AGAP (test code = 2-16 0482354037) BUN (test code = 18 mg/dL 7-23 3005456356) GLUCOSE (test code = 142 mg/dL 70-110 H 4197531805) CREATININE (test code = 0.93 mg/dL 0.6-1.25 3916557594) CALCIUM (test code = 8.2 mg/dL 8.6-10.6 L 0996732768) eGFR Calculation mL/min/1.73m2 (Non-) (test code = 2869537802) eGFR Calculation mL/min/1.73m2 () (test code = 1486875825) NINI (test code = NINI) Association of [...] tests). Lab Interpretation Abnormal (test code = 50912-1) [facility]. METABOLIC PANEL (54225)2018-11-25 12:02:00 Test Item Value Reference Range Interpretation Comments NA (test code = 141 mmol/L 135-145 7720449588) K (test code = 3.7 mmol/L 3.5-5 4814835030) CL (test code = 107 mmol/L 98-108 4047664469) CO2 TOTAL (test code = 26 mmol/L 23-31 5953268069) AGAP (test code = 2-16 4336948424) BUN (test code = 16 mg/dL 7-23 5984011105) GLUCOSE (test code = 172 mg/dL 70-110 H 1953711208) CREATININE (test code = 0.94 mg/dL 0.6-1.25 6383620664) TOTAL BILI (test code = 1.4 mg/dL 0.1-1.1 H 1905668749) CALCIUM (test code = 8.4 mg/dL 8.6-10.6 L 3501908867) T PROTEIN (test code = 6.4 g/dL 6.3-8.2 4225806681) ALBUMIN (test code = 3.3 g/dL 3.5-5 L 6866402286) ALK PHOS (test code = 53 U/L 34-122 2724160553) ALT(SGPT) (test code = 35 U/L 9-51 7540477345) AST(SGOT) (test code = 26 U/L 13-40 6078779442) eGFR Calculation mL/min/1.73m2 (Non-) (test code = 2408214415) eGFR Calculation mL/min/1.73m2 () (test code = 1955060168) NINI (test code = NINI) Association of [...] tests). Lab Interpretation Abnormal (test code = 08458-7) [facility] Test Item Value Reference Range Interpretation Comments MAGNESIUM (test code = 6761469465) 1.8 mg/dL 1.7-2.4 Lab Interpretation (test code = Normal 41454-0) [facility] [id number] 11:32:00 Test Item Value Reference Range Interpretation Comments WBC (test code = See_Comment H [Automated 8513-2) message] The system which generated this result transmit margy reference range : 4.20 - 10.70 10*3/?L. The reference range was not used to interpret this result as normal/abnormal . RBC (test code = See_Comment L [Automated 849-8) message] The system which generated this result [...] RDW-SD (test code = 45.7 fL 38.5-51.6 52069-1) RDW-CV (test code = 13.5 % 12.1-15.4 788-0) PLT (test code = See_Comment [Automated 777-3) message] The system which generated this result transmit margy reference range : 150 - 328 10*3/ ?L. The reference range was not u sed to interpret th is result as normal/abnormal . MPV (test code = 10.7 fL 9.8-13 91424-6) NRBC/100 WBC (test See_Comment [Automat ed code = 4874239039) message] The system which generated this result transmit margy reference range : 0.0 - 10.0 /100 WBCs. The reference range was not used to interpret this result as normal/abnormal . NRBC x10^3 (test code <0.01 See_Comment [Auto mated = 4493533748) message] The system which generated this result transmit margy reference range : 10*3/?L. The reference range was not used to interpret this result as normal/abnormal . GRAN MAT (NEUT) % 88.2 % (test code = 770-8) IMM GRAN % (test code 0.40 % = 9580858177) LYMPH % (test code = 6.0 % 736-9) MONO % (test code = 5.2 % 5905-5) EOS % (test code = 0.0 % 713-8) BASO % (test code = 0.2 % 706-2) GRAN MAT x10^3(ANC) 14.73 10*3/uL 1.99-6.95 H (test code = 7057551886) IMM GRAN x10^3 (test 0.06 10*3/uL 0-0.06 code = 7290006487) LYMPH x10^3 (test code 1.01 10*3/uL 1.09-3.23 L = 731-0) MONO x10^3 (test code 0.87 10*3/uL 0.36-1.02 = 742-7) EOS x10^3 (test code = <0.03 0.06-0.53 L 711-2) BASO x10^3 (test code 0.03 10*3/uL 0.01-0.09 = 704-7) Lab Interpretation Abnormal (test code = 96312-2) [facility]ENS DNA [id number] 09:53:00 Test Item Value Reference Range Interpretation Comments Coagulase Negative Positive Negative A Staphylococcus (test code = 78765-0) NINI (test code = NINI) Coagulase negative [...] contact the Antimicrobial Stewardship Program with questions.ASP Pager:?[phone] Testing included eleven identification and three resistance marker targets. Lab Interpretation Abnormal (test code = 92347-0) [facility] W [id number] 05:29:55 1.?Findings consistent with acute appendicitis.2.?Mild bladder wall thickening could be secondary to prostatomegaly. IKeri MD., have reviewed this study and [...] reviewed this study and agree with the abovereport.[facility] Whole [id number] 04:53:00 Test Item Value Reference Range Interpretation Comments LACTIC ACID (test code = 1.62 mmol/L 0.5-2.2 8878004175) Lab Interpretation (test code = Normal 83018-6) [facility] (NA, K, CL, CO2, GLUCOSE, BUN, CREATININE, CA)2018-11-24 02:40:00 Test Item Value Reference Range Interpretation Comments NA (test code = 141 mmol/L 135-145 2630838949) K (test code = 4.1 mmol/L 3.5-5 0261639706) CL (test code = 101 mmol/L 98-108 2397268017) CO2 TOTAL (test code = 27 mmol/L 23-31 5394024876) AGAP (test code = 2-16 2306836245) BUN (test code = 19 mg/dL 7-23 3638467218) GLUCOSE (test code = 110 mg/dL 70-110 0703095375) CREATININE (test code 0.77 mg/dL 0.6-1.25 = 2521080022) CALCIUM (test code = 8.9 mg/dL 8.6-10.6 9251144542) eGFR Calculation mL/min/1.73m2 (Non-) (test code = 3129653562) eGFR Calculation mL/min/1.73m2 () (test code = 5152152081) NINI (test code = NINI) Association of Glomerular Filtration Rate (GFR) and Staging of Kidney Disease*+ ---------+ --------+ +| GFR (mL/min/1.73 m2)?| With Kidney Damage?|?Without Kidney Damage+ -------+ ------+ ---------+|?>90?|?Stage one?|? Normal??+ ---------+ --------+ +|?60-89?|?S tage two?|? Decreased GFR? + -+ + ---+|?30-59?|?Stage [...] or urine or abnormalities in imaging tests). [facility] (ALB, T.PRO, BILI T, BU/BC, ALT, AST, ALK PHOS)2018-11-24 02:40:00 Test Item Value Reference Range Interpretation Comments TOTAL BILI (test code = 4432526132) 1.5 mg/dL 0.1-1.1 H BILI UNCON (test code = 5438602597) 1.3 mg/dL 0.1-1.1 H BILI CONJ (test code = 9416366726) 0.0 mg/dL 0-0.3 T PROTEIN (test code = 9397002763) 7.9 g/dL 6.3-8.2 ALBUMIN (test code = 6866690800) 4.5 g/dL 3.5-5 ALK PHOS (test code = 1734364165) 54 U/L 34-122 ALT(SGPT) (test code = 6190219183) 43 U/L 9-51 AST(SGOT) (test code = 8975250102) 46 U/L 13-40 H Lab Interpretation (test code = Abnormal 42064-1) [facility] HospitalLipase [id number] 02:40:00 Test Item Value Reference Range Interpretation Comments LIPASE (test code = 8507035551) 28 U/L 0-220 Lab Interpretation (test code = Normal 04132-0) [facility] HospitalUS GALL [id number] 01:49:05 Unremarkable right upper quadrant ultrasound. IKeri MD., have reviewed this study and agree with the abovereport.HISTORY: right upper quadrant pain . ABDOMINAL ULTRASOUND COMPARISON: CT abdomen and pelvis on 10/15/2014 FINDINGS: LIVER: The liver size is in physiologic upper limits rhizanqzb84 cm withnormal shape and unremarkable echo-texture. No intrahepatic biliarydilation or focal lesion.?Normal hepatopetal?flow within the main portalvein. GALLBLADDER: No cholelithiasis, pericholecystic fluid, or gallbladderdistention. Negative sonographic Mosley's sign. The gallbladder wallmeasures 3mm in thickness. The common bile duct measures 4 mm. PANCREAS: The visualized portions of the pancrea s are normal. No ascites. [facility], Radiant Results [...] thickness. The common bile duct measures 4 mm.PANCREAS: The visualized portions of the pancreas are normal.No ascites.IMPRESSIONUnremarkable right upper quadrant ultrasound.IDereck MD., have reviewed this study and agree with the abovereport.[facility] WITH [id number] 01:25:00 Test Item Value Reference Range Interpretation Comments WBC (test code = See_Comment H [Automated 6690-2) message] The system which generated this result [...] RDW-SD (test code = 45.9 fL 38.5-51.6 66729-7) RDW-CV (test code = 13.3 % 12.1-15.4 788-0) PLT (test code = See_Comment [Automated 777-3) message] The system which generated this result transmit margy reference range : 150 - 328 10*3/ ?L. The reference range was not u sed to interpret th is result as normal/abnormal . MPV (test code = 10.4 fL 9.8-13 54856-5) NRBC/100 WBC (test See_Comment [Automat ed code = 8624711602) message] The system which generated this result transmit margy reference range : 0.0 - 10.0 /100 WBCs. The reference range was not used to interpret this result as normal/abnormal . NRBC x10^3 (test code <0.01 See_Comment [Auto mated = 1506320784) message] The system which generated this result transmit margy reference range : 10*3/?L. The reference range was not used to interpret this result as normal/abnormal . GRAN MAT (NEUT) % 79.9 % (test code = 770-8) IMM GRAN % (test code 0.60 % = 5927072137) LYMPH % (test code = 11.5 % 736-9) MONO % (test code = 7.4 % 5905-5) EOS % (test code = 0.3 % 713-8) BASO % (test code = 0.3 % 706-2) GRAN MAT x10^3(ANC) 14.60 10*3/uL 1.99-6.95 H (test code = 4756221845) IMM GRAN x10^3 (test 0.11 10*3/uL 0-0.06 H code = 8419374694) LYMPH x10^3 (test code 2.10 10*3/uL 1.09-3.23 = 731-0) MONO x10^3 (test code 1.35 10*3/uL 0.36-1.02 H = 742-7) EOS x10^3 (test code = 0.05 10*3/uL 0.06-0.53 L 711-2) BASO x10^3 (test code 0.06 10*3/uL 0.01-0.09 = 704-7) Lab Interpretation Abnormal (test code = 59154-2) [facility] Whole [id number] 00:30:00 Test Item Value Reference Range Interpretation Comments LACTIC ACID (test code = 2.38 mmol/L 0.5-2.2 H 7601857868) Lab Interpretation (test code = Abnormal 81447-9) [facility]-REACTIVE [id number] 15:41:00 Test Item Value Reference Range Interpretation Comments CRP (test code = 4736750570) 0.3 mg/dL <0.8 Lab Interpretation (test code = Normal 95615-0) [facility]-REACTIVE [id number] 15:41:00 Test Item Value Reference Range Interpretation Comments CRP (test code = 5176161883) 0.3 mg/dL <0.8 Lab Interpretation (test code = Normal 09625-9) [facility] WITH [id number] 16:58:00 Test Item Value Reference Range Interpretation Comments WBC (test code = See_Comment H [Automated 6890-2) message] The sy stem which generated this result transmitted reference range : 4.20 - 10.70 10*3/?L. The reference range was not used to interpret this result as normal/abnormal . RBC (test code = See_Comment [Automated 519-8) message] The sy stem which generated this [...] RDW-SD (test code = 41.9 fL 38.5-51.6 40327-7) RDW-CV (test code = 12.7 % 12.1-15.4 788-0) PLT (test code = See_Comment H [Automated 777-3) message] The sy stem which generated this result transmitted reference range : 150 - 328 10*3/ ?L. The reference r danay was not used to interpret this result as normal/abnormal . MPV (test code = 11.1 fL 9.8-13 13418-1) NRBC/100 WBC (test See_Comment [Automat ed code = 7455616372) message] The system which generated this result transmitted reference range : 0.0 - 10.0 /100 WBCs. The refer ence range was not u sed to interpret th is result as normal/abnormal . NRBC x10^3 (test code <0.01 See_Comment [Auto mated = 8044856093) message] The s ystem which generated this result transmitted reference range : 10*3/?L. The reference range was not used to interpret this result as normal/abnormal . GRAN MAT (NEUT) % 59.8 % (test code = 770-8) IMM GRAN % (test code 0.40 % = 1802272254) LYMPH % (test code = 21.0 % 736-9) MONO % (test code = 8.1 % 5905-5) EOS % (test code = 9.4 % 713-8) BASO % (test code = 1.3 % 706-2) GRAN MAT x10^3(ANC) 6.67 10*3/uL 1.99-6.95 (test code = 6808028924) IMM GRAN x10^3 (test 0.04 10*3/uL 0-0.06 code = 2608487837) LYMPH x10^3 (test code 2.34 10*3/uL 1.09-3.23 = 731-0) MONO x10^3 (test code 0.90 10*3/uL 0.36-1.02 = 742-7) EOS x10^3 (test code = 1.05 10*3/uL 0.06-0.53 H 711-2) BASO x10^3 (test code 0.15 10*3/uL 0.01-0.09 H = 704-7) Lab Interpretation Abnormal (test code = 18412-1) [facility] WITH [id number] 16:58:00 Test Item Value Reference Range Interpretation Comments WBC (test code = See_Comment H [Automated 5390-2) message] The sy stem which generated this result transmitted reference range : 4.20 - 10.70 10*3/?L. The reference range was not used to interpret this result as normal/abnormal . RBC (test code = See_Comment [Automated 499-8) message] The sy stem which generated this [...] RDW-SD (test code = 41.9 fL 38.5-51.6 37666-3) RDW-CV (test code = 12.7 % 12.1-15.4 788-0) PLT (test code = See_Comment H [Automated 777-3) message] The sy stem which generated this result transmitted reference range : 150 - 328 10*3/ ?L. The reference r danay was not used to interpret this result as normal/abnormal . MPV (test code = 11.1 fL 9.8-13 50324-0) NRBC/100 WBC (test See_Comment [Automat ed code = 5856992950) message] The system which generated this result transmitted reference range : 0.0 - 10.0 /100 WBCs. The refer ence range was not u sed to interpret th is result as normal/abnormal . NRBC x10^3 (test code <0.01 See_Comment [Auto mated = 5722790996) message] The s ystem which generated this result transmitted reference range : 10*3/?L. The reference range was not used to interpret this result as normal/abnormal . GRAN MAT (NEUT) % 59.8 % (test code = 770-8) IMM GRAN % (test code 0.40 % = 8294619568) LYMPH % (test code = 21.0 % 736-9) MONO % (test code = 8.1 % 5905-5) EOS % (test code = 9.4 % 713-8) BASO % (test code = 1.3 % 706-2) GRAN MAT x10^3(ANC) 6.67 10*3/uL 1.99-6.95 (test code = 2214504169) IMM GRAN x10^3 (test 0.04 10*3/uL 0-0.06 code = 3364283621) LYMPH x10^3 (test code 2.34 10*3/uL 1.09-3.23 = 731-0) MONO x10^3 (test code 0.90 10*3/uL 0.36-1.02 = 742-7) EOS x10^3 (test code = 1.05 10*3/uL 0.06-0.53 H 711-2) BASO x10^3 (test code 0.15 10*3/uL 0.01-0.09 H = 704-7) Lab Interpretation Abnormal (test code = 09316-2) [facility] Progress Notes Date/Time Note Provider Source 2022-08-18 Formatting of this note might be differe nt from the original. Samantha Dietz [facility] 09:45:00-00:00 Notified patient of test res ults/recommendations per INES Estrada. Patient gave verbal understanding via teach back. No further questions at this time per patient. Instructed patient to call clinic should they have questions at another time. CH[facility]IS Notes Date/Time Note Provider Source 2022-08-18 09:45:00-00:00 Addended by: ERIKA KNOX MA on: 10/08/2022 10:21 AM [facility] Knox [facility]: Orders Electronically signed by Erika Knox MA at 10:21 AM CDT"
[2022-11-04] MEDS ORDERED: KETOROLAC 30 MG/ML INJ ONE (19:59)
[2022-11-04] MEDS ORDERED: HYDROCODONE/APAP 7.5/325 MG TAB ONE (19:59)
[2022-11-04] MEDS ORDERED: CYCLOBENZAPRINE 10 MG TAB ONE (19:59)
--- NOTE | 2022-11-04 20:18 | RAD REPORT ---
EXAM DESCRIPTION: CT - CTHCSPWOC - 11/04/2022 8:04 pm CLINICAL HISTORY: Trauma, head and neck injury. neck pain;Headache COMPARISON: No comparisons TECHNIQUE: Axial 5 mm thick images of the head were obtained. Axial 2 mm thick images of the cervical spine were obtained with sagittal and coronal reconstruction images generated and reviewed. All CT scans are performed using dose optimization technique as appropriate and may include automated exposure control or mA/KV adjustment according to patient size. FINDINGS: CT HEAD WITHOUT CONTRAST: No acute hemorrhage, hydrocephalus or extra-axial collection is identified.No areas of brain edema or midline shift. The paranasal sinuses and mastoids are clear.The calvarium is intact. CT CERVICAL SPINE WITHOUT CONTRAST: No fracture or subluxation.No prevertebral soft tissues swelling is identified. Multilevel degenerati ve changes are present in the spine. IMPRESSION: No acute intracranial or cervical spine findings.
--- NOTE | 2022-11-04 22:17 | ER ---
Nurse's Notes [facility] Name: Henry Elliott Age: 61 yrs Sex: Male : 1960 Arrival Date: 11/04/2022 Time: 18:55 Bed 6 Private MD: Diagnosis: Headache;Cervicalgia Presentation: 11/04 19:14 Chief complaint: Patient states: Headache X4-5 years and neck pain X1 month. Pt saw PCP cm10 for neck pain "and he told me that it was because I was old." Pt states that he came in today because he is "tired of having these headaches everyday." No nausea, vomiting, or blurred vision. Coronavirus screen: Vaccine status: Patient reports being unvaccinated. Client denies travel out of the [place] in the last 14 days. Ebola Screen: Patient denies travel to an Ebola-affected area in the 21 days before illness onset. No symptoms or risks identified at this time. Acute neurological deficit: none identified. Initial Sepsis Screen: Does the patient meet any 2 criteria? No. Patient's initial sepsis screen is negative. Does the patient have a suspected source of infection? No. Patient's initial sepsis screen is negative. Risk Assessment: Do you want to hurt yourself or someone else? Patient reports no desire to harm self or others. Onset of symptoms is unknown. 19:14 Method Of Arrival: Ambulatory cm10 19:14 Acuity: TOMMY 3 cm10 Historical: - Allergies: 19:17 No Known Allergies; cm10 - PMHx: 19:17 cluster headaches; headache; Hypertensive disorder; cm10 - PSHx: 19:17 Appendectomy; elbow repair; hernia repair; cm10 - Immunization history:: Adult Immunizations unknown. - Social history:: Smoking status: Patient denies any tobacco usage or history of. Patient uses street drugs, marijuana. Screenin:33 [facility] ED Fall Risk Assessment (Adult) Score/Fall Risk Level 0 - 2 = Low Risk. Abuse as6 screen: Denies threats or abuse. Denies injuries from another. Nutritional screening: No deficits noted. Tuberculosis screening: No symptoms or risk factors identified. Assessment: 19:33 General: Appears in no apparent distress. Behavior is calm, cooperative. Pain: as6 Complains of pain in head Quality of pain is described as aching. Neuro: Level of Consciousness is awake, alert, obeys commands, Oriented to person, place, time, situation, Reports headache. Cardiovascular: Capillary refill < 3 seconds Patient's skin is warm and dry. Respiratory: Respiratory effort is even, unlabored, Respiratory pattern is regular, symmetrical. Musculoskeletal: Reports pain in neck. 20:35 Reassessment: Patient appears in no apparent distress at this time. Patient and/or as6 family updated on plan of care and expected duration. Pain level reassessed. Patient is alert, oriented x 3, equal unlabored respirations, skin warm/dry/pink. 22:25 Reassessment: Patient states feeling better. Patient states symptoms have improved. as6 Vital Signs: 19:14 BP 132 / 89; Pulse 87; Resp 16; Temp 99.8; Pulse Ox 100% ; Weight 83.91 kg; Height 5 cm10 ft. 5 in. ; Pain 7/10; 19:33 BP 117 / 78; Pulse 83; Resp 18 S; Pulse Ox 96% on R/A; as6 20:35 BP 124 / 88; Pulse 76; Resp 18 S; Pulse Ox 97% on R/A; as6 22:24 BP 124 / 72; Pulse 74; Resp 18 S; Pulse Ox 99% on R/A; as6 19:14 Body Mass Index 30.79 (83.91 kg, 165.1 cm) cm10 19:14 Pain Scale: Adult cm10 ED Course: 18:57 Patient arrived in ED. rg4 19:17 Triage completed. cm10 19:18 Arm band placed on Patient placed in an exam room. cm10 19:27 Eitan Haas, SUJEY is Primary Nurse. as6 19:29 Donta Waller PA is PHCP. cp 19:29 Yoesf Ayala MD is Attending Physician. cp 19:33 Bed in low position. Call light in reach. Side rails up X 1. as6 20:05 CT Head C Spine In Process Unspecified. EDMS 22:24 Provided Education on: medication teaching. as6 22:24 No provider procedures requiring assistance completed. Patient did not have IV access as6 during this emergency room visit. Administered Medications: 19:52 Drug: Ketorolac IM 30 mg Route: IM; Site: right deltoid; as6 22:25 Follow up: Response: No adverse reaction as6 19:52 Drug: Hydrocodone-Acetaminophen PO (7.5 mg-325 mg) 1 tabs Route: PO; as6 22:25 Follow up: Response: No adverse reaction; RASS: Alert and Calm (0) as6 19:53 Drug: Cyclobenzaprine PO 10 mg Route: PO; as6 22:25 Follow up: Response: No adverse reaction as6 Medication: 19:33 VIS not applicable for this client. as6 Outcome: 22:16 Discharge ordered by . elier 22:25 Discharged to home ambulatory. as6 22:25 Condition: stable 22:25 Discharge instructions given to patient, Instructed on discharge instructions, follow up and referral plans. medication usage, Demonstrated understanding of instructions, follow-up care, medications, Prescriptions given X 3. 22:25 Patient left the ED. as6 Signatures: Dispatcher [employer] EDMS Donta Waller PA PA cp Garcia, Rubi rg4 Eitan Haas RN RN as6 Ashleigh Witt RN RN cm10
--- NOTE | 2022-11-04 22:17 | EDPHYS ---
Physician Documentation [facility] Name: Henry Elliott Age: 61 yrs Sex: Male : 1960 Arrival Date: 11/04/2022 Time: 18:55 Bed 6 Private MD: ED Physician Yosef Ayala HPI: 11/04 20:00 This 61 yrs old Male presents to ER via Ambulatory with complaints of Neck Pain, <24hrs cp Old, Headache. 20:00 Patient is a 61-year-old man with a past medical history significant for cluster type cp headaches and hypertension. Patient presents to the emergency room with complaints of headache that has had for the last 4 to 5 years and that he sees neurology for. Patient reports neck pain over the past month but denies any trauma. Patient denies fever, chills, sweats. Reports paresthesias of hands but has been told in the past this is due to carpal tunnel but has not followed up. Historical: - Allergies: 19:17 No Known Allergies; cm10 - PMHx: 19:17 cluster headaches; headache; Hypertensive disorder; cm10 - PSHx: 19:17 Appendectomy; elbow repair; hernia repair; cm10 - Immunization history:: Adult Immunizations unknown. - Social history:: Smoking status: Patient denies any tobacco usage or history of. Patient uses street drugs, marijuana. ROS: 20:05 Constitutional: Negative for body aches, chills, fever, poor PO intake. cp 20:05 Eyes: Negative for injury, pain, redness, and discharge. cp 20:05 ENT: Negative for drainage from ear(s), ear pain, sore throat, difficulty swallowing, difficulty handling secretions. 20:05 Neck: Positive for pain with movement, pain at rest, Negative for stiffness. 20:05 Cardiovascular: Negative for chest pain, edema, palpitations. 20:05 Respiratory: Negative for cough, shortness of breath, wheezing. 20:05 Abdomen/GI: Negative for abdominal pain, nausea, vomiting, and diarrhea. 20:05 Back: Negative for pain at rest, pain with movement. 20:05 Neuro: Positive for headache, numbness, Negative for altered mental status, dizziness, weakness. 20:05 All other systems are negative. Exam: 20:10 Constitutional: The patient appears in no acute distress, alert, awake, cp non-diaphoretic, non-toxic, well developed, well nourished. 20:10 Head/Face: Normocephalic, atraumatic. cp 20:10 Eyes: Periorbital structures: appear normal, Pupils: equal, round, and reactive to light and accomodation, Extraocular movements: intact throughout, Conjunctiva: normal, no exudate, no injection, Sclera: no appreciated abnormality, Lids and lashes: appear normal, bilaterally. 20:10 ENT: External ear(s): are unremarkable, Nose: is normal, Mouth: Lips: moist, Oral mucosa: moist, Posterior pharynx: is normal, airway is patent, no erythema, no exudate. 20:10 Neck: C-spine: vertebral tenderness, is not appreciated, crepitus, is not appreciated, ROM/movement: pain, that is mild, with any movement, limited range of motion, is not appreciated, Meningeal signs: are not present, nuchal rigidity, is not appreciated. 20:10 Chest/axilla: Inspection: normal. 20:10 Cardiovascular: Rate: normal, Rhythm: regular, Edema: is not appreciated, JVD: is not appreciated. 20:10 Respiratory: the patient does not display signs of respiratory distress, Respirations: normal, no use of accessory muscles, no retractions, labored breathing, is not present, Breath sounds: are clear throughout, no decreased breath sounds, no stridor, no wheezing. 20:10 Abdomen/GI: Exam negative for discomfort, distension, guarding, Inspection: abdomen appears normal. 20:10 Back: CVA tenderness, is absent, vertebral tenderness, is not appreciated. 20:10 Neuro: Orientation: to person, place \T\ time. Mentation: is normal, Motor: moves all fours, strength is normal, Sensation: is normal. Vital Signs: 19:14 BP 132 / 89; Pulse 87; Resp 16; Temp 99.8; Pulse Ox 100% ; Weight 83.91 kg; Height 5 cm10 ft. 5 in. ; Pain 7/10; 19:33 BP 117 / 78; Pulse 83; Resp 18 S; Pulse Ox 96% on R/A; as6 20:35 BP 124 / 88; Pulse 76; Resp 18 S; Pulse Ox 97% on R/A; as6 22:24 BP 124 / 72; Pulse 74; Resp 18 S; Pulse Ox 99% on R/A; as6 19:14 Body Mass Index 30.79 (83.91 kg, 165.1 cm) cm10 19:14 Pain Scale: Adult cm10 MDM: 19:30 Patient medically screened. cp 20:00 Differential diagnosis: bacterial meningitis, Cervical Disc Herniation Cervical cp Raiculopathy Spondylolisthesis torticollis. 22:15 Data reviewed: vital signs, nurses notes, radiologic studies, CT scan. cp 22:15 I considered the following discharge prescriptions or medication management in the cp emergency department Medications were administered in the Emergency Department. See MAR. Counseling: I had a detailed discussion with the patient and/or guardian regarding the historical points, exam findings, and any diagnostic results supporting the discharge/admit diagnosis, radiology results, the need for outpatient follow up, a neurosurgeon, a facilities painter, to return to the emergency department if symptoms worsen or persist or if there are any questions or concerns that arise at home. Response to treatment: the patient's symptoms have markedly improved after treatment, and as a result, I will discharge patient. 11/04 19:40 Order name: CT Head C Spine; Complete Time: 21:56 cp 11/04 19:40 Order name: Misc. Order: if patient has ride may give muscle relaxer and pain cp medication; Complete Time: 19:52 Administered Medications: 19:52 Drug: Ketorolac IM 30 mg Route: IM; Site: right deltoid; as6 22:25 Follow up: Response: No adverse reaction as6 19:52 Drug: Hydrocodone-Acetaminophen PO (7.5 mg-325 mg) 1 tabs Route: PO; as6 22:25 Follow up: Response: No adverse reaction; RASS: Alert and Calm (0) as6 19:53 Drug: Cyclobenzaprine PO 10 mg Route: PO; as6 22:25 Follow up: Response: No adverse reaction as6 Disposition Summary: 11/04/22 22:16 Discharge Ordered Location: Home cp Problem: chronic cp Symptoms: have improved cp Condition: Stable cp Diagnosis - Headache cp - Cervicalgia cp Followup: cp - With: Private Physician - When: 2 - 3 days - Reason: Recheck today's complaints Discharge Instructions: - Discharge Summary Sheet cp - Tension Headache, Adult cp Forms: - Medication Reconciliation Form cp - Thank You Letter cp - Antibiotic Education cp - Prescription Opioid Use cp - Patient Portal Instructions cp - Leadership Thank You Letter cp Prescriptions: - Cyclobenzaprine 10 mg Oral Tablet - take 1 tablet by ORAL route every 8 hours As needed; 20 tablet; Refills: 0, cp Product Selection Permitted - Diclofenac Sodium 75 mg Oral Tablet Sustained Release - take 1 tablet by ORAL route 2 times per day; 30 tablet; Refills: 0, Product cp Selection Permitted - Medrol (Benson) 4 mg Oral Tablets, Dose Pack - take 1 tablet by ORAL route as directed - follow package instructions; 1 cp packet; Refills: 0, Product Selection Permitted Addendum: 11/07/2022 20:39 Co-signature as Attending Physician, Yosef Ayala MD I reviewed the patient's care r t provided by the Advanced Practice Provider and agree with the diagnosis and treatment plan. Signatures: Dispatcher [employer] [facility] Donta Waller PA PA cp Slawson, Ashby, RN RN as6 Yosef Ayala MD MD rt Ashleigh Witt RN RN cm10
[2022-11-04 23:19] VITALS: TEMP 99.8
[2022-11-04 23:24] VITALS: BP 124/72; O2SAT 99
== END 2022-11-04 22:25 | disposition home or self-care (01) ==
LOC: ER 18:55
DX: R51.9 Headache, unspecified (principal); M54.2 Cervicalgia; I10 Essential (primary) hypertension
CPT/HCPCS: 70450; 72125; 96372; 99284

== ENCOUNTER 2024-12-20 11:03 | Emergency (ER) | payer OTHER ==
--- OUTSIDE RECORDS SUMMARY | 2024-12-20 11:11 | XMS REPORT | Continuity of Care Document ---
Author Name Unknown Address [address] [facility] [place] [address] [facility] Address [address] [facility] [place] [address] Care Team Providers Care Classroom Technology Technician Name Role Phone SCARLETT JAMES Primary Care Physician Unavail able Matteo Carrillo MD Attending Clinician U magaly Doctor Unassigned, [place] Attending Clinician U RACHAEL Silver Attending Clinician Unavailable KADEN DIAZ Attending Clinician Unavailable Deangelo Mederos MD Attending Clinician NEREYDA BRASHER Attending Clinician Unavailab Kaden Allen MD Attending Clinician [phone] DEANGELO MEDEROS Attending Clinician UnavailDEANGELO Jimenez Attending Clinician Unavailmarciano mcqueen , [facility] Sleep Lab Bed Attending Clinician Unavail able Shira López Attending Clinician [phone] SHIRA FARLEY Attending Clinician Unavailable FINN ALVARADO Attending Clinician Unavailable Mirtha Gray Attending Clinician [phone] MIRTHA ESTRADA Attending Clinician UnavailFinn Driver MD Attending Clinician [phone] Swartz, Cardiology - Clear Attending Clinician Hali vailable IHSAN ANDRADE Attending Clinician Unavaila ble Raymond GOLF COURSE RANGER, Ihsan F Attending Clinician [phone] HÉCTOR BOYD Attending Clinician Unavail able HÉCTOR BOYD Attending Clinician Unavail able Héctor Boyd MD Attending Clinician [phone] JUAN DIEGO MCRAE Attending Clinician Unavailable Jacob PRESTON, Scarlett Attending Clinician [phone] SCARLETT JAMES Attending Clinician Unavailabl e Only, Adc Test Attending Clinician Unavailable CONY ARRINGTON Attending Clinician Unavailable 2, [facility] Lab Attending Clinician Unavailable Juan Diego Mcrae MD Attending Clinician [phone] Provider, [facility] Attending Clinician Un available Anene GOLF COURSE RANGER, Siena Attending Clinician [phone] Max RN, Di L Attending Clinician Unavail able Zora Rodríguez MD Attending Clinician [phone] Jose Cook MD Attending Clinician [phone] Woody Sampson MD Attending Clinician [phone] MIRTHA ESTRADA Admitting Clinician Unavaila IHSAN Miller Admitting Clinician Unavaila Jose Sultana MD Admitting Clinician [phone] Payers Payer Name Policy Type Policy Number Effective Date Expirati on Date Source [facility] [id number] 2017 00:00:00 Problems Condition Name Condition Details Condition Category Status Onset Date Resolution Date Last Treatment Date Treating Clinician Comments Source Essential hypertensi on Essential hypertensi on Disease Active 2019-03 0 00:00: 00 [facility] Chronic cluster headache, not intractabl e Chronic cluster headache, not intractabl e Disease Active 2019-03 0- 00:00: 00 [facility] Arthritis Arthritis Disease Active 2019-03 0 00:00: 00 [facility] Actinic keratosis due to exposure to sunlight Actinic keratosis due to exposure to sunlight Disease Active 2019-03 0- 00:00: 00 [facility] Ex-smoker Ex-smoker Disease Active 2019-03 0 00:00: 00 [facility] Need for influenza vaccinatio n Need for influenza vaccinatio n Disease Active 2019-03 0 00:00: 00 [facility] Need for hepatitis C screening test Need for hepatitis C screening test Disease Active 2019-03 0 00:00: 00 [facility] Screening for malignant neoplasm of colon Screening for malignant neoplasm of colon Disease Active 2019-03 0 00:00: 00 [facility] Infection Infection Disease Active 11-25 00:00: 00 [facility] JOSHUA (acute kidney injury) JOSHUA (acute kidney injury) Disease Active 11-23 00:00: 00 [facility] JOSHUA (acute kidney injury) JOSHUA (acute kidney injury) Disease Active 11-23 00:00: 00 [facility] Acute appendicit is Acute appendicit is Disease Active 11-23 00:00: 00 [facility] Groin hematoma Groin hematoma Disease Active 10-14 00:00: 00 [facility] Obesity (BMI 30-39.9) Obesity (BMI 30-39.9) Disease Active 10-14 00:00: 00 [facility] Ventral hernia without obstructio n or gangrene Ventral hernia without obstructio n or gangrene Disease Active 09-13 00:00: 00 [facility] Ventral hernia without obstructio n or gangrene Ventral hernia without obstructio n or gangrene Disease Active 09-13 00:00: 00 [facility] Inguinal hernia with incarcerat ion Inguinal hernia with incarcerat ion Disease Active 09-12 00:00: 00 Overview: Formattin g of this note might be different from the original. Added automatic ally from request for surgery [id number] [facility] Inguinal hernia with incarcerat ion Inguinal hernia with incarcerat ion Disease Active 09-12 00:00: 00 Overview: Formattin g of this note might be different from the original. Added automatic ally from request for surgery [id number] [facility] Inguinal hernia with incarcerat ion Inguinal hernia with incarcerat ion Disease Active 09-12 00:00: 00 Overview: Added automatic ally from request for surgery [id number] [facility] Allergies, Adverse Reactions, Alerts Allergy Name Allergy Type Status Severity Reaction(s) Onset Date Inactive Date Treating Clinician Comments Source NO KNOWN ALLERGIE S Drug Class Active [facility] Social History Social Habit Start Date Stop Date Quantity Comments Source [facility] History of tobacco use Cigarette Smoker [facility] Alcohol intake 2022-12-10 00:00:00 2022-12-10 00:00:00 Current non-drinker of alcohol (finding) [facility] Exposure to SARS-CoV-2 (event) 2022-08-08 00:00:00 2022-08-18 09:36:00 Not sure [facility] History of Social function 2022-07-30 00:00:00 2022-07-30 00:00:00 [facility] Alcoholic beverage intake 2018-11-24 00:00:00 2018-11-24 00:00:00 Current non-drinker of alcohol (finding) [facility] History SDOH Financial 2018-11-24 00:00:00 2018-11-24 00:00:00 5 [facility] History SDOH Food Worry 2018-11-24 00:00:00 2018-11-24 00:00:00 1 [facility] History SDOH Food Scarcity 2018-11-24 00:00:00 2018-11-24 00:00:00 1 [facility] History SDOH Transport Med 2018-11-24 00:00:00 2018-11-24 00:00:00 2 [facility] History SDOH Transport Non-Med 2018-11-24 00:00:00 2018-11-24 00:00:00 2 [facility] Tobacco use and exposure 2017-08-30 00:00:00 2017-08-30 00:00:00 Smokeless tobacco non-user [facility] Tobacco Comment 2017-08-30 00:00:00 2017-08-30 00:00:00 2015 [facility] Sex assigned at 1960 00:00:00 1960 00:00:00 [facility] Smoking Status Start Date Stop Date Source Ex-smoker 2017-08-30 00:00:00 2017-08-30 00:00:00 U [facility] Medications Ordered Medication Name Filled Medication Name Start Date Stop Date Current Medication? Ordering Clinician Indication Dosage Frequency Signature (SIG) Comments Components Source topiramate 50 mg tablet 12-17 00:00: 00 Yes [id number] Take half tablet orally twice daily x 7 days then increase to 1 tablet twice daily [facility] meloxicam 15 mg tablet 12-10 00:00: 00 Yes [id number] 15mg Take 1 tablet by mouth in the morning. [facility] topiramate 25 mg tablet 12-10 00:00: 00 12-17 00:00 :00 No [id number] Take 1 tablet by mouth 2 (two) times daily for 7 days, THEN 2 tablets 2 (two) times daily for 21 days. [facility] cyclobenzap rine 5 mg tablet 10-14 00:00: 00 12-10 00:00 :00 No [id number] 5mg Take 1 tablet by mouth 2 (two) times daily as needed for Muscle Spasms. [facility] iopamidol (ISOVUE 370-500 mL) injection 110 mL 08-25 18:30: 00 08-25 17:45 :00 No [id number] 110mL 110 mL, Intravenou s, ONCE, 1 dose, On Tue08/25/22 at 1330, Routine [facility] cefTRIAXone (ROCEPHIN) 1,000 mg in NaCl 0.9% (NS) 100 mL MINI-BAG 08-01 01:45: 00 08-01 02:05 :00 No 1000mg 1,000 mg, IV Piggyback, ONCE, 1 dose, On Tue07/31/22 at 2045, Administer over 30 Minutes, 100 mL
Reas on for Anti-Infec tive: Documented Infection< br>Documen margy Infection Site: Urine
D uration of Therapy: 7 days [facility] NaCl 0.9% (NS) bolus infusion 1,000 mL 07-31 22:15: 00 07-31 23:44 :00 No 1000mL at 999 mL/hr, 1,000 mL, IV Infusion, ONCE, 1 dose, On 07/31/22 at 1715, MILAN [facility] cefdinir 300 mg capsule 07-31 00:00: 00 08-11 04:59 :00 No [id number] 300mg Take 1 capsule by mouth every 12 (twelve) hours for 10 days. [facility] aspirin 81 mg chewable tablet 07-30 15:34: 01 07-30 00:00 :00 No 162mg Take 162 mg by mouth daily. [facility] nortriptyli ne 50 mg capsule 2021-03 00:00: 00 10-14 00:00 :00 No [id number] Take one tablet (25mg) by mouth for 10 days, then taken 2 tablets (50mg) by mouth for now on out. [facility] nortriptyli ne 25 mg capsule 12-15 00:00: 00 12-29 00:00 :00 No Take one tablet (25mg) by mouth for 10 days, then taken 2 tablets (50mg) by mouth for now on out. [facility] nortriptyli ne 25 mg capsule 10-31 00:00: 00 12-15 00:00 :00 No Take one tablet (25mg) by mouth for 10 days, then taken 2 tablets (50mg) by mouth for now on out. [facility] ketorolac 10 mg tablet 07-25 00:00: 00 09-04 00:00 :00 No [id number] 10mg Take 1 tablet by mouth every 8 (eight) hours. [facility] metoclopram eunice HCl 10 mg tablet 07-25 00:00: 00 09-04 00:00 :00 No [id number] 10mg Take 1 tablet by mouth every 6 (six) hours. [facility] lisinopriL- hydrochloro thiazide 10-12.5 mg per tablet 06-04 00:00: 00 12-29 00:00 :00 No [id number] 1{tbl} Take 1 tablet by mouth daily. [facility] lisinopriL- hydrochloro thiazide 10-12.5 mg per tablet 2019-03 00:00: 00 06-04 00:00 :00 No [id number] 1{tbl} Take 1 tablet by mouth daily. [facility] aspirin 81 mg chewable tablet 11-08 18:42: 33 Yes 162mg Take 162 mg by mouth daily. [facility] aspirin 81 mg chewable tablet 11-08 13:42: 33 Yes 162mg Take 162 mg by mouth daily. [facility] venlafaxine 75 mg tablet 2018-03 00:00: 00 06-09 00:00 :00 No [id number] 75mg Take 1 tablet by mouth daily. [facility] INDOMETHACI N 50 mg capsule 2018-03 00:00: 00 06-09 00:00 :00 No [id number] 50mg TAKE 1 CAPSULE BY MOUTH 3 (THREE) TIMES DAILY WITH MEALS. [facility] hydroCHLORO thiazide 25 mg tablet 11-28 00:00: 12-20 00:00 :00 No [id number] 25mg Take 1 tablet by mouth daily. [facility] indomethaci n 50 mg capsule 11-27 00:00: 00 Yes [id number] 50mg Take 1 capsule by mouth 3 (three) times daily with meals. [facility] traMADol 50 mg tablet 11-27 00:00: 00 09-04 00:00 :00 No [id number] 50mg Take 1 tablet by mouth every 6 (six) hours as needed for Pain (scale 1-3). [facility] amoxicillin -clavulanat e (AUGMENTIN) 875-125 mg per tablet 11-27 00:00: 00 12-20 00:00 :00 No [id number] 1{tbl} Take 1 tablet by mouth 2 (two) times daily. [facility] ity [facility] aspirin 81 mg chewable tablet 11-26 16:28: 08 Yes 162mg Take 162 mg by mouth daily. [facility] ity [facility] amoxicillin -clavulanat e (AUGMENTIN) 875-125 mg per tablet 11-26 00:00: 00 11-27 00:00 :00 No [id number] 1{tbl} Take 1 tablet by mouth 2 (two) times daily for 5 days. [facility] it[facility] traMADol 50 mg tablet 11-26 00:00: 00 11-27 00:00 :00 No [id number] 50mg Take 1 tablet by mouth every 6 (six) hours as needed for Pain (scale 1-3). [facility] it[facility] enoxaparin (LOVENOX) injection 40 mg 11-25 21:00: 00 Yes 40mg 40 mg, Subcutaneo us, Q24H, First dose on 11/25/18 at 1600, Until Discontinu ed, Routine [facility] D5W 0.45% NaCl (1/2NS) 1 L + KCL 20 mEq 11-25 16:30: 00 Yes IV Infusion, at 75 mL/hr, CONTINUOUS , Starting 11/25/18 at 1130, Until Discontinu ed, Routine [facility] pantoprazol e (PROTONIX) EC tablet 40 mg 11-25 14:00: 00 Yes 40mg 40 mg, Oral, DAILY, First dose on 11/25/18 at 0900, Until Discontinu ed, Routine [facility] acetaminoph en (TYLENOL) tablet 650 mg 11-25 05:00: 00 Yes 650mg 650 mg, Oral, Q6H, First dose on 11/25/18 at 0000, Until Discontinu ed, Routine [facility] ibuprofen (IBU) tablet 600 mg 11-25 05:00: 00 Yes 600mg 600 mg, Oral, Q6H, First dose on 11/25/18 at 0000, Until Discontinu ed, Routine [facility] D5W 0.45% NaCl (1/2NS) 1 L + KCL 20 mEq 11-25 00:30: 00 11-25 15:02 :29 No IV Infusion, at 75 mL/hr, CONTINUOUS , Starting Tue11/24/18 at 1930, Until Tue11/25/18 at 1002, Routine [facility] morpHINE injection 2 mg 11-24 23:15: 00 Yes 2mg 2 mg, Slow IV Push, Q6HPRN, Starting Tue11/24/18 at 1815, Until Discontinu ed, Routine, Pain (scale 7-10), Breakthrou gh Pain (scale 4-10) [facility] traMADol (ULTRAM) tablet 100 mg 11-24 23:10: 41 Yes 100mg 100 mg, Oral, Q6HPRN, Starting Tue11/24/18 at 1810, Until Discontinu ed, Routine, Pain (scale 4-6) [facility] traMADol (ULTRAM) tablet 50 mg 11-24 23:10: 28 Yes 50mg 50 mg, Oral, Q6HPRN, Starting Tue11/24/18 at 1810, Until Discontinu ed, Routine, Pain (scale 1-3) [facility] indomethaci n (INDOCIN) capsule 50 mg 11-24 13:00: 00 Yes 50mg 50 mg, Oral, BID MEALS, First dose on Tue11/24/18 at 0800, Until Discontinu ed, Routine [facility] aspirin chewable tablet 81 mg 11-24 13:00: 00 Yes 81mg 81 mg, Oral, QAM WITH BREAKFAST, First dose on Tue11/24/18 at 0800, Until Discontinu ed, [facility]COLACE[facility] 100 mg 11-24 13:00: 00 Yes 100mg 100 mg, Oral, BID, First dose on Tue11/24/18 at 0800, Until Discontinu ed, Routine [facility] acetaminoph en (TYLENOL) tablet 650 mg 11-24 09:48: 56 11-24 23:11 :49 No 650mg 650 mg, Oral, Q8HPRN, Starting Tue11/24/18 at 0448, Until Tue11/24/18 at 181, Routine, Pain (scale 1-3), Temp > 38.5 C [facility] piperacilli n-tazobacta m (ZOSYN) 3.375 gram/50 mL Piggyback 3.375 g 11-24 09:00: 00 Yes 3.375g 3.375 g, IV Piggyback, Q6H ABX, First dose on Tue11/24/18 at 0400, Until Discontinu ed, 50 mL
Reas on for Anti-Infec tive: Documented Infection< br>Documen margy Infection Site: Abdominal< br>Duratio n of Therapy: 7 days [facility] lactated ringers IV infusion 1,000 mL 11-24 09:00: 00 11-24 23:25 :15 No 1000mL at 125 mL/hr, 1,000 mL, IV Infusion, CONTINUOUS , Starting Tue11/24/18 at 0400, Until Tue11/24/18 at 1825, Routine [facility] lactobacill us acidophilus (ACIDOPHILL US) 25 million cell -100 mg captab 1 tablet 11-24 08:00: 00 Yes 1{tbl} 1 tablet, Oral, QID, First dose on Tue11/24/18 at 0300, Until Discontinu ed, Routine [facility] ondansetron (ZOFRAN (PF)) injection 4 mg 11-24 07:56: 14 Yes 4mg 4 mg, Slow IV Push, Q6HPRN, Starting Tue11/24/18 at 0256, Until Discontinu ed, Routine, Nausea and Vomiting (N/V) [facility] morpHINE injection 2 mg 11-24 07:55: 18 11-24 23:11 :49 No 2mg 2 mg, Slow IV Push, Q2HPRN, Starting Tue11/24/18 at 0255, Until Tue11/24/18 at 181, Routine, Pain (scale 7-10), Breakthrou gh Pain (scale 4-10) [facility] morpHINE injection 4 mg 11-24 04:30: 00 11-24 03:20 :00 No 4mg 4 mg, Slow IV Push, ONCE, 1 dose, Corinne 11/23/18 at 2330, STAT [facility] vancomycin 1 g in NS 200 mL RTU IV Piggyback 1 g 11-24 04:00: 00 11-24 04:51 :00 No 1g 1 g, IV Piggyback, ONCE, 1 dose, Corinne 11/23/18 at 2300
Re ason for Anti-Infec tive: Documented Infection< br>Documen margy Infection Site: Abdominal< br>Duratio n of Therapy: 7 days [facility] iohexol (OMNIPAQUE 350 BULK-150 mL) injection 120 mL 11-24 03:15: 00 11-24 03:15 :00 No 120mL 120 mL, Intravenou s, ONCE, 1 dose, Corinne 11/23/18 at 2215, Routine [facility] piperacilli n-tazobacta m (ZOSYN) 4.5 gram/100 mL RTU Piggyback 4.5 g 11-24 02:00: 00 11-24 03:04 :00 No 4.5g 4.5 g, IV Piggyback, ONCE, 1 dose, Corinne 11/23/18 at 2100, 100 mL
Reas on for Anti-Infec tive: Documented Infection< br>Documen margy Infection Site: Abdominal< br>Duratio n of Therapy: 7 days [facility] ondansetron (ZOFRAN (PF)) injection 4 mg 11-24 01:30: 00 11-24 01:05 :00 No 4mg 4 mg, Slow IV Push, ONCE, 1 dose, Corinne 11/23/18 at 2030, MILAN [facility] morpHINE injection 4 mg 11-24 01:30: 00 11-24 01:06 :00 No 4mg 4 mg, Slow IV Push, ONCE, 1 dose, Corinne 11/23/18 at 2030, STAT [facility] NaCl 0.9% (NS) bolus infusion 1,000 mL 11-24 01:00: 00 11-24 02:34 :00 No 1000mL at 999 mL/hr, 1,000 mL, IV Infusion, ONCE, 1 dose, [facility] 11/23/18 at 2000, [facility] NaCl 0.9% (NS) bolus infusion 1,000 mL 11-24 00:00: 00 11-24 04:45 :00 No 1000mL at 999 mL/hr, 1,000 mL, IV Infusion, ONCE, 1 dose, [facility] 11/23/18 at 1900, [facility] indomethaci n 50 mg capsule 10-31 00:00: 00 11-27 00:00 :00 No [id number] 50mg Take 1 capsule by mouth 3 (three) times daily with meals. [facility] divalproex ER 250 mg 24 hr tablet 09-22 00:00: 00 06-09 00:00 :00 No [id number] 250mg Take 1 tablet by mouth 2 (two) times daily. [facility] varenicline 0.5 mg (11)- 1 mg (42) tablet 08-22 00:00: 00 12-20 00:00 :00 No [id number] Take one 0.5mg tab by mouth once daily for 3 days, then one 0.5mg tab twice daily for 4 days, then one 1mg tab twice daily. [facility] fluticasone 50 mcg/actuati on nasal spray 04-03 00:00: 00 09-04 00:00 :00 No [id number] 2{spray } Use 2 Sprays in each nostril daily. [facility] hydroCHLORO thiazide 25 mg tablet 2017-03 00:00: 00 11-28 00:00 :00 No [id number] 25mg Take 1 tablet by mouth daily. [facility] triamcinolo ne acetonide 0.1 % ointment 2017-03 00:00: 00 09-04 00:00 :00 No [id number] Apply to area(s) 2 (two) times daily. [facility] hydrOXYzine 25 mg tablet 12-14 00:00: 00 09-04 00:00 :00 No [id number] 25mg Take 1 tablet by mouth every 6 (six) hours as needed for Itching. [facility] HYDROcodone -acetaminop hen 5-325 mg tablet 10-15 00:00: 00 06-09 00:00 :00 No 1{tbl} Take 1 tablet by mouth every 4 (four) hours as needed for Pain (scale 4-6) or Pain (scale 7-10). [facility] Immunizations Ordered Immunization Name Filled Immunization Name Date Status Comments Source [facility] 2023-05-12 00:00:00 Completed [facility] TDAP 2023-01-11 00:00:00 Completed [facility] TDAP 2022-12-16 00:00:00 Completed [facility] TDAP 2022-12-10 14:00:00 Completed [facility] TDAP 2018-11-26 00:00:00 Completed [facility] TDAP 2017-10-04 00:00:00 Completed [facility] TDAP 2017-10-04 00:00:00 Completed [facility] TDAP 2017-10-04 00:00:00 Completed [facility] TDAP 2017-10-04 00:00:00 Completed [facility] TDAP 2017-10-04 00:00:00 Completed [facility] TDAP 2017-10-04 00:00:00 Completed [facility] TDAP 2017-10-04 00:00:00 Completed [facility] TDAP 2017-10-04 00:00:00 Completed [facility] TDAP 2017-10-04 00:00:00 Completed [facility] TDAP 2017-10-04 00:00:00 Completed [facility] TDAP 2017-10-04 00:00:00 Completed [facility] TDAP 2017-10-04 00:00:00 Completed [facility] TDAP 2017-10-04 00:00:00 Completed [facility] Tdap 2017-10-04 00:00:00 Completed [facility] TDAP 2017-10-04 00:00:00 Completed [facility] TDAP 2017-10-04 00:00:00 Completed [facility] TDAP 2017-10-04 00:00:00 Completed [facility] TDAP 2017-10-04 00:00:00 Completed [facility] TDAP 2017-10-04 00:00:00 Completed [facility] Tdap 2017-10-04 00:00:00 Completed [facility] TDAP 2017-10-04 00:00:00 Completed [facility] TDAP 2017-10-04 00:00:00 Completed [facility] TDAP 2017-10-04 00:00:00 Completed [facility] TDAP 2017-10-04 00:00:00 Completed [facility] TDAP 2017-10-04 00:00:00 Completed [facility] TDAP 2017-10-04 00:00:00 Completed [facility] TDAP 2017-10-04 00:00:00 Completed [facility] TDAP 2017-10-04 00:00:00 Completed [facility] TDAP 2017-10-04 00:00:00 Completed [facility] Tdap 2017-10-04 00:00:00 Completed [facility] TDAP 2017-10-04 00:00:00 Completed [facility] TDAP 2017-10-04 00:00:00 Completed [facility] TDAP 2017-10-04 00:00:00 Completed [facility] TDAP 2017-10-04 00:00:00 Completed [facility] TDAP 2017-10-04 00:00:00 Completed [facility] Tdap 2017-10-04 00:00:00 Completed [facility] Tdap 2017-10-04 00:00:00 Completed [facility] Tdap 2017-10-04 00:00:00 Completed [facility] Tdap 2017-10-04 00:00:00 Completed [facility] Tdap 2017-10-04 00:00:00 Completed [facility] Tdap 2017-10-04 00:00:00 Completed [facility] TDAP 2017-10-04 00:00:00 Completed [facility] TDAP 2017-10-04 00:00:00 Completed [facility] TDAP 2017-10-04 00:00:00 Completed [facility] TDAP 2017-10-04 00:00:00 Completed [facility] TDAP 2017-10-04 00:00:00 Completed [facility] TDAP 2017-10-04 00:00:00 Completed [facility] TDAP 2017-10-04 00:00:00 Completed [facility] TDAP 2017-10-04 00:00:00 Completed [facility] TDAP 2017-10-04 00:00:00 Completed [facility] TDAP 2017-10-04 00:00:00 Completed [facility] TDAP 2017-10-04 00:00:00 Completed [facility] TDAP 2017-10-04 00:00:00 Completed [facility] TDAP 2017-10-04 00:00:00 Completed [facility] TDAP 2017-10-04 00:00:00 Completed [facility] Vital Signs Vital Name Observation Time Observation Value Comments S ource Systolic blood pressure 2022-12-10 19:04:00 142 mm[Hg] [facility] Diastolic blood pressure 2022-12-10 19:04:00 90 mm[Hg] [facility] Heart rate 2022-12-10 19:04:00 104 /min [facility] Body height 2022-12-10 19:04:00 165.1 cm [facility] Body weight 2022-12-10 19:04:00 85.548 kg [facility] BMI 2022-12-10 19:04:00 31.38 kg/m2 [facility] Systolic blood pressure 2022-10-14 19:20:00 141 mm[Hg] [facility] Diastolic blood pressure 2022-10-14 19:20:00 89 mm[Hg] [facility] Heart rate 2022-10-14 19:19:00 97 /min [facility] Body temperature 2022-10-14 19:19:00 37.44 Davina [facility] Respiratory rate 2022-10-14 19:19:00 18 /min [facility] Body height 2022-10-14 19:19:00 165.1 cm [facility] Body weight 2022-10-14 19:19:00 84.823 kg [facility] BMI 2022-10-14 19:19:00 31.12 kg/m2 [facility] Oxygen saturation in Arterial blood by Pulse oximetry 2022-10-14 19:19:00 97 /min [facility] Systolic blood pressure 2022-08-18 14:40:00 139 mm[Hg] [facility] Diastolic blood pressure 2022-08-18 14:40:00 84 mm[Hg] [facility] Heart rate 2022-08-18 14:40:00 94 /min [facility] Body height 2022-08-18 14:40:00 165.1 cm [facility] Body weight 2022-08-18 14:40:00 88.633 kg [facility] BMI 2022-08-18 14:40:00 32.52 kg/m2 [facility] Oxygen saturation in Arterial blood by Pulse oximetry 2022-08-18 14:40:00 95 /min [facility] Systolic blood pressure 2022-08-13 16:09:00 131 mm[Hg] [facility] Diastolic blood pressure 2022-08-13 16:09:00 82 mm[Hg] [facility] Heart rate 2022-08-13 16:09:00 90 /min Unive [facility] Respiratory rate 2022-08-13 16:09:00 23 /min [facility] Oxygen saturation in Arterial blood by Pulse oximetry 2022-08-13 16:09:00 96 /min [facility] Body height 2022-08-13 16:05:00 165.1 cm [facility] Body weight 2022-08-13 16:05:00 88.315 kg [facility] BMI 2022-08-13 16:05:00 32.40 kg/m2 [facility] Systolic blood pressure 2022-08-01 00:00:00 160 mm[Hg] [facility] Diastolic blood pressure 2022-08-01 00:00:00 100 mm[Hg] [facility] Heart rate 2022-08-01 00:00:00 73 /min Un[facility] Respiratory rate 2022-08-01 00:00:00 21 /min [facility] Oxygen saturation in Arterial blood by Pulse oximetry 2022-08-01 00:00:00 96 /min [facility] Body temperature 2022-07-31 20:57:00 36.78 Davina [facility] Body height 2022-07-31 20:57:00 165.1 cm [facility] Body weight 2022-07-31 20:57:00 86.183 kg [facility] BMI 2022-07-31 20:57:00 31.62 kg/m2 [facility] Heart rate 2022-07-30 20:36:00 97 /min Un[facility] Oxygen saturation in Arterial blood by Pulse oximetry 2022-07-30 20:36:00 97 /min [facility] Systolic blood pressure 2022-07-30 19:59:00 120 mm[Hg] [facility] Diastolic blood pressure 2022-07-30 19:59:00 71 mm[Hg] [facility] Body temperature 2022-07-30 19:59:00 37.06 Davina [facility] Body height 2022-07-30 19:59:00 165.1 cm [facility] Body weight 2022-07-30 19:59:00 87.091 kg [facility] BMI 2022-07-30 19:59:00 31.95 kg/m2 [facility] Systolic blood pressure 2022-03-17 17:02:00 132 mm[Hg] [facility] Diastolic blood pressure 2022-03-17 17:02:00 82 mm[Hg] [facility] Heart rate 2022-03-17 17:02:00 87 /min [facility] Body temperature 2022-03-17 17:02:00 37.06 Davina [facility] Respiratory rate 2022-03-17 17:02:00 17 /min [facility] Body height 2022-03-17 17:02:00 165.1 cm [facility] Body weight 2022-03-17 17:02:00 87.998 kg [facility] BMI 2022-03-17 17:02:00 32.28 kg/m2 [facility] Oxygen saturation in Arterial blood by Pulse oximetry 2022-03-17 17:02:00 95 /min [facility] Systolic blood pressure 2022-01-29 17:04:00 176 mm[Hg] [facility] Diastolic blood pressure 2022-01-29 17:04:00 95 mm[Hg] [facility] Heart rate 2022-01-29 17:04:00 87 /min [facility] Body height 2022-01-29 17:04:00 165.1 cm [facility] Body weight 2022-01-29 17:04:00 84.823 kg [facility] BMI 2022-01-29 17:04:00 31.12 kg/m2 [facility] Oxygen saturation in Arterial blood by Pulse oximetry 2022-01-29 17:04:00 96 /min [facility] Systolic blood pressure 2021-12-29 16:00:00 132 mm[Hg] [facility] Diastolic blood pressure 2021-12-29 16:00:00 80 mm[Hg] [facility] Heart rate 2021-12-29 16:00:00 86 /min [facility] Body height 2021-12-29 16:00:00 165.1 cm [facility] Body weight 2021-12-29 16:00:00 84.369 kg [facility] BMI 2021-12-29 16:00:00 30.95 kg/m2 [facility] Oxygen saturation in Arterial blood by Pulse oximetry 2021-12-29 16:00:00 99 /min [facility] Systolic blood pressure 2020-10-31 21:59:00 139 mm[Hg] [facility] Diastolic blood pressure 2020-10-31 21:59:00 85 mm[Hg] [facility] Heart rate 2020-10-31 21:59:00 92 /min [facility] 2020-09-04 20:08:00 141 mm[Hg] [facility] Diastolic blood pressure 2020-09-04 20:08:00 85 mm[Hg] [facility] Heart rate 2020-09-04 19:40:00 96 /min [facility] Body height 2020-09-04 19:40:00 165.1 cm [facility] Body weight 2020-09-04 19:40:00 87.544 kg [facility] BMI 2020-09-04 19:40:00 32.12 kg/m2 [facility] Oxygen saturation in Arterial blood by Pulse oximetry 2020-09-04 19:40:00 96 /min [facility] Systolic blood pressure 2020-08-13 18:21:00 147 mm[Hg] [facility] Diastolic blood pressure 2020-08-13 18:21:00 97 mm[Hg] [facility] Heart rate 2020-08-13 18:21:00 91 /min [facility] Body weight 2020-08-13 18:21:00 89.359 kg [facility] BMI 2020-08-13 18:21:00 32.78 kg/m2 [facility] Oxygen saturation in Arterial blood by Pulse oximetry 2020-08-13 18:21:00 99 /min [facility] Systolic blood pressure 2020-06-09 19:16:00 144 mm[Hg] [facility] Diastolic blood pressure 2020-06-09 19:16:00 85 mm[Hg] [facility] Heart rate 2020-06-09 19:13:00 89 /min [facility] Body height 2020-06-09 19:13:00 165.1 cm [facility] Body weight 2020-06-09 19:13:00 90.266 kg [facility] BMI 2020-06-09 19:13:00 33.12 kg/m2 [facility] Oxygen saturation in Arterial blood by Pulse oximetry 2020-06-09 19:13:00 97 /min [facility] Systolic blood pressure 2020-06-04 19:10:00 166 mm[Hg] [facility] Diastolic blood pressure 2020-06-04 19:10:00 98 mm[Hg] [facility] Heart rate 2020-06-04 19:10:00 89 /min [facility] Body temperature 2020-06-04 19:10:00 36.72 Davina [facility] Respiratory rate 2020-06-04 19:10:00 18 /min [facility] Body weight 2020-06-04 19:10:00 89.721 kg [facility] BMI 2020-06-04 19:10:00 31.93 kg/m2 [facility] Oxygen saturation in Arterial blood by Pulse oximetry 2020-06-04 19:10:00 98 /min [facility] Systolic blood pressure 2019-12-21 15:15:00 139 mm[Hg] [facility] Diastolic blood pressure 2019-12-21 15:15:00 90 mm[Hg] [facility] Heart rate 2019-12-21 15:14:00 84 /min [facility] Body temperature 2019-12-21 15:14:00 36.94 Davina [facility] Respiratory rate 2019-12-21 15:14:00 20 /min [facility] Body height 2019-12-21 15:14:00 167.6 cm [facility] Body weight 2019-12-21 15:14:00 86.274 kg [facility] BMI 2019-12-21 15:14:00 30.70 kg/m2 [facility] Oxygen saturation in Arterial blood by Pulse oximetry 2019-12-21 15:14:00 98 /min [facility] Systolic blood pressure 2019-11-09 18:45:00 149 mm[Hg] [facility] Diastolic blood pressure 2019-11-09 18:45:00 92 mm[Hg] [facility] Heart rate 2019-11-09 18:41:00 79 /min Unive [facility] Body temperature 2019-11-09 18:41:00 35.83 Davina [facility] Respiratory rate 2019-11-09 18:41:00 18 /min [facility] Body height 2019-11-09 18:41:00 165.1 cm [facility] Body weight 2019-11-09 18:41:00 83.915 kg [facility] BMI 2019-11-09 18:41:00 30.79 kg/m2 [facility] Oxygen saturation in Arterial blood by Pulse oximetry 2019-11-09 18:41:00 99 /min [facility] Systolic blood pressure 2018-11-26 13:00:00 114 mm[Hg] [facility] Diastolic blood pressure 2018-11-26 13:00:00 68 mm[Hg] [facility] Heart rate 2018-11-26 13:00:00 50 /min Unive [facility] Body temperature 2018-11-26 13:00:00 36.61 Davina [facility] Respiratory rate 2018-11-26 13:00:00 106 /min [facility] Oxygen saturation in Arterial blood by Pulse oximetry 2018-11-26 13:00:00 96 /min [facility] Body height 2018-11-23 23:00:00 165.1 cm [facility] Body weight 2018-11-23 23:00:00 94.348 kg [facility] BMI 2018-11-23 23:00:00 34.61 kg/m2 [facility] Systolic blood pressure 2018-10-31 14:24:00 107 mm[Hg] [facility] Diastolic blood pressure 2018-10-31 14:24:00 78 mm[Hg] [facility] Heart rate 2018-10-31 14:24:00 106 /min Unive [facility] Body temperature 2018-10-31 14:24:00 36.17 Davina [facility] Respiratory rate 2018-10-31 14:24:00 17 /min [facility] Body height 2018-10-31 14:24:00 165.1 cm [facility] Body weight 2018-10-31 14:24:00 87.544 kg [facility] BMI 2018-10-31 14:24:00 32.12 kg/m2 [facility] Procedures Procedure Date / Time Performed Performing Clinician Source AUTHORIZATION FOR RELEASE OF PHI 2023-05-12 06:01:00 Doctor Unassigned, [place] [facility] DME/SUPPLY JUSTIFICATION 2022-11-17 05:01:00 Doc tor Unassigned, [place] [facility] SLEEP STUDY DATA REPORT 2022-11-09 05:01:00 Doct or Unassigned, [place] [facility] XR CERVICAL SPINE 3 VW 2022-10-14 20:21:01 Vernon Farley [facility] REFERRAL- REQUEST/RESPONSE 2022-10-06 05:01:00 Doctor Unassigned, [place] [facility] CT ABDOMEN PELVIS W WO CONTRAST 2022-08-25 17:44:[facility] 2022-08-18 19:09:00 [facility] POCT URINALYSIS AUTO 2022-08-18 15:06:00 Dilan Estrada [facility] XR CHEST 2 VW 2022-08-13 16:53:09 Finn Alvarado [facility] URINE DRUG (IMMUNOASSAY) - COMPREHENSIVE DRUG SCREEN W/O REFLEX 2022-08-01 00:50:00 Ihsan Andrade [facility] URINALYSIS 2022-08-01 00:49:00 Ihsan Andrade U [facility] COMP. METABOLIC PANEL (97533) 2022-07-31 22:15:00 Ihsan Andrade [facility] CT HEAD WO CONTRAST 2022-07-31 21:20:40 Blanca Andrade [facility] LIPASE 2022-07-31 21:19:00 Ihsan Andrade U [facility] TROPONIN I 2022-07-31 21:19:00 [facility] DIFF 2022-07-31 21:19:00 Ihsan Andrade [facility] PROTHROMBIN TIME / INR 2022-07-31 21:19:00 Jose Andrade [facility] ACTIVATED PARTIAL THRMPLAS ROLLY 2022-07-31 21:19:00 Ihsan Andrade [facility] N-TERMINAL PRO-BNP 2022-07-31 21:19:00 Sunni Andrade [facility] CONSENT/REFUSAL FOR DIAGNOSIS AND TREATMENT 2022-07-31 20:42:36 Doctor Unassigned, [place] [facility] PATIENT FINANCIAL POLICY 2022-07-30 19:47:32 Doctor Unassigned, [place] [facility] ASSIGNMENT OF BENEFITS 2021-12-29 15:10:21 Docto r Unassigned, [place] [facility] REFERRAL- REQUEST/RESPONSE 2020-09-10 05:01:00 Doctor Unassigned, [place] [facility] COVID-19 (ID NOW RAPID TESTING) 2020-08-26 20:55:00 Deangelo Mederos [facility] ASSIGNMENT OF BENEFITS 2020-08-26 20:40:41 Docto r Unassigned, [place] [facility] CONSENT/REFUSAL FOR DIAGNOSIS AND TREATMENT 2020-07-25 17:12:41 Doctor Unassigned, [place] [facility] VACCINATIONS - CONSENTS, ELIGIBILITY, HISTORY 2019-12-13 05:01:00 Doctor Unassigned, [place] [facility] BASIC METABOLIC PANEL (NA, K, CL, CO2, GLUCOSE, BUN, CREATININE, CA) 2018-11-26 09:37:00 Hi Hoffman [facility] CBC WITH DIFFERENTIAL 2018-11-26 09:37:00 Hi Hoffman [facility] MAGNESIUM 2018-11-25 10:14:00 Jose Cook [facility] COMP. METABOLIC PANEL ([id number]) 2018-11-25 10:14:00 Jose Cook [facility] CBC WITH DIFFERENTIAL 2018-11-25 10:14:00 Hi Hoffman [facility] LACTIC ACID WHOLE BLOOD 2018-11-24 04:42:00 Ihsan Andrade [facility] CT ABDOMEN PELVIS W CONTRAST 2018-11-24 03:05:49 Ihsan Andrade [facility] BLOOD CULTURE SCREEN 2018-11-24 02:20:00 Brian Andrade [facility] LIPASE 2018-11-24 02:20:00 [facility] HE[facility]EL ([id number]) (ALB,T.PRO,BILI T,BU/BC,ALT,AST,ALK PHOS) 2018-11-24 02:20:00 Ihsan Andrade [facility] BASIC METABOLIC PANEL (NA, K, CL, CO2, GLUCOSE, BUN, CREATININE, CA) 2018-11-24 02:20:00 Ihsan Andrade [facility] GRAM POSITIVE BLOOD PATHOGENS DNA PROBE-ANAEROBIC 2018-11-24 02:20:00 Ihsan Andrade [facility] US GALL BLADDER 2018-11-24 00:52:08 Ihsan Andrade [facility] CBC WITH DIFFERENTIAL 2018-11-24 00:17:00 Gerda Andrade [facility] LACTIC ACID WHOLE BLOOD 2018-11-24 00:17:00 Ihsan Andrade [facility] CONSENT/REFUSAL FOR DIAGNOSIS AND TREATMENT 2018-11-23 22:57:02 Doctor Unassigned, [place] [facility] C-REACTIVE PROTEIN 2018-10-31 15:01:00 Héctor Boyd [facility] CBC WITH DIFFERENTIAL 2018-10-31 15:01:00 Beth Boyd [facility] AGREEMENTS AUTHORIZATIONS AND IRREVOCABLE ASSIGNMENTS (FORM 2001) 2018-10-31 05:01:00 Doctor Unassigned, [place] [facility] Encounters Start Date/Time End Date/Time Encounter Type Admission Type Attending Clinicians Care Facility Care Department Encounter ID Source 2021-01-18 17:47:41 Emergency [facility] [id number] [facility] 2018-11-26 00:00:00 2023-09-06 02:25:45 Mobile Device Encounter Driscoll Matteo Zhao [facility] 1.2.840.114 350.1.13.10 4.2.7.2.686 [id number] [facility] 2023-05-12 08:46:57 2023-05-12 08:46:57 Outpatient SFA CELINA [id number] [place] Escobar 2023-05-12 00:00:00 2023-05-12 00:00:00 Orders Only Doctor Unassigned, [place] [facility] 1..840.114 350.1.13.10 4.2.7.2.686 [id number] [facility] 2023-03-04 15:00:00 2023-03-04 15:00:00 Outpatient RACHAEL AVILA [facility] [id number] [facility] 2023-02-01 13:30:00 2023-02-01 13:30:00 Outpatient KADEN VALIENTE [facility] [id number] [facility] 2023-01-21 11:30:00 2023-01-21 11:30:00 Outpatient R [facility] [id number] [facility] 2023-01-11 00:00:00 2023-01-11 00:00:00 [facility] 1.2.840.114 350.1.13.10 4.2.7.2.686 [id number] [facility] 2022-12-30 13:30:00 2022-12-30 13:30:00 Outpatient NEREYDA MARTINEZ [facility] [id number] [facility] 2022-12-16 00:00:00 2022-12-16 00:00:00 Telephone Rachael Dickey [facility] 1.2.840.114 350.1.13.10 4.2.7.2.686 [id number] [facility] 2022-12-10 14:00:00 2022-12-10 14:28:57 Outpatient R RACHAEL DICKEY [facility] [id number] [facility] 2022-12-10 14:00:00 2022-12-10 14:28:57 Office Visit Kevin Dickeyssica [facility] NU[facility]Z [facility] 1..840.114 350.1.13.10 4.2.7.2.686 [id number] [facility] 2022-12-07 13:30:00 2022-12-07 13:30:00 Outpatient R KADEN DIAZ [facility] [id number] [facility] 2022-12-06 09:30:00 2022-12-06 09:30:00 Outpatient R RACHAEL DICKEY [facility] [id number] [facility] 2022-12-02 00:00:00 2022-12-02 00:00:00 Telephone Kaden Diaz [facility] 1.2.840.114 350.1.13.10 4.2.7.2.686 [id number] [facility] 2022-11-26 11:30:00 2022-11-26 11:30:00 Outpatient R [facility] [id number] [facility] 2022-11-24 00:00:00 2022-11-24 00:00:00 Telephone Deangelo Mederos [facility] 1.2.840.114 350.1.13.10 4.2.7.2.686 [id number] [facility] 2022-11-18 00:00:00 2022-11-18 00:00:00 Telephone Kaden Diaz [facility] 1.2840.114 350.1.13.10 4.2.7.2.686 [id number] [facility] 2022-11-17 00:00:00 2022-11-17 00:00:00 Telephone Deangelo Mederos [facility] 1.2840.114 350.1.13.10 4.2.7.2.686 [id number] [facility] 2022-11-17 00:00:00 2022-11-17 00:00:00 Orders Only Doctor Unassigned, [place] [facility] 1.2840.114 350.1.13.10 4.2.7.2.686 [id number] [facility] 2022-11-09 20:00:00 2022-11-09 22:30:00 Medical Laboratory Technologist Visit 1, [facility] Sleep Lab Bed Deangelo Mederos [facility] 1.840.114 350.1.13.10 4.2.7.2.686 [id number] [facility] 2022-11-09 20:00:00 2022-11-09 20:00:00 Outpatient R DEANGELO MEDEROS STRAFLVirgen [facility] [id number] [facility] 2022-11-09 00:00:00 2022-11-09 00:00:00 Orders Only Doctor Unassigned, [place] [facility] 1.2840.114 350.1.13.10 4.2.7.2.686 [id number] [facility] 2022-11-03 13:00:00 2022-11-03 13:00:00 Outpatient R KADEN DIAZ [facility] [id number] [facility] 2022-10-25 11:45:00 2022-10-25 11:45:00 Outpatient R [facility] [id number] [facility] 2022-10-14 14:44:11 2022-10-14 23:59:00 Hospital Encounter Shira Farley [facility] 1..840.114 350.1.13.10 4.2.7.2.686 [id number] [facility] 2022-10-14 14:00:00 2022-10-14 14:43:25 Outpatient R SHIRA FARLEY [facility] [id number] [facility] 2022-10-14 14:00:00 2022-10-14 14:43:25 Office Visit Shira Farley [facility] 1..840.114 350.1.13.10 4.2.7.2.686 [id number] [facility] 2022-10-06 00:00:00 2022-10-06 00:00:00 Orders Only Doctor Unassigned, [place] [facility] 1.840.114 350.1.13.10 4.2.7.2.686 [id number] [facility] 2022-09-30 10:00:00 2022-09-30 10:00:00 Outpatient R DAMIANFINN [facility] [id number] [facility] 2022-09-23 13:00:00 2022-09-23 13:00:00 [facility] [id number] [facility] 2022-09-15 00:00:00 2022-09-15 00:00:00 [address] Mederos [facility] 1..840.114 350.1.13.10 4.2.7.2.686 [id number] [facility] 2022-09-02 15:00:00 2022-09-02 15:00:00 Outpatient R FINN ALVARADO [facility] [id number] [facility] 2022-08-26 00:00:00 2022-08-26 00:00:00 Telephone Amanda Estradatney [facility] 1.2.840.114 350.1.13.10 4.2.7.2.686 [id number] [facility] 2022-08-25 11:46:10 2022-08-25 23:59:00 Outpatient R AMANDA ESTRADATNEY [facility] [id number] [facility] 2022-08-25 11:40:00 2022-08-25 23:59:00 Hospital Encounter Amanda Estradatney [facility] 1..840.114 350.1.13.10 4.2.7.2.686 [id number] [facility] 2022-08-18 09:45:00 2022-08-18 10:39:01 Outpatient R AMANDA ESTRADATNEY [facility] [id number] [facility] 2022-08-18 09:45:00 2022-08-18 10:39:01 Office Visit Amanda Estradatney [facility] 1..840.114 350.1.13.10 4.2.7.2.686 [id number] [facility] 2022-08-16 00:00:00 2022-08-16 00:00:00 [facility] 1..840.114 350.1.13.10 4.2.7.2.686 [id number] [facility] 2022-08-13 11:34:48 2022-08-13 23:59:00 [facility] 1.0.114 350.1.13.10 4.2.7.2.686 [id number] [facility] 2022-08-13 11:20:00 2022-08-13 11:31:26 [facility] [id number] [facility] 2022-08-13 11:20:00 2022-08-13 11:31:26 [facility] 1.0114 350.1.13.10 4.2.7.2.686 [id number] [facility] 2022-08-04 00:00:00 2022-08-04 00:00:00 Letter (Out) Ryanne Swartz - [facility] 1.84.114 350.1.13.10 4.2.7.2.686 [id number] [facility] 2022-07-31 15:58:00 2022-07-31 21:11:00 Emergency X IHSAN ANDRADE [facility] ERT [id number] [facility] 2022-07-31 15:58:00 2022-07-31 21:11:00 Emergency YairminorIhsan F [facility] 1.84.114 350.1.13.10 4.2.7.2.686 [id number] [facility] 2022-07-30 15:00:00 2022-07-30 16:15:20 Outpatient R SHIRA FARLYE [facility] [id number] [facility] 2022-07-30 15:00:00 2022-07-30 16:15:20 Office Visit Shira Farley [facility] 1.84.114 350.1.13.10 4.2.7.2.686 [id number] [facility] 2022-07-30 00:00:00 2022-07-30 00:00:00 Orders Only Doctor Unassigned, [place] [facility] .2.840.114 350.1.13.10 4.2.7.2.686 [id number] [facility] 2022-07-21 13:00:00 2022-07-21 13:00:00 Outpatient R DEANGELO MEDEROS STRAHIL [facility] [id number] [facility] 2022-07-07 20:00:00 2022-07-07 20:00:00 Outpatient DEANGELO OLMEDO STRAHIL [facility] [id number] [facility] 2022-06-23 10:18:13 2022-06-23 10:18:13 Outpatient [facility] [id number] [place] Jose Escobar 2022-05-03 10:30:00 2022-05-03 10:30:00 Outpatient RACHAEL AVILA [facility] [id number] [facility] 2022-04-14 20:00:00 2022-04-14 20:00:00 Outpatient DEANGELO OLMEDO STRAHIL [facility] [id number] [facility] 2022-03-17 11:00:00 2022-03-17 11:30:00 Office [facility] 1..840.114 350.1.13.10 4.2.7.2.686 [id number] [facility] 2022-03-17 11:00:00 2022-03-17 11:00:00 Outpatient DEANGELO OLMEDO STRAHIL [facility] [id number] [facility] 2022-01-29 11:00:00 2022-01-29 11:27:55 Outpatient RACHAEL AVILA [facility] [id number] [facility] 2022-01-29 11:00:00 2022-01-29 11:27:55 Office Visit Kevin Dickeyssica [facility] 1..840.114 350.1.13.10 4.2.7.2.686 [id number] [facility] 2022-01-28 15:11:53 2022-01-28 15:11:53 Outpatient CELINA [facility] [id number] [place] Escobar 2021-12-29 11:20:00 2021-12-29 11:36:31 Outpatient HÉCTOR DESAI HOWARD [facility] [id number] [facility] 2021-12-29 11:20:00 2021-12-29 11:36:31 [facility] 1..840.114 350.1.13.10 4.2.7.2.686 [id number] [facility] 2021-12-29 00:00:00 2021-12-29 00:00:00 Orders Only Doctor Unassigned, [place] [facility] 1..840.114 350.1.13.10 4.2.7.2.686 [id number] [facility] 2021-12-22 14:40:00 2021-12-22 14:40:00 Outpatient HÉCTOR DESAI [facility] [id number] [facility] 2021-12-14 00:00:00 2021-12-14 00:00:00 Héctor So [facility] DEVONTE?[facility] 1.2.840.114 350.1.13.10 4.2.7.2.686 [id number] [facility] 2021-12-11 00:00:00 2021-12-11 00:00:00 Refill DebHéctor [facility] CELINE WHITNEY?[facility] 1.2.840.114 350.1.13.10 4.2.7.2.686 [id number] [facility] [facility] 2020-12-29 16:20:00 2020-12-29 16:20:00 Outpatient Jethro DEB HÉCTOR B[facility]LETT [facility] [id number] [facility] 2020-12-10 14:40:00 2020-12-10 14:40:00 Outpatient R MESHAABIOLAJUAN DIEGO MELENDEZ [facility] [id number] [facility] 2020-10-31 15:45:16 2020-10-31 16:52:25 Office Visit DebHéctor murdock [facility] 1..840.114 350.1.13.10 4.2.7.2.686 [id number] [facility] 2020-10-31 15:40:00 2020-10-31 15:40:00 Outpatient Jethro DEB [facility] [id number] [facility] 2020-10-27 10:40:00 2020-10-27 10:40:00 Outpatient Jethro DEB, [facility] [id number] [facility] 2020-10-13 00:00:00 2020-10-13 00:00:00 Telephone Héctor Boyd [facility] Building 1..840.114 350.1.13.10 4.2.7.2.686 [id number] [facility] 2020-10-03 00:00:00 2020-10-03 00:00:00 Telephone Scarlett James [facility] Building 1.2.840.114 350.1.13.10 4.2.7.2.686 [id number] [id number] [facility] 2020-09-16 15:40:00 2020-09-16 15:40:00 Outpatient HÉCTOR DESAI HOWARD [facility] [id number] [facility] 2020-09-10 00:00:00 2020-09-10 00:00:00 Orders Only Doctor Unassigned, [place] [facility] 1.2.840.114 350.1.13.10 4.2.7.2.686 [id number] [id number] [facility] 2020-09-10 00:00:00 2020-09-10 00:00:00 Orders Only Doctor Unassigned, [place] [facility] 1.2.840.114 350.1.13.10 4.2.7.2.686 [id number] [id number] 2020-09-08 00:00:00 2020-09-08 00:00:00 Telephone Jacob [facility] 1.2.840.114 350.1.13.10 4.2.7.2.686 [id number] 044 [id number] [facility] 2020-09-08 00:00:00 2020-09-08 00:00:00 Telephone Jacob [facility] 1.2.840.114 350.1.13.10 4.2.7.2.686 [id number] 044 [id number] 2020-09-04 14:07:36 2020-09-04 15:15:49 Office Visit Jacob Scarlett [facility] 1.2.840.114 350.1.13.10 4.2.7.2.686 [id number] [id number] [facility] 2020-09-04 14:00:00 2020-09-04 14:00:00 Outpatient SCARLETT [facility]ARTINEZ [facility] [id number] [facility] 2020-08-28 19:30:00 2020-08-28 19:30:00 Outpatient R BETSYALICIA ENRIQUEJARADVirgen MEYERSHERINEANGUSEVAVirgen [facility] [id number] [facility] 2020-08-28 15:36:08 2020-08-28 18:06:08 Medical Laboratory Technologist Visit 1, [facility] Sleep Lab Bed Eva Mederosvirgen [facility] 1.2.840.114 350.1.13.10 4.2.7.2.686 [id number] [facility] 2020-08-26 15:40:11 2020-08-26 15:55:11 Laboratory Only Only, [facility] Test Deangelo Mederos [facility] 1.2.840.114 350.1.13.10 4.2.7.2.686 [id number] [facility] 2020-08-26 15:30:00 2020-08-26 15:30:00 Outpatient R [facility] [id number] [facility] 2020-08-26 00:00:00 2020-08-26 00:00:00 Orders Only Doctor Unassigned, [place] [facility] 1.2.840.114 350.1.13.10 4.2.7.2.686 [id number] [id number] [facility] 2020-08-13 13:09:44 2020-08-13 13:39:44 Office Visit Deangelo Mederos [facility] Building 1.2.840.114 350.1.13.10 4.2.7.2.686 [id number] [id number] [facility] 2020-08-13 13:00:00 2020-08-13 13:00:00 Outpatient R DEANGELO MEDEROS STRAJARADVirgen [facility] [id number] [facility] 2020-07-25 00:00:00 2020-07-25 00:00:00 Orders Only Doctor Unassigned, [place] [facility] 1.84.114 350.1.13.10 4.2.7.2.686 [id number] [id number] [facility] 2020-07-22 00:00:00 2020-07-22 00:00:00 [facility] 1.840.114 350.1.13.10 4.2.7.2.686 [id number] [facility] 2020-07-07 14:20:00 2020-07-07 14:20:00 Outpatient HÉCTOR DESAI HOWARD [facility] [id number] [facility] 2020-06-24 00:00:00 2020-06-24 00:00:00 Telephone Jacob [facility] 1.840.114 350.1.13.10 4.2.7.2.686 [id number] [facility] 2020-06-11 14:00:00 2020-06-11 14:00:00 Outpatient CONY PINEDO [facility] [id number] [facility] 2020-06-09 14:02:27 2020-06-09 15:09:44 Office Visit Héctor Boyd [facility] Building 1..840.114 350.1.13.10 4.2.7.2.686 [id number] [facility] 2020-06-09 14:20:00 2020-06-09 14:20:00 Outpatient HÉCTOR DESAI [facility]ARD [facility] [id number] [facility] 2020-06-04 14:35:23 2020-06-04 14:50:23 Medical Laboratory Technologist Visit 2, [facility] Jacob [facility] Building 1.114 350.1.13.10 4.2.7.2.686 [id number] [facility] 2020-06-04 13:57:36 2020-06-04 14:28:46 Office Visit Scarlett James [facility] Building 1.114 350.1.13.10 4.2.7.2.686 [id number] [facility] 2020-06-04 14:00:00 2020-06-04 14:00:00 [facility] [id number] [facility] 2020-03-26 15:20:00 2020-03-26 15:20:00 Outpatient R MESHADONALDJUAN DIEGO [facility] [id number] [facility] 2019-12-21 10:01:25 2019-12-21 11:40:21 Office Visit Juan Diego Mcrae [facility] Building 1.114 350.1.13.10 4.2.7.2.686 [id number] [id number] [facility] 2019-12-21 10:00:00 2019-12-21 10:00:00 Outpatient R MESHADONALDJUAN DIEGO [facility] [id number] [facility] 2019-12-13 00:00:00 2019-12-13 00:00:00 Orders Only Doctor Unassigned, [place] [facility] 1.114 350.1.13.10 4.2.7.2.686 [id number] [facility] 2019-11-09 13:37:59 2019-11-09 14:45:13 Urgent Care Provider, [facility] Siena Guevara [facility] Office Building One 1.84.114 350.1.13.10 4.2.7.2.686 [id number] [id number] [facility] 2019-11-09 10:00:00 2019-11-09 10:00:00 Outpatient R JUAN DIEGO MCRAE [facility] [id number] [facility] 2018-11-28 00:00:00 2018-11-28 00:00:00 Transition of Care Di Santana 1.2.840.114 350.1.13.10 4.2.7.2.686 [id number] [facility] 2018-11-27 00:00:00 2018-11-27 00:00:00 [facility] 1.2.840.114 350.1.13.10 4.2.7.2.686 [id number] [facility] 2018-11-27 00:00:00 2018-11-27 00:00:00 Telephone [facility] 1.2.840.114 350.1.13.10 4.2.7.2.686 [id number] [facility] 2018-11-27 00:00:00 2018-11-27 00:00:00 [facility] 1.2.840.114 350.1.13.10 4.2.7.2.686 [id number] [id number] [facility] 2018-11-23 18:28:11 2018-11-26 11:24:00 Hospital Encounter Ihsan Andrade Adnan Ibikunle, Folusho F Yarima, Wakili S [facility] 1.2.840.114 350.1.13.10 4.2.7.2.686 [id number] [id number] [facility] 2018-10-31 09:12:30 2018-10-31 13:22:12 Office Visit Héctor Boyd [facility] 1.2.840.114 350.1.13.10 4.2.7.2.686 [id number] [facility] 2018-10-31 09:50:36 2018-10-31 10:05:36 Medical Laboratory Technologist Visit 2, Adc Lab Héctor Boyd [facility] 1.2.840.114 350.1.13.10 4.2.7.2.686 [id number] [facility] 2018-10-31 00:00:00 2018-10-31 00:00:00 Orders Only Doctor Unassigned, [place] [facility] 1.2840.114 350.1.13.10 4.2.7.2.686 [id number] [id number] [facility] 2018-10-17 00:00:00 2018-10-17 00:00:00 Telephone Héctor Boyd [facility] 1.2.840.114 350.1.13.10 4.2.7.2.686 [id number] 092 [id number] [facility] Results Test Description Test Time Test Comments Results Result Co mments Source [facility] [id number] 15:08:00 * Test Item Value Reference Range Interpretation Comme nts POCT U SP GRAV (test code = 3255) 1.030 mg/dl 1.005-1.025 A POCT PH U (test code = 3254) 7.0 mg/dl 5-8 POCT U LEUK EST (test code = 3263) TRACE Negative - Negative POCT U NIT (test code = 3262) NEGATIVE Negative - Negati ve POCT U PROT (test code = 3259) NEGATIVE Negative - Negative POCT U GLU (test code = 3256) NEGATIVE Negative - Negati ve POCT U KETONE (test code = 3258) NEGATIVE Negative - Negative POCT U UROBILI (test code = 3260) 2.0 mg/dl 0.2-1 A POCT U BILI (test code = 3261) NEGATIVE Negative - Negative POCT U BLD (test code = 3257) NEGATIVE Negative - Negati ve POCT U COLOR (test code = 3266) YELLOW POCT U APPEAR (test code = 3267) CLEAR Lab Interpretation (test cod e = 31448-7) Abnormal [facility] URINALYSIS, [id number] 15:08:00 * Test Item Value Reference Range Interpretation Comme nts POCT U SP GRAV (test code = 3255) 1.030 mg/dl 1.005-1.025 A POCT PH U (test code = 3254) 7.0 mg/dl 5-8 POCT U LEUK EST (test code = 3263) TRACE Negative - Negative POCT U NIT (test code = 3262) NEGATIVE Negative - Negati ve POCT U PROT (test code = 3259) NEGATIVE Negative - Negative POCT U GLU (test code = 3256) NEGATIVE Negative - Negati ve POCT U KETONE (test code = 3258) NEGATIVE Negative - Negative POCT U UROBILI (test code = 3260) 2.0 mg/dl 0.2-1 A POCT U BILI (test code = 3261) NEGATIVE Negative - Negative POCT U BLD (test code = 3257) NEGATIVE Negative - Negati ve POCT U COLOR (test code = 3266) YELLOW POCT U APPEAR (test code = 3267) CLEAR Lab Interpretation (test cod e = 45304-9) Abnormal [facility] URINALYSIS, [id number] 15:08:00 * Test Item Value Reference Range Interpretation Comme nts POCT U SP GRAV (test code = 3255) 1.030 mg/dl 1.005-1.025 A POCT PH U (test code = 3254) 7.0 mg/dl 5-8 POCT U LEUK EST (test code = 3263) TRACE Negative - Negative POCT U NIT (test code = 3262) NEGATIVE Negative - Negati ve POCT U PROT (test code = 3259) NEGATIVE Negative - Negative POCT U GLU (test code = 3256) NEGATIVE Negative - Negati ve POCT U KETONE (test code = 3258) NEGATIVE Negative - Negative POCT U UROBILI (test code = 3260) 2.0 mg/dl 0.2-1 A POCT U BILI (test code = 3261) NEGATIVE Negative - Negative POCT U BLD (test code = 3257) NEGATIVE Negative - Negati ve POCT U COLOR (test code = 3266) YELLOW POCT U APPEAR (test code = 3267) CLEAR Lab Interpretation (test cod e = 33801-2) Abnormal [facility]. METABOLIC PANEL ([id number])2022-07-31 23:42:04* Test Item Value Reference Range Interpretation Comme nts NA (test code = 5670018656) 136 mmol/L 135-145 K (test code = 3195566402) 3.8 mmol/L 3.5-5.0 CL (test code = 5692970227) 103 mmol/L 98-108 CO2 TOTAL (test code = 5307978642) 26 mmol/L 23-31 AGAP (test code = 6097687347) 7 2-16 BUN (test code = 8507465341) 24 mg/dL 7-23 H GLUCOSE (test code = 0933163127) 117 mg/dL 70-110 H CREATININE (test code = 1704424443) 1.06 mg/dL 0.60-1.25 TOTAL BILI (test code = 4011729275) 0.8 mg/dL 0.1-1.1 CALCIUM (test code = 7765564431) 7.8 mg/dL 8.6-10.6 L T PROTEIN (test code = 6360741003) 5.5 g/dL 6.3-8.2 L ALBUMIN (test code = 8139742730) 3.0 g/dL 3.5-5.0 L ALK PHOS (test code = 4950958464) 75 U/L 34-122 ALTv (test code = 1742-6) 44 U/L 5-50 AST(SGOT) (test code = 7286048707) 40 U/L 13-40 eGFR (test code = 6778157357) 70.6 mL/min/1.73m2 NINI (test code = NINI) Association of [...] or abnormalities in imaging tests). Lab Interpretation (test code = 92865-0) Abnormal [facility] THRMPLAS [id number] 22:15:21* Test Item Value Reference Range Interpretation Comme [facility] APTT Patient (test code = 3173-2) 26 See_Comment [Automated message] The system which generated this result transmitted reference range: 23 - 38 Seconds. The reference range was not used to interpret this result as normal/abnormal. NINI (test code = NINI) The [facility] patient population mean normal value for aPTT is 30 seconds. Lab Interpretation (test code = 19521-2) Normal [facility] / [id number] 22:13:21* Test Item Value Reference Range Interpretation Comme [facility] PROTIME PATIENT (test code = 5964-2) 14.7 See_Comment [Automated [employer] ge] The system which generated this result transmitted reference range: 12.0 - 14.7 Seconds. The reference range was not used to interpret this result as normal/abnormal. INR (test code = 6301-6) 1.2 Normal INR <1.1; Warfarin Therapeutic range 2.0 to 3.0 or 2.5 to 3.5, depending upon the indications. Lab Interpretation (test code = 91241-0) Normal [facility] CenterTR[facility] [id number] 22:13:21* Test Item Value Reference Range Interpretation Comme nts TROPONIN I (test code = 6619136965) 0.010 ng/mL <=0.034 NINI (test code = NINI) Reference (Normal) [...] patient's use of biotin. Lab Interpretation (test code = 94465-0) Normal [facility] Center[facility]-TERMINAL [id number] 22:10:01* Test Item Value Reference Range Interpretation Comme nts NT-proBNP (test code = 1764725637) 296 pg/mL <=125 H NINI (test code = NINI) Biotin has been reported to cause a negative bias, interpret results relative to patient's use of biotin. Lab Interpretation (test code = 71472-3) Abnormal [facility] CenterLIPASE2023-05-13 22:01:01* Test Item Value Reference Range Interpretation Comme nts LIPASE (test code = 4640334164) 51 U/L 0-220 Lab Interpretation (test cod e = 93665-4) Normal [facility] Center[facility] WITH [id number] 21:52:39* Test Item Value Reference Range Interpretation Comme nts WBC (test code = 6690-2) 13.91 See_Comment H [Automated message] The system which generated this result transmitted reference range: 4.20 - 10.70 10*3/?L. The reference range was not used to interpret this result as normal/abnormal. RBC (test code = 789-8) 4.71 See_Comment [Automated message] The system which generated this result transmitted reference range: 4.26 - 5.52 10*6/?L. The reference range was not used to interpret this result as normal/abnormal. HGB (test code = 718-7) 14.4 g/dL 12.2-16.4 HCT (test code = 4544-3) 43.3 % 38.4-49.3 MCV (test code = 787-2) 91.9 fL 81.7-95.6 MCH (test code = 785-6) 30.6 pg 26.1-32.7 MCHC (test code = 786-4) 33.3 g/dL 31.2-35.0 RDW-SD (test code = 07052-4) 42.5 fL 38.5-51.6 RDW-CV (test code = 788-0) 12.4 % 12.1-15.4 PLT (test code = 777-3) 224 See_Comment [Automated message] The system which generated this result transmitted reference range: 150 - 328 10*3/?L. The reference range was not used to interpret this result as normal/abnormal. MPV (test code = 55209-6) 10.9 fL 9.8-13.0 NRBC/100 WBC (test code = 5446167645) 0.0 See_Comment [Automated message] The system which generated this result transmitted reference range: 0.0 - 10.0 /100 WBCs. The reference range was not used to interpret this result as normal/abnormal. NRBC x10^3 (test code = 5118188371) See_Comment [Automated message] The system which generated this result transmitted reference range: 10*3/?L. The reference range was not used to interpret this result as normal/abnormal. GRAN MAT (NEUT) % (test code = 770-8) 76.6 % IMM GRAN % (test code = 4808059867) 0.40 % LYMPH % (test code = 736-9) 10.5 % MONO % (test code = 5905-5) 8.3 % EOS % (test code = 713-8) 3.5 % BASO % (test code = 706-2) 0.7 % GRAN MAT x10^3(ANC) (test code = 6937097865) 10.66 10*3/uL 1.99-6.95 H IMM GRAN x10^3 (test code = 7096103436) 0.05 10*3/uL 0.00-0.06 LYMPH x10^3 (test code = 731-0) 1.46 10*3/uL 1.09-3.23 MONO x10^3 (test code = 742-7) 1.15 10*3/uL 0.36-1.02 H EOS x10^3 (test code = 711-2) 0.49 10*3/uL 0.06-0.53 BASO x10^3 (test code = 704-7) 0.10 10*3/uL 0.01-0.09 H Lab Interpretation (test code = 87373-2) [facility]normal [facility] Center[facility]OVID[facility] (ID NOW RAPID TESTING)2020-08-26 21:35:50* Test Item Value Reference Range Interpretation Comme nts SARS-CoV-2 Rapid ID NOW (test code = 34545-3) Not Detected Not Detected NINI (test code = NINI) ID NOW COVID-19 As say is an isothermal nucleic acid amplification test intended for the qualitative detection of nucleic acid from SARS-CoV-2 viral RNA in nasopharyngeal (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 It is used under Emergency Use [...] clinically indicated. Lab Interpretation (test code = 29082-8) Normal [facility] - Peripheral [id number] 14:49:00* Test Item Value Reference Range Interpretation Comme nts Blood Culture-Aerobic (test code = 91085-7) Culture positive. See Blood Culture Workup for additional information. No growth AA Previous preliminary verified result was Culture In Progress on 11/24/2018 at 2033 CDT Blood Culture-Anaerobic (test code = 69760-4) Culture positive. See Blood Culture Workup for additional information. No growth AA Previous preliminary verified result was Culture In Progress on 11/24/2018 at 0101 CDT Lab Interpretation (test code = 08916-3) Abnormal [facility] WITH [id number] 11:36:00* Test Item Value Reference Range Interpretation Comme nts WBC (test code = 6690-2) See_Comment H [Automated messa ge] The system which generated this result transmitted reference range: 4.20 - 10.70 10*3/?L. The reference range was not used to interpret this result as normal/abnormal. RBC (test code = 789-8) See_Comment L [Automated messa ge] The system which generated this result transmitted reference range: 4.26 - 5.52 10*6/?L. The reference range was not used to interpret this result as normal/abnormal. HGB (test code = 718-7) 12.6 g/dL 12.2-16.4 HCT (test code = 4544-3) 38.0 % 38.4-49.3 L MCV (test code = 787-2) 94.3 fL 81.7-95.6 MCH (test code = 785-6) 31.3 pg 26.1-32.7 MCHC (test code = 786-4) 33.2 g/dL 31.2-35 RDW-SD (test code = 07339-0) 46.5 fL 38.5-51.6 RDW-CV (test code = 788-0) 13.4 % 12.1-15.4 PLT (test code = 777-3) See_Comment [Automated messa ge] The system which generated this result transmitted reference range: 150 - 328 10*3/?L. The reference range was not used to interpret this result as normal/abnormal. MPV (test code = 45262-9) 10.8 fL 9.8-13 NRBC/100 WBC (test code = 3590096114) See_Comment [Automated me ssage] The system which generated this result transmitted reference range: 0.0 - 10.0 /100 WBCs. The reference range was not used to interpret this result as normal/abnormal. NRBC x10^3 (test code = 7778269458) <0.01 See_Comment [Automated messa ge] The system which generated this result transmitted reference range: 10*3/?L. The reference range was not used to interpret this result as normal/abnormal. GRAN MAT (NEUT) % (test code = 770-8) 70.7 % IMM GRAN % (test code = 8763015501) 0.70 % LYMPH % (test code = 736-9) 15.8 % MONO % (test code = 5905-5) 8.2 % EOS % (test code = 713-8) 4.1 % BASO % (test code = 706-2) 0.5 % GRAN MAT x10^3(ANC) (test code = 7287203350) 8.20 10*3/uL 1.99-6.95 H IMM GRAN x10^3 (test code = 3674145803) 0.08 10*3/uL 0-0.06 H LYMPH x10^3 (test code = 731-0) 1.83 10*3/uL 1.09-3.23 MONO x10^3 (test code = 742-7) 0.95 10*3/uL 0.36-1.02 EOS x10^3 (test code = 711-2) 0.48 10*3/uL 0.06-0.53 BASO x10^3 (test code = 704-7) 0.06 10*3/uL 0.01-0.09 Lab Interpretation (test code = 03869-8) Abnormal [facility] METABOLIC PANEL (NA, K, CL, CO2, GLUCOSE, BUN, CREATININE, CA)2018-11-26 11:11:00* Test Item Value Reference Range Interpretation Comme nts NA (test code = 1192321654) 142 mmol/L 135-145 K (test code = 4130594535) 3.5 mmol/L 3.5-5 CL (test code = 9640582142) 109 mmol/L 98-108 H CO2 TOTAL (test code = 5755911703) 26 mmol/L 23-31 AGAP (test code = 2032651489) 2-16 BUN (test code = 0398865896) 18 mg/dL 7-23 GLUCOSE (test code = 3527512869) 142 mg/dL 70-110 H CREATININE (test code = 2131494989) 0.93 mg/dL 0.6-1.25 CALCIUM (test code = 8105106376) 8.2 mg/dL 8.6-10.6 L eGFR Calculation (Non-) (test code = 1365238166) mL/min/1.73m2 eGFR Calculation () (test code = 8385701035) mL/min/1.73m2 NINI (test code = NINI) Association of [...] or abnormalities in imaging tests). Lab Interpretation (test code = 89154-1) Abnormal [facility]. METABOLIC PANEL (48479)2018-11-25 12:02:00* Test Item Value Reference Range Interpretation Comme nts NA (test code = 4494942837) 141 mmol/L 135-145 K (test code = 0767343484) 3.7 mmol/L 3.5-5 CL (test code = 2622518749) 107 mmol/L 98-108 CO2 TOTAL (test code = 2709159933) 26 mmol/L 23-31 AGAP (test code = 8205225921) 2-16 BUN (test code = 1454787393) 16 mg/dL 7-23 GLUCOSE (test code = 3837227325) 172 mg/dL 70-110 H CREATININE (test code = 1302230655) 0.94 mg/dL 0.6-1.25 TOTAL BILI (test code = 5119794426) 1.4 mg/dL 0.1-1.1 H CALCIUM (test code = 6829416551) 8.4 mg/dL 8.6-10.6 L T PROTEIN (test code = 5588073742) 6.4 g/dL 6.3-8.2 ALBUMIN (test code = 2535245751) 3.3 g/dL 3.5-5 L ALK PHOS (test code = 7597186387) 53 U/L 34-122 ALT(SGPT) (test code = 9220438852) 35 U/L 9-51 AST(SGOT) (test code = 8264721258) 26 U/L 13-40 eGFR Calculation (Non-) (test code = 6685890394) mL/min/1.73m2 eGFR Calculation () (test code = 7527330285) mL/min/1.73m2 NINI (test code = NINI) Association of Glomerular Filtration Rate (GFR) and Staging of Kidney Disease*+ + + +| GFR (mL/min/1.73 m2)?| With Kidney Damage?|?Without Kidney Damage+ --------+ --------+ +|?>90?|?S vesta one?|? Normal?+ ---------+ ---------+ +|?60-89? |?Stage two?|? [...] or abnormalities in imaging tests). Lab Interpretation (test code = 21221-8) [facility] 11:[facility]* Test Item Value Reference Range Interpretation Comme nts MAGNESIUM (test code = 1608432718) 1.8 mg/dL 1.7-2.4 Lab Interpretation (test cod e = 99496-9) Normal [facility] WITH [id number] 11:32:00* Test Item Value Reference Range Interpretation Comme nts WBC (test code = 6690-2) See_Comment H [Automated message] The system which generated this result transmitted reference range: 4.20 - 10.70 10*3/?L. The reference range was not used to interpret this result as normal/abnormal. RBC (test code = 789-8) See_Comment L [Automated message] The system which generated this result transmitted reference range: 4.26 - 5.52 10*6/?L. The reference range was not used to interpret this result as normal/abnormal. HGB (test code = 718-7) 13.4 g/dL 12.2-16.4 HCT (test code = 4544-3) 38.8 % 38.4-49.3 MCV (test code = 787-2) 91.5 fL 81.7-95.6 MCH (test code = 785-6) 31.6 pg 26.1-32.7 MCHC (test code = 786-4) 34.5 g/dL 31.2-35 RDW-SD (test code = 71684-4) 45.7 fL 38.5-51.6 RDW-CV (test code = 788-0) 13.5 % 12.1-15.4 PLT (test code = 777-3) See_Comment [Automated message] The system which generated this result transmitted reference range: 150 - 328 10*3/?L. The reference range was not used to interpret this result as normal/abnormal. MPV (test code = 65121-7) 10.7 fL 9.8-13 NRBC/100 WBC (test code = [id number]) See_Comment [Automated message] The system which generated this result transmitted reference range: 0.0 - 10.0 /100 WBCs. The reference range was not used to interpret this result as normal/abnormal. NRBC x10^3 (test code = 9635406285) <0.01 See_Comment [Automated message] The system which generated this result transmitted reference range: 10*3/?L. The reference range was not used to interpret this result as normal/abnormal. GRAN MAT (NEUT) % (test code = 770-8) 88.2 % IMM GRAN % (test code = 8225689028) 0.40 % LYMPH % (test code = 736-9) 6.0 % MONO % (test code = 5905-5) 5.2 % EOS % (test code = 713-8) 0.0 % BASO % (test code = 706-2) 0.2 % GRAN MAT x10^3(ANC) (test code = [id number]) 14.73 10*3/uL 1.99-6.95 H IMM GRAN x10^3 (test code = 6511102230) 0.06 10*3/uL 0-0.06 LYMPH x10^3 (test code = 731-0) 1.01 10*3/uL 1.09-3.23 L MONO x10^3 (test code = 742-7) 0.87 10*3/uL 0.36-1.02 EOS x10^3 (test code = 711-2) <0.03 0.06-0.53 L BASO x10^3 (test code = 704-7) 0.03 10*3/uL 0.01-0.09 Lab Interpretation (test code = 03281-0) [facility] [id number] 09:53:00* Test Item Value Reference Range Interpretation Comme nts Coagulase Negative Staphylococcus (test code = 75014-5) Positive Negative A NINI (test code = NINI) Coagulase negative [...] contact the Antimicrobial Stewardship Program with questions.ASP Pager:?[phone] Testing included eleven identification and three resistance marker targets. Lab Interpretation (test code = 03891-7) [facility] [id number] 05:29:551.?Findings consistent with acute appendicitis.2.?Mild bladder wall thickening could be secondary to prostatomegaly. IKeri MD., have reviewed this study and agree with the abovereport.* * * * * * ORIGINAL REPORT [...] intravenous Omnipaque contrast. Coronal andsagittal reconstructions were obtained.?Auto mA and/or iterativereconstruction were used to reduce radiation dose. FINDINGS: LOWER THORAX: The lungs bases are clear; except for bibasal subsegmentalatelectasis and a subpleural right posterior lower lobe calcified granuloma(2:90). Scattered coronary atherosclerotic calcifications are present. Nocardiomegaly. Lipomatous hypertrophy of interatrial septum is noted. LIVER:?Normal in size and contour and parenchymal attenuation. No focalhepatic lesions are identified. GALLBLADDER AND BILIARY TREE: No biliary ductal dilation.?No gallbladderwall thickening. SPLEEN: No splenomegaly. PANCREAS: Mild [...] posterior lower lobe calcified granuloma(2:90). Scattered coronary atherosclerotic calcifications are present. Nocardiomegaly. [...] air or fluid.LYMPH NODES: No lymphadenopathy.GI TRACT: The appendix is dilated up to 1.3 cm, fluid-filled with thickened enhancingwall and mild to moderate periappendiceal fat stranding. No bowel dilationor wall thickening.PELVIS/BLADDER: The bladder is distended and demonstrates mild wallthickening. The prostate is slightly enlarged and contains scatteredcentral coarse calcifications.VESSELS: A few scattered calcified atheromatous plaque affect of theaortoiliac arterial trunk.BONES AND SOFT TISSUES: Mild thoracolumbarspondylosis is present. Nosuspicious lytic or sclerotic bony lesions.IMPRESSION1. Findings consistent with acute appendicitis.2. Mild bladder wall thickening could be secondary to prostatomegaly. I, Dereck Dunne MD., have reviewed this study and agree with the abovereport.[facility] Whole [id number] 04:53:00* Test Item Value Reference Range Interpretation Comme nts LACTIC ACID (test code = 8771090174) 1.62 mmol/L 0.5-2.2 Lab Interpretation (test cod e = 27556-9) Normal [facility] Metabolic Panel (NA, K, CL, CO2, GLUCOSE, BUN, CREATININE, CA)2018-11-24 02:40:00* Test Item Value Reference Range Interpretation Comme nts NA (test code = 7869559239) 141 mmol/L 135-145 K (test code = 0976008787) 4.1 mmol/L 3.5-5 CL (test code = 2618736999) 101 mmol/L 98-108 CO2 TOTAL (test code = 8523310218) 27 mmol/L 23-31 AGAP (test code = 2142178844) 2-16 BUN (test code = 7864562352) 19 mg/dL 7-23 GLUCOSE (test code = 4697678070) 110 mg/dL 70-110 CREATININE (test code = 7364905833) 0.77 mg/dL 0.6-1.25 CALCIUM (test code = 7010124000) 8.9 mg/dL 8.6-10.6 eGFR Calculation (Non-) (test code = 2651745211) mL/min/1.73m2 eGFR Calculation () (test code = 4161085164) mL/min/1.73m2 NINI (test code = NINI) Association of [...] or urine or abnormalities in imaging tests). [facility] (ALB, T.PRO, BILI T, BU/BC, ALT, AST, ALK PHOS)2018-11-24 02:40:00* Test Item Value Reference Range Interpretation Comme nts TOTAL BILI (test code = 5624828854) 1.5 mg/dL 0.1-1.1 H BILI UNCON (test code = 9726970322) 1.3 mg/dL 0.1-1.1 H BILI CONJ (test code = 9717835261) 0.0 mg/dL 0-0.3 T PROTEIN (test code = 0233789043) 7.9 g/dL 6.3-8.2 ALBUMIN (test code = 7669672554) 4.5 g/dL 3.5-5 ALK PHOS (test code = 6857108730) 54 U/L 34-122 ALT(SGPT) (test code = 7471353774) 43 U/L 9-51 AST(SGOT) (test code = 6650209889) 46 U/L 13-40 H Lab Interpretation (test cod e = 01293-0) Abnormal [facility] Center[facility] [id number] 02:40:00* Test Item Value Reference Range Interpretation Comme nts LIPASE (test code = 1010670744) 28 U/L 0-220 Lab Interpretation (test cod e = 00264-3) Normal [facility] GALL [id number] 01:49:05Unremarkable right upper quadrant ultrasound. Keri Ocasio MD., have reviewed this study and agree with the abovereport.HISTORY: right upper quadrant pain . ABDOMINAL ULTRASOUND COMPARISON: CT abdomen and pelvis on 10/15/2014 FINDINGS: LIVER: The liver size is in physiologic upper limits measuring 17 cm withnormal shape and unremarkable echo-texture. No intrahepatic biliarydilation or focal lesi on.?Normal hepatopetal?flow within the main portalvein. GALLBLADDER: No cholelithiasis, pericholecystic fluid, or gallbladderdistention. Negative sonographic Mosley's sign. The gallbladder wallmeasures 3 mm in thickness. The common bile duct measures 4 mm. PANCREAS: The visualized portions of the pa ncreas are normal. No ascites. [facility], Radiant Results [...] pancreas are normal.No ascites.IMPRESSIONUnremarkable right upper quadrant ultrasound.I, Dereck Dunne MD., have reviewed this study and agreewith the abovereport.[facility] WITH [id number] 01:25:00* Test Item Value Reference Range Interpretation Comme nts WBC (test code = 6690-2) See_Comment H [Automated message] The system which generated this result transmitted reference range: 4.20 - 10.70 10*3/?L. The reference range was not used to interpret this result as normal/abnormal. RBC (test code = 789-8) See_Comment [Automated message] The system which generated this result transmitted reference range: 4.26 - 5.52 10*6/?L. The reference range was not used to interpret this result as normal/abnormal. HGB (test code = 718-7) 14.9 g/dL 12.2-16.4 HCT (test code = 4544-3) 45.1 % 38.4-49.3 MCV (test code = 787-2) 93.4 fL 81.7-95.6 MCH (test code = 785-6) 30.8 pg 26.1-32.7 MCHC (test code = 786-4) 33.0 g/dL 31.2-35 RDW-SD (test code = 91012-4) 45.9 fL 38.5-51.6 RDW-CV (test code = 788-0) 13.3 % 12.1-15.4 PLT (test code = 777-3) See_Comment [Automated message] The system which generated this result transmitted reference range: 150 - 328 10*3/?L. The reference range was not used to interpret this result as normal/abnormal. MPV (test code = 51178-4) 10.4 fL 9.8-13 NRBC/100 WBC (test code = 4230481938) See_Comment [Automated message] The system which generated this result transmitted reference range: 0.0 - 10.0 /100 WBCs. The reference range was not used to interpret this result as normal/abnormal. NRBC x10^3 (test code = 9071473667) <0.01 See_Comment [Automated message] The system which generated this result transmitted reference range: 10*3/?L. The reference range was not used to interpret this result as normal/abnormal. GRAN MAT (NEUT) % (test code = 770-8) 79.9 % IMM GRAN % (test code = 1499490734) 0.60 % LYMPH % (test code = 736-9) 11.5 % MONO % (test code = 5905-5) 7.4 % EOS % (test code = 713-8) 0.3 % BASO % (test code = 706-2) 0.3 % GRAN MAT x10^3(ANC) (test code = 4823617563) 14.60 10*3/uL 1.99-6.95 H IMM GRAN x10^3 (test code = 5098151140) 0.11 10*3/uL 0-0.06 H LYMPH x10^3 (test code = 731-0) 2.10 10*3/uL 1.09-3.23 MONO x10^3 (test code = 742-7) 1.35 10*3/uL 0.36-1.02 H EOS x10^3 (test code = 711-2) 0.05 10*3/uL 0.06-0.53 L BASO x10^3 (test code = 704-7) 0.06 10*3/uL 0.01-0.09 Lab Interpretation (test code = 27038-9) Abnormal [facility] Whole [id number] 00:30:00* Test Item Value Reference Range Interpretation Comme nts LACTIC ACID (test code = 1254174980) 2.38 mmol/L 0.5-2.2 H Lab Interpretation (test cod e = 04697-9) Abnormal [facility]-REACTIVE [id number] 15:41:00* Test Item Value Reference Range Interpretation Comme nts CRP (test code = 8161566278) 0.3 mg/dL <0.8 Lab Interpretation (test cod e = 13660-6) Normal [facility]-REACTIVE [id number] 15:41:00* Test Item Value Reference Range Interpretation Comme nts CRP (test code = 0503958729) 0.3 mg/dL <0.8 Lab Interpretation (test cod e = 00322-6) Normal [facility] WITH [id number] 16:58:00* Test Item Value Reference Range Interpretation Comme nts WBC (test code = 6690-2) See_Comment H [Automated Sproxila ge] The system which generated this result transmitted reference range: 4.20 - 10.70 10*3/?L. The reference range was not used to interpret this result as normal/abnormal. RBC (test code = 789-8) See_Comment [Automated Sproxila ge] The system which generated this result transmitted reference range: 4.26 - 5.52 10*6/?L. The reference range was not used to interpret this result as normal/abnormal. HGB (test code = 718-7) 16.4 g/dL 12.2-16.4 HCT (test code = 4544-3) 47.4 % 38.4-49.3 MCV (test code = 787-2) 90.3 fL 81.7-95.6 MCH (test code = 785-6) 31.2 pg 26.1-32.7 MCHC (test code = 786-4) 34.6 g/dL 31.2-35 RDW-SD (test code = 91587-5) 41.9 fL 38.5-51.6 RDW-CV (test code = 788-0) 12.7 % 12.1-15.4 PLT (test code = 777-3) See_Comment H [Automated messa ge] The system which generated this result transmitted reference range: 150 - 328 10*3/?L. The reference range was not used to interpret this result as normal/abnormal. MPV (test code = 77369-1) 11.1 fL 9.8-13 NRBC/100 WBC (test code = 4375242198) See_Comment [Automated [employer] ssage] The system which generated this result transmitted reference range: 0.0 - 10.0 /100 WBCs. The reference range was not used to interpret this result as normal/abnormal. NRBC x10^3 (test code = 2844078366) <0.01 See_Comment [Automated Sproxila ge] The system which generated this result transmitted reference range: 10*3/?L. The reference range was not used to interpret this result as normal/abnormal. GRAN MAT (NEUT) % (test code = 770-8) 59.8 % IMM GRAN % (test code = 0190036240) 0.40 % LYMPH % (test code = 736-9) 21.0 % MONO % (test code = 5905-5) 8.1 % EOS % (test code = 713-8) 9.4 % BASO % (test code = 706-2) 1.3 % GRAN MAT x10^3(ANC) (test code = 6843071562) 6.67 10*3/uL 1.99-6.95 IMM GRAN x10^3 (test code = 2312655185) 0.04 10*3/uL 0-0.06 LYMPH x10^3 (test code = 731-0) 2.34 10*3/uL 1.09-3.23 MONO x10^3 (test code = 742-7) 0.90 10*3/uL 0.36-1.02 EOS x10^3 (test code = 711-2) 1.05 10*3/uL 0.06-0.53 H BASO x10^3 (test code = 704-7) 0.15 10*3/uL 0.01-0.09 H Lab Interpretation (test code = 79471-8) Abnormal [facility] WITH [id number] 16:58:00* Test Item Value Reference Range Interpretation Comme nts WBC (test code = 6690-2) See_Comment H [Automated messa ge] The system which generated this result transmitted reference range: 4.20 - 10.70 10*3/?L. The reference range was not used to interpret this result as normal/abnormal. RBC (test code = 789-8) See_Comment [Automated messa ge] The system which generated this result transmitted reference range: 4.26 - 5.52 10*6/?L. The reference range was not used to interpret this result as normal/abnormal. HGB (test code = 718-7) 16.4 g/dL 12.2-16.4 HCT (test code = 4544-3) 47.4 % 38.4-49.3 MCV (test code = 787-2) 90.3 fL 81.7-95.6 MCH (test code = 785-6) 31.2 pg 26.1-32.7 MCHC (test code = 786-4) 34.6 g/dL 31.2-35 RDW-SD (test code = 17952-9) 41.9 fL 38.5-51.6 RDW-CV (test code = 788-0) 12.7 % 12.1-15.4 PLT (test code = 777-3) See_Comment H [Automated messa ge] The system which generated this result transmitted reference range: 150 - 328 10*3/?L. The reference range was not used to interpret this result as normal/abnormal. MPV (test code = 87853-6) 11.1 fL 9.8-13 NRBC/100 WBC (test code = 9946043629) See_Comment [Automated [employer] ssage] The system which generated this result transmitted reference range: 0.0 - 10.0 /100 WBCs. The reference range was not used to interpret this result as normal/abnormal. NRBC x10^3 (test code = 5880910749) <0.01 See_Comment [Automated messa ge] The system which generated this result transmitted reference range: 10*3/?L. The reference range was not used to interpret this result as normal/abnormal. GRAN MAT (NEUT) % (test code = 770-8) 59.8 % IMM GRAN % (test code = 3879227792) 0.40 % LYMPH % (test code = 736-9) 21.0 % MONO % (test code = 5905-5) 8.1 % EOS % (test code = 713-8) 9.4 % BASO % (test code = 706-2) 1.3 % GRAN MAT x10^3(ANC) (test code = 4245471609) 6.67 10*3/uL 1.99-6.95 IMM GRAN x10^3 (test code = 3495255204) 0.04 10*3/uL 0-0.06 LYMPH x10^3 (test code = 731-0) 2.34 10*3/uL 1.09-3.23 MONO x10^3 (test code = 742-7) 0.90 10*3/uL 0.36-1.02 EOS x10^3 (test code = 711-2) 1.05 10*3/uL 0.06-0.53 H BASO x10^3 (test code = 704-7) 0.15 10*3/uL 0.01-0.09 H Lab Interpretation (test code = 67069-9) Abnormal [facility] Progress Notes Date/Time Note Provider Source 2022-08-18 09:45:00 Formatting of this n ote might be different from the original. Notified patient of test results/recommendations per COATING MANAGER Natalie. Patient gave verbal understanding via teach back. No further questions at this time per patient. Instructed patient to call clinic should they have questions at another time. Samantha Dietz MA [facility] - Health Notes Date/Time Note Provider Source 2022-12-02 13:10:36 Formatting of this n ote might be different from the original. I agree Thanks URO-UROLOGY STAFF [facility] 2022-12-02 09:57:17 Formatting of this n ote might be different from the original. Patient contacted in regards to cystoscopy 12/07/22. Patient was a no show for lab appointment 11/26/22. Patient states he will try to go to lab for urine culture today or tomorrow but he is not sure he can. Patient aware cysto will need to be canceled if not able to get urine culture by Tuesday. Shanique Granger RN [facility] 2022-11-26 14:46:50 Formatting of this n ote might be different from the original. Pt appt cancelled. Orders were already sent to [facility] Patient last week due to urgency documentation. Dr. Mederos ok'd the Rx without face to face. Pt informed will need a 30-90day follow up after usage. Verbally understood to call back in 2mo to book appt. Jalil Stephen MA [facility] 2022-11-26 14:17:04 Formatting of this n ote might be different from the original. Orders were processed via [facility] 9.1.23. Msg back from [facility] no answer no voicemail set up. Response back to please contact . Txt to area [facility] for status update sent. Jalil Stephen MA [facility] 2022-11-24 17:02:15 Formatting of this n ote might be different from the original. Called Cy Elliott spoke with at patient request. Advised that typically after all protions of the sleep study are complete the patient comes back for Appointment to receive results and then a RX is written for any needed device. Patient and verbalized understanding and agreed to be scheduled with Dr. Mederos. Scheduled for 12/01/2022 at 2:30 PM in [place]. Adore Murrieta RN [facility] 2022-11-24 14:22:07 Formatting of this n ote might be different from the original. Cy Elliott is a 62 year old male Monse calling to get patient's sleep study results as well as figure out ETA for CPAP machine. She states that patient's head hurts so bad he's not able to function. He's not able to speak on the phone. They have been told that he would have the CPAP machine but they've not been contacted or received it. Pls give spouse a call. Thanks. Caryl Cortés [facility] 2022-11-17 15:17:59 Formatting of this n ote might be different from the original. OK. If he is not able to come to clinic, please send DME order for a new CPAP at 11 cm H2O and inform patient. Thanks, Dr. Hood [facility] 2022-11-17 14:32:21 Formatting of this n ote might be different from the original. Patient had to do the part 2 sleep study. Titration. Was just completed 11.09.22. Most often it is always recommended patient come in person for results so Rx can be done at post testing visit. Will route to Dr. Hood to ask if ok to just do Rx without visit. Jalil Stephen MA [facility] 2022-11-17 08:45:05 Formatting of this n ote might be different from the original. Cy Elliott is a 62 year old male Patient calling stating they have not heard anything regarding his CPAP machine. Spouse added that the patient had to redo his sleep study and they request the CPAP machine be expedited as patient is having headaches. Please review and advise. Rachael Murray [facility] 2022-08-18 09:45:00 Addended by: ERIKA KNOX MA on: 10/08/2022 10:21 AM Modules accepted: Orders Erika Knox MA [facility]"
--- NOTE | 2024-12-20 12:42 | RAD REPORT ---
EXAMINATION: TWO VIEW CHEST XR CLINICAL INDICATION: Male, 64 years old. [facility] MAIN Chest pain;SOB Bed Name: [facility] TECHNIQUE: 2 view radiographs of the chest were performed. COMPARISON: 12/21/2020 FINDINGS: The lungs are well inflated and clear apart from mild central predominant reticular opacities, could reflect sequelae. No pneumothorax or sizable effusion. Stable mild cardiomegaly. Mediastinal contours are unremarkable. IMPRESSION: No acute or significant abnormalities.
[2024-12-20 12:49] LABS: Absolute Lymphocytes (CBC) 2.9 K/uL (0.7-4.9); Hematocrit 46.8 % (39.6-49.0); Hemoglobin 15.8 g/dL (13.6-17.9); MCH 30.9 pg (27.0-35.0); MCHC 33.7 g/dL (32.0-36.0); MCV 91.9 fL (80-100); MPV 9.2 fL (7.6-11.3); Nucleated RBC Absolute Count 0.0 (0-0); Nucleated Red Blood Cells % 0.1 % (0-0); RBC Red Blood Cell Count 5.10 M/uL (4.33-5.43); White Blood Count 13.80 thou/uL (4.3-10.9)
[2024-12-20 12:54] LABS: ALT/SGPT 49.0 U/L (16-61); AST/SGOT 35.0 U/L (15-37); Albumin 3.4 g/dL (3.4-5.0); Albumin/Globulin Ratio 0.9 (1.1-1.8); Alkaline Phosphatase 66.0 U/L (45-117); Anion Gap 9.9 mEq/L (5.0-15.0); BUN Blood Urea Nitrogen 10.0 mg/dL (7-18); Globulin 4.0 g/dL (2.3-3.5); Glucose Level 109.0 mg/dL (74-106); NT PRO-BNP 6325.0 pg/mL (<125); Potassium 3.9 mEq/L (3.5-5.1)
[2024-12-20 12:57] LABS: Troponin High Sensitivity 88.8 pg/mL (<58.9)
[2024-12-20] MEDS ORDERED: FUROSEMIDE 40 MG/4 ML VIAL ONE (13:32)
[2024-12-20] MEDS ORDERED: ASPIRIN 81 MG CHEWABLE TABLET ONE (13:32)
--- NOTE | 2024-12-20 14:16 | ER ---
Nurse's Notes [facility] Name: Henry Elliott Age: 64 yrs Sex: Male : 1960 Arrival Date: 12/20/2024 Time: 11:03 Bed 20 Private MD: Diagnosis: Unspecified combined systolic (congestive) and diastolic (congestive) heart failure;Shortness of breath Presentation: 12/20 11:31 Chief complaint: Patient states: SOB x5 DAYS. Coronavirus screen: At this time, the bp client does not indicate any symptoms associated with coronavirus-19. Ebola Screen: No symptoms or risks identified at this time. Initial Sepsis Screen: Does the patient meet any 2 criteria? No. Patient's initial sepsis screen is negative. Does the patient have a suspected source of infection? No. Patient's initial sepsis screen is negative. Risk Assessment: Do you want to hurt yourself or someone else? Patient reports no desire to harm self or others. Onset of symptoms is unknown. 11:31 Method Of Arrival: Ambulatory bp 11:31 Acuity: TOMMY 3 bp Triage Assessment: 11:31 General: Appears in no apparent distress. Behavior is calm, cooperative, appropriate bp for age. Pain: Denies pain. EENT: No deficits noted. Neuro: No deficits noted. Cardiovascular: Rhythm is sinus rhythm. Respiratory: Reports shortness of breath cough that is Onset: The symptoms/episode began/occurred at an unknown time. the patient has mild shortness of breath. GI: No signs and/or symptoms were reported involving the gastrointestinal system. : No signs and/or symptoms were reported regarding the genitourinary system. Derm: No deficits noted. Musculoskeletal: No deficits noted. Historical: - Allergies: 11:31 No Known Allergies; bp - PMHx: 11:31 cluster headaches; headache; Hypertensive disorder; bp - PSHx: 11:31 Appendectomy; hernia repair; elbow repair; bp - Immunization history:: Adult Immunizations unknown. - Infectious Disease History:: Denies. - Social history:: Smoking status: Patient denies any tobacco usage or history of. Screenin:50 [facility] ED Fall Risk Assessment (Adult) History of falling in the last 3 months, ar8 including since admission No falls in past 3 months (0 pts) Confusion or Disorientation No (0 pts) Intoxicated or Sedated No (0 pts) Impaired Gait No (0 pts) Mobility Assist Device Used No (0 pt) Altered Elimination No (0 pt) Score/Fall Risk Level 0 - 2 = Low Risk Oriented to surroundings, Maintained a safe environment. Abuse screen: Denies threats or abuse. 13:50 Nutritional screening: No deficits noted. Tuberculosis screening: No symptoms or risk ar8 factors identified. Assessment: 13:50 General: Appears in no apparent distress. uncomfortable, Behavior is calm, cooperative. ar8 Pain: Denies pain. Neuro: Level of Consciousness is awake, alert, obeys commands, Oriented to person, place, time, situation, Moves all extremities. Full function. Cardiovascular: Denies chest pain, Patient's skin is warm and dry. Rhythm is sinus tachycardia. Respiratory: Airway is patent Respiratory effort is labored, Respiratory pattern is tachypnea Breath sounds with rhonchi bilaterally. in left posterior lower lobe and right posterior lower lobe. GI: No signs and/or symptoms were reported involving the gastrointestinal system. : No signs and/or symptoms were reported regarding the genitourinary system. EENT: No signs and/or symptoms were reported regarding the EENT system. Derm: No signs and/or symptoms reported regarding the dermatologic system. Musculoskeletal: No signs and/or symptoms reported regarding the musculoskeletal system. 13:56 General:. ar8 Vital Signs: 11:31 BP 147 / 102; Pulse 62; Resp 20; Temp 98; Pulse Ox 100% ; bp 13:46 BP 150 / 93; Pulse 117; Resp 26; Pulse Ox 98% on R/A; Pain 0/10; ar8 14:21 BP 141 / 95; Pulse 125; Resp 24; Pulse Ox 98% on R/A; Pain 0/10; ar8 13:46 Pain Scale: Adult ar8 14:21 Pain Scale: Adult ar8 ED Course: 11:06 Patient arrived in ED. al6 11:09 D[facility]endo[facility]-C [facility] 11:09 Fab Smith MD is Attending Physician. dr5 11:31 Arm band placed on. bp 11:32 Triage completed. bp 11:58 Chest Pa And Lat (2 Views) XRAY In Process Unspecified. EDMS 12:28 Initial lab(s) drawn, by ED staff, sent to lab. Inserted saline lock: 22 gauge in right rk3 upper arm, using aseptic technique. ,using aseptic technique. By Fer Blood collected. Flushed with 10 mL NS. 13:38 Javad Murray, RN is Primary Nurse. ar8 13:50 Bed in low position. Call light in reach. Side rails up X2. Provided Education on: plan ar8 of care. Client placed on continuous cardiac and pulse oximetry monitoring. NIBP monitoring applied. 13:50 No provider procedures requiring assistance completed. ar8 14:14 Shan Rich MD is Referral Physician. dr5 14:20 IV discontinued, intact, bleeding controlled, No redness/swelling at site. Pressure ar8 dressing applied. Administered Medications: 13:50 Drug: Aspirin PO Chewable Tablet 324 mg PO once; 81 mg tablets x 4 Route: PO; ar8 14:21 Follow up: Response: No adverse reaction ar8 13:50 Drug: Furosemide IVP 40 mg IVP once; give over 2 minutes Route: IVP; Site: right upper ar8 arm; 14:21 Follow up: Response: No adverse reaction ar8 14:14 CANCELLED (Inappropriate at this time): mg IVP once; give over [address]5 Medication: 13:46 VIS not applicable for this client. ar8 Outcome: 14:15 Discharge ordered by . dr5 14:29 AMA AMA form signed ar8 14:29 Condition: unchanged 14:29 Discharge instructions given to patient, Instructed on discharge instructions, follow up and referral plans. medication usage, Demonstrated understanding of instructions, follow-up care, medications, Prescriptions given X 2, 14:30 Patient left the ED. ar8 Signatures: Dispatcher [employer] EDMS Stewart Mustafa, RN RN Dk Bui, SENIOR COMPLIANCE OFFICER-C SENIOR COMPLIANCE OFFICER-[facility]5 Peg Strickland Rozana rk3 Javad Murray, RN RN ar8
--- NOTE | 2024-12-20 14:16 | EDPHYS ---
Physician Documentation [facility] Name: Henry Elliott Age: 64 yrs Sex: Male : 1960 Arrival Date: 12/20/2024 Time: 11:03 Bed 20 Private MD: ED Physician Fab Smith HPI: 12/20 11:48 This 64 yrs old Male presents to ER via Ambulatory with complaints of dr5 Shortness Of Breath. 11:48 Onset: The symptoms/episode began/occurred 5 day(s) ago. Patient is a 64-year-old male dr5 with history of headaches and hypertension coming in with 5 days of shortness of breath when he wakes up. Patient reports that it is hard for him to breathe when he wakes up and gets out of bed but improves throughout the day. Patient reports that upon arrival to the ER, his shortness of breath has resolved and feeling much better. Patient denies chest pain, abdominal pain, nausea, vomiting, diarrhea, fever at home.. Historical: - Allergies: 11:31 No Known Allergies; bp - PMHx: 11:31 cluster headaches; headache; Hypertensive disorder; bp - PSHx: 11:31 Appendectomy; hernia repair; elbow repair; bp - Immunization history:: Adult Immunizations unknown. - Infectious Disease History:: Denies. - Social history:: Smoking status: Patient denies any tobacco usage or history of. ROS: 11:48 Constitutional: as per hpi dr5 Exam: 11:48 Constitutional: This is a well developed, well nourished patient who is awake, alert, dr5 and in no acute distress. Head/Face: Normocephalic, atraumatic. Eyes: Pupils equal round and reactive to light, extra-ocular motions intact. Lids and lashes normal. Conjunctiva and sclera are non-icteric and not injected. Cornea within normal limits. Periorbital areas with no swelling, redness, or edema. Neck: Trachea midline, no thyromegaly or masses palpated, and no cervical lymphadenopathy. Supple, full range of motion without nuchal rigidity, or vertebral point tenderness. No Meningismus. Chest/axilla: Normal chest wall appearance and motion. Nontender with no deformity. No lesions are appreciated. Cardiovascular: Regular rate and rhythm with a normal S1 and S2. Normal PMI, no JVD. No pulse deficits. 11:48 Abdomen/GI: Soft, non-tender, non-distended Back: No spinal tenderness. No costovertebral tenderness. Full range of motion. Skin: Warm, dry with normal turgor. Normal color with no rashes, no lesions, and no evidence of cellulitis. MS/ Extremity: Pulses equal, no cyanosis. Neurovascular intact. Full, normal range of motion. Neuro: Awake and alert, GCS 15, oriented to person, place, time, and situation. Cranial nerves II-XII grossly intact. Motor strength 5/5 in all extremities. Sensory grossly intact. Cerebellar exam normal. Normal gait. 11:48 Respiratory: mild respiratory distress is noted, Respirations: no acute changes, Breath sounds: rhonchi, that are mild, are heard in the left posterior lower lobe and right posterior lower lobe, Respiratory rate: 20 Vital Signs: 11:31 BP 147 / 102; Pulse 62; Resp 20; Temp 98; Pulse Ox 100% ; bp 13:46 BP 150 / 93; Pulse 117; Resp 26; Pulse Ox 98% on R/A; Pain 0/10; ar8 14:21 BP 141 / 95; Pulse 125; Resp 24; Pulse Ox 98% on R/A; Pain 0/10; ar8 13:46 Pain Scale: Adult ar8 14:21 Pain Scale: Adult ar8 MDM: 11:10 Medical Screening Exam initiated dr5 14:17 Differential diagnosis: Anemia asthma, CHF exacerbation, Chronic Obstructive Pulmonary dr5 Disease Myocardial Infarction pneumonia. Data reviewed: vital signs, nurses notes, lab test result(s), cardiac enzymes, troponin i, CBC, white blood cell count, hemoglobin, hematocrit, platelets, electrolytes, sodium, potassium, chloride, serum bicarbonate, BUN, creatinine, serum glucose, EKG, radiologic studies, plain films. Consideration of Admission/Observation Patient was admitted/placed on observation. I considered the following discharge prescriptions or medication management in the emergency department I discussed and recommended Over The Counter medications, Medications were administered in the Emergency Department. See MAR. Independent interpretation of the following test(s) in the Emergency Department X-Ray: My interpretation is Independent rotation of x-ray reveals moderately enlarged heart. Care significantly affected by the following chronic conditions: Hypertension, Headache. Care significantly affected by the following Social Determinants of Health: Poor access to healthcare and/or lack of insurance, Poor access to transportation, Problems related to employment. Counseling: I had a detailed discussion with the patient and/or guardian regarding the historical points, exam findings, and any diagnostic results supporting the discharge/admit diagnosis, the presence of at least one elevated blood pressure reading (>120/80) during this emergency department visit, lab results, radiology results, the need for further work-up and treatment in the hospital. 14:21 Medication response: Lasix. Response to treatment: the patient's symptoms have markedly dr5 improved after treatment. Refusal of service: The patient/guardian displays adequate decision making capability and despite a detailed discussion of alternatives, benefits, risks, and consequences refuses: Admission to the hospital for further work-up and treatment. Special discussion: Based on the patient's history, exam, and Dx evaluation, there is no indication for emergent intervention or inpatient Tx. It is understood by the patient/guardian that if the Sx's persist or worsen they need to return immediately for re-evaluation. Based on the history and exam findings, there is no indication for further emergent testing or inpatient evaluation. I discussed with the patient/guardian the need to see the children's ministries director for further evaluation of the symptoms. ED course: Had long discussion with patient regarding need for admission. Patient has denied chest pain throughout ER stay. Patient reports that he does not want to stay in the hospital and he wants to follow-up with his children's ministries director next week. I printed all labs, started him on Lasix daily, give him baby aspirin daily. Will have patient signed AGAINST MEDICAL ADVICE form for admission and explained risks and benefits of leaving including worsening shortness of breath, heart attack, or even . Patient verbalized understanding. I also explained that if patient wants to return, we will happily see him and take care of him regardless of the AMA form. Patient verbalized understanding. Patient reports that he will see cardiology next week and return if worsening symptoms. Patient denies any complaints at this time and feels like he is feeling better.. 12/20 11:37 Order name: CBC with Diff; Complete Time: 13: dr5 12/20 11:37 Order name: NT PRO-BNP; Complete Time: 13: dr5 12/20 11:37 Order name: Troponin HS; Complete Time: :12/20 11:37 Order name: CMP; Complete Time: 13:12/20 11:37 Order name: Chest Pa And Lat (2 Views) XRAY; Complete Time: 12:43 dr5 12/20 11:37 Order name: EKG - Nurse/Tech; Complete Time: 12:44 dr5 12/20 11:37 Order name: IV Saline Lock; Complete Time: 12:29 dr5 12/20 11:37 Order name: Labs collected and sent; Complete Time: 12:29 dr5 12/20 11:37 Order name: O2 Per Protocol; Complete Time: 12:45 dr5 12/20 11:37 Order name: O2 Sat Monitoring; Complete Time: 12:45 dr5 EC:39 Rate is 123 beats/min. Rhythm is regular. QRS Cameron is Normal. CT interval is normal at dr5 188 msec. QRS interval is normal at 106 msec. QT interval is normal at 284 msec. Clinical impression: Sinus tachycardia. Administered Medications: 13:50 Drug: Aspirin PO Chewable Tablet 324 mg PO once; 81 mg tablets x 4 Route: PO; ar8 14:21 Follow up: Response: No adverse reaction ar8 13:50 Drug: Furosemide IVP 40 mg IVP once; give over 2 minutes Route: IVP; Site: right upper ar8 arm; 14:21 Follow up: Response: No adverse reaction ar8 14:14 CANCELLED (Inappropriate at this time): [id number] mg IVP once; give over 2 minutes dr5 Disposition: 18:40 Co-signature as Attending Physician, Fab Smith MD I reviewed the patient's care rn provided by the Advanced Practice Provider and agree with the diagnosis and treatment plan. Disposition Summary: 12/20/24 14:15 Discharge Ordered Notes: Location: Home dr5 Condition: Stable dr5 Diagnosis - Unspecified combined systolic (congestive) and diastolic (congestive) heart failure dr5 - Shortness of breath dr5 Followup: dr5 - With: Emergency Department - When: As needed - Reason: Worsening of condition Followup: dr5 - With: Shan Rich MD - When: 1 - 2 days - Reason: Recheck today's complaints, Continuance of care, Re-evaluation by your physician Discharge Instructions: - Discharge Summary Sheet dr5 - Heart Failure, Diagnosis dr5 - Shortness of Breath, Adult dr5 Forms: - Medication Reconciliation Form dr5 - Patient Portal Instructions dr5 - Leadership Thank You Letter dr5 Prescriptions: - aspirin 81 mg Oral tablet, delayed release (enteric coated) - take 1 tablet ORAL route daily; 31 tablet; Refills: 0, Product Selection dr5 Permitted - Lasix 40 mg Oral Tablet - take 1 tablet ORAL route once daily for 30 days; 30 tablet; Refills: 0, Product dr5 Selection Permitted Signatures: Dispatcher [employer] EDFab Voss MD MD rn Peltier, Stewart, RN RN Dk Bui, ASSISTANT SERVICE MANAGER-C ASSISTANT SERVICE MANAGER-Cdr5 Javad Murray RN RN ar8 Corrections: (The following items were deleted from the chart) 11:38 11:38 CBC+H.LAB.BRZ ordered. EDMS EDMS 11:38 11:38 PROBNP+C.LAB.BRZ ordered. EDMS EDMS 11:38 11:38 Troponin High Sensitivity+C.LAB.BRZ ordered. EDCA EDMS 11:38 11:38 COMPREHENSIVE METABOLIC PANEL+C.LAB.BRZ ordered. EDMS EDMS 11:38 11:38 Chest Single View+RAD.RAD.BRZ ordered. EDCA EDMS 11:38 11:38 Chest Pa And Lat (2 Views)+RAD.RAD.BRZ ordered. EDCA EDMS 14:14 13:12 Furosemide IVP 20 mg IVP once; give over 2 minutes ordered. dr5 dr5 14:24 14:17 Counseling: I had a detailed discussion with the patient and/or guardian dr5 regarding the historical points, exam findings, and any diagnostic results supporting the discharge/admit diagnosis, the presence of at least one elevated blood pressure reading (>120/80) during this emergency department visit, lab results, dr5
[2024-12-20 14:55] VITALS: TEMP 98
[2024-12-20 14:58] VITALS: O2SAT 98
[2024-12-20 14:59] VITALS: BP 141/95
== END 2024-12-20 14:30 | disposition home or self-care (01) ==
LOC: ER 11:03
DX: I50.40 Unspecified combined systolic (congestive) and diastolic (congestive) heart failure (principal); I10 Essential (primary) hypertension
CPT/HCPCS: 93005; 85025; 36415; 84484; 80053; 83880; 71046; 96374; 99284; J1938

== ENCOUNTER 2024-12-22 19:28 | Inpatient (IN) | payer OTHER ==
--- OUTSIDE RECORDS SUMMARY | 2024-12-22 19:36 | XMS REPORT | Continuity of Care Document ---
Author Name Unknown Address [address] [facility] [place] [address] [facility] Address [address] [address] [place] [address] Care Team Providers Care Cook Morning Name Role Phone SCARLETT JAMES Primary Care Physician Unavail able Matteo Carrillo MD Attending Clinician U magaly Doctor Unassigned, [place] Attending Clinician U RACHAEL Silver Attending Clinician Unavailable KADEN DIAZ Attending Clinician Unavailable Deangelo Mederos MD Attending Clinician NEREYDA BRASHER Attending Clinician Unavailab Kaden Allen MD Attending Clinician [phone] DEANGELO MEDEROS Attending Clinician UnavailDEANGELO Jimenez Attending Clinician Unavailmarciano mcqueen , [facility] Sleep Lab Bed Attending Clinician Unavail able Shira López Attending Clinician [phone] SHIRA FARLEY Attending Clinician Unavailable FINN ALVARADO Attending Clinician Unavailable Mirtha Gray Attending Clinician MIRTHA ESTRADA Attending Clinician UnavailFinn Driver MD Attending Clinician [phone] Swartz, Cardiology - Clear Attending Clinician Hali vailable IHSAN ANDRADE Attending Clinician Unavaila ble Raymond [employer]BER, Ihsan F Attending Clinician [phone] HÉCTOR BOYD Attending Clinician Unavail able HÉCTOR BOYD Attending Clinician Unavail able Héctor Boyd MD Attending Clinician [phone] JUAN DIEGO MCRAE Attending Clinician Unavailable Jacob PRESTON, Scarlett Attending Clinician [phone] SCARLETT JAMES Attending Clinician Unavailabl e Only, Adc Test Attending Clinician Unavailable CONY ARRINGTON Attending Clinician Unavailable 2, [facility] Lab Attending Clinician Unavailable Juan Diego Mcrae MD Attending Clinician [phone] Provider, [facility] Attending Clinician Un available Anene [employer] MEMBER, Siena Attending Clinician [phone] Max RN, Di L Attending Clinician Unavail able Zora Rodríguez MD Attending Clinician [phone] Jose Cook MD Attending Clinician [phone] Woody Sampson MD Attending Clinician [phone] MIRTHA ESTRADA Admitting Clinician Unavaila IHSAN Miller Admitting Clinician Unavaila Jose Sultana MD Admitting Clinician [phone] Payers Payer Name Policy Type Policy Number Effective Date Expirati on Date Source [facility] [id number] 2017 00:00:00 Problems Condition Name Condition Details Condition Category Status Onset Date Resolution Date Last Treatment Date Treating Clinician Comments Source Essential hypertensi on Essential hypertensi on Disease Active 2019-03 0 00:00: 00 [facility] Chronic cluster headache, not intractabl e Chronic cluster headache, not intractabl e Disease Active 2019-03 0- 00:00: 00 [facility] Arthritis Arthritis Disease Active 2019-03 0 00:00: 00 [facility] Actinic keratosis due to exposure to sunlight Actinic keratosis due to exposure to sunlight Disease Active 2019-03 0- 00:00: 00 [facility] Ex-smoker Ex-smoker Disease Active 2019-03 0 00:00: 00 [facility] Need for influenza vaccinatio n Need for influenza vaccinatio n Disease Active 2019-03 0 00:00: 00 [facility] Need for hepatitis C screening test Need for hepatitis C screening test Disease Active 2019-03 0 00:00: 00 [facility] Screening for malignant neoplasm of colon Screening for malignant neoplasm of colon Disease Active 2019-03 0 00:00: 00 [facility] Infection Infection Disease Active 11-25 00:00: 00 [facility] JOSHUA (acute kidney injury) JOSHUA (acute kidney injury) Disease Active 11-23 00:00: 00 [facility] JOSHUA (acute kidney injury) JOSHUA (acute kidney injury) Disease Active 11-23 00:00: 00 [facility] Acute appendicit is Acute appendicit is Disease Active 11-23 00:00: 00 [facility] Groin hematoma Groin hematoma Disease Active 10-14 00:00: 00 [facility] Obesity (BMI 30-39.9) Obesity (BMI 30-39.9) Disease Active 10-14 00:00: 00 [facility] Ventral hernia without obstructio n or gangrene Ventral hernia without obstructio n or gangrene Disease Active 09-13 00:00: 00 [facility] Ventral hernia without obstructio n or gangrene Ventral hernia without obstructio n or gangrene Disease Active 09-13 00:00: 00 [facility] Inguinal hernia with incarcerat ion Inguinal hernia with incarcerat ion Disease Active 09-12 00:00: 00 Overview: Formattin g of this note might be different from the original. Added automatic ally from request for surgery [id number] [facility] Inguinal hernia with incarcerat ion Inguinal hernia with incarcerat ion Disease Active 09-12 00:00: 00 Overview: Formattin g of this note might be different from the original. Added automatic ally from request for surgery [id number] [facility] Inguinal hernia with incarcerat ion Inguinal hernia with incarcerat ion Disease Active 09-12 00:00: 00 Overview: Added automatic ally from request for surgery [id number] [facility] Allergies, Adverse Reactions, Alerts Allergy Name Allergy Type Status Severity Reaction(s) Onset Date Inactive Date Treating Clinician Comments Source NO KNOWN ALLERGIE S Drug Class Active [facility] Social History Social Habit Start Date Stop Date Quantity Comments Source [facility] History of tobacco use Cigarette Smoker [facility] Alcohol intake 2022-12-10 00:00:00 2022-12-10 00:00:00 Current non-drinker of alcohol (finding) [facility] Exposure to SARS-CoV-2 (event) 2022-08-08 00:00:00 2022-08-18 09:36:00 Not sure [facility] History of Social function 2022-07-30 00:00:00 2022-07-30 00:00:00 [facility] Alcoholic beverage intake 2018-11-24 00:00:00 2018-11-24 00:00:00 Current non-drinker of alcohol (finding) [facility] History SDOH Financial 2018-11-24 00:00:00 2018-11-24 00:00:00 5 [facility] History SDOH Food Worry 2018-11-24 00:00:00 2018-11-24 00:00:00 1 [facility] History SDOH Food Scarcity 2018-11-24 00:00:00 2018-11-24 00:00:00 1 [facility] History SDOH Transport Med 2018-11-24 00:00:00 2018-11-24 00:00:00 2 [facility] History SDOH Transport Non-Med 2018-11-24 00:00:00 2018-11-24 00:00:00 2 [facility] Tobacco use and exposure 2017-08-30 00:00:00 2017-08-30 00:00:00 Smokeless tobacco non-user [facility] Tobacco Comment 2017-08-30 00:00:00 2017-08-30 00:00:00 2015 [facility] Sex assigned at 1960 00:00:00 1960 00:00:00 [facility] Smoking Status Start Date Stop Date Source Ex-smoker 2017-08-30 00:00:00 2017-08-30 00:00:00 U [facility] Medications Ordered Medication Name Filled Medication Name Start Date Stop Date Current Medication? Ordering Clinician Indication Dosage Frequency Signature (SIG) Comments Components Source topiramate 50 mg tablet 12-17 00:00: 00 Yes [id number] Take half tablet orally twice daily x 7 days then increase to 1 tablet twice daily [facility] meloxicam 15 mg tablet 12-10 00:00: 00 Yes [id number] 15mg Take 1 tablet by mouth in the morning. [facility] topiramate 25 mg tablet 12-10 00:00: 00 12-17 00:00 :00 No [id number] Take 1 tablet by mouth 2 (two) times daily for 7 days, THEN 2 tablets 2 (two) times daily for 21 days. [facility] cyclobenzap rine 5 mg tablet 10-14 00:00: 00 12-10 00:00 :00 No [id number] 5mg Take 1 tablet by mouth 2 (two) times daily as needed for Muscle Spasms. [facility] iopamidol (ISOVUE 370-500 mL) injection 110 mL 08-25 18:30: 00 08-25 17:45 :00 No [id number] 110mL 110 mL, Intravenou s, ONCE, 1 dose, On Tue08/25/22 at 1330, Routine [facility] cefTRIAXone (ROCEPHIN) 1,000 mg in NaCl 0.9% (NS) 100 mL MINI-BAG 08-01 01:45: 00 08-01 02:05 :00 No 1000mg 1,000 mg, IV Piggyback, ONCE, 1 dose, On Tue07/31/22 at 2045, Administer over 30 Minutes, 100 mL
Reas on for Anti-Infec tive: Documented Infection< br>Documen margy Infection Site: Urine
D uration of Therapy: 7 days [facility] NaCl 0.9% (NS) bolus infusion 1,000 mL 07-31 22:15: 00 07-31 23:44 :00 No 1000mL at 999 mL/hr, 1,000 mL, IV Infusion, ONCE, 1 dose, On 07/31/22 at 1715, MILAN [facility] cefdinir 300 mg capsule 07-31 00:00: 00 08-11 04:59 :00 No [id number] 300mg Take 1 capsule by mouth every 12 (twelve) hours for 10 days. [facility] aspirin 81 mg chewable tablet 07-30 15:34: 01 07-30 00:00 :00 No 162mg Take 162 mg by mouth daily. [facility] nortriptyli ne 50 mg capsule 2021-03 00:00: 00 10-14 00:00 :00 No [id number] Take one tablet (25mg) by mouth for 10 days, then taken 2 tablets (50mg) by mouth for now on out. [facility] nortriptyli ne 25 mg capsule 12-15 00:00: 00 12-29 00:00 :00 No Take one tablet (25mg) by mouth for 10 days, then taken 2 tablets (50mg) by mouth for now on out. [facility] nortriptyli ne 25 mg capsule 10-31 00:00: 00 12-15 00:00 :00 No Take one tablet (25mg) by mouth for 10 days, then taken 2 tablets (50mg) by mouth for now on out. [facility] ketorolac 10 mg tablet 07-25 00:00: 00 09-04 00:00 :00 No [id number] 10mg Take 1 tablet by mouth every 8 (eight) hours. [facility] metoclopram eunice HCl 10 mg tablet 07-25 00:00: 00 09-04 00:00 :00 No [id number] 10mg Take 1 tablet by mouth every 6 (six) hours. [facility] lisinopriL- hydrochloro thiazide 10-12.5 mg per tablet 06-04 00:00: 00 12-29 00:00 :00 No [id number] 1{tbl} Take 1 tablet by mouth daily. [facility] lisinopriL- hydrochloro thiazide 10-12.5 mg per tablet 2019-03 00:00: 00 06-04 00:00 :00 No [id number] 1{tbl} Take 1 tablet by mouth daily. [facility] aspirin 81 mg chewable tablet 11-08 18:42: 33 Yes 162mg Take 162 mg by mouth daily. [facility] aspirin 81 mg chewable tablet 11-08 13:42: 33 Yes 162mg Take 162 mg by mouth daily. [facility] venlafaxine 75 mg tablet 2018-03 00:00: 00 06-09 00:00 :00 No [id number] 75mg Take 1 tablet by mouth daily. [facility] INDOMETHACI N 50 mg capsule 2018-03 00:00: 00 06-09 00:00 :00 No [id number] 50mg TAKE 1 CAPSULE BY MOUTH 3 (THREE) TIMES DAILY WITH MEALS. [facility] hydroCHLORO thiazide 25 mg tablet 11-28 00:00: 12-20 00:00 :00 No [id number] 25mg Take 1 tablet by mouth daily. [facility] indomethaci n 50 mg capsule 11-27 00:00: 00 Yes [id number] 50mg Take 1 capsule by mouth 3 (three) times daily with meals. [facility] traMADol 50 mg tablet 11-27 00:00: 00 09-04 00:00 :00 No [id number] 50mg Take 1 tablet by mouth every 6 (six) hours as needed for Pain (scale 1-3). [facility] amoxicillin -clavulanat e (AUGMENTIN) 875-125 mg per tablet 11-27 00:00: 00 12-20 00:00 :00 No [id number] 1{tbl} Take 1 tablet by mouth 2 (two) times daily. [facility] it[facility] aspirin 81 mg chewable tablet 11-26 16:28: 08 Yes 162mg Take 162 mg by mouth daily. [facility] amoxicillin -clavulanat e (AUGMENTIN) 875-125 mg per tablet 11-26 00:00: 00 11-27 00:00 :00 No [id number] 1{tbl} Take 1 tablet by mouth 2 (two) times daily for 5 days. [facility] traMADol 50 mg tablet 11-26 00:00: 00 11-27 00:00 :00 No [id number] 50mg Take 1 tablet by mouth every 6 (six) hours as needed for Pain (scale 1-3). [facility] enoxaparin (LOVENOX) injection 40 mg 11-25 21:00: 00 Yes 40mg 40 mg, Subcutaneo us, Q24H, First dose on 11/25/18 at 1600, Until Discontinu ed, Routine [facility] D5W 0.45% NaCl (1/2NS) 1 L + KCL 20 mEq 11-25 16:30: 00 Yes IV Infusion, at 75 mL/hr, CONTINUOUS , Starting 11/25/18 at 1130, Until Discontinu ed, Routine [facility] pantoprazol e (PROTONIX) EC tablet 40 mg 11-25 14:00: 00 Yes 40mg 40 mg, Oral, DAILY, First dose on 11/25/18 at 0900, Until Discontinu ed, Routine [facility] acetaminoph en (TYLENOL) tablet 650 mg 11-25 05:00: 00 Yes 650mg 650 mg, Oral, Q6H, First dose on 11/25/18 at 0000, Until Discontinu ed, Routine [facility] ibuprofen (IBU) tablet 600 mg 11-25 05:00: 00 Yes 600mg 600 mg, Oral, Q6H, First dose on 11/25/18 at 0000, Until Discontinu ed, Routine [facility] D5W 0.45% NaCl (1/2NS) 1 L + KCL 20 mEq 11-25 00:30: 00 11-25 15:02 :29 No IV Infusion, at 75 mL/hr, CONTINUOUS , Starting Tue11/24/18 at 1930, Until Tue11/25/18 at 1002, Routine [facility] morpHINE injection 2 mg 11-24 23:15: 00 Yes 2mg 2 mg, Slow IV Push, Q6HPRN, Starting Tue11/24/18 at 1815, Until Discontinu ed, Routine, Pain (scale 7-10), Breakthrou gh Pain (scale 4-10) [facility] traMADol (ULTRAM) tablet 100 mg 11-24 23:10: 41 Yes 100mg 100 mg, Oral, Q6HPRN, Starting Tue11/24/18 at 1810, Until Discontinu ed, Routine, Pain (scale 4-6) [facility] traMADol (ULTRAM) tablet 50 mg 11-24 23:10: 28 Yes 50mg 50 mg, Oral, Q6HPRN, Starting Tue11/24/18 at 1810, Until Discontinu ed, Routine, Pain (scale 1-3) [facility] indomethaci n (INDOCIN) capsule 50 mg 11-24 13:00: 00 Yes 50mg 50 mg, Oral, BID MEALS, First dose on Tue11/24/18 at 0800, Until Discontinu ed, Routine [facility] aspirin chewable tablet 81 mg 11-24 13:00: 00 Yes 81mg 81 mg, Oral, QAM WITH BREAKFAST, First dose on Tue11/24/18 at 0800, Until Discontinu ed, [facility] 100 mg 11-24 13:00: 00 Yes 100mg 100 mg, Oral, BID, First dose on Tue11/24/18 at 0800, Until Discontinu ed, [facility] acetaminoph [facility] (TYLENOL) tablet 650 mg 11-24 09:48: 56 11-24 23:11 :49 No 650mg 650 mg, Oral, Q8HPRN, Starting Tue11/24/18 at 0448, Until Tue11/24/18 at 181, Routine, Pain (scale 1-3), Temp > 38.5 C [facility] piperacilli n-tazobacta m (ZOSYN) 3.375 gram/50 mL Piggyback 3.375 g 11-24 09:00: 00 Yes 3.375g 3.375 g, IV Piggyback, Q6H ABX, First dose on Tue11/24/18 at 0400, Until Discontinu ed, 50 mL
Reas on for Anti-Infec tive: Documented Infection< br>Documen margy Infection Site: Abdominal< br>Duratio n of Therapy: 7 days [facility] lactated ringers IV infusion 1,000 mL 11-24 09:00: 00 11-24 23:25 :15 No 1000mL at 125 mL/hr, 1,000 mL, IV Infusion, CONTINUOUS , Starting Tue11/24/18 at 0400, Until Tue11/24/18 at 1825, Routine [facility] lactobacill us acidophilus (ACIDOPHILL US) 25 million cell -100 mg captab 1 tablet 11-24 08:00: 00 Yes 1{tbl} 1 tablet, Oral, QID, First dose on Tue11/24/18 at 0300, Until Discontinu ed, Routine [facility] ondansetron (ZOFRAN (PF)) injection 4 mg 11-24 07:56: 14 Yes 4mg 4 mg, Slow IV Push, Q6HPRN, Starting Tue11/24/18 at 0256, Until Discontinu ed, Routine, Nausea and Vomiting (N/V) [facility] morpHINE injection 2 mg 11-24 07:55: 18 11-24 23:11 :49 No 2mg 2 mg, Slow IV Push, Q2HPRN, Starting Tue11/24/18 at 0255, Until Tue11/24/18 at 181, Routine, Pain (scale 7-10), Breakthrou gh Pain (scale 4-10) [facility] morpHINE injection 4 mg 11-24 04:30: 00 11-24 03:20 :00 No 4mg 4 mg, Slow IV Push, ONCE, 1 dose, Corinne 11/23/18 at 2330, STAT [facility] vancomycin 1 g in NS 200 mL RTU IV Piggyback 1 g 11-24 04:00: 00 11-24 04:51 :00 No 1g 1 g, IV Piggyback, ONCE, 1 dose, Corinne 11/23/18 at 2300
Re ason for Anti-Infec tive: Documented Infection< br>Documen margy Infection Site: Abdominal< br>Duratio n of Therapy: 7 days [facility] iohexol (OMNIPAQUE 350 BULK-150 mL) injection 120 mL 11-24 03:15: 00 11-24 03:15 :00 No 120mL 120 mL, Intravenou s, ONCE, 1 dose, Corinne 11/23/18 at 2215, Routine [facility] piperacilli n-tazobacta m (ZOSYN) 4.5 gram/100 mL RTU Piggyback 4.5 g 11-24 02:00: 00 11-24 03:04 :00 No 4.5g 4.5 g, IV Piggyback, ONCE, 1 dose, Corinne 11/23/18 at 2100, 100 mL
Reas on for Anti-Infec tive: Documented Infection< br>Documen margy Infection Site: Abdominal< br>Duratio n of Therapy: 7 days [facility] ondansetron (ZOFRAN (PF)) injection 4 mg 11-24 01:30: 00 11-24 01:05 :00 No 4mg 4 mg, Slow IV Push, ONCE, 1 dose, Corinne 11/23/18 at 2030, MILAN [facility] morpHINE injection 4 mg 11-24 01:30: 00 11-24 01:06 :00 No 4mg 4 mg, Slow IV Push, ONCE, 1 dose, Corinne 11/23/18 at 2030, STAT [facility] NaCl 0.9% (NS) bolus infusion 1,000 mL 11-24 01:00: 00 11-24 02:34 :00 No 1000mL at 999 mL/hr, 1,000 mL, IV Infusion, ONCE, 1 dose, [facility] 11/23/18 at 2000, [facility] NaCl 0.9% (NS) bolus infusion 1,000 mL 11-24 00:00: 00 11-24 04:45 :00 No 1000mL at 999 mL/hr, 1,000 mL, IV Infusion, ONCE, 1 dose, [facility] 11/23/18 at 1900, [facility] indomethaci n 50 mg capsule 10-31 00:00: 00 11-27 00:00 :00 No [id number] 50mg Take 1 capsule by mouth 3 (three) times daily with meals. [facility] divalproex ER 250 mg 24 hr tablet 09-22 00:00: 00 06-09 00:00 :00 No [id number] 250mg Take 1 tablet by mouth 2 (two) times daily. [facility] varenicline 0.5 mg (11)- 1 mg (42) tablet 08-22 00:00: 00 12-20 00:00 :00 No [id number] Take one 0.5mg tab by mouth once daily for 3 days, then one 0.5mg tab twice daily for 4 days, then one 1mg tab twice daily. [facility] fluticasone 50 mcg/actuati on nasal spray 04-03 00:00: 00 09-04 00:00 :00 No [id number] 2{spray } Use 2 Sprays in each nostril daily. [facility] hydroCHLORO thiazide 25 mg tablet 2017-03 00:00: 00 11-28 00:00 :00 No [id number] 25mg Take 1 tablet by mouth daily. [facility] triamcinolo ne acetonide 0.1 % ointment 2017-03 00:00: 00 09-04 00:00 :00 No [id number] Apply to area(s) 2 (two) times daily. [facility] hydrOXYzine 25 mg tablet 12-14 00:00: 00 09-04 00:00 :00 No [id number] 25mg Take 1 tablet by mouth every 6 (six) hours as needed for Itching. [facility] HYDROcodone -acetaminop hen 5-325 mg tablet 10-15 00:00: 00 06-09 00:00 :00 No 1{tbl} Take 1 tablet by mouth every 4 (four) hours as needed for Pain (scale 4-6) or Pain (scale 7-10). [facility] Immunizations Ordered Immunization Name Filled Immunization Name Date Status Comments Source [facility] 2023-05-12 00:00:00 Completed [facility] TDAP 2023-01-11 00:00:00 Completed [facility] TDAP 2022-12-16 00:00:00 Completed [facility] TDAP 2022-12-10 14:00:00 Completed [facility] TDAP 2018-11-26 00:00:00 Completed [facility] TDAP 2017-10-04 00:00:00 Completed [facility] TDAP 2017-10-04 00:00:00 Completed [facility] TDAP 2017-10-04 00:00:00 Completed [facility] TDAP 2017-10-04 00:00:00 Completed [facility] TDAP 2017-10-04 00:00:00 Completed [facility] TDAP 2017-10-04 00:00:00 Completed [facility] TDAP 2017-10-04 00:00:00 Completed [facility] TDAP 2017-10-04 00:00:00 Completed [facility] TDAP 2017-10-04 00:00:00 Completed [facility] TDAP 2017-10-04 00:00:00 Completed [facility] TDAP 2017-10-04 00:00:00 Completed [facility] TDAP 2017-10-04 00:00:00 Completed [facility] TDAP 2017-10-04 00:00:00 Completed [facility] Tdap 2017-10-04 00:00:00 Completed [facility] TDAP 2017-10-04 00:00:00 Completed [facility] TDAP 2017-10-04 00:00:00 Completed [facility] TDAP 2017-10-04 00:00:00 Completed [facility] TDAP 2017-10-04 00:00:00 Completed [facility] TDAP 2017-10-04 00:00:00 Completed [facility] Tdap 2017-10-04 00:00:00 Completed [facility] TDAP 2017-10-04 00:00:00 Completed [facility] TDAP 2017-10-04 00:00:00 Completed [facility] TDAP 2017-10-04 00:00:00 Completed [facility] TDAP 2017-10-04 00:00:00 Completed [facility] TDAP 2017-10-04 00:00:00 Completed [facility] TDAP 2017-10-04 00:00:00 Completed [facility] TDAP 2017-10-04 00:00:00 Completed [facility] TDAP 2017-10-04 00:00:00 Completed [facility] TDAP 2017-10-04 00:00:00 Completed [facility] Tdap 2017-10-04 00:00:00 Completed [facility] TDAP 2017-10-04 00:00:00 Completed [facility] TDAP 2017-10-04 00:00:00 Completed [facility] TDAP 2017-10-04 00:00:00 Completed [facility] TDAP 2017-10-04 00:00:00 Completed [facility] TDAP 2017-10-04 00:00:00 Completed [facility] Tdap 2017-10-04 00:00:00 Completed [facility] Tdap 2017-10-04 00:00:00 Completed [facility] Tdap 2017-10-04 00:00:00 Completed [facility] Tdap 2017-10-04 00:00:00 Completed [facility] Tdap 2017-10-04 00:00:00 Completed [facility] Tdap 2017-10-04 00:00:00 Completed [facility] TDAP 2017-10-04 00:00:00 Completed [facility] TDAP 2017-10-04 00:00:00 Completed [facility] TDAP 2017-10-04 00:00:00 Completed [facility] TDAP 2017-10-04 00:00:00 Completed [facility] TDAP 2017-10-04 00:00:00 Completed [facility] TDAP 2017-10-04 00:00:00 Completed [facility] TDAP 2017-10-04 00:00:00 Completed [facility] TDAP 2017-10-04 00:00:00 Completed [facility] TDAP 2017-10-04 00:00:00 Completed [facility] TDAP 2017-10-04 00:00:00 Completed [facility] TDAP 2017-10-04 00:00:00 Completed [facility] TDAP 2017-10-04 00:00:00 Completed [facility] TDAP 2017-10-04 00:00:00 Completed [facility] TDAP 2017-10-04 00:00:00 Completed [facility] Vital Signs Vital Name Observation Time Observation Value Comments S ource Systolic blood pressure 2022-12-10 19:04:00 142 mm[Hg] [facility] Diastolic blood pressure 2022-12-10 19:04:00 90 mm[Hg] [facility] Heart rate 2022-12-10 19:04:00 104 /min [facility] Body height 2022-12-10 19:04:00 165.1 cm [facility] Body weight 2022-12-10 19:04:00 85.548 kg [facility] BMI 2022-12-10 19:04:00 31.38 kg/m2 [facility] [facility] pressure 2022-10-14 19:20:00 141 mm[Hg] [facility] Diastolic blood pressure 2022-10-14 19:20:00 89 mm[Hg] [facility] Heart rate 2022-10-14 19:19:00 97 /min [facility] Body temperature 2022-10-14 19:19:00 37.44 Davina [facility] Respiratory rate 2022-10-14 19:19:00 18 /min [facility] Body height 2022-10-14 19:19:00 165.1 cm [facility] Body weight 2022-10-14 19:19:00 84.823 kg [facility] BMI 2022-10-14 19:19:00 31.12 kg/m2 [facility] Oxygen saturation in Arterial blood by Pulse oximetry 2022-10-14 19:19:00 97 /min [facility] Systolic blood pressure 2022-08-18 14:40:00 139 mm[Hg] [facility] Diastolic blood pressure 2022-08-18 14:40:00 84 mm[Hg] [facility] Heart rate 2022-08-18 14:40:00 94 /min Un[facility] Body height 2022-08-18 14:40:00 165.1 cm [facility] Body weight 2022-08-18 14:40:00 88.633 kg [facility] BMI 2022-08-18 14:40:00 32.52 kg/m2 [facility] Oxygen saturation in Arterial blood by Pulse oximetry 2022-08-18 14:40:00 95 /min [facility] Systolic blood pressure 2022-08-13 16:09:00 131 mm[Hg] [facility] Diastolic blood pressure 2022-08-13 16:09:00 82 mm[Hg] [facility] Heart rate 2022-08-13 16:09:00 90 /min [facility] Respiratory rate 2022-08-13 16:09:00 23 /min [facility] Oxygen saturation in Arterial blood by Pulse oximetry 2022-08-13 16:09:00 96 /min [facility] Body height 2022-08-13 16:05:00 165.1 cm [facility] Body weight 2022-08-13 16:05:00 88.315 kg [facility] BMI 2022-08-13 16:05:00 32.40 kg/m2 [facility] Systolic blood pressure 2022-08-01 00:00:00 160 mm[Hg] [facility] Diastolic blood pressure 2022-08-01 00:00:00 100 mm[Hg] [facility] Heart rate 2022-08-01 00:00:00 73 /min [facility] Respiratory rate 2022-08-01 00:00:00 21 /min [facility] Oxygen saturation in Arterial blood by Pulse oximetry 2022-08-01 00:00:00 96 /min [facility] Body temperature 2022-07-31 20:57:00 36.78 Davina [facility] Body height 2022-07-31 20:57:00 165.1 cm [facility] Body weight 2022-07-31 20:57:00 86.183 kg [facility] BMI 2022-07-31 20:57:00 31.62 kg/m2 [facility] Heart rate 2022-07-30 20:36:00 97 /min [facility] Oxygen saturation in Arterial blood by Pulse oximetry 2022-07-30 20:36:00 97 /min [facility] Systolic blood pressure 2022-07-30 19:59:00 120 mm[Hg] [facility] Diastolic blood pressure 2022-07-30 19:59:00 71 mm[Hg] [facility] Body temperature 2022-07-30 19:59:00 37.06 Davina [facility] Body height 2022-07-30 19:59:00 165.1 cm [facility] Body weight 2022-07-30 19:59:00 87.091 kg [facility] BMI 2022-07-30 19:59:00 31.95 kg/m2 [facility] Systolic blood pressure 2022-03-17 17:02:00 132 mm[Hg] [facility] Diastolic blood pressure 2022-03-17 17:02:00 82 mm[Hg] [facility] Heart rate 2022-03-17 17:02:00 87 /min [facility] Body temperature 2022-03-17 17:02:00 37.06 Davina [facility] Respiratory rate 2022-03-17 17:02:00 17 /min [facility] Body height 2022-03-17 17:02:00 165.1 cm [facility] Body weight 2022-03-17 17:02:00 87.998 kg [facility] BMI 2022-03-17 17:02:00 32.28 kg/m2 [facility] Oxygen saturation in Arterial blood by Pulse oximetry 2022-03-17 17:02:00 95 /min [facility] Systolic blood pressure 2022-01-29 17:04:00 176 mm[Hg] [facility] Diastolic blood pressure 2022-01-29 17:04:00 95 mm[Hg] [facility] Heart rate 2022-01-29 17:04:00 87 /min [facility] Body height 2022-01-29 17:04:00 165.1 cm [facility] Body weight 2022-01-29 17:04:00 84.823 kg [facility] BMI 2022-01-29 17:04:00 31.12 kg/m2 [facility] Oxygen saturation in Arterial blood by Pulse oximetry 2022-01-29 17:04:00 96 /min [facility] Systolic blood pressure 2021-12-29 16:00:00 132 mm[Hg] [facility] Diastolic blood pressure 2021-12-29 16:00:00 80 mm[Hg] [facility] Heart rate 2021-12-29 16:00:00 86 /min Un[facility] Body height 2021-12-29 16:00:00 165.1 cm [facility] Body weight 2021-12-29 16:00:00 84.369 kg [facility] BMI 2021-12-29 16:00:00 30.95 kg/m2 [facility] Oxygen saturation in Arterial blood by Pulse oximetry 2021-12-29 16:00:00 99 /min [facility] Systolic blood pressure 2020-10-31 21:59:00 139 mm[Hg] [facility] Diastolic blood pressure 2020-10-31 21:59:00 85 mm[Hg] [facility] Heart rate 2020-10-31 21:59:00 92 /min [facility] 2020-09-04 20:08:00 141 mm[Hg] [facility] Diastolic blood pressure 2020-09-04 20:08:00 85 mm[Hg] [facility] Heart rate 2020-09-04 19:40:00 96 /min [facility] Body height 2020-09-04 19:40:00 165.1 cm [facility] Body weight 2020-09-04 19:40:00 87.544 kg [facility] BMI 2020-09-04 19:40:00 32.12 kg/m2 [facility] Oxygen saturation in Arterial blood by Pulse oximetry 2020-09-04 19:40:00 96 /min [facility] Systolic blood pressure 2020-08-13 18:21:00 147 mm[Hg] [facility] Diastolic blood pressure 2020-08-13 18:21:00 97 mm[Hg] [facility] Heart rate 2020-08-13 18:21:00 91 /min Unive [facility] Body weight 2020-08-13 18:21:00 89.359 kg [facility] BMI 2020-08-13 18:21:00 32.78 kg/m2 [facility] Oxygen saturation in Arterial blood by Pulse oximetry 2020-08-13 18:21:00 99 /min [facility] Systolic blood pressure 2020-06-09 19:16:00 144 mm[Hg] [facility] Diastolic blood pressure 2020-06-09 19:16:00 85 mm[Hg] [facility] Heart rate 2020-06-09 19:13:00 89 /min [facility] Body height 2020-06-09 19:13:00 165.1 cm [facility] Body weight 2020-06-09 19:13:00 90.266 kg [facility] BMI 2020-06-09 19:13:00 33.12 kg/m2 [facility] Oxygen saturation in Arterial blood by Pulse oximetry 2020-06-09 19:13:00 97 /min [facility] Systolic blood pressure 2020-06-04 19:10:00 166 mm[Hg] [facility] Diastolic blood pressure 2020-06-04 19:10:00 98 mm[Hg] [facility] Heart rate 2020-06-04 19:10:00 89 /min [facility] Body temperature 2020-06-04 19:10:00 36.72 Davina [facility] Respiratory rate 2020-06-04 19:10:00 18 /min [facility] Body weight 2020-06-04 19:10:00 89.721 kg [facility] BMI 2020-06-04 19:10:00 31.93 kg/m2 [facility] Oxygen saturation in Arterial blood by Pulse oximetry 2020-06-04 19:10:00 98 /min [facility] Systolic blood pressure 2019-12-21 15:15:00 139 mm[Hg] [facility] Diastolic blood pressure 2019-12-21 15:15:00 90 mm[Hg] [facility] Heart rate 2019-12-21 15:14:00 84 /min [facility] Body temperature 2019-12-21 15:14:00 36.94 Davina [facility] Respiratory rate 2019-12-21 15:14:00 20 /min [facility] Body height 2019-12-21 15:14:00 167.6 cm [facility] Body weight 2019-12-21 15:14:00 86.274 kg [facility] BMI 2019-12-21 15:14:00 30.70 kg/m2 [facility] Oxygen saturation in Arterial blood by Pulse oximetry 2019-12-21 15:14:00 98 /min [facility] Systolic blood pressure 2019-11-09 18:45:00 149 mm[Hg] [facility] Diastolic blood pressure 2019-11-09 18:45:00 92 mm[Hg] [facility] Heart rate 2019-11-09 18:41:00 79 /min Un[facility] Body temperature 2019-11-09 18:41:00 35.83 Davina [facility] Respiratory rate 2019-11-09 18:41:00 18 /min [facility] Body height 2019-11-09 18:41:00 165.1 cm [facility] Body weight 2019-11-09 18:41:00 83.915 kg [facility] BMI 2019-11-09 18:41:00 30.79 kg/m2 [facility] Oxygen saturation in Arterial blood by Pulse oximetry 2019-11-09 18:41:00 99 /min [facility] Systolic blood pressure 2018-11-26 13:00:00 114 mm[Hg] [facility] Diastolic blood pressure 2018-11-26 13:00:00 68 mm[Hg] [facility] Heart rate 2018-11-26 13:00:00 50 /min [facility] Body temperature 2018-11-26 13:00:00 36.61 Davina [facility] Respiratory rate 2018-11-26 13:00:00 106 /min [facility] Oxygen saturation in Arterial blood by Pulse oximetry 2018-11-26 13:00:00 96 /min [facility] Body height 2018-11-23 23:00:00 165.1 cm [facility] Body weight 2018-11-23 23:00:00 94.348 kg [facility] BMI 2018-11-23 23:00:00 34.61 kg/m2 [facility] Systolic blood pressure 2018-10-31 14:24:00 107 mm[Hg] [facility] Diastolic blood pressure 2018-10-31 14:24:00 78 mm[Hg] [facility] Heart rate 2018-10-31 14:24:00 106 /min Un[facility] Body temperature 2018-10-31 14:24:00 36.17 Davina [facility] Respiratory rate 2018-10-31 14:24:00 17 /min [facility] Body height 2018-10-31 14:24:00 165.1 cm [facility] Body weight 2018-10-31 14:24:00 87.544 kg [facility] BMI 2018-10-31 14:24:00 32.12 kg/m2 [facility] Procedures Procedure Date / Time Performed Performing Clinician Source AUTHORIZATION FOR RELEASE OF PHI 2023-05-12 06:01:00 Doctor Unassigned, [place] [facility] DME/SUPPLY JUSTIFICATION 2022-11-17 05:01:00 Doc tor Unassigned, [place] [facility] SLEEP STUDY DATA REPORT 2022-11-09 05:01:00 Doct or Unassigned, [place] [facility] XR CERVICAL SPINE 3 VW 2022-10-14 20:21:01 Vernon Farley [facility] REFERRAL- REQUEST/RESPONSE 2022-10-06 05:01:00 Doctor Unassigned, [place] [facility] CT ABDOMEN PELVIS W WO CONTRAST 2022-08-25 [facility]44[facility]22-08-18 19:09[facility]INAL[facility]IS AUTO 2022-08-18 15:06:00 Dilan Estrada [facility] XR CHEST 2 VW 2022-08-13 16:53:09 Finn Alvarado [facility] URINE DRUG (IMMUNOASSAY) - COMPREHENSIVE DRUG SCREEN W/O REFLEX 2022-08-01 00:50:00 Ihsan Andrade [facility] URINALYSIS 2022-08-01 00:49:00 Ihsan Andrade U [facility] COMP. METABOLIC PANEL (22181) 2022-07-31 22:15:00 Ihsan Andrade [facility] CT HEAD WO CONTRAST 2022-07-31 21:20:40 Blanca Andrade [facility] LIPASE 2022-07-31 21:19:00 Ihsan Andrade U [facility] TROPONIN I 2022-07-31 21:19:00 [facility] WITH DIFF 2022-07-31 21:19:00 Ihsan Andrade [facility] PROTHROMBIN TIME / INR 2022-07-31 21:19:00 Jose Andrade [facility] ACTIVATED PARTIAL THRMPLAS ROLLY 2022-07-31 21:19:00 Ihsan Andrade [facility] N-TERMINAL PRO-BNP 2022-07-31 21:19:00 Sunni Andrade [facility] CONSENT/REFUSAL FOR DIAGNOSIS AND TREATMENT 2022-07-31 20:42:36 Doctor Unassigned, [place] [facility] PATIENT FINANCIAL POLICY 2022-07-30 19:47:32 Doctor Unassigned, [place] [facility] ASSIGNMENT OF BENEFITS 2021-12-29 15:10:21 Docto r Unassigned, [place] [facility] REFERRAL- REQUEST/RESPONSE 2020-09-10 05:01:00 Doctor Unassigned, [place] [facility] COVID-19 (ID NOW RAPID TESTING) 2020-08-26 20:55:00 Deangelo Mederos [facility] ASSIGNMENT OF BENEFITS 2020-08-26 20:40:41 Docto r Unassigned, [place] [facility] CONSENT/REFUSAL FOR DIAGNOSIS AND TREATMENT 2020-07-25 17:12:41 Doctor Unassigned, [place] [facility] VACCINATIONS - CONSENTS, ELIGIBILITY, HISTORY 2019-12-13 05:01:00 Doctor Unassigned, [place] [facility] BASIC METABOLIC PANEL (NA, K, CL, CO2, GLUCOSE, BUN, CREATININE, CA) 2018-11-26 09:37:00 Hi Hoffman [facility] CBC WITH DIFFERENTIAL 2018-11-26 09:37:00 Hi Hoffman [facility] MAGNESIUM 2018-11-25 10:14:00 Jose Cook [facility] COMP. METABOLIC PANEL ([id number]) 2018-11-25 10:14:00 Jose Cook [facility] CBC WITH DIFFERENTIAL 2018-11-25 10:14:00 Hi Hoffman [facility] LACTIC ACID WHOLE BLOOD 2018-11-24 04:42:00 Ihsan Andrade [facility] CT ABDOMEN PELVIS W CONTRAST 2018-11-24 03:05:49 Ihsan Andrade [facility] BLOOD CULTURE SCREEN 2018-11-24 02:20:00 Brian Andrade [facility] LIPASE 2018-11-24 02:20:00 [facility] ([id number]) (ALB,T.PRO,BILI T,BU/BC,ALT,AST,ALK PHOS) 2018-11-24 02:20:00 Ihsan Andrade [facility] BASIC METABOLIC PANEL (NA, K, CL, CO2, GLUCOSE, BUN, CREATININE, CA) 2018-11-24 02:20:00 Ihsan Andrade [facility] GRAM POSITIVE BLOOD PATHOGENS DNA PROBE-ANAEROBIC 2018-11-24 02:20:00 Ihsan Andrade [facility] US GALL BLADDER 2018-11-24 00:52:08 Ihsan Andrade [facility] CBC WITH DIFFERENTIAL 2018-11-24 00:17:00 Gerda Andrade [facility] LACTIC ACID WHOLE BLOOD 2018-11-24 00:17:00 Ihsan Andrade [facility] CONSENT/REFUSAL FOR DIAGNOSIS AND TREATMENT 2018-11-23 22:57:02 Doctor Unassigned, [place] [facility] C-REACTIVE PROTEIN 2018-10-31 15:01:00 Héctor Boyd [facility] CBC WITH DIFFERENTIAL 2018-10-31 15:01:00 Beth Boyd [facility] AGREEMENTS AUTHORIZATIONS AND IRREVOCABLE ASSIGNMENTS (FORM 2001) 2018-10-31 05:01:00 Doctor Unassigned, [place] [facility] Encounters Start Date/Time End Date/Time Encounter Type Admission Type Attending Clinicians Care Facility Care Department Encounter ID Source 2021-01-18 17:47:41 Emergency [facility] [id number] [facility] 2018-11-26 00:00:00 2023-09-06 02:25:45 Mobile Device Encounter Driscoll Matteo Zhao [facility] 1.2.840.114 350.1.13.10 4.2.7.2.686 [id number] [facility] 2023-05-12 08:46:57 2023-05-12 08:46:57 Outpatient S[facility] CELINA [id number] Austin Escobar 2023-05-12 00:00:00 2023-05-12 00:00:00 Orders Only Doctor Unassigned, [place] [facility] 1..840.114 350.1.13.10 4.2.7.2.686 [id number] [facility] 2023-03-04 15:00:00 2023-03-04 15:00:00 Outpatient RACHAEL AVILA [facility] [id number] [facility] 2023-02-01 13:30:00 2023-02-01 13:30:00 Outpatient KADEN VALIENTE [facility] [id number] [facility] 2023-01-21 11:30:00 2023-01-21 11:30:00 Outpatient R [facility] [id number] [facility] 2023-01-11 00:00:00 2023-01-11 00:00:00 Telephone [facility]angel[facility] 1.2.840.114 350.1.13.10 4.2.7.2.686 [id number] [facility] 2022-12-30 13:30:00 2022-12-30 13:30:00 Outpatient NEREYDA MARTINEZ [facility] [id number] [facility] 2022-12-16 00:00:00 2022-12-16 00:00:00 Telephone Rachael Dickey [facility] 1.2.840.114 350.1.13.10 4.2.7.2.686 [id number] [facility] 2022-12-10 14:00:00 2022-12-10 14:28:57 Outpatient R RACHAEL DICKEY [facility] [id number] [facility] 2022-12-10 14:00:00 2022-12-10 14:28:57 Office Visit Kevin Dickeyssica [facility] 1..840.114 350.1.13.10 4.2.7.2.686 [id number] [facility] 2022-12-07 13:30:00 2022-12-07 13:30:00 Outpatient R KADEN DIAZ [facility] [id number] [facility] 2022-12-06 09:30:00 2022-12-06 09:30:00 Outpatient R RACHAEL DICKEY [facility] [id number] [facility] 2022-12-02 00:00:00 2022-12-02 00:00:00 Telephone Kaden Diaz [facility] 1.2.840.114 350.1.13.10 4.2.7.2.686 [id number] [facility] 2022-11-26 11:30:00 2022-11-26 11:30:00 Outpatient R [facility] [id number] [facility] 2022-11-24 00:00:00 2022-11-24 00:00:00 Telephone Deangelo Mederos [facility] 1.2.840.114 350.1.13.10 4.2.7.2.686 [id number] [facility] 2022-11-18 00:00:00 2022-11-18 00:00:00 Telephone Kaden Diaz [facility] 1.2840.114 350.1.13.10 4.2.7.2.686 [id number] [facility] 2022-11-17 00:00:00 2022-11-17 00:00:00 Telephone Deangelo Mederos [facility] 1.2840.114 350.1.13.10 4.2.7.2.686 [id number] [facility] 2022-11-17 00:00:00 2022-11-17 00:00:00 Orders Only Doctor Unassigned, [place] [facility] 1.2840.114 350.1.13.10 4.2.7.2.686 [id number] [facility] 2022-11-09 20:00:00 2022-11-09 22:30:00 Engine Head Repairer Visit 1, [facility] Sleep Lab Bed Deangelo Mederos [facility] 1.840.114 350.1.13.10 4.2.7.2.686 [id number] [facility] 2022-11-09 20:00:00 2022-11-09 20:00:00 Outpatient R DEANGELO MEDEROS STRAMNVirgen [facility] [id number] [facility] 2022-11-09 00:00:00 2022-11-09 00:00:00 Orders Only Doctor Unassigned, [place] [facility] 1.2840.114 350.1.13.10 4.2.7.2.686 [id number] [facility] 2022-11-03 13:00:00 2022-11-03 13:00:00 Outpatient R KADEN DIAZ [facility] [id number] [facility] 2022-10-25 11:45:00 2022-10-25 11:45:00 Outpatient R [facility] [id number] [facility] 2022-10-14 14:44:11 2022-10-14 23:59:00 Hospital Encounter Shira Farley [facility] 1..840.114 350.1.13.10 4.2.7.2.686 [id number] [facility] 2022-10-14 14:00:00 2022-10-14 14:43:25 Outpatient R SHIRA FARLEY [facility] [id number] [facility] 2022-10-14 14:00:00 2022-10-14 14:43:25 Office Visit Shira Farley [facility] 1..840.114 350.1.13.10 4.2.7.2.686 [id number] [facility] 2022-10-06 00:00:00 2022-10-06 00:00:00 Orders Only Doctor Unassigned, [place] [facility] 1.840.114 350.1.13.10 4.2.7.2.686 [id number] [facility] 2022-09-30 10:00:00 2022-09-30 10:00:00 Outpatient R DAMIANFINN [facility] [id number] [facility] 2022-09-23 13:00:00 2022-09-23 13:00:00 [facility] [id number] 2022-09-15 00:00:00 2022-09-15 00:00:00 Telephone Deangelo Mederos [facility] 1..840.114 350.1.13.10 4.2.7.2.686 [id number] [facility] 2022-09-02 15:00:00 2022-09-02 15:00:00 Outpatient R FINN ALVARADO [facility] [id number] [facility] 2022-08-26 00:00:00 2022-08-26 00:00:00 Telephone Amanda Estradatney [facility] 1.2.840.114 350.1.13.10 4.2.7.2.686 [id number] [facility] 2022-08-25 11:46:10 2022-08-25 23:59:00 Outpatient R AMANDA ESTRADATNEY [facility] [id number] [facility] 2022-08-25 11:40:00 2022-08-25 23:59:00 Hospital Encounter Amanda Estradatney [facility] 1..840.114 350.1.13.10 4.2.7.2.686 [id number] [facility] 2022-08-18 09:45:00 2022-08-18 10:39:01 Outpatient R AMANDA ESTRADATNEY [facility] [id number] [facility] 2022-08-18 09:45:00 2022-08-18 10:39:01 Office Visit Amanda Estradatney [facility] 1..840.114 350.1.13.10 4.2.7.2.686 [id number] [facility] 2022-08-16 00:00:00 2022-08-16 00:00:00 [facility] 1..840.114 350.1.13.10 4.2.7.2.686 [id number] [facility] 2022-08-13 11:34:48 2022-08-13 23:59:00 [facility].0.114 350.1.13.10 4.2.7.2.686 [id number] [facility] 2022-08-13 11:20:00 2022-08-13 11:31:26 [facility] [id number] [facility] 2022-08-13 11:20:00 2022-08-13 11:31:26 [facility] 1.0114 350.1.13.10 4.2.7.2.686 [id number] [facility] 2022-08-04 00:00:00 2022-08-04 00:00:00 Letter (Out) Ryanne Swartz - [facility] 1.84.114 350.1.13.10 4.2.7.2.686 [id number] [facility] 2022-07-31 15:58:00 2022-07-31 21:11:00 Emergency X IHSAN ANDRADE [facility] [id number] [facility] 2022-07-31 15:58:00 2022-07-31 21:11:00 Emergency YairminorIhsan F [facility] 1.84.114 350.1.13.10 4.2.7.2.686 [id number] [facility] 2022-07-30 15:00:00 2022-07-30 16:15:20 Outpatient R SHIRA FARLEY [facility] [id number] [facility] 2022-07-30 15:00:00 2022-07-30 16:15:20 Office Visit Shira Farley [facility] 1.84.114 350.1.13.10 4.2.7.2.686 [id number] [facility] 2022-07-30 00:00:00 2022-07-30 00:00:00 Orders Only Doctor Unassigned, [place] [facility] .2.840.114 350.1.13.10 4.2.7.2.686 [id number] [facility] 2022-07-21 13:00:00 2022-07-21 13:00:00 Outpatient R DEANGELO MEDEROS STRAHIL [facility] [id number] [facility] 2022-07-07 20:00:00 2022-07-07 20:00:00 Outpatient DEANGELO OLMEDO STRAHIL [facility] [id number] [facility] 2022-06-23 10:18:13 2022-06-23 10:18:13 Outpatient [facility] [id number] [place] Jose Escobar 2022-05-03 10:30:00 2022-05-03 10:30:00 Outpatient RACHAEL AVILA [facility] [id number] [facility] 2022-04-14 20:00:00 2022-04-14 20:00:00 Outpatient DEANGELO OLMEDO STRAHIL [facility] [id number] [facility] 2022-03-17 11:00:00 2022-03-17 11:30:00 [facility] 1..840.114 350.1.13.10 4.2.7.2.686 [id number] [facility] 2022-03-17 11:00:00 2022-03-17 11:00:00 Outpatient DEANGELO OLMEDO STRAHIL [facility] [id number] [facility] 2022-01-29 11:00:00 2022-01-29 11:27:55 Outpatient RACHAEL AVILA [facility] [id number] [facility] 2022-01-29 11:00:00 2022-01-29 11:27:55 Office Visit Kevin Dickeyssica [facility] 1..840.114 350.1.13.10 4.2.7.2.686 [id number] [facility] 2022-01-28 15:11:53 2022-01-28 15:11:53 Outpatient CELINA CHI [facility] [id number] [place] Escobar 2021-12-29 11:20:00 2021-12-29 11:36:31 Outpatient HÉCTOR DESAI HOWARD [facility] [id number] [facility] 2021-12-29 11:20:00 2021-12-29 11:36:31 [facility] 1..840.114 350.1.13.10 4.2.7.2.686 [id number] [facility] 2021-12-29 00:00:00 2021-12-29 00:00:00 Orders Only Doctor Unassigned, [place] [facility] 1..840.114 350.1.13.10 4.2.7.2.686 [id number] [id number] [facility] 2021-12-22 14:40:00 2021-12-22 14:40:00 Outpatient HÉCTOR DESAI HOWARD [facility] [id number] [facility] 2021-12-14 00:00:00 2021-12-14 00:00:00 Héctor So [facility] 1.2.840.114 350.1.13.10 4.2.7.2.686 [id number] [facility] 2021-12-11 00:00:00 2021-12-11 00:00:00 Refill DebHéctor [facility] CELINE WH[facility] 1.2.840.114 350.1.13.10 4.2.7.2.686 [id number] [facility] 2020-12-29 16:20:00 2020-12-29 16:20:00 Outpatient Jethro DEB HÉCTOR BARTLETT [facility] [id number] [facility] 2020-12-10 14:40:00 2020-12-10 14:40:00 Outpatient R MESHAABIOLAJUAN DIEGO MELENDEZ [facility] [id number] [facility] 2020-10-31 15:45:16 2020-10-31 16:52:25 Office Visit DebHéctor murdock [facility] 1..840.114 350.1.13.10 4.2.7.2.686 [id number] [facility] 2020-10-31 15:40:00 2020-10-31 15:40:00 Outpatient Jethro DEB HÉCTOR BARTLETT [facility] [id number] [facility] 2020-10-27 10:40:00 2020-10-27 10:40:00 Outpatient Jethro DEB, HÉCTOR BARTLETT [facility] [id number] [facility] 2020-10-13 00:00:00 2020-10-13 00:00:00 Telephone Héctor Boyd [facility] Building 1..840.114 350.1.13.10 4.2.7.2.686 [id number] [facility] 2020-10-03 00:00:00 2020-10-03 00:00:00 Telephone Scarlett James [facility] Building 1.2.840.114 350.1.13.10 4.2.7.2.686 [id number] 044 [id number] [facility] 2020-09-16 15:40:00 2020-09-16 15:40:00 Outpatient HÉCTOR DESAI HOWARD [facility] [id number] [facility] 2020-09-10 00:00:00 2020-09-10 00:00:00 Orders Only Doctor Unassigned, [place] [facility] 1.2.840.114 350.1.13.10 4.2.7.2.686 [id number] [facility] 2020-09-10 00:00:00 2020-09-10 00:00:00 Orders Only Doctor Unassigned, [place] [facility] 1.2.840.114 350.1.13.10 4.2.7.2.686 [id number] 2020-09-08 00:00:00 2020-09-08 00:00:00 Telephone Jacob [facility] 1.2.840.114 350.1.13.10 4.2.7.2.686 [id number] 044 [id number] [facility] 2020-09-08 00:00:00 2020-09-08 00:00:00 Telephone Jacob [facility] 1.2.840.114 350.1.13.10 4.2.7.2.686 [id number] 044 [id number] 2020-09-04 14:07:36 2020-09-04 15:15:49 Office Visit Jacob Scarlett [facility] 1.2.840.114 350.1.13.10 4.2.7.2.686 [id number] [facility] 2020-09-04 14:00:00 2020-09-04 14:00:00 Outpatient SCARLETT MARTINEZ [facility] [id number] [facility] 2020-08-28 19:30:00 2020-08-28 19:30:00 Outpatient R BETSYALICIA ENRIQUEJARADVirgen MEYERSHERINEANGUSEVAVirgen [facility] [id number] [facility] 2020-08-28 15:36:08 2020-08-28 18:06:08 Engine Head Repairer Visit 1, [facility] Sleep Lab Bed Eva Mederosvirgen [facility] 1.2.840.114 350.1.13.10 4.2.7.2.686 [id number] [facility] 2020-08-26 15:40:11 2020-08-26 15:55:11 Laboratory Only Only, [facility] Test Deangelo Mederos [facility] 1.2.840.114 350.1.13.10 4.2.7.2.686 [id number] [facility] 2020-08-26 15:30:00 2020-08-26 15:30:00 Outpatient R [facility] [id number] [facility] 2020-08-26 00:00:00 2020-08-26 00:00:00 Orders Only Doctor Unassigned, [place] [facility] 1.2.840.114 350.1.13.10 4.2.7.2.686 [id number] [facility] 2020-08-13 13:09:44 2020-08-13 13:39:44 Office Visit Deangelo Mederos [facility] 1.2.840.114 350.1.13.10 4.2.7.2.686 [id number] [facility] 2020-08-13 13:00:00 2020-08-13 13:00:00 Outpatient R DEANGELO MEDEROS STRAJARADVirgen [facility] [id number] [facility] 2020-07-25 00:00:00 2020-07-25 00:00:00 Orders Only Doctor Unassigned, [place] [facility] 1.84.114 350.1.13.10 4.2.7.2.686 [id number] [id number] [facility] 2020-07-22 00:00:00 2020-07-22 00:00:00 [facility] 1.840.114 350.1.13.10 4.2.7.2.686 [id number] [id number] [facility] 2020-07-07 14:20:00 2020-07-07 14:20:00 Outpatient HÉCTOR DESAI HOWARD [facility] [id number] [facility] 2020-06-24 00:00:00 2020-06-24 00:00:00 Telephone Jacob [facility] 1.840.114 350.1.13.10 4.2.7.2.686 [id number] [facility] 2020-06-11 14:00:00 2020-06-11 14:00:00 Outpatient CONY PINEDO [facility] [id number] [facility] 2020-06-09 14:02:27 2020-06-09 15:09:44 Office Visit Héctor Boyd [facility] Building 1..840.114 350.1.13.10 4.2.7.2.686 [id number] [facility] 2020-06-09 14:20:00 2020-06-09 14:20:00 Outpatient HÉCTOR DESAI HOWARD [facility] [id number] [facility] 2020-06-04 14:35:23 2020-06-04 14:50:23 Engine Head Repairer Visit 2, [facility] Jacob [facility] Building 1.114 350.1.13.10 4.2.7.2.686 [id number] [facility] 2020-06-04 13:57:36 2020-06-04 14:28:46 Office Visit Scarlett James [facility] Building 1.114 350.1.13.10 4.2.7.2.686 [id number] [facility] 2020-06-04 14:00:00 2020-06-04 14:00:00 [facility] [id number] [facility] 2020-03-26 15:20:00 2020-03-26 15:20:00 Outpatient R MESHADONALDJUAN DIEGO [facility] [id number] [facility] 2019-12-21 10:01:25 2019-12-21 11:40:21 Office Visit Juan Diego Mcrae [facility] Building 1.114 350.1.13.10 4.2.7.2.686 [id number] [facility] 2019-12-21 10:00:00 2019-12-21 10:00:00 Outpatient R MESHADONALDJUAN DIEGO [facility] [id number] [facility] 2019-12-13 00:00:00 2019-12-13 00:00:00 Orders Only Doctor Unassigned, [place] [facility] 1.114 350.1.13.10 4.2.7.2.686 [id number] [facility] 2019-11-09 13:37:59 2019-11-09 14:45:13 Urgent Care Provider, [facility] Siena Guevara [facility] Office Building One 1.84.114 350.1.13.10 4.2.7.2.686 [id number] [facility] 2019-11-09 10:00:00 2019-11-09 10:00:00 Outpatient R JUAN DIEGO MCRAE [facility] [id number] [facility] 2018-11-28 00:00:00 2018-11-28 00:00:00 Transition of Care Di Santana 1.2.840.114 350.1.13.10 4.2.7.2.686 [id number] [facility] 2018-11-27 00:00:00 2018-11-27 00:00:00 [facility] 1.2.840.114 350.1.13.10 4.2.7.2.686 [id number] [facility] 2018-11-27 00:00:00 2018-11-27 00:00:00 Telephone [facility] 1.2.840.114 350.1.13.10 4.2.7.2.686 [id number] [facility] 2018-11-27 00:00:00 2018-11-27 00:00:00 [facility] 1.2.840.114 350.1.13.10 4.2.7.2.686 [id number] [facility] 2018-11-23 18:28:11 2018-11-26 11:24:00 Hospital Encounter Ihsan Andrade Adnan Ibikunle, Folusho F Yarima, Wakili S [facility] 1.2.840.114 350.1.13.10 4.2.7.2.686 [id number] [facility] 2018-10-31 09:12:30 2018-10-31 13:22:12 Office Visit Héctor Boyd [facility] 1.2.840.114 350.1.13.10 4.2.7.2.686 [id number] [facility] 2018-10-31 09:50:36 2018-10-31 10:05:36 Engine Head Repairer Visit 2, [facility] Lab Héctor Boyd [facility] 1.2.840.114 350.1.13.10 4.2.7.2.686 [id number] [facility] 2018-10-31 00:00:00 2018-10-31 00:00:00 Orders Only Doctor Unassigned, [place] [facility] 1.2840.114 350.1.13.10 4.2.7.2.686 [id number] [facility] 2018-10-17 00:00:00 2018-10-17 00:00:00 Telephone Héctor Boyd [facility] 1.2.840.114 350.1.13.10 4.2.7.2.686 [id number] 092 [id number] [facility] Results Test Description Test Time Test Comments Results Result Co mments Source [facility], [id number] 15:08:00 * Test Item Value Reference Range [...] CLEAR Lab Interpretation (test cod e = 30265-6) Abnormal [facility] URINALYSIS, [id number] 15:08:00 * Test Item Value Reference Range [...] CLEAR Lab Interpretation (test cod e = 87921-2) Abnormal [facility] URINALYSIS, [id number] 15:08:00 * Test Item Value Reference Range [...] CLEAR Lab Interpretation (test cod e = 33651-7) Abnormal [facility]. METABOLIC PANEL (93140)2022-07-31 23:42:04* Test Item Value Reference Range Interpretation Comme nts NA (test code = 0174917041) 136 mmol/L 135-145 K (test code = 7427848770) 3.8 mmol/L 3.5-5.0 CL (test code = 5360250351) 103 mmol/L 98-108 CO2 TOTAL (test code = 7401381923) 26 mmol/L 23-31 AGAP (test code = 0437489301) 7 2-16 BUN (test code = 0331650849) 24 mg/dL 7-23 H GLUCOSE (test code = 1868288910) 117 mg/dL 70-110 H CREATININE (test code = 2611263267) 1.06 mg/dL 0.60-1.25 TOTAL BILI (test code = 7444973894) 0.8 mg/dL 0.1-1.1 CALCIUM (test code = 1166513048) 7.8 mg/dL 8.6-10.6 L T PROTEIN (test code = 5845729391) 5.5 g/dL 6.3-8.2 L ALBUMIN (test code = 4952715127) 3.0 g/dL 3.5-5.0 L ALK PHOS (test code = 6659127385) 75 U/L 34-122 ALTv (test code = 1742-6) 44 U/L 5-50 AST(SGOT) (test code = 6426374081) 40 U/L 13-40 eGFR (test code = 9547367706) 70.6 mL/min/1.73m2 NINI (test code = NINI) [...] imaging tests). Lab Interpretation (test code = 30032-5) Abnormal [facility] CenterACTIV[facility] PARTIAL THRMPLAS [id number] 22:15:21* Test Item Value Reference Range Interpretation Comme [facility] APTT Patient (test code = 3173-2) 26 See_Comment [Automated message] The system which generated this result transmitted reference range: 23 - 38 Seconds. The reference range was not used to interpret this result as normal/abnormal. NINI (test code = NINI) The [facility] patient population mean normal value for aPTT is 30 seconds. Lab Interpretation (test code = 20037-8) Normal [facility] CenterPROTHROMBIN TIME / [id number] 22:13:21* Test Item Value Reference Range Interpretation Comme [facility] PROTIME PATIENT (test code = 5964-2) 14.7 See_Comment [Automated Kynogon ge] The system which generated this result transmitted reference range: 12.0 - 14.7 Seconds. The reference range was not used to interpret this result as normal/abnormal. INR (test code = 6301-6) 1.2 Normal INR <1.1; Warfarin Therapeutic range 2.0 to 3.0 or 2.5 to 3.5, depending upon the indications. Lab Interpretation (test code = 60689-0) Normal [facility] CenterTROPONIN [id number] 22:13:21* Test Item Value Reference Range Interpretation Comme nts TROPONIN I (test code = 9625219877) 0.010 ng/mL <=0.034 NINI (test code = [...] of biotin. Lab Interpretation (test code = 45245-2) Normal [facility] CenterN-TERMINAL [id number] 22:10:01* Test Item Value Reference Range Interpretation Comme nts NT-proBNP (test code = 3536486404) 296 pg/mL <=125 H NINI (test code = NINI) Biotin has been reported to cause a negative bias, interpret results relative to patient's use of biotin. Lab Interpretation (test code = 50479-8) Abnormal [facility] CenterLIPASE2023-05-13 22:01:01* Test Item Value Reference Range Interpretation Comme nts LIPASE (test code = 2261626332) 51 U/L 0-220 Lab Interpretation (test cod e = 84075-5) Normal [facility] CenterCBC WITH [id number] 21:52:39* Test Item Value Reference Range Interpretation [...] 33.3 g/dL 31.2-35.0 RDW-SD (test code = 61247-2) 42.5 fL 38.5-51.6 RDW-CV (test code = 788-0) 12.4 % 12.1-15.4 PLT (test code = 777-3) 224 See_Comment [Automated message] The system which generated this result transmitted reference range: 150 - 328 10*3/?L. The reference range was not used to interpret this result as normal/abnormal. MPV (test code = 87525-0) 10.9 fL 9.8-13.0 NRBC/100 WBC (test code = 2802927056) 0.0 See_Comment [Automated message] The system which generated this result transmitted reference range: 0.0 - 10.0 /100 WBCs. The reference range was not used to interpret this result as normal/abnormal. NRBC x10^3 (test code = 2359487408) See_Comment [Automated message] The system which generated this result transmitted reference range: 10*3/?L. The reference range was not used to interpret this result as normal/abnormal. GRAN MAT (NEUT) % (test code = 770-8) 76.6 % IMM GRAN % (test code = 0055507241) 0.40 % LYMPH % (test code = 736-9) 10.5 % MONO % (test code = 5905-5) 8.3 % EOS % (test code = 713-8) 3.5 % BASO % (test code = 706-2) 0.7 % GRAN MAT x10^3(ANC) (test code = 2379264556) 10.66 10*3/uL 1.99-6.95 H IMM GRAN x10^3 (test code = 3908483954) 0.05 10*3/uL 0.00-0.06 LYMPH x10^3 (test code = 731-0) 1.46 10*3/uL 1.09-3.23 MONO x10^3 (test code = 742-7) 1.15 10*3/uL 0.36-1.02 H EOS x10^3 (test code = 711-2) 0.49 10*3/uL 0.06-0.53 BASO x10^3 (test code = 704-7) 0.10 10*3/uL 0.01-0.09 H Lab Interpretation (test code = 38150-3) Abnormal [facility] CenterCOVID-19 (ID NOW RAPID TESTING)2020-08-26 21:35:50* Test Item Value Reference Range Interpretation Comme nts SARS-CoV-2 Rapid ID NOW (test code = 16070-2) Not Detected Not Detected NINI (test code = NINI) ID NOW COVID-19 As say is an isothermal nucleic acid amplification test intended for the qualitative detection of nucleic acid from SARS-CoV-2 viral RNA in nasopharyngeal (BIN PILER) specimens. It is used under Emergency Use [...] clinically indicated. Lab Interpretation (test code = 35905-1) Normal [facility] CenterBlood Culture - Peripheral [id number] 14:49:00* Test Item Value Reference Range Interpretation Comme nts Blood Culture-Aerobic (test code = 30225-6) Culture positive. See Blood Culture Workup for additional information. No growth AA Previous preliminary verified result was Culture In Progress on 11/24/2018 at 2033 CDT Blood Culture-Anaerobic (test code = 52712-1) Culture positive. See Blood Culture Workup for additional information. No growth AA Previous preliminary verified result was Culture In Progress on 11/24/2018 at 0101 CDT Lab Interpretation (test code = 70631-9) Abnormal [facility] WITH [id number] 11:36:00* Test Item Value Reference Range Interpretation [...] 33.2 g/dL 31.2-35 RDW-SD (test code = 21484-6) 46.5 fL 38.5-51.6 RDW-CV (test code = 788-0) 13.4 % 12.1-15.4 PLT (test code = 777-3) See_Comment [Automated messa ge] The system which generated this result transmitted reference range: 150 - 328 10*3/?L. The reference range was not used to interpret this result as normal/abnormal. MPV (test code = 23412-8) 10.8 fL 9.8-13 NRBC/100 WBC (test code = 1697239043) See_Comment [Automated me ssage] The system which generated this result transmitted reference range: 0.0 - 10.0 /100 WBCs. The reference range was not used to interpret this result as normal/abnormal. NRBC x10^3 (test code = 5614537274) <0.01 See_Comment [Automated messa ge] The system which generated this result transmitted reference range: 10*3/?L. The reference range was not used to interpret this result as normal/abnormal. GRAN MAT (NEUT) % (test code = 770-8) 70.7 % IMM GRAN % (test code = 8239302733) 0.70 % LYMPH % (test code = 736-9) 15.8 % MONO % (test code = 5905-5) 8.2 % EOS % (test code = 713-8) 4.1 % BASO % (test code = 706-2) 0.5 % GRAN MAT x10^3(ANC) (test code = 3129925971) 8.20 10*3/uL 1.99-6.95 H IMM GRAN x10^3 (test code = 2149083430) 0.08 10*3/uL 0-0.06 H LYMPH x10^3 (test code = 731-0) 1.83 10*3/uL 1.09-3.23 MONO x10^3 (test code = 742-7) 0.95 10*3/uL 0.36-1.02 EOS x10^3 (test code = 711-2) 0.48 10*3/uL 0.06-0.53 BASO x10^3 (test code = 704-7) 0.06 10*3/uL 0.01-0.09 Lab Interpretation (test code = 20248-2) Abnormal [facility] METABOLIC PANEL (NA, K, CL, CO2, GLUCOSE, BUN, CREATININE, CA)2018-11-26 11:11:00* Test Item Value Reference Range Interpretation Comme nts NA (test code = 5107424994) 142 mmol/L 135-145 K (test code = 9161458861) 3.5 mmol/L 3.5-5 CL (test code = 2504445074) 109 mmol/L 98-108 H CO2 TOTAL (test code = 4197647860) 26 mmol/L 23-31 AGAP (test code = 8756210231) 2-16 BUN (test code = 7148916155) 18 mg/dL 7-23 GLUCOSE (test code = 2860857862) 142 mg/dL 70-110 H CREATININE (test code = 6172592539) 0.93 mg/dL 0.6-1.25 CALCIUM (test code = 2940612215) 8.2 mg/dL 8.6-10.6 L eGFR Calculation (Non-) (test code = 3191639423) mL/min/1.73m2 eGFR Calculation () (test code = 4667485374) mL/min/1.73m2 NINI (test code = NINI) Association [...] imaging tests). Lab Interpretation (test code = 11528-6) Abnormal [facility]. METABOLIC PANEL (68106)2018-11-25 12:02:00* Test Item Value Reference Range Interpretation Comme nts NA (test code = 5729826200) 141 mmol/L 135-145 K (test code = 5015602399) 3.7 mmol/L 3.5-5 CL (test code = 2763867514) 107 mmol/L 98-108 CO2 TOTAL (test code = 9670088144) 26 mmol/L 23-31 AGAP (test code = 6758668576) 2-16 BUN (test code = 2676155416) 16 mg/dL 7-23 GLUCOSE (test code = 9818663633) 172 mg/dL 70-110 H CREATININE (test code = 1486665984) 0.94 mg/dL 0.6-1.25 TOTAL BILI (test code = 3318647987) 1.4 mg/dL 0.1-1.1 H CALCIUM (test code = 3124719353) 8.4 mg/dL 8.6-10.6 L T PROTEIN (test code = 8838782808) 6.4 g/dL 6.3-8.2 ALBUMIN (test code = 3346572154) 3.3 g/dL 3.5-5 L ALK PHOS (test code = 8699177489) 53 U/L 34-122 ALT(SGPT) (test code = 7725386387) 35 U/L 9-51 AST(SGOT) (test code = 4236306517) 26 U/L 13-40 eGFR Calculation (Non-) (test code = 9217995487) mL/min/1.73m2 eGFR Calculation () (test code = 1532527370) mL/min/1.73m2 NINI (test code = NINI) Association [...] imaging tests). Lab Interpretation (test code = 77879-5) [facility] Test Item Value Reference Range Interpretation Comme nts MAGNESIUM (test code = 4940488177) 1.8 mg/dL 1.7-2.4 Lab Interpretation (test cod e = 69962-3) Normal [facility] WITH [id number] 11:32:00* Test Item Value Reference Range Interpretation [...] 34.5 g/dL 31.2-35 RDW-SD (test code = 58871-0) 45.7 fL 38.5-51.6 RDW-CV (test code = 788-0) 13.5 % 12.1-15.4 PLT (test code = 777-3) See_Comment [Automated message] The system which generated this result transmitted reference range: 150 - 328 10*3/?L. The reference range was not used to interpret this result as normal/abnormal. MPV (test code = 65249-8) 10.7 fL 9.8-13 NRBC/100 WBC (test code = 5065704520) See_Comment [Automated message] The system which generated this result transmitted reference range: 0.0 - 10.0 /100 WBCs. The reference range was not used to interpret this result as normal/abnormal. NRBC x10^3 (test code = 2922727196) <0.01 See_Comment [Automated message] The system which generated this result transmitted reference range: 10*3/?L. The reference range was not used to interpret this result as normal/abnormal. GRAN MAT (NEUT) % (test code = 770-8) 88.2 % IMM GRAN % (test code = 9370821916) 0.40 % LYMPH % (test code = 736-9) 6.0 % MONO % (test code = 5905-5) 5.2 % EOS % (test code = 713-8) 0.0 % BASO % (test code = 706-2) 0.2 % GRAN MAT x10^3(ANC) (test code = 6423798465) 14.73 10*3/uL 1.99-6.95 H IMM GRAN x10^3 (test code = 2051071586) 0.06 10*3/uL 0-0.06 LYMPH x10^3 (test code = 731-0) 1.01 10*3/uL 1.09-3.23 L MONO x10^3 (test code = 742-7) 0.87 10*3/uL 0.36-1.02 EOS x10^3 (test code = 711-2) <0.03 0.06-0.53 L BASO x10^3 (test code = 704-7) 0.03 10*3/uL 0.01-0.09 Lab Interpretation (test code = 80452-0) [facility] DNA [id number] 09:53:00* Test Item Value Reference Range Interpretation Comme nts Coagulase Negative Staphylococcus (test code = 51830-8) Positive Negative A NINI (test code = [...] contact the [facility] Program with questions.[facility] Pager:?[phone] Testing included eleven identification and three resistance marker targets. Lab Interpretation (test code = 36123-5) Abnormal [facility] PELVIS W [id number] 05:29:551.?Findings consistent with acute appendicitis.2.?Mild bladder wall [...] reviewed this study and agree with the abovereport.[facility] CenterL[facility] Acid Whole [id number] 04:53:00* Test Item Value Reference Range Interpretation Comme nts LACTIC ACID (test code = 4846082349) 1.62 mmol/L 0.5-2.2 Lab Interpretation (test cod e = 27300-4) Normal [facility] Metabolic Panel (NA, K, CL, CO2, GLUCOSE, BUN, CREATININE, CA)2018-11-24 02:40:00* Test Item Value Reference Range Interpretation Comme nts NA (test code = 0237523467) 141 mmol/L 135-145 K (test code = 2689768997) 4.1 mmol/L 3.5-5 CL (test code = 0328119281) 101 mmol/L 98-108 CO2 TOTAL (test code = 3733453842) 27 mmol/L 23-31 AGAP (test code = 9038254189) 2-16 BUN (test code = 1535556189) 19 mg/dL 7-23 GLUCOSE (test code = 5949992492) 110 mg/dL 70-110 CREATININE (test code = 2722638337) 0.77 mg/dL 0.6-1.25 CALCIUM (test code = 5870743226) 8.9 mg/dL 8.6-10.6 eGFR Calculation (Non-) (test code = 7545884272) mL/min/1.73m2 eGFR Calculation () (test code = 0159608981) mL/min/1.73m2 NINI (test code = NINI) Association [...] or urine or abnormalities in imaging tests). [facility] (ALB, T.PRO, BILI T, BU/BC, ALT, AST, ALK PHOS)2018-11-24 02:40:00* Test Item Value Reference Range Interpretation Comme nts TOTAL BILI (test code = 0681361894) 1.5 mg/dL 0.1-1.1 H BILI UNCON (test code = 9598266333) 1.3 mg/dL 0.1-1.1 H BILI CONJ (test code = 7140898936) 0.0 mg/dL 0-0.3 T PROTEIN (test code = 6132878953) 7.9 g/dL 6.3-8.2 ALBUMIN (test code = 7265189562) 4.5 g/dL 3.5-5 ALK PHOS (test code = 1681143900) 54 U/L 34-122 ALT(SGPT) (test code = 8747928538) 43 U/L 9-51 AST(SGOT) (test code = 1440985148) 46 U/L 13-40 H Lab Interpretation (test cod e = 50618-3) Abnormal [facility] Center[facility] [id number] 02:40:00* Test Item Value Reference Range Interpretation Comme nts LIPASE (test code = 9658078951) 28 U/L 0-220 Lab Interpretation (test cod e = 09166-6) Normal [facility] CenterUS GALL [id number] 01:49:05Unremarkable right upper quadrant ultrasound. Keri Ocasio [...] have reviewed this study and agreewith the abovereport.[facility] WITH [id number] 01:25:00* Test Item Value Reference Range Interpretation [...] 33.0 g/dL 31.2-35 RDW-SD (test code = 93365-3) 45.9 fL 38.5-51.6 RDW-CV (test code = 788-0) 13.3 % 12.1-15.4 PLT (test code = 777-3) See_Comment [Automated message] The system which generated this result transmitted reference range: 150 - 328 10*3/?L. The reference range was not used to interpret this result as normal/abnormal. MPV (test code = 91185-5) 10.4 fL 9.8-13 NRBC/100 WBC (test code = 7351417437) See_Comment [Automated message] The system which generated this result transmitted reference range: 0.0 - 10.0 /100 WBCs. The reference range was not used to interpret this result as normal/abnormal. NRBC x10^3 (test code = 8940962548) <0.01 See_Comment [Automated message] The system which generated this result transmitted reference range: 10*3/?L. The reference range was not used to interpret this result as normal/abnormal. GRAN MAT (NEUT) % (test code = 770-8) 79.9 % IMM GRAN % (test code = 4774338579) 0.60 % LYMPH % (test code = 736-9) 11.5 % MONO % (test code = 5905-5) 7.4 % EOS % (test code = 713-8) 0.3 % BASO % (test code = 706-2) 0.3 % GRAN MAT x10^3(ANC) (test code = 5904624298) 14.60 10*3/uL 1.99-6.95 H IMM GRAN x10^3 (test code = 3690712001) 0.11 10*3/uL 0-0.06 H LYMPH x10^3 (test code = 731-0) 2.10 10*3/uL 1.09-3.23 MONO x10^3 (test code = 742-7) 1.35 10*3/uL 0.36-1.02 H EOS x10^3 (test code = 711-2) 0.05 10*3/uL 0.06-0.53 L BASO x10^3 (test code = 704-7) 0.06 10*3/uL 0.01-0.09 Lab Interpretation (test code = 86759-3) Abnormal [facility] CenterLactic Acid Whole [id number] 00:30:00* Test Item Value Reference Range Interpretation Comme nts LACTIC ACID (test code = 3072330041) 2.38 mmol/L 0.5-2.2 H Lab Interpretation (test cod e = 74146-4) Abnormal [facility]-REACTIVE [id number] 15:41:00* Test Item Value Reference Range Interpretation Comme nts CRP (test code = 4745894610) 0.3 mg/dL <0.8 Lab Interpretation (test cod e = 57086-5) Normal [facility]-REACTIVE [id number] 15:41:00* Test Item Value Reference Range Interpretation Comme nts CRP (test code = 2243958335) 0.3 mg/dL <0.8 Lab Interpretation (test cod e = 49401-9) Normal [facility] WITH [id number] 16:58:00* Test Item Value Reference Range Interpretation Comme nts WBC (test code = 6690-2) See_Comment H [Automated [employer] ge] The system which generated this result transmitted reference range: 4.20 - 10.70 10*3/?L. The reference range was not used to interpret this result as normal/abnormal. RBC (test code = 789-8) See_Comment [Automated [employer] ge] The system which generated this result [...] 34.6 g/dL 31.2-35 RDW-SD (test code = 31013-8) 41.9 fL 38.5-51.6 RDW-CV (test code = 788-0) 12.7 % 12.1-15.4 PLT (test code = 777-3) See_Comment H [Automated messa ge] The system which generated this result transmitted reference range: 150 - 328 10*3/?L. The reference range was not used to interpret this result as normal/abnormal. MPV (test code = 25227-1) 11.1 fL 9.8-13 NRBC/100 WBC (test code = 4482903008) See_Comment [Automated [employer] ssage] The system which generated this result transmitted reference range: 0.0 - 10.0 /100 WBCs. The reference range was not used to interpret this result as normal/abnormal. NRBC x10^3 (test code = 2574052908) <0.01 See_Comment [Automated [employer] ge] The system which generated this result transmitted reference range: 10*3/?L. The reference range was not used to interpret this result as normal/abnormal. GRAN MAT (NEUT) % (test code = 770-8) 59.8 % IMM GRAN % (test code = 5005718318) 0.40 % LYMPH % (test code = 736-9) 21.0 % MONO % (test code = 5905-5) 8.1 % EOS % (test code = 713-8) 9.4 % BASO % (test code = 706-2) 1.3 % GRAN MAT x10^3(ANC) (test code = 9913291569) 6.67 10*3/uL 1.99-6.95 IMM GRAN x10^3 (test code = 0266833111) 0.04 10*3/uL 0-0.06 LYMPH x10^3 (test code = 731-0) 2.34 10*3/uL 1.09-3.23 MONO x10^3 (test code = 742-7) 0.90 10*3/uL 0.36-1.02 EOS x10^3 (test code = 711-2) 1.05 10*3/uL 0.06-0.53 H BASO x10^3 (test code = 704-7) 0.15 10*3/uL 0.01-0.09 H Lab Interpretation (test code = 44388-3) Abnormal [facility] WITH [id number] 16:58:00* Test Item Value Reference Range Interpretation [...] 34.6 g/dL 31.2-35 RDW-SD (test code = 63272-4) 41.9 fL 38.5-51.6 RDW-CV (test code = 788-0) 12.7 % 12.1-15.4 PLT (test code = 777-3) See_Comment H [Automated messa ge] The system which generated this result transmitted reference range: 150 - 328 10*3/?L. The reference range was not used to interpret this result as normal/abnormal. MPV (test code = 60982-4) 11.1 fL 9.8-13 NRBC/100 WBC (test code = 8694307626) See_Comment [Automated [employer]age] The system which generated this result transmitted reference range: 0.0 - 10.0 /100 WBCs. The reference range was not used to interpret this result as normal/abnormal. NRBC x10^3 (test code = 6344162277) <0.01 See_Comment [Automated messa ge] The system which generated this result transmitted reference range: 10*3/?L. The reference range was not used to interpret this result as normal/abnormal. GRAN MAT (NEUT) % (test code = 770-8) 59.8 % IMM GRAN % (test code = 6569175576) 0.40 % LYMPH % (test code = 736-9) 21.0 % MONO % (test code = 5905-5) 8.1 % EOS % (test code = 713-8) 9.4 % BASO % (test code = 706-2) 1.3 % GRAN MAT x10^3(ANC) (test code = 9097050711) 6.67 10*3/uL 1.99-6.95 IMM GRAN x10^3 (test code = 1436361109) 0.04 10*3/uL 0-0.06 LYMPH x10^3 (test code = 731-0) 2.34 10*3/uL 1.09-3.23 MONO x10^3 (test code = 742-7) 0.90 10*3/uL 0.36-1.02 EOS x10^3 (test code = 711-2) 1.05 10*3/uL 0.06-0.53 H BASO x10^3 (test code = 704-7) 0.15 10*3/uL 0.01-0.09 H Lab Interpretation (test code = 00015-1) Abnormal [facility] Progress Notes Date/Time Note Provider Source 2022-08-18 09:45:00 Formatting of this n ote might be different from the original. Notified patient of test results/recommendations per B[employer] PILER Natalie. Patient gave verbal understanding via teach back. No further questions at this time per patient. Instructed patient to call clinic should they have questions at another time. Samantha Dietz MA [facility] - Health Notes Date/Time Note Provider Source 2022-12-02 13:10:36 Formatting of this n ote might be different from the original. I agree Thanks URO-UROLOGY STAFF [facility] 2022-12-02 09:57:17 Formatting of this n [...] urine culture by Tuesday. Shanique Granger RN [facility] 2022-11-26 14:46:50 Formatting of this n ote might be different from the original. Pt appt cancelled. Orders were already sent to [facility] last week due to urgency documentation. Dr. Mederos ok'd the Rx without face to face. Pt informed will need a 30-90day follow up after usage. Verbally understood to call back in 2mo to book appt. Jalil Stephen MA [facility] 2022-11-26 14:17:04 Formatting of this n ote might be different from the original. Orders were processed via [employer] 9.1.23. Msg back from [facility] no answer no voicemail set up. Response back to please contact . Txt to [facility] for status update sent. Jalil Stephen MA [facility] 2022-11-24 17:02:15 Formatting of this n [...] Scheduled for 12/01/2022 at 2:30 PM in [place]. Adore Murrieta RN [facility] 2022-11-24 14:22:07 Formatting of this n [...] give spouse a call. Thanks. Caryl Cortés [facility] 2022-11-17 15:17:59 Formatting of this n ote might be different from the original. OK. If he is not able to come to clinic, please send DME order for a new CPAP at 11 cm H2O and inform patient. Thanks, Dr. Hood [facility] 2022-11-17 14:32:21 Formatting of this n [...] do Rx without visit. Jalil Stephen MA [facility] 2022-11-17 08:45:05 Formatting of this n [...] headaches. Please review and advise. Rachael Murray [facility] 2022-08-18 09:45:00 Addended by: ERIKA KNOX MA on: 10/08/2022 10:21 AM Modules accepted: Orders Erika Knox MA [facility]"
[2024-12-22] MEDS ORDERED: HYDRALAZINE HCL 25 MG TABLET ONE (20:31)
[2024-12-22] MEDS ORDERED: FUROSEMIDE 40 MG/4 ML VIAL ONE (20:32)
--- NOTE | 2024-12-22 20:33 | RAD REPORT ---
Procedure: Chest Single View HISTORY: Chest pain COMPARISON: December 20, 2024 FINDINGS: The lungs appear clear of acute infiltrate. No significant pleural effusion noted. The heart is mildly to moderately enlarged IMPRESSION: No acute abnormality is displayed.
[2024-12-22 20:40] LABS: Absolute Lymphocytes (CBC) 2.5 K/uL (0.7-4.9); Hematocrit 46.7 % (39.6-49.0); Hemoglobin 15.8 g/dL (13.6-17.9); MCH 30.8 pg (27.0-35.0); MCHC 33.9 g/dL (32.0-36.0); MCV 90.7 fL (80-100); MPV 8.5 fL (7.6-11.3); Nucleated RBC Absolute Count 0.0 (0-0); Nucleated Red Blood Cells % 0.1 % (0-0); RBC Red Blood Cell Count 5.15 M/uL (4.33-5.43); White Blood Count 11.40 thou/uL (4.3-10.9)
[2024-12-22 20:44] LABS: PT Prothrombin Time 14.4 SECONDS (10-13.0); Protime INR 1.28
[2024-12-22 21:04] LABS: ALT/SGPT 52.0 U/L (16-61); AST/SGOT 46.0 U/L (15-37); Albumin 3.2 g/dL (3.4-5.0); Albumin/Globulin Ratio 0.8 (1.1-1.8); Alkaline Phosphatase 72.0 U/L (45-117); Anion Gap 8.4 mEq/L (5.0-15.0); BUN Blood Urea Nitrogen 10.0 mg/dL (7-18); Bilirubin Indirect, Calculated 0.7 mg/dL (0.2-0.8); Globulin 3.9 g/dL (2.3-3.5); Glucose Level 122.0 mg/dL (74-106); Magnesium 1.9 mg/dL (1.6-2.4); NT PRO-BNP 5497.0 pg/mL (<125); Potassium 3.4 mEq/L (3.5-5.1)
[2024-12-22 21:09] LABS: Troponin High Sensitivity 80.9 pg/mL (<58.9)
[2024-12-22] MEDS ORDERED: HEPARIN 5000 UNIT/ML 1 ML VIAL ONE (21:40)
[2024-12-22] MEDS ORDERED: HEPARIN/D5W 25,000 UNIT/500 ML BAG IV ONE (21:41)
[2024-12-22] MEDS ORDERED: ASPIRIN 81 MG CHEWABLE TABLET ONE (21:41)
--- NOTE | 2024-12-23 00:23 | EDPHYS ---
Physician Documentation [facility] Name: Henry Elliott Age: 64 yrs Sex: Male : 1960 Arrival Date: 12/22/2024 Time: 19:28 Bed 18 Private MD: ED Physician Rhett Anne HPI: 12/22 19:36 This 64 yrs old Other Race Male presents to ER via Unassigned with complaints of sp4 Shortness Of Breath. 12/24 01:49 Six 4-year-old male presents with acute dyspnea associated dyspnea on exertion. sp4 Historical: - Allergies: 12/22 19:49 No Known Allergies; me1 - PMHx: 19:49 cluster headaches; Hypertensive disorder; Congestive heart failure; me1 - PSHx: 19:49 Appendectomy; elbow repair; hernia repair; me1 - Immunization history:: Adult Immunizations up to date. - Infectious Disease History:: Denies. - Social history:: Smoking status: Patient/guardian denies using tobacco, but has a distant history of tobacco abuse. - Family history:: not pertinent. ROS: 12/24 01:50 Constitutional: Negative for fever, chills, and weight loss, positive dyspnea on sp4 exertion All other systems are negative, Exam: 12/23 00:19 ECG was reviewed by the Attending Physician. Atrial fibrillation at the rate of 120, sp4 A-fib with RVR, EKG 201812/22/202412/24 01:50 Constitutional: This is a well developed, well nourished patient who is awake, alert, sp4 and in no acute distress. Head/Face: Normocephalic, atraumatic. Eyes: Pupils equal round and reactive to light, extra-ocular motions intact. Lids and lashes normal. Conjunctiva and sclera are not injected. Cornea within normal limits. Periorbital areas with no swelling, redness, or edema. ENT: Nares patent. No nasal discharge, no septal abnormalities noted. Tympanic membranes are normal and external auditory canals are clear. Oropharynx with no redness, swelling, or masses, exudates, or evidence of obstruction, uvula midline. Mucous membranes moist. Neck: Trachea midline, no thyromegaly or masses palpated, and no cervical lymphadenopathy. Supple, full range of motion without nuchal rigidity, or vertebral point tenderness. Positive jugular venous distention Chest/axilla: Normal chest wall appearance and motion. Nontender with no deformity. No lesions are appreciated. Cardiovascular: Regular rate and rhythm with a normal S1 and S2. No gallops, murmurs, or rubs. No pulse deficits. Positive jugular venous distention Respiratory: Lungs have equal breath sounds bilaterally, clear to auscultation and percussion. No rales, rhonchi or wheezes noted. No increased work of breathing, no retractions or nasal flaring. Abdomen/GI: Soft, with normal bowel sounds. No distension or tympany. No guarding or rebound. No evidence of tenderness throughout. Back: No spinal tenderness. No costovertebral tenderness. Skin: Warm, dry with normal turgor. Normal color with no rashes, no lesions, and no evidence of cellulitis. MS/ Extremity: Pulses equal, no cyanosis. Neurovascular intact. Full, normal range of motion. Neuro: Awake and alert, GCS 15, oriented to person, place, time, and situation. Cranial nerves II-XII grossly intact. Motor strength 5/5 in all extremities. Sensory grossly intact. Psych: Awake, alert, with orientation to person, place and time. Behavior, mood, and affect are within normal limits Vital Signs: 12/22 19:47 BP 140 / 91; Pulse 124; Resp 22; Temp 98.8; Pulse Ox 99% ; Weight 83.91 kg; Height 5 me1 ft. 5 in. ; Pain 4/10; 20:30 BP 135 / 98; Pulse 120; Resp 18; Pulse Ox 97% ; rg5 21:03 BP 148 / 93; Pulse 110; Resp 18; Pulse Ox 100% ; Weight 84.64 kg; ha1 22:05 BP 142 / 99; Pulse 101; Resp 18; Pulse Ox 100% ; Pain 0/10; rg5 23:30 BP 126 / 89; Pulse 114; Resp 18; Pulse Ox 95% on R/A; rg5 12/23 00:35 BP 150 / 74; Pulse 118; Pulse Ox 96% on R/A; rg5 01:41 BP 128 / 97; Pulse 86; Resp 18; Pulse Ox 97% on 2 lpm NC; Pain 0/10; rg5 03:00 BP 128 / 88; Pulse 90; Resp 18 S; Pulse Ox 100% on 2 lpm NC; ha1 12/22 19:47 Body Mass Index 30.79 (84.64 kg, 165.1 cm) me1 12/22 19:47 Pain Scale: Adult me1 22:05 Pain Scale: Adult rg5 01:41 Pain Scale: Adult rg5 Jj Coma Score: 12/24 01:50 Eye Response: spontaneous(4). Motor Response: obeys commands(6). Verbal Response: sp4 oriented(5). Total: 15. MDM: 12/22 19:37 Medical Screening Exam initiated sp4 12/23 00:20 ED course: Procedure: Chest Single View HISTORY: Chest pain COMPARISON: December 20, 2024 sp4 FINDINGS: The lungs appear clear of acute infiltrate. No significant pleural effusion noted. The heart is mildly to moderately enlarged IMPRESSION: No acute abnormality is displayed. . 12/24 01:50 Differential diagnosis: Anxiety Reaction asthma, Bronchitis CHF exacerbation, Chronic sp4 Obstructive Pulmonary Disease Myocardial Infarction pneumonia, Pneumothorax Psychogenic. Data reviewed: vital signs, nurses notes, EMS record, old medical records, lab test result(s), EKG, radiologic studies, plain films. Consideration of Admission/Observation Patient was admitted/placed on observation. Escalation of care including admission/observation considered. Management of patient was discussed with the following: Hospitalist: Discussed with admitting team. Supervisor Partial Denture Department: Discussed with cardiology. 12/22 19:37 Order name: Basic Metabolic Panel; Complete Time: 23:07 sp4 12/22 19:37 Order name: CBC with Diff; Complete Time: 21:06 sp4 12/22 19:37 Order name: LFT's; Complete Time: 23:07 sp4 12/22 19:37 Order name: Magnesium; Complete Time: 23:07 sp4 12/22 19:37 Order name: NT PRO-BNP; Complete Time: 23:07 sp4 12/22 19:37 Order name: PT-INR; Complete Time: 21:06 sp4 12/22 19:37 Order name: Troponin HS; Complete Time: 23:07 sp4 12/22 20:11 Order name: CK; Complete Time: 23:07 sp4 12/22 21:07 Order name: Ptt, Activated; Complete Time: 23:07 4 12/23 01:25 Order name: Lipid Profile EDMS 12/23 01:56 Order name: Troponin High Sensitivity 4 12/23 02:30 Order name: Ptt, Activated rg5 12/23 03:05 Order name: PTT, Activated Partial Thromb; Complete Time: 01:52 EDMS 12/23 03:17 Order name: Troponin High Sensitivity; Complete Time: 01:52 EDMS 12/22 19:37 Order name: XRAY Chest (1 view); Complete Time: 21:06 sp4 12/23 01:33 Order name: Echo with Doppler EDMS 12/23 01:33 Order name: Echo with Doppler EDMS 12/22 19:37 Order name: Cardiac monitoring; Complete Time: 20:24 sp4 12/22 19:37 Order name: EKG - Nurse/Tech; Complete Time: 20:24 sp4 12/22 19:37 Order name: IV Saline Lock; Complete Time: 20:24 sp4 12/22 19:37 Order name: Labs collected and sent; Complete Time: 20:24 sp4 12/22 19:37 Order name: O2 Per Protocol; Complete Time: 20:24 sp4 12/22 19:37 Order name: O2 Sat Monitoring; Complete Time: 20:24 sp4 EC/04 20:19 Rate is 120 beats/min. Rhythm is irregularly irregular, A fib. QRS [place] is Normal. QRS sp4 interval is normal. No ST changes noted. Clinical impression: Atrial Fibrillation. Interpreted by me. Reviewed by me. Administered Medications: 20:37 Drug: HydrALAZINE PO 25 mg PO once Route: PO; rg5 20:58 Follow up: Response: No adverse reaction rg5 20:37 Drug: Furosemide IVP 40 mg IVP once; give over 2 minutes Route: IVP; Site: right rg5 antecubital; 20:58 Follow up: Response: No adverse reaction rg5 21:44 Drug: Heparin (VA-Bolus No thrombolytic) - HEParin IVP 60 units/kg IVP once; Max 5000 rg5 units {Co-Signature: me1 (Maria G Soto RN).} Route: IVP; Site: right upper arm; 12/23 00:17 Follow up: Response: No adverse reaction rg5 12/22 21:47 Drug: Heparin (VA Drip) 12 units/kg/hr - ([place] [address] units, D5W IV 500 ml) IV at rg5 calculated rate Per protocol; Max initial rate 1000 units/hr {Co-Signature: me1 (Maria G Soto RN).} Route: IV; Rate: 1000 units/hr; Site: right upper arm; 12/23 03:42 Follow up: Response: No adverse reaction; IV Status: Infusion continued upon admission ha1 12/22 21:49 Drug: Aspirin PO Chewable Tablet 324 mg PO once; 81 mg tablets x 4 Route: PO; rg5 22:21 Follow up: Response: No adverse reaction rg5 12/23 00:39 Drug: Diltiazem IVP 20 mg IVP once; Over 2 Minutes Route: IVP; Site: right hand; rg5 01:00 Follow up: Response: No adverse reaction; Marked relief of symptoms ha1 01:16 Drug: Diltiazem PO 30 mg PO once Route: PO; rg5 01:50 Follow up: Response: No adverse reaction; Marked relief of symptoms ha1 Disposition: 00:20 Critical Care:. sp4 12/24 01:50 Chart complete. sp4 Disposition Summary: 12/23/24 00:22 Hospitalization Ordered Notes: Hospitalization Status: Inpatient Admission sp4 Provider: Trenton Smith Location: Telemetry/[facility] (Inpatient) sp4 Condition: Stable sp4 Problem: new sp4 Symptoms: have improved sp4 Bed/Room Type: Standard 4 Room Assignment: 216(12/23/24 01:40) vk Diagnosis - Acute diastolic (congestive) heart failure sp4 - New onset atrial fibrillation with RVR, acute systolic and diastolic heart sp4 failure, elevated troponin I level, NSTEMI Forms: - Medication Reconciliation Form sp4 - SBAR form sp4 - Leadership Thank You Letter sp4 Critical care time excluding procedures: 12/23 00:20 Critical care time: Bedside Care: 36 minutes, Consultation: 12 minutes, Family sp4 Intervention: 12 minutes. Total time: 60 minutes Signatures: Dispatcher [employer] Rhett Duarte MD MD sp4 Maria G Soto, RN RN me1 Tomasa Anders Rommel, RN RN rg5 Adamaris Raymundo RN 1 Maria G Soto RN me1 Corrections: (The following items were deleted from the chart) 12/22 19:38 19:38 BASIC METABOLIC PANEL+C.LAB.BRZ ordered. EDMS EDMS 19:38 19:38 CBC+H.LAB.BRZ ordered. EDMS EDMS 19:38 19:38 HEPATIC FUNCTION+C.LAB.BRZ ordered. EDMS EDMS 19:38 19:38 MAGNESIUM+C.LAB.BRZ ordered. EDMS EDMS 19:38 19:38 PROBNP+C.LAB.BRZ ordered. EDMS EDMS 19:38 19:38 PROTIME (+INR)+COAG.LAB.BRZ ordered. EDMS EDMS 19:38 19:38 Troponin High Sensitivity+C.LAB.BRZ ordered. EDMS EDMS 19:38 19:38 Chest Single View+RAD.RAD.BRZ ordered. EDMS EDMS 19:50 19:49 PMHx: Congenital heart disease; me1 me1 12/23 01:40 00:22 sp4 vk 12/24 01:50 01:49 Six 4-year-old male presents with acute dyspnea associated with fever.. sp4 sp4
--- NOTE | 2024-12-23 00:23 | ER ---
Nurse's Notes [facility] Name: Henry Elliott Age: 64 yrs Sex: Male : 1960 Arrival Date: 12/22/2024 Time: 19:28 Bed 18 Private MD: Diagnosis: Acute diastolic (congestive) heart failure;New onset atrial fibrillation with RVR, acute systolic and diastolic heart failure, elevated troponin I level, NSTEMI Presentation: 12/22 19:47 Chief complaint: Patient states: was seen here yesterday for the same. Reports SOB for me1 a week or so. Swelling to BLE. Coronavirus screen: Vaccine status: Patient reports being unvaccinated. Ebola Screen: No symptoms or risks identified at this time. Initial Sepsis Screen: Does the patient meet any 2 criteria? HR > 90 bpm. Does the patient have a suspected source of infection? No. Patient's initial sepsis screen is negative. Risk Assessment: Do you want to hurt yourself or someone else? Patient reports no desire to harm self or others. Onset of symptoms is unknown. 19:47 Method Of Arrival: Wheelchair nd1 19:47 Acuity: TOMMY 3 me1 Triage Assessment: 19:49 General: Appears in no apparent distress. Behavior is calm, cooperative, appropriate me1 for age, Reports SOB that is worse with exertion. Pain: Complains of pain in head Pain does not radiate. Pain currently is 4 out of 10 on a pain scale. Quality of pain is described as aching, Is continuous. EENT: No signs and/or symptoms were reported regarding the EENT system. Neuro: Level of Consciousness is awake, alert, obeys commands, Oriented to person, place, time, situation, Appropriate for age. Cardiovascular: Patient's skin is warm and dry. Respiratory: Reports shortness of breath at rest on exertion Respiratory effort is even, unlabored, Respiratory pattern is regular, symmetrical, Onset: The symptoms/episode began/occurred gradually, the patient has moderate shortness of breath. Derm: Skin is healthy with good turgor, Skin is normal. Musculoskeletal: Circulation, motion, and sensation intact. Range of motion: intact in all extremities. 20:30 General: Appears in no apparent distress. Behavior is appropriate for age. Pain: rg5 Complains of pain in head Quality of pain is described as aching. EENT: No signs and/or symptoms were reported regarding the EENT system. Neuro: Level of Consciousness is awake, alert, obeys commands, Oriented to person, place, time, situation, Appropriate for age. Cardiovascular: Reports shortness of breath, Patient's skin is warm and dry. Respiratory: Reports shortness of breath at rest Airway is patent Respiratory effort is even, unlabored. GI: Abdomen is round non-distended. : No signs and/or symptoms were reported regarding the genitourinary system. Derm: Skin is intact, Skin is dry, Skin is normal. Musculoskeletal: Circulation, motion, and sensation intact. Range of motion: intact in all extremities. Historical: - Allergies: 19:49 No Known Allergies; me1 - PMHx: 19:49 cluster headaches; Hypertensive disorder; Congestive heart failure; me1 - PSHx: 19:49 Appendectomy; elbow repair; hernia repair; me1 - Immunization history:: Adult Immunizations up to date. - Infectious Disease History:: Denies. - Social history:: Smoking status: Patient/guardian denies using tobacco, but has a distant history of tobacco abuse. - Family history:: not pertinent. Screenin:30 [facility] ED Fall Risk Assessment (Adult) History of falling in the last 3 months, rg5 including since admission No falls in past 3 months (0 pts) Confusion or Disorientation No (0 pts) Intoxicated or Sedated No (0 pts) Impaired Gait Yes (1 pt) Mobility Assist Device Used Yes (1 pt) Altered Elimination No (0 pt) Score/Fall Risk Level 0 - 2 = Low Risk Oriented to surroundings, Maintained a safe environment. Abuse screen: Denies threats or abuse. Nutritional screening: No deficits noted. Tuberculosis screening: No symptoms or risk factors identified. Assessment: 20:56 Reassessment: No changes from previously documented assessment. Patient and/or family rg5 updated on plan of care and expected duration. Pain level reassessed. Patient is alert, oriented x 3, equal unlabored respirations, skin warm/dry/pink. Cardiovascular: Rhythm is sinus tachycardia. Respiratory: Airway is patent Trachea midline Breath sounds are clear. GI: Abdomen is round. 21:30 Reassessment: No changes from previously documented assessment. Patient and/or family rg5 updated on plan of care and expected duration. Pain level reassessed. 22:27 Reassessment: No changes from previously documented assessment. Patient and/or family rg5 updated on plan of care and expected duration. Pain level reassessed. General: Appears in no apparent distress. Vital Signs: 19:47 BP 140 / 91; Pulse 124; Resp 22; Temp 98.8; Pulse Ox 99% ; Weight 83.91 kg; Height 5 me1 ft. 5 in. ; Pain 4/10; 20:30 BP 135 / 98; Pulse 120; Resp 18; Pulse Ox 97% ; rg5 21:03 BP 148 / 93; Pulse 110; Resp 18; Pulse Ox 100% ; Weight 84.64 kg; ha1 22:05 BP 142 / 99; Pulse 101; Resp 18; Pulse Ox 100% ; Pain 0/10; rg5 23:30 BP 126 / 89; Pulse 114; Resp 18; Pulse Ox 95% on R/A; rg5 12/23 00:35 BP 150 / 74; Pulse 118; Pulse Ox 96% on R/A; rg5 01:41 BP 128 / 97; Pulse 86; Resp 18; Pulse Ox 97% on 2 lpm NC; Pain 0/10; rg5 03:00 BP 128 / 88; Pulse 90; Resp 18 S; Pulse Ox 100% on 2 lpm NC; ha1 12/22 19:47 Body Mass Index 30.79 (84.64 kg, 165.1 cm) nd1 12/22 19:47 Pain Scale: Adult me1 22:05 Pain Scale: Adult rg5 01:41 Pain Scale: Adult rg5 [place] Coma Score: 12/24 01:50 Eye Response: spontaneous(4). Motor Response: obeys commands(6). Verbal Response: sp4 oriented(5). Total: 15. ED Course: 12/22 19:31 Patient arrived in ED. im 19:36 Rhett Anne MD is Attending Physician. sp4 19:49 Triage completed. me1 19:49 Arm band placed on Patient placed in waiting room. me1 20:00 Kristian Huntley, RN is Primary Nurse. rg5 20:04 XRAY Chest (1 view) In Process Unspecified. EDMS 20:24 EKG done, by geothermal technician. reviewed by Rhett Anne MD. ts3 20:25 Initial lab(s) drawn, by ED staff, sent to lab. Inserted saline lock: 20 gauge in right ts3 upper arm, using aseptic technique. Blood collected. Flushed with 10 mL NS. 20:30 Patient has correct armband on for positive identification. Door closed. Noise rg5 minimized. 20:30 No provider procedures requiring assistance completed. rg5 23:28 Inserted saline lock: 22 gauge in right hand, using aseptic technique. rg5 12/23 00:21 Trenton Smith MD is Hospitalizing Provider. sp4 03:42 Patient admitted, IV remains in place. ha1 Administered Medications: 12/22 20:37 Drug: HydrALAZINE PO 25 mg PO once Route: PO; rg5 20:58 Follow up: Response: No adverse reaction rg5 20:37 Drug: Furosemide IVP 40 mg IVP once; give over 2 minutes Route: IVP; Site: right rg5 antecubital; 20:58 Follow up: Response: No adverse reaction rg5 21:44 Drug: Heparin (AK-Bolus No thrombolytic) - HEParin IVP 60 units/kg IVP once; Max 5000 rg5 units {Co-Signature: me1 (Maria G Soto RN).} Route: IVP; Site: right upper arm; 12/23 00:17 Follow up: Response: No adverse reaction rg5 12/22 21:47 Drug: Heparin (AK Drip) 12 units/kg/[place] - ([place] [address] units, D5W IV 500 ml) IV at rg5 calculated rate Per protocol; Max initial rate 1000 units/hr {Co-Signature: me1 (Maria G Soto RN).} Route: IV; Rate: 1000 units/hr; Site: right upper arm; 12/23 03:42 Follow up: Response: No adverse reaction; IV Status: Infusion continued upon admission ha1 12/22 21:49 Drug: Aspirin PO Chewable Tablet 324 mg PO once; 81 mg tablets x 4 Route: PO; rg5 22:21 Follow up: Response: No adverse reaction rg5 12/23 00:39 Drug: Diltiazem IVP 20 mg IVP once; Over 2 Minutes Route: IVP; Site: right hand; rg5 01:00 Follow up: Response: No adverse reaction; Marked relief of symptoms ha1 01:16 Drug: Diltiazem PO 30 mg PO once Route: PO; rg5 01:50 Follow up: Response: No adverse reaction; Marked relief of symptoms ha1 Medication: 12/22 20:30 VIS not applicable for this client. rg5 Outcome: 12/23 00:22 Decision to Hospitalize by Provider. sp4 03:42 Admitted to Med/surg accompanied by nurse, accompanied by tech, via wheelchair, room ha1 216, with chart, 03:42 Condition: stable 03:42 Instructed on the need for admit, Demonstrated understanding of instructions, 03:45 Patient left the ED. 1 Signatures: Dispatcher [employer] EDAdamaris Patel, RN RN ha1 Rhett Anne MD MD sp4 Alaina Rivera Michelle, RN RN me1 Kristian Huntley RN RN rg5 Sindhu Guzman 3 Maria G Soto RN me1 Corrections: (The following items were deleted from the chart) 12/22 19:50 19:49 PMHx: Congenital heart disease; me1 nd1 21:27 21:03 BP 148 / 93; Pulse 110bpm; Resp 18bpm; Pulse Ox 100%; rg5 1 22:28 22:05 BP 151 / 87; Pulse 82bpm; Resp 18bpm; Pulse Ox 100%; Pain 0/10, Adult; rg5 rg5
[2024-12-23] MEDS ORDERED: DILTIAZEM HCL 60 MG TAB ONE (00:26)
[2024-12-23] MEDS ORDERED: ACETAMINOPHEN 650MG/RECT SUPP PR PRN (01:33)
--- NOTE | 2024-12-23 01:44 | P.HP ---
Certification for Inpatient Patient admitted to: Inpatient With expected LOS: >2 Midnights Patient will require the following post-hospital care: None Practitioner: I am a practitioner with admitting privileges, knowledge of patient current condition, hospital course, and medical plan of care. Services: Services provided to patient in accordance with Admission requirements found in Title 42 Section 412.3 of the Code of Federal Regulations <Jarett Cortez - Last Filed: 12/23/24 08:41> Patient History Date of Service: 12/22/24 Reason for admission: New onset CHF, New onset Afib with RVR. History of Present Illness: Patient is a pleasant 64-year-old male with past medical history of inguinal hernia, essential hypertension, who presents to the ER today complaining of worsening shortness of breath. Patient states he has been having shortness of breath for the past week, patient had reported to the ER 2 days ago complaining of dyspnea, but he left AMA. Reported back to the ER today complaining of worsening shortness of breath, and feeling of heart palpitation. Patient denies associated chest pain at this time. States his shortness of breath is mostly exacerbated with activities. While in ER, patient cardiac rhythm was A-fib with RVR, which appears to be new onset, patient states he does not have any prior history. Patient also appears to be new onset CHF, BNP 5497. Patient troponin 80.9, creatinine kinase 366. Patient have bilateral scattered coarse crackles both lungs. Patient states that patient also have occasional edema on bilateral lower extremities. States her initially came into the hospital thinking was cold that he had. Course in ER. (1) chest x-ray. Impression: No acute abnormality is displayed. - Past Medical/Surgical History Diabetic: No -: HTN -: Cluster headache -: inguinal hernia -: Left inguinal hernia repair -: appendectomy - Family History Brother -: Cancer (Of the bone) - Social History Smoking Status: Former smoker Alcohol use: No CD- Drugs: No Caffeine use: No Place of Residence: Home <Jarett Cortez - Last Filed: 12/23/24 08:41> Date of Service: 12/23/24 <Cheryl Bergeron - Last Filed: 12/23/24 14:35> Allergies No Known Allergies Allergy (Verified 12/23/24 04:44) Home Medications: Aspirin [Aspirin Regimen] 81 mg PO DAILY 12/23/24 Aspirin/Acetaminophen/Caffeine [Excedrin Migraine Caplet] 1 each PO TID PRN 12/23/24 Furosemide [Lasix] 40 mg PO DAILY 12/23/24 Review of Systems 10-point ROS is otherwise unremarkable Respiratory: Shortness of Breath, SOB with Excertion <Jarett Cortez - Last Filed: 12/23/24 08:41> Physical Examination - Physical Exam General: Alert, In no apparent distress, Oriented x3, Cooperative HEENT: Atraumatic, Normocephalic, PERRLA, Mucous membr. moist/pink, Sclerae nonicteric Neck: Supple, 2+ carotid pulse no bruit, JVD not distended, No Thyromegaly, No LAD, Without JVD or thyroid abnormality Respiratory: Other (coarse scattered crackles) Cardiovascular: No edema, Normal pulses, No gallops, Irregular heart rate/rhythm (Afib) Capillary refill: <2 Seconds Gastrointestinal: Normal bowel sounds, Soft and benign, Non-distended, W/out hepatomegaly, No ascites Musculoskeletal: No clubbing, No swelling, No contractures, No erythema, No tenderness, No warmth Integumentary: No rashes, No breakdown, No significant lesion, No tenderness/swelling, No erythema, No warmth, No cyanosis Neurological: Normal gait, Normal speech, Normal strength at 5/5 x4 extr, Normal tone, Sensation intact, Cranial nerves 3-12 intact, Normal reflexes 2+, Normal affect Lymphatics: No axilla or inguinal lymphadenopathy - Studies Laboratory Data (last 24 hrs) 12/22/24 12/22/24 12/22/24 20:15 20:15 20:15 WBC 11.40 H Hgb 15.8 Hct 46.7 Plt Count 354 PT 14.4 H INR 1.28 APTT 34.4 Sodium Potassium BUN Creatinine Glucose Magnesium Total Bilirubin AST ALT Alkaline Phosphatase 12/22/24 20:15 WBC Hgb Hct Plt Count PT INR APTT Sodium 135 L Potassium 3.4 L BUN 10 Creatinine 1.03 Glucose 122 H Magnesium 1.9 Total Bilirubin 1.1 H AST 46 H ALT 52 Alkaline Phosphatase 72 <Jarett Cortez - Last Filed: 12/23/24 08:41> - Studies Laboratory Data (last 24 hrs) 12/22/24 12/22/2425 20:15 20:15 20:15 WBC 11.40 H Hgb 15.8 Hct 46.7 Plt Count 354 PT 14.4 H INR 1.28 APTT 34.4 Sodium Potassium BUN Creatinine Glucose Magnesium Total Bilirubin AST ALT Alkaline Phosphatase 12/22/24 20:15 WBC Hgb Hct Plt Count PT INR APTT Sodium 135 L Potassium 3.4 L BUN 10 Creatinine 1.03 Glucose 122 H Magnesium 1.9 Total Bilirubin 1.1 H AST 46 H ALT 52 Alkaline Phosphatase 72 <Cheryl Bergeron - Last Filed: 12/23/24 14:35> Male Exam - Male Exam Inguinal exam: No hernias <Jarett Cortez - Last Filed: 12/23/24 08:41> Assessment and Plan - Plan Patient admitted inpatient with diagnosis of new onset CHF, new onset A-fib with RVR, and elevated troponin. (1)New onset CHF questionable, new onset A-fib with RVR, and elevated troponin. -Order EKG every 8 x 3. -Daily weight. -Order echo. -Consult sergeant of officers. -Lasix 40 mg IV daily. Patient lasix may need to be optimized based on response. -Ordered metoprolol 25 mg p.o. twice daily. -Oxygen 3 L, titrate to maintain O2 saturation above 93%. -Aspirin 81 mg daily. -Serial troponin every 8 x 3. -Started patient on heparin infusion. Patient may need to be transition to DOAC if atrial fibrillation continues. (2)Chronic sleep apnea. -Order CPAP at bedtime. (3)Home medication to resume when reconciled. (4)Explained entire treatment plan to the patient, and present at the bedside, solicited questions answered and voiced understanding. Discharge Plan: Home Plan to discharge in: Greater than 2 days - Advance Directives Does patient have a Living Will: No Does patient have a Durable POA for Healthcare: No - Code Status/Comfort Care Code Status Assessed: Yes Code Status: Full Code Critical Care: No Time Spent Managing Pts Care (In Minutes): 55 <Jarett Cortez - Last Filed: 12/23/24 08:41> Date of Service: 12/23/24 Appreciate cardiology input. Will go ahead and DC heparin drip. Echocardiogram pending for in the morning. Continue with gentle diuresing and monitor strict I's and O's and daily weight. <Cheryl Bergeron - Last Filed: 12/23/24 14:35>
[2024-12-23] MEDS ORDERED: HEPARIN/D5W 25,000 UNIT/500 ML BAG IV SCH (02:00)
[2024-12-23] MEDS: ACETAMINOPHEN 325 MG TABLET PO PRN (06:12)
[2024-12-23] MEDS: METOPROLOL TAR 25 MG TAB PO SCH (06:12)
[2024-12-23] MEDS: FUROSEMIDE 40 MG/4 ML VIAL IV SCH (08:19)
[2024-12-23] MEDS: ASPIRIN EC 81 MG TAB PO SCH (08:19)
--- NOTE | 2024-12-23 09:42 | P.CNS ---
Date of Consult: 12/23/24 Chief Complaint: New onset CHF, New onset Afib with RVR. History of Present Illness: Patient with no significant PMH, presented with worsening SOB for 1 week, also report BLE edema, denies chest pain, no palpitations, no syncope, report only occasional weed smoking, denies drug history. Allergies No Known Allergies Allergy (Verified 12/23/24 04:44) Home medications list reviewed: Yes Home Medications: Aspirin [Aspirin Regimen] 81 mg PO DAILY 12/23/24 Aspirin/Acetaminophen/Caffeine [Excedrin Migraine Caplet] 1 each PO TID PRN 12/23/24 Furosemide [Lasix] 40 mg PO DAILY 12/23/24 - Past Medical/Surgical History Diabetic: No -: HTN -: Cluster headache -: inguinal hernia -: Left inguinal hernia repair -: appendectomy - Family History Brother Medical History: Cancer (Of the bone) - Social History Smoking Status: Former smoker Alcohol use: No CD- Drugs: No Caffeine use: No Place of Residence: Home Review of Systems 10-point ROS is otherwise unremarkable Physical Examination Temp Pulse Resp BP Pulse Ox 97.9 F 78 17 96/61 96 12/23/24 08:00 12/23/24 08:19 12/23/24 08:00 12/23/24 08:19 12/23/24 08:00 General: Alert, In no apparent distress HEENT: Atraumatic, PERRLA, Mucous membr. moist/pink, EOMI, Sclerae nonicteric Neck: Supple, 2+ carotid pulse no bruit, No LAD, Without JVD or thyroid abnormality Respiratory: Clear to auscultation bilaterally, Normal air movement Cardiovascular: Regular rate/rhythm, Normal S1 S2 Gastrointestinal: Normal bowel sounds, No tenderness Musculoskeletal: No tenderness Integumentary: No rashes Neurological: Normal gait, Normal speech, Normal tone, Normal affect Lymphatics: No axilla or inguinal lymphadenopathy Laboratory Data (last 24 hrs) 12/22/24 12/22/24 12/22/24 20:15 20:15 20:15 WBC 11.40 H Hgb 15.8 Hct 46.7 Plt Count 354 PT 14.4 H INR 1.28 APTT 34.4 Sodium Potassium BUN Creatinine Glucose Magnesium Total Bilirubin AST ALT Alkaline Phosphatase 12/22/24 20:15 WBC Hgb Hct Plt Count PT INR APTT Sodium 135 L Potassium 3.4 L BUN 10 Creatinine 1.03 Glucose 122 H Magnesium 1.9 Total Bilirubin 1.1 H AST 46 H ALT 52 Alkaline Phosphatase 72 - Problems (1) GUERRA (dyspnea on exertion) Current Visit: Yes Status: Acute Plan: patient with elevated BNP get echo continue lasix 40 mg IV daily continue to monitor input and output and electrolytes. (2) Hypotension Current Visit: Yes Status: Acute Plan: continue to monitor (3) Elevated troponin Current Visit: Yes Status: Acute Plan: mild leak with no significant delta. D/C Heparin drip ASA 81 mg daily Lipitor 40 mg daily will follow up on Echo
[2024-12-23] MEDS: MIDODRINE HCL 5 MG TABLET PO SCH (16:33)
[2024-12-23] MEDS: FUROSEMIDE 40 MG/4 ML VIAL IV ONE (16:33)
[2024-12-23] MEDS: HYDROCORTISONE SUC 100 MG INJ IV ONE (16:33)
[2024-12-24 06:42] LABS: Absolute Lymphocytes (CBC) 3.4 K/uL (0.7-4.9); Hematocrit 47.0 % (39.6-49.0); Hemoglobin 15.8 g/dL (13.6-17.9); MCH 30.8 pg (27.0-35.0); MCHC 33.7 g/dL (32.0-36.0); MCV 91.5 fL (80-100); MPV 9.0 fL (7.6-11.3); Nucleated RBC Absolute Count 0.0 (0-0); Nucleated Red Blood Cells % 0.1 % (0-0); RBC Red Blood Cell Count 5.13 M/uL (4.33-5.43); White Blood Count 12.90 thou/uL (4.3-10.9)
[2024-12-24 07:08] LABS: ALT/SGPT 50.0 U/L (16-61); AST/SGOT 40.0 U/L (15-37); Albumin 3.0 g/dL (3.4-5.0); Albumin/Globulin Ratio 0.8 (1.1-1.8); Alkaline Phosphatase 67.0 U/L (45-117); Anion Gap 9.8 mEq/L (5.0-15.0); BUN Blood Urea Nitrogen 13.0 mg/dL (7-18); C-Reactive Protein 7.28 mg/L (<3.00); Globulin 3.9 g/dL (2.3-3.5); Glucose Level 114.0 mg/dL (74-106); Magnesium 2.3 mg/dL (1.6-2.4); NT PRO-BNP 6313.0 pg/mL (<125); Potassium 3.8 mEq/L (3.5-5.1)
--- NOTE | 2024-12-24 10:43 | P.PN ---
Subjective Date of Service: 12/24/24 Chief Complaint: New onset CHF, New onset Afib with RVR. Subjective: No new changes, No C/O voiced, Tolerating diet, Ambulating, Improving Review of Systems 10-point ROS is otherwise unremarkable Physical Examination - Vital Signs Temperature: 97.6 F Blood Pressure: 134/83 Pulse: 93 Respirations: 18 Pulse Ox (%): 98 - Physical Exam General: Alert, In no apparent distress HEENT: Atraumatic, PERRLA, EOMI Neck: Supple, JVD not distended Respiratory: Clear to auscultation bilaterally, Normal air movement Cardiovascular: Regular rate/rhythm, Normal S1 S2 Gastrointestinal: Normal bowel sounds, No tenderness Musculoskeletal: No tenderness Integumentary: No rashes Neurological: Normal speech, Normal tone, Normal affect Lymphatics: No axilla or inguinal lymphadenopathy - Studies Laboratory Data (last 24 hrs) 12/23/24 01:23 Triglycerides Cancelled Cholesterol Cancelled HDL Cholesterol Cancelled Cholesterol/HDL Ratio Cancelled Medications List Reviewed: Yes Assessment And Plan - Current Problems (Diagnosis) (1) GUERRA (dyspnea on exertion) Current Visit: Yes Status: Acute Plan: patient with elevated BNP get echo increase lasix 40 mg IV BID continue to monitor input and output and electrolytes. (2) Hypotension Current Visit: Yes Status: Acute Plan: continue to monitor (3) Elevated troponin Current Visit: Yes Status: Acute Plan: mild leak with no significant delta. D/C Heparin drip ASA 81 mg daily Lipitor 40 mg daily will follow up on Echo
--- NOTE | 2024-12-24 13:54 | P.PN ---
Date of Service: 12/24/24 Subjective: at bedside. No new complaints. States that he is not been hospitalized recently. Denies fevers and chills Review of Systems 10-point ROS is otherwise unremarkable Respiratory: Shortness of Breath, SOB with Excertion Physical Examination - Physical Exam General: Alert, In no apparent distress, Oriented x3, Cooperative HEENT: Atraumatic, Normocephalic, PERRLA, Mucous membr. moist/pink, Sclerae nonicteric Neck: Supple, 2+ carotid pulse no bruit, JVD not distended, No Thyromegaly, No LAD, Without JVD or thyroid abnormality Respiratory: Other (coarse scattered crackles) Cardiovascular: No edema, Normal pulses, No gallops, Irregular heart rate/rhythm (Afib) Capillary refill: <2 Seconds Gastrointestinal: Normal bowel sounds, Soft and benign, Non-distended, W/out hepatomegaly, No ascites Musculoskeletal: No clubbing, No swelling, No contractures, No erythema, No tenderness, No warmth Integumentary: No rashes, No breakdown, No significant lesion, No tenderness/swelling, No erythema, No warmth, No cyanosis Neurological: Normal gait, Normal speech, Normal strength at 5/5 x4 extr, Normal tone, Sensation intact, Cranial nerves 3-12 intact, Normal reflexes 2+, Normal affect Lymphatics: No axilla or inguinal lymphadenopathy - Studies Laboratory Data (last 24 hrs) 12/22/24 12/22/24 12/22/24 20:15 20:15 20:15 WBC 11.40 H Hgb 15.8 Hct 46.7 Plt Count 354 PT 14.4 H INR 1.28 APTT 34.4 Sodium Potassium BUN Creatinine Glucose Magnesium Total Bilirubin AST ALT Alkaline Phosphatase 12/22/24 20:15 WBC Hgb Hct Plt Count PT INR APTT Sodium 135 L Potassium 3.4 L BUN 10 Creatinine 1.03 Glucose 122 H Magnesium 1.9 Total Bilirubin 1.1 H AST 46 H ALT 52 Alkaline Phosphatase 72 - Studies Laboratory Data (last 24 hrs) 12/22/24 12/22/24 12/22/24 20:15 20:15 20:15 WBC 11.40 H Hgb 15.8 Hct 46.7 Plt Count 354 PT 14.4 H INR 1.28 APTT 34.4 Sodium Potassium BUN Creatinine Glucose Magnesium Total Bilirubin AST ALT Alkaline Phosphatase 12/22/24 20:15 WBC Hgb Hct Plt Count PT INR APTT Sodium 135 L Potassium 3.4 L BUN 10 Creatinine 1.03 Glucose 122 H Magnesium 1.9 Total Bilirubin 1.1 H AST 46 H ALT 52 Alkaline Phosphatase 72 Assessment and Plan - Plan Patient admitted inpatient with diagnosis of new onset CHF, new onset A-fib with RVR, and elevated troponin. 12/24 - Continue Lasix - Troponin leak. Continue to monitor - Echocardiogram pending - Heparin drip discontinued - Continue midodrine for soft pressure (1)New onset CHF questionable, new onset A-fib with RVR, and elevated troponin. -Daily weight. -Order echo. -Consult ruby developer. -Ordered metoprolol 25 mg p.o. twice daily. -Oxygen 3 L, titrate to maintain O2 saturation above 93%. -Aspirin 81 mg daily. -Serial troponin every 8 x 3. (2)Chronic sleep apnea. -Order CPAP at bedtime. Resume home medication Discharge Plan: Home Plan to discharge in: Greater than 2 days - Advance Directives Does patient have a Living Will: No Does patient have a Durable POA for Healthcare: No - Code Status/Comfort Care Code Status Assessed: Yes Code Status: Full Code Critical Care: No
[2024-12-24] MEDS: POTASSIUM CL SA 10 MEQ TAB PO ONE (20:57)
[2024-12-25] MEDS ORDERED: MORPHINE 2 MG/ML SYR IV PRN (04:03)
[2024-12-25] MEDS: HYDROCODONE/APAP 5/325 MG TAB PO PRN (04:38)
[2024-12-25 05:30] LABS: Absolute Lymphocytes (CBC) 3.4 K/uL (0.7-4.9); Hematocrit 46.5 % (39.6-49.0); Hemoglobin 15.7 g/dL (13.6-17.9); MCH 30.7 pg (27.0-35.0); MCHC 33.8 g/dL (32.0-36.0); MCV 90.9 fL (80-100); MPV 8.9 fL (7.6-11.3); Nucleated RBC Absolute Count 0.0 (0-0); Nucleated Red Blood Cells % 0.1 % (0-0); RBC Red Blood Cell Count 5.12 M/uL (4.33-5.43); White Blood Count 12.20 thou/uL (4.3-10.9)
[2024-12-25 05:58] LABS: ALT/SGPT 52.0 U/L (16-61); AST/SGOT 44.0 U/L (15-37); Albumin 3.0 g/dL (3.4-5.0); Albumin/Globulin Ratio 0.8 (1.1-1.8); Alkaline Phosphatase 68.0 U/L (45-117); Anion Gap 7.1 mEq/L (5.0-15.0); BUN Blood Urea Nitrogen 16.0 mg/dL (7-18); C-Reactive Protein 4.77 mg/L (<3.00); Globulin 3.7 g/dL (2.3-3.5); Glucose Level 136.0 mg/dL (74-106); Magnesium 2.2 mg/dL (1.6-2.4); NT PRO-BNP 4530.0 pg/mL (<125); Potassium 4.1 mEq/L (3.5-5.1)
--- NOTE | 2024-12-25 11:35 | P.PN ---
Subjective Date of Service: 12/25/24 Chief Complaint: New onset CHF, New onset Afib with RVR. Subjective: No new changes, No C/O voiced, Tolerating diet, Ambulating, Improving Review of Systems 10-point ROS is otherwise unremarkable Physical Examination - Vital Signs Temperature: 98.1 F Blood Pressure: 110/71 Pulse: 88 Respirations: 16 Pulse Ox (%): 98 - Physical Exam General: Alert, In no apparent distress HEENT: Atraumatic, PERRLA, EOMI Neck: Supple, JVD not distended Respiratory: Clear to auscultation bilaterally, Normal air movement Cardiovascular: Regular rate/rhythm, Normal S1 S2 Gastrointestinal: Normal bowel sounds, No tenderness Musculoskeletal: No tenderness Integumentary: No rashes Neurological: Normal speech, Normal tone, Normal affect Lymphatics: No axilla or inguinal lymphadenopathy - Studies Medications List Reviewed: Yes Assessment And Plan - Current Problems (Diagnosis) (1) Hypotension Current Visit: Yes Status: Acute Plan: continue to monitor (2) Elevated troponin Current Visit: Yes Status: Acute Plan: mild leak with no significant delta. ASA 81 mg daily Lipitor 40 mg daily Echo show reduced LV systolic function NPO for coronary angiogram in am (3) Acute combined systolic and diastolic heart failure Current Visit: Yes Status: Acute Plan: Patient echo show reduced LV systolic function with global hypokinesis NPO after midnight for coronary angiogram in am switch lopressor to Coreg 12.5 mg po BID Add Losartan 25 mg daily add aldactone 25 mg daily continue IV lasix for now then switch to lasix 40 mg daily
--- NOTE | 2024-12-25 14:18 | P.PN ---
Subjective Date of Service: 12/25/24 Chief Complaint: New onset CHF, New onset Afib with RVR. Subjective: No chest pain. shortness of breath improving. No nausea or vomiting. No abdominal pain. No obvious bleeding. Looks comfortable in the bed. Objective: General appearance: Alert and comfortable CVS: Normal S1 and S2 Lungs: Clear to auscultation bilaterally Abdomen: Soft, bowel sounds present, no tenderness Extremities: Mild b/l lower extremity edema Physical Examination - Vital Signs Temperature: 97.6 F Blood Pressure: 99/56 Pulse: 69 Respirations: 16 Pulse Ox (%): 95 - Studies Medications List Reviewed: Yes Assessment And Plan - Plan (1)New onset CHF - echo low EF per cardiology. -Consulted tea tree farmer, appreciate recommendations. -Ordered metoprolol 25 mg p.o. twice daily. -Wean off oxygen -Aspirin 81 mg daily. -Plan for cardiac cath tomorrow (2)Chronic sleep apnea. -Order CPAP I did discuss all of the above plan with the patient and family at bedside, discussed with nursing staff.
[2024-12-25] MEDS: ACETAMIN/CAFFEINE/BUTALB TAB PO ONE (20:22)
[2024-12-25] MEDS: ATORVASTATIN 40 MG TAB PO SCH (20:23)
[2024-12-26 04:56] VITALS: BMI 31.4
[2024-12-26] MEDS: NA CHLORIDE 0.9% 500 ML ONE ×2 (07:21→13:25)
[2024-12-26] MEDS: FENTANYL CITR 100 MCG/2 ML ONE ×2 (08:59→11:48)
[2024-12-26] MEDS: MIDAZOLAM HCL 2 MG/2 ML INJ ONE (08:59)
[2024-12-26] MEDS ORDERED: HEPARIN 10,000 UNIT/10 ML VIAL IV ONE (09:03)
[2024-12-26] MEDS ORDERED: HEPA 1000U/500MLS 2,000 UNIT/1,000 ML BAG IV ONE (09:03)
[2024-12-26] MEDS ORDERED: LIDOCAINE 1% 20 ML MDV ONE (09:03)
[2024-12-26] MEDS ORDERED: ATROPINE SULF 1 MG/10 ML SYR IV ONE (09:03)
[2024-12-26] MEDS ORDERED: HEPARIN 5000 UNIT/ML 1 ML VIAL ONE (09:03)
[2024-12-26] MEDS ORDERED: LORazepam 2 MG/ML VIAL ONE (10:46)
[2024-12-26] MEDS: DIAZEPAM 10 MG/2 ML INJ SYRINGE ONE (11:28)
[2024-12-26] MEDS: DEXMEDETOMIDINE HCL 200 MCG/2 ML VIAL ONE (11:44)
[2024-12-26] MEDS: NA CHLORIDE 0.9% 100 ML ONE (11:45)
[2024-12-26] MEDS ORDERED: DEXMEDETOMIDINE HCL 200 MCG in NA CHLORIDE 0.9% 98 ML IV SCH (12:00)
--- NOTE | 2024-12-26 12:22 | P.PN ---
Subjective Date of Service: 12/26/24 Chief Complaint: New onset CHF, New onset Afib with RVR. Subjective: No new changes, No C/O voiced, Tolerating diet, Ambulating, Improving Review of Systems 10-point ROS is otherwise unremarkable Physical Examination - Vital Signs Temperature: 97.4 F Blood Pressure: 118/76 Pulse: 88 Respirations: 20 Pulse Ox (%): 95 - Physical Exam General: Alert, In no apparent distress HEENT: Atraumatic, PERRLA, EOMI Neck: Supple, JVD not distended Respiratory: Clear to auscultation bilaterally, Normal air movement Cardiovascular: Regular rate/rhythm, Normal S1 S2 Gastrointestinal: Normal bowel sounds, No tenderness Musculoskeletal: No tenderness Integumentary: No rashes Neurological: Normal speech, Normal tone, Normal affect Lymphatics: No axilla or inguinal lymphadenopathy - Studies Medications List Reviewed: Yes Assessment And Plan - Current Problems (Diagnosis) (1) Hypotension Current Visit: Yes Status: Acute Plan: continue to monitor (2) Elevated troponin Current Visit: Yes Status: Acute Plan: mild leak with no significant delta. ASA 81 mg daily Lipitor 40 mg daily Echo show reduced LV systolic function Coronary angiogram shown mild CAD (3) Acute combined systolic and diastolic heart failure Current Visit: Yes Status: Acute Plan: Patient echo show reduced LV systolic function with global hypokinesis Coronary angiogram show mild CAD continue lopressor Add Losartan 25 mg daily add aldactone 25 mg daily switch to lasix 40 mg daily
[2024-12-26] MEDS: Phenylephrine HCl 10 MG/ML 1 ML VIAL ONE (13:07)
[2024-12-26] MEDS: NOREPINEPHRINE 4 MG/4 ML VIAL ONE (13:20)
[2024-12-26 14:27] LABS: Absolute Lymphocytes (CBC) 1.5 K/uL (0.7-4.9); Hematocrit 42.2 % (39.6-49.0); Hemoglobin 14.2 g/dL (13.6-17.9); MCH 30.7 pg (27.0-35.0); MCHC 33.6 g/dL (32.0-36.0); MCV 91.3 fL (80-100); MPV 8.7 fL (7.6-11.3); Nucleated RBC Absolute Count 0.0 (0-0); Nucleated Red Blood Cells % 0.1 % (0-0); RBC Red Blood Cell Count 4.62 M/uL (4.33-5.43); White Blood Count 8.00 thou/uL (4.3-10.9)
[2024-12-26] MEDS: FENTANYL CITR 100 MCG/2 ML IV ONE (14:30)
[2024-12-26 14:42] LABS: ALT/SGPT 50.0 U/L (16-61); AST/SGOT 42.0 U/L (15-37); Albumin 2.7 g/dL (3.4-5.0); Albumin/Globulin Ratio 0.8 (1.1-1.8); Alkaline Phosphatase 59.0 U/L (45-117); Anion Gap 6.3 mEq/L (5.0-15.0); BUN Blood Urea Nitrogen 19.0 mg/dL (7-18); C-Reactive Protein 8.71 mg/L (<3.00); Globulin 3.3 g/dL (2.3-3.5); Glucose Level 94.0 mg/dL (74-106); Magnesium 2.0 mg/dL (1.6-2.4); NT PRO-BNP 3218.0 pg/mL (<125); Potassium 4.3 mEq/L (3.5-5.1)
[2024-12-26] MEDS: DEXMEDETOMIDINE HCL 1,000 MCG in NA CHLORIDE 0.9% 490 ML IV SCH (18:42)
[2024-12-26] MEDS: NOREPINEPHRINE BITARTRATE/D5W 4 MG/250 ML BAG IV SCH (19:35)
--- NOTE | 2024-12-26 23:39 | OP ---
Date of Procedure: 12/26/2024 Surgeon: Jaswinder Escalante Procedure Performed: Selective coronary angiogram. Indication For Procedure: heart failure with mild leak of troponin. Complications: None. Estimated Blood Loss: Less than 50 cc. Access: Right radial, closed by TR band. Sedation Time: 20 minutes with 1 of Versed and 25 fentanyl. Description Of Procedure: After risks, benefits, and alternatives were explained to the patient, the patient agreed to proceed with procedure and signed informed consent. The patient was brought back to the forestry farm laborer, prepped and draped in sterile fashion. Time-out was performed. Sedation was admini stered. Next, right radial access obtained using ultrasound-guided micropuncture technique. [place] 4 catheter was advanced over a J-wire to the aortic root. Selective angiogram was done using same cat heter. At the end of procedure, catheter was removed over a J-wire. Sheath was removed. TR band wa s applied. Hemostasis was achieved. The patient was moved back to Recovery in stable condition. Findings: 1. Left main normal. 2. LAD, diffuse mild luminal irregularities with proximal 30% disease, then mild luminal irregulariti es. 3. Left circ, mild luminal irregularities, gives an OM2 that got a proximal 30% disease, then mild kathleen cyndy irregularities. 4. RCA, dominant mid 30% to 40% disease, then mild luminal irregularities. Assessment And Plan: 1. Mild nonobstructive coronary artery disease. 2. Nonischemic cardiomyopathy. 3. Continue aggressive medical treatment for heart failure. ROMEL/KATELYN Voice ID: [id number] Report ID: [id number]
[2024-12-27] MEDS: ALBUMIN HUMAN 25% 100 ML IV ONE (02:39)
--- NOTE | 2024-12-27 02:42 | P.PN ---
Date of Service: 12/26/24 Subjective Patient was status postcardiac catheterization and developed confusion after the cardiac catheterization. Patient was obtunded and not really listening to anything we asked him. There was concern for alcohol withdrawal but patient has not had anything to drink in over 10 years. Patient did receive Versed and fentanyl prior to the cardiac catheterization for sedation. Patient required Precedex to make himself relax. Patient did develop some hypotension and was started on Levophed. Physical Examination - Vital Signs Reviewed - Objective General appearance: Confused and disoriented CVS: Tachycardic with no murmurs Lungs: Diminished breath sounds with tachypnea Abdomen: Soft, bowel sounds present, no tenderness Extremities: Mild b/l lower extremity edema Neuro:Moves all extremities; agitated and combative Assessment And Plan - Plan (1) Heart failure with reduced ejection fraction; patient with myocardial infarction nonobstructive coronary arteries-[place]; Patient ejection fraction was 15 to 20%. Patient will benefit from evaluation for defibrillator. Patient will also start on Entresto if his blood pressure will tolerate it. Will continue with Aldactone and Lasix. Metoprolol for rate control. O2 as tolerated. Currently on Levophed. Concern for cardiogenic shock. Patient will be monitored in the ICU for closer treatment plan. -echo low EF per cardiology. -Appreciate cardiology recommendations -Ordered metoprolol 25 mg p.o. twice daily. -Wean off oxygen -Aspirin 81 mg daily. -Cardiac cath with nonobstructive coronary arteries (2) Chronic sleep apnea; order CPAP (3) History of alcohol abuse;Most likely explains patient's cardiomyopathy. Will continue monitoring closely. Critical care time spent on patient care was 60 minutes I did discuss all of the above plan with the patient and family at bedside, discussed with nursing staff.
[2024-12-27] MEDS: MIDODRINE HCL 5 MG TABLET PO SCH (05:52)
[2024-12-27] MEDS: HYDROCORTISONE SUC 100 MG INJ IV SCH (05:53)
[2024-12-27] MEDS ORDERED: ASPIRIN PO PRN (06:47)
[2024-12-27] MEDS ORDERED: CAFFEINE PO PRN (06:47)
[2024-12-27] MEDS ORDERED: ACETAMINOPHEN PO PRN (06:47)
[2024-12-27 08:30] LABS: Absolute Lymphocytes (CBC) 1.5 K/uL (0.7-4.9); Hematocrit 40.2 % (39.6-49.0); Hemoglobin 13.6 g/dL (13.6-17.9); MCH 30.9 pg (27.0-35.0); MCHC 33.8 g/dL (32.0-36.0); MCV 91.5 fL (80-100); MPV 9.6 fL (7.6-11.3); Nucleated RBC Absolute Count 0.0 (0-0); Nucleated Red Blood Cells % 0.1 % (0-0); RBC Red Blood Cell Count 4.39 M/uL (4.33-5.43); White Blood Count 6.80 thou/uL (4.3-10.9)
[2024-12-27 08:48] LABS: Magnesium 2.1 mg/dL (1.6-2.4); Troponin High Sensitivity 39.6 pg/mL (<58.9)
--- NOTE | 2024-12-27 08:49 | P.PN ---
Subjective Date of Service: 12/27/24 Chief Complaint: New onset CHF, New onset Afib with RVR. Subjective: No new changes, No C/O voiced, Tolerating diet, Improving, Other (patient got altered and agitated after coronary angiogram yesterday, better today) Review of Systems 10-point ROS is otherwise unremarkable Physical Examination - Vital Signs Temperature: 96.8 F Blood Pressure: 108/75 Pulse: 73 Respirations: 19 Pulse Ox (%): 100 - Physical Exam General: Alert, In no apparent distress HEENT: Atraumatic, PERRLA, EOMI Neck: Supple, JVD not distended Respiratory: Clear to auscultation bilaterally, Normal air movement Cardiovascular: Regular rate/rhythm, Normal S1 S2 Gastrointestinal: Normal bowel sounds, No tenderness Musculoskeletal: No tenderness Integumentary: No rashes Neurological: Normal speech, Normal tone, Normal affect Lymphatics: No axilla or inguinal lymphadenopathy - Studies Medications List Reviewed: Yes Assessment And Plan - Current Problems (Diagnosis) (1) Hypotension Current Visit: Yes Status: Acute Plan: continue to monitor (2) Elevated troponin Current Visit: Yes Status: Acute Plan: mild leak with no significant delta. ASA 81 mg daily Lipitor 40 mg daily Echo show reduced LV systolic function Coronary angiogram shown mild CAD (3) Acute combined systolic and diastolic heart failure Current Visit: Yes Status: Acute Plan: Patient echo show reduced LV systolic function with global hypokinesis Coronary angiogram show mild CAD continue lopressor Add Losartan 25 mg daily add aldactone 25 mg daily switch to lasix 40 mg daily
[2024-12-27] MEDS ORDERED: ASPIRIN EC 81 MG TAB PO SCH (09:00)
[2024-12-27 09:02] LABS: ALT/SGPT 45.0 U/L (16-61); AST/SGOT 36.0 U/L (15-37); Albumin 2.8 g/dL (3.4-5.0); Albumin/Globulin Ratio 0.8 (1.1-1.8); Alkaline Phosphatase 54.0 U/L (45-117); Anion Gap 10.5 mEq/L (5.0-15.0); BUN Blood Urea Nitrogen 22.0 mg/dL (7-18); C-Reactive Protein 10.6 mg/L (<3.00); Globulin 3.3 g/dL (2.3-3.5); Glucose Level 111.0 mg/dL (74-106); Magnesium 2.1 mg/dL (1.6-2.4); NT PRO-BNP 1691.0 pg/mL (<125); Potassium 4.5 mEq/L (3.5-5.1)
--- NOTE | 2024-12-27 09:03 | P.PN ---
Subjective Date of Service: 12/27/24 Chief Complaint: New onset CHF, New onset Afib with RVR. Subjective: Improving (Patient is doing well. Status postcardiac cath yesterday which revealed mild nonobstructive coronary artery disease.) Physical Examination - Vital Signs Temperature: 96.8 F Blood Pressure: 108/75 Pulse: 73 Respirations: 19 Pulse Ox (%): 100 - Physical Exam General: In no apparent distress, Cooperative, Obese HEENT: Atraumatic, Normocephalic Respiratory: Clear to auscultation bilaterally, Normal air movement Cardiovascular: No edema, Normal pulses, Regular rate/rhythm, Normal S1 S2 Neurological: Normal speech - Studies Medications List Reviewed: Yes Assessment And Plan - Plan Assessment Patient is a 64-year-old male who presented to the hospital with shortness of breath and new onset atrial fibrillation and CHF. He had elevated troponin and heart rate. He eventually underwent cardiac cath on 12/26 which revealed mild nonobstructive coronary artery disease and nonischemic cardiomyopathy. His ejection fraction is 15 to 20%. He also has grade 2 diastolic dysfunction. Patient is in the ICU after he became hypotensive postoperatively and required Levophed. He has been weaned off Levophed, currently on midodrine. He is also tolerating metoprolol and Lasix. New onset CHF New onset atrial fibrillation Acute hypoxemic respiratory failure Elevated troponin Obesity Plan: Patient still has borderline blood pressure making it difficult for goal- directed medical therapy, from a CHF standpoint, he is only on metoprolol and Lasix. Ideally will require spironolactone and Entresto Continue rate control medications Patient will also benefit from systemic anticoagulation for CVA prevention in the setting of atrial fibrillation He is now off Levophed Blood pressure holding up while on midodrine, metoprolol and Lasix Transfer out of the ICU if hemodynamically stable Wean off O2 as tolerated
[2024-12-27] MEDS: FENTANYL CITR 100 MCG/2 ML IV PRN (21:45)
[2024-12-28] MEDS: HYDROCODONE/APAP 5/325 MG TAB PO ONE (00:10)
[2024-12-28 07:43] LABS: Absolute Lymphocytes (CBC) 2.5 K/uL (0.7-4.9); Hematocrit 41.1 % (39.6-49.0); Hemoglobin 14.1 g/dL (13.6-17.9); MCH 31.2 pg (27.0-35.0); MCHC 34.3 g/dL (32.0-36.0); MCV 91.2 fL (80-100); MPV 8.4 fL (7.6-11.3); Nucleated RBC Absolute Count 0.0 (0-0); Nucleated Red Blood Cells % 0.1 % (0-0); RBC Red Blood Cell Count 4.51 M/uL (4.33-5.43); White Blood Count 10.00 thou/uL (4.3-10.9)
[2024-12-28 08:03] LABS: Anion Gap 7.5 mEq/L (5.0-15.0); BUN Blood Urea Nitrogen 17.0 mg/dL (7-18); Glucose Level 119.0 mg/dL (74-106)
[2024-12-28 08:05] LABS: Magnesium 2.0 mg/dL (1.6-2.4); Potassium 4.5 mEq/L (3.5-5.1)
[2024-12-28] MEDS: FUROSEMIDE 40 MG TABLET PO SCH (09:00)
[2024-12-28] MEDS: SPIRONOLACTONE 25 MG TABLET PO SCH (09:00)
[2024-12-28] MEDS: LOSARTAN POTASSIUM 50 MG TABLET PO SCH (09:01)
--- NOTE | 2024-12-28 12:35 | P.PN ---
Subjective Date of Service: 12/28/24 Chief Complaint: New onset CHF, New onset Afib with RVR. Subjective: Other (Code stroke called after patient developed left sided numbness. He is status post coronary angiogram [address] head ordered) Physical Examination - Vital Signs Temperature: 98.2 F Blood Pressure: 119/70 Pulse: 91 Respirations: 16 Pulse Ox (%): 98 - Physical Exam General: In no apparent distress, Cooperative HEENT: Atraumatic, Normocephalic Respiratory: Clear to auscultation bilaterally, Normal air movement Cardiovascular: No edema, Normal pulses, Regular rate/rhythm, Normal S1 S2 Gastrointestinal: Soft and benign, Non-distended Neurological: Normal speech - Studies Medications List Reviewed: Yes Assessment And Plan - Plan Assessment Patient is a 64-year-old male who presented to the hospital with shortness of breath and new onset atrial fibrillation and CHF. He had elevated troponin and heart rate. He eventually underwent cardiac cath on 12/26 which revealed mild nonobstructive coronary artery disease and nonischemic cardiomyopathy. His ejection fraction is 15 to 20%. He also has grade 2 diastolic dysfunction. Patient is in the ICU after he became hypotensive postoperatively and required Levophed. He has been weaned off Levophed, currently on midodrine. He is also tolerating metoprolol and Lasix. Lisinopril and spironolactone added on 12/28. CODE stroke called around noon on 12/28 after patient developed left numbness. His symptoms actually started the day before. His blood pressure was 139/89 Left sided numbness New onset CHFacute systolic CHF New onset atrial fibrillation Acute hypoxemic respiratory failure Elevated troponin Mild nonobstructive coronary disease as per cardiac cath Obesity Plan: CODE STROKE called I highly doubt this is due to drastic blood pressure drop Follow CT head to rule out CVA Continue rate control medications Patient will also benefit from systemic anticoagulation for CVA prevention in the setting of atrial fibrillation Patient will be monitored for at least 1 day pending above workup He did well on ambulatory O2 test. He will not require home oxygen
[2024-12-28 12:38] LABS: Absolute Lymphocytes (CBC) 3.0 K/uL (0.7-4.9); Hematocrit 42.4 % (39.6-49.0); Hemoglobin 13.9 g/dL (13.6-17.9); MCH 30.1 pg (27.0-35.0); MCHC 32.7 g/dL (32.0-36.0); MCV 92.0 fL (80-100); MPV 8.8 fL (7.6-11.3); Nucleated RBC Absolute Count 0.0 (0-0); Nucleated Red Blood Cells % 0.0 % (0-0); RBC Red Blood Cell Count 4.61 M/uL (4.33-5.43); White Blood Count 11.10 thou/uL (4.3-10.9)
[2024-12-28 12:47] LABS: Anion Gap 9.2 mEq/L (5.0-15.0); BUN Blood Urea Nitrogen 17.0 mg/dL (7-18); Glucose Level 117.0 mg/dL (74-106); PT Prothrombin Time 12.7 SECONDS (10-13.0); Potassium 4.2 mEq/L (3.5-5.1); Protime INR 1.13
[2024-12-28 12:48] LABS: PTT, Activated Partial Thromb 33.6 SECONDS (27.2-37.4)
--- NOTE | 2024-12-28 12:52 | RAD REPORT ---
EXAMINATION: Ct Stroke Brain Wo Cont CLINICAL INDICATION: Male, 64 years old.STROKE ALERT TECHNIQUE: Axial CT images from the skull base to the vertex without intravenous contrast. Coronal an d sagittal reformatted images were created from the data set. One or more of the following dose reduction techniques were used: Automated exposure control, adjustment of the mA and/or kV according to patient size, and/or iterative reconstruction. Unless otherwise specified, incidental findings do not require dedicated imaging follow-up. [id number]. COMPARISON: 09/29/20 FINDINGS: INTRACRANIAL: No acute intracranial hemorrhage. No acute large vascular territory infarct. No hydro cephalus. No mass effect or midline shift. Moderate chronic small vessel ischemic changes. Mild cerebral atrophy. VASCULATURE: No visualized abnormalities in the arteries or dural venous sinuses. SCALP/SKULL: No calvarial fracture identified. No acute soft tissue abnormality. SINUSES: The visualized paranasal sinuses are mostly clear. No significant mastoid fluid. IMPRESSION: No acute intracranial abnormality. The findings were communicated to Dr. Nicole on 12/28/2024 12:47 PM.
--- NOTE | 2024-12-28 13:10 | RAD REPORT ---
EXAMINATION: Neck Angio CLINICAL INDICATION: Male, 64 years old. R/O CVA TECHNIQUE: Axial CT images were obtained from the aortic arch to the skull base after intravenous con trast utilizing angiographic protocol with 3D post-processing (maximum intensity projection images, volume rendered images and/or shaded surface rendered images). One or more of the following dose redu ction techniques were used: Automated exposure control, adjustment of the mA and/or kV according to patient size, and/or iterative reconstruction. Unless otherwise specified, incidental findings do not require dedicated imaging follow-up. [id number]. NASCET criteria used. Mild 0-49% stenosis Moderate 50-69% stenosis Severe 70-99% stenosis COMPARISON: No prior exam. FINDINGS: AORTA: Normal RIGHT: - CCA: No flow limiting stenosis (>= 50%). No dissection. - ICA: No flow limiting stenosis (>= 50%). No dissection. - ECA: No flow limiting stenosis (>= 50%). No dissection. LEFT: - CCA: No flow limiting stenosis (>= 50%). No dissection. - ICA: No flow limiting stenosis (>= 50%). No dissection. - ECA: No flow limiting stenosis (>= 50%). No dissection. VERTEBRAL: Severe appearing stenosis at the origin of the bilateral vertebral arteries. Both are robu stly enhancing. SOFT TISSUE: No significant neck soft tissue abnormalities. The visualized lung apices are clear. 3D images confirm these findings. IMPRESSION: Widely patent bilateral carotid systems. Severe stenoses versus artifact at the origin of the vertebral arteries though both vessels beyond th e origin appear to be well opacified.
--- NOTE | 2024-12-28 13:13 | RAD REPORT ---
EXAMINATION: Head angio CLINICAL INDICATION: Male, 64 years old. R/O CVA TECHNIQUE: Axial CT images were obtained through the head after intravenous contrast utilizing angiog raphic protocol with 3D post-processing (maximum intensity projection images, volume rendered images and/or shaded surface rendered images). One or more of the following dose reduction technique s were used: Automated exposure control, adjustment of the mA and/or kV according to patient size, and/or iterative reconstruction. Unless otherwise specified, incidental findings do not require dedic ated imaging follow-up. COMPARISON: No prior exam. FINDINGS: RIGHT: ICA: No aneurysm, stenosis, or occlusion. JOHNATHAN: No aneurysm, stenosis, or occlusion. MCA: No aneurysm, stenosis, or occlusion. EMERGENCY DEPARTMENT TECHNICIAN: No aneurysm, stenosis, or occlusion. LEFT: ICA: No aneurysm, stenosis, or occlusion. JOHNATHAN: No aneurysm, stenosis, or occlusion. MCA: No aneurysm, stenosis, or occlusion. EMERGENCY DEPARTMENT TECHNICIAN: No aneurysm, stenosis, or occlusion. Vertebrobasilar: The vertebral arteries are patent. The basilar artery is normal in appearance. 3D images confirm these findings. IMPRESSION: No occlusion, aneurysm, or hemodynamically significant stenosis identified.
--- NOTE | 2024-12-28 13:17 | RAD REPORT ---
EXAM: Chest Single View HISTORY: 64 years Male Stroke Protocol COMPARISON: 12/22/2024 FINDINGS: LUNGS/PLEURA: Increased vascular prominence compared with 12/22/2024. CARDIAC/MEDIASTINUM: Mild cardiomegaly UPPER ABDOMEN: No significant abnormality. BONES: No acute abnormality. LINES/TUBES/OTHER: N/A IMPRESSION: Increased vascular congestion and possibly mild interstitial edema.
[2024-12-28] MEDS: ACETAMIN/CAFFEINE/BUTALB TAB PO ONE (20:42)
[2024-12-29 12:05] VITALS: BP 111/60; TEMP 98.2
[2024-12-29 12:39] VITALS: O2SAT 92
[2024-12-29] MEDS: METOPROLOL TAR 25 MG TAB PO SCH (14:06)
[2024-12-29] MEDS ORDERED: APIXABAN 5 MG TABLET PO SCH (21:00)
== END 2024-12-29 17:59 | disposition home or self-care (01) | DRG 280 ==
LOC: ER 19:28 → ERHOLD 12-23 01:26 → 2ND 12-23 03:32 → 3RD-ICU 12-26 16:27 → 4TH 12-27 14:29
PROVIDERS: ADMIT Hospitalist; ATTEND Hospitalist
PROC: 5A09457 Assistance with Respiratory Ventilation, 24-96 Consecutive Hours, Continuous Positive Airway Pressure (ICD-10-PCS; 2024-12-23)
PROC: 4A023N7 Measurement of Cardiac Sampling and Pressure, Left Heart, Percutaneous Approach (ICD-10-PCS; principal; 2024-12-26)
PROC: B2111ZZ Fluoroscopy of Multiple Coronary Arteries using Low Osmolar Contrast (ICD-10-PCS; 2024-12-26)
PROC: 3E033XZ Introduction of Vasopressor into Peripheral Vein, Percutaneous Approach (ICD-10-PCS; 2024-12-26)
DX: I11.0 Hypertensive heart disease with heart failure (principal); I50.41 Acute combined systolic (congestive) and diastolic (congestive) heart failure; I21.B Myocardial infarction with coronary microvascular dysfunction; J96.01 Acute respiratory failure with hypoxia; I42.8 Other cardiomyopathies; G47.39 Other sleep apnea; I95.9 Hypotension, unspecified; I48.91 Unspecified atrial fibrillation; I95.81 Postprocedural hypotension; I25.10 Atherosclerotic heart disease of native coronary artery without angina pectoris; Z79.82 Long term (current) use of aspirin; Z90.49 Acquired absence of other specified parts of digestive tract; Z87.891 Personal history of nicotine dependence; Z79.899 Other long term (current) drug therapy
CPT/HCPCS: 36415; 70450; 70496; 70498; 71045; 76937; 80048; 80053; 80076; 82550; 82947; 83735; 83880; 84100; 84484; 85025; 85610; 85730; 86140; 93005; 93306; 93454; 94660; 94760; 97161; 99152; 99285; C1893; J0461; J1644; J1720; J1938; J2003; J2250; J2371; J3010; J3360; J7040; P9047; Q9966; Q9967